=== PATIENT | female | born 1950 | race Caucasian/White ===

== ENCOUNTER 2016-04-17 05:46 | Inpatient (IN) | payer MEDICARE ==
[2016-04-17] VITALS (8 sets, daily range): BP systolic 93–122; BP diastolic 63–73
[~2016-04-17] VITALS: Ht 165.1 cm; Wt 45.7 kg
[~2016-04-17 05:46] MED LIST: BREO ELLIPTA 21 EACH IH; CLOT10TR PO; FLUT12AE IH; GABA-586 PO; LETR2.5T18 PO; LORA0.5T PO; NYST1000 PO; ONDA-35 PO; OXYC20TA PO; PROAIR HFA8.5 GM IH; TIOT18CA IH; TIOT4MIS2 IH; UMEC1DIS IH
[2016-04-17] MEDS ORDERED: HYDROCODONE/APAP 7.5/325MG TABLET. PO PRN ×2 (06:00→08:00)
[2016-04-17] MEDS ORDERED: CELECOXIB 200 MG CAPSULE PO PRN (06:00)
[2016-04-17] MEDS ORDERED: CEFAZOLIN 2GM PREMIX 50 ML IV PRN (06:00)
[2016-04-17] MEDS ORDERED: MORPHINE SULFATE 5 MG, KETOROLAC TROMETHAMINE 30 MG, ROPIVacaine 0.5% PF 60 ML, EPINEPH... INT ART ONE ×5 (06:00)
[2016-04-17] MEDS ORDERED: TRANEXAMIC ACID INJ ONE ×2 (06:00→08:00)
[2016-04-17] MEDS ORDERED: NS INJ ONE ×2 (06:00→08:00)
[2016-04-17] MEDS ORDERED: LIDOCAINE 1% 1 ML SYRINGE. ID PRN (07:00)
[2016-04-17] MEDS ORDERED: HYDROMORPHONE 2 MG/ML VIAL. IV PRN (07:00)
[2016-04-17] MEDS ORDERED: PROCHLORPERAZINE 10 MG/2 ML VIAL. IV PRN ×2 (07:00→08:00)
[2016-04-17] MEDS ORDERED: IV RINGERS,LACTATED 1000ML 1,000 ML IV SCH (07:00)
[2016-04-17] MEDS ORDERED: ONDANSETRON PF 4 MG/2 ML VIAL. IV PRN (07:00)
[2016-04-17] MEDS ORDERED: FENTANYL PF 100 MCG/2 ML VIAL. IV PRN ×3 (07:00→08:00)
[2016-04-17] MEDS ORDERED: LIDOCAINE 2% 100 MG/5 ML DISP.SYRIN. ONE ×2 (07:19)
[2016-04-17] MEDS ORDERED: DEXAMETHASONE SOD PHOS 20 MG/5 ML VIAL. ONE (07:19)
[2016-04-17] MEDS ORDERED: ROCURONIUM 50 MG/5 ML VIAL. ONE (07:19)
[2016-04-17] MEDS ORDERED: FAMOTIDINE 20 MG/2 ML VIAL ONE (07:19)
[2016-04-17] MEDS ORDERED: PROPOFOL 20 ML IV ONE (07:19)
[2016-04-17] MEDS ORDERED: FENTANYL PF 250 MCG/5 ML VIAL. ONE (07:20)
[2016-04-17 07:39] LABS: INR 1.2 (0.8-1.1); PROTHROMBIN TIME PATIENT 14.7 SEC (11.7-14.0)
[2016-04-17] MEDS ORDERED: TRAMADOL 50 MG TABLET. PO PRN ×2 (08:00)
[2016-04-17] MEDS ORDERED: CALCIUM CARBONATE 500 MG TAB.CHEW PO PRN (08:00)
[2016-04-17] MEDS ORDERED: ACETAMINOPHEN 325 MG TABLET. PO PRN (08:00)
[2016-04-17] MEDS ORDERED: OXYCODONE/APAP 5/325 TABLET. PO PRN (08:00)
[2016-04-17] MEDS ORDERED: DEXTROSE 50% 25 GM / 50ML DISP.SYRIN. IV PRN (08:00)
[2016-04-17] MEDS ORDERED: HYDROCODONE/APAP 10/325 TABLET. PO PRN (08:00)
[2016-04-17] MEDS ORDERED: DIPHENHYDRAMINE 50 MG/ML VIAL IV PRN (08:00)
[2016-04-17] MEDS ORDERED: MORPHINE SULFATE 4 MG/ML DISP.SYRIN. IV PRN (08:00)
[2016-04-17] MEDS ORDERED: 0.9 % SODIUM CHLORIDE 10 ML DISP.SYRIN. IV PRN (08:00)
[2016-04-17] MEDS ORDERED: MORPHINE SULFATE 2 MG/ML DISP.SYRIN. IV PRN (08:00)
[2016-04-17] MEDS ORDERED: MORPHINE SULFATE 10 MG/ML VIAL. IV PRN (08:00)
[2016-04-17] MEDS ORDERED: PHENYLEPHRINE in 0.9% NACL PF 1 MG/10 ML DISP.SYRIN. IV ONE (08:04)
[2016-04-17] MEDS ORDERED: SEVOFLURANE > 120 MINUTES. IH ONE (08:10)
--- NOTE | 2016-04-17 08:23 | HP ---
ADMIT DATE: 04/17/2016 PREOPERATIVE DIAGNOSIS: DJD of right hip and deafness. HISTORY OF PRESENT ILLNESS: The patient has a long history of right hip pain unresponsive to nonoperative treatment including medications used a cane, wheelchair, mainly felt in the right groin area with little radiation of pain, but is severely affecting her activities of daily living. She was previously examined in the clinic with a video pipe smoker machine operator and is examined today with the assistance of an pipe smoker machine operator present. PAST MEDICAL HISTORY: Significant for back pain and degenerative disk disease, calcific pancreatitis, breast cancer, and arthritis. PAST SURGICAL HISTORY: Significant for left shoulder surgery, right ankle surgery, gallbladder, appendectomy, cervical fusion, mastectomy, and . FAMILY HISTORY: Significant for mother of breast cancer and father of a stroke, both in their 70s. SOCIAL HISTORY: Former smoker, denies alcohol or drug use. He is . Her is present and is also deaf. MEDICATIONS: List is reviewed. ALLERGIES: Allergies or sensitivities at least include CELEBREX, which gives her some nausea. REVIEW OF SYSTEMS: The only new complaint she has is just some nausea recently. No chest pain, shortness of breath, fever, chills, constitutional symptoms or other problems. PHYSICAL EXAMINATION: VITAL SIGNS: Per admission sheet. HEENT: Atraumatic, normocephalic. CARDIOVASCULAR: Regular rate and rhythm. LUNGS: Clear to auscultation bilaterally. ABDOMEN: Benign. The patient is deaf as noted above. EXTREMITIES: Reveals a very thin patient with decreased range of motion of the right hip in all planes, leg lengths are clinically equal. She has pain on extremes of range of motion of the right hip. Minimal tenderness over the trochanteric bursa. Exam of the contralateral hip shows full flexion, extension, abduction, negative straight leg raise. No tenderness on palpation over the tenderness or bony structures or over the trochanteric bursa. She has normal motion, alignment and stability of bilateral knees and ankles, intact motor function, distal pulses, sensation, reflexes, skin in both lower extremities throughout. IMAGING: X-rays show severe degenerative joint changes of the right hip with [id number] degenerative change, no evidence of collapse or other bony deformity. ASSESSMENT: 1. Osteoarthritis, right hip. 2. History of breast cancer. 3. Deafness. TREATMENT PLAN: I had previously talked with her about risks, benefits, postoperative course of total hip arthroplasty, plan on an anterior approach to decreased any instability. We still talked about the fact of possible infection, nerve or blood vessel damage, leg length inequality, medical or other anesthetic complications, continued pain, premature wear or loosening, instability, among other issues. All her questions were answered again previously with the assistance of video pipe smoker machine operator and now of the pipe smoker machine operator in person and she agrees to proceed with operative evaluation and treatment, after informed consent was obtained. Joint center admission to follow surgical intervention today. RUDY YANEZ MD DR: MISHEL/sushil JOB#: [id number] / [id number]
[2016-04-17] MEDS ORDERED: NEOSTIGMINE METHYLSULFATE 5 MG/5 ML SYRINGE. ONE (09:44)
[2016-04-17] MEDS ORDERED: GLYCOPYRROLATE 1 MG/5 ML VIAL. ONE (09:44)
--- NOTE | 2016-04-17 10:20 | PDOC ---
BRIEF OPERATIVE NOTE Date: Apr 17, 2016 Pre-Op Diagnosis djd right hip Post-Op Diagnosis same Procedure Performed right total hip arthroplasty Surgeon Shad Anesthesia Type: General Blood Loss 100cc Specimens Obtained femoral head to pathology Findings above Complications none RUDY YANEZ MD Apr 17, 2016 10:20
[2016-04-17] MEDS: MORPHINE SULFATE 2 MG/ML DISP.SYRIN. IV PRN ×2 (10:33→10:43)
[2016-04-17] MEDS: FENTANYL PF 100 MCG/2 ML VIAL. IV PRN ×2 (10:51→11:06)
[2016-04-17] MEDS ORDERED: LORAZEPAM 0.5 MG TABLET. PO PRN (11:15)
[2016-04-17] MEDS ORDERED: NON FORMULARY ITEM (Albuterol Sulfate (Proair Hfa Inhaler) 2 PUFF) IH PRN (11:15)
--- NOTE | 2016-04-17 11:37 | RAD ---
EXAM: Pelvis and right hip, 3 views. HISTORY: Arthroplasty. COMPARISON: None. FINDINGS: A frontal view of the pelvis and frontal and lateral views of the right hip are obtained. There is a right hip arthroplasty in expected position. There is surrounding soft tissue gas and lateral skin shahrzad due to recent surgery. There are prominent air-filled loops of bowel throughout the abdomen and multiple bowel anastomoses. There is bone demineralization. IMPRESSION: Right hip arthroplasty in expected position with surrounding soft tissue change due to recent surgery.
[2016-04-17] MEDS: KETOROLAC TROMETHAMINE 10 MG TABLET PO SCH ×2 (12:00→17:05)
[2016-04-17] MEDS ORDERED: ALBUTEROL SULFATE 2.5 MG/3 ML NEBU. NEB PRN (12:30)
[2016-04-17] MEDS ORDERED: ONDANSETRON ODT 4 MG TAB.RAPDIS PO PRN (12:30)
[2016-04-17] MEDS: IV DEXTROSE 5 %-0.45 % NACL 1,000 ML IV SCH ×2 (13:00→23:00)
[2016-04-17] MEDS: CEFAZOLIN SODIUM 1 GM in IV NORMAL SALINE 50ML 50 ML IV SCH ×2 (14:40→20:30)
[2016-04-17] MEDS: MORPHINE SULFATE 4 MG/ML DISP.SYRIN. IV PRN ×2 (15:16→17:06)
[2016-04-17] MEDS ORDERED: WARFARIN 7.5 MG TABLET. PO ONE (16:00)
[2016-04-17] MEDS: IPRATRPIUM/ALBUTEROL 0.5/2.5MG 3 ML NEBU. NEB SCH ×2 (16:06→19:09)
[2016-04-17] MEDS: OXYCODONE IR 5 MG TABLET. PO PRN (17:05)
[2016-04-17] MEDS: KETOROLAC TROMETHAMINE 30 MG, BUPIVACAINE MPF 0.25% 20 ML, EPINEPHRINE 0.5 MG in TOTAL ... INT ART SCH (17:08)
[2016-04-17] MEDS: BUDESONIDE 0.5 MG/2 ML NEBU NEB SCH (19:11)
[2016-04-17] MEDS: GABAPENTIN 300 MG CAPSULE. PO SCH (20:51)
[2016-04-17] MEDS ORDERED: NON FORMULARY ITEM (Fluticasone Propionate (Flovent 110MCG Hfa) 2 PUFF) IH SCH (21:00)
[2016-04-18] MEDS: CEFAZOLIN SODIUM 1 GM in IV NORMAL SALINE 50ML 50 ML IV SCH (03:12)
[2016-04-18] MEDS: MORPHINE SULFATE 4 MG/ML DISP.SYRIN. IV PRN (03:20)
[2016-04-18 03:22] VITALS: BP 120/70
[2016-04-18 05:44] LABS: INR 1.9 (0.8-1.1); PROTHROMBIN TIME PATIENT 21.1 SEC (11.7-14.0)
[2016-04-18] MEDS: KETOROLAC TROMETHAMINE 30 MG, BUPIVACAINE MPF 0.25% 20 ML, EPINEPHRINE 0.5 MG in TOTAL ... INT ART SCH (05:45)
[2016-04-18] MEDS ORDERED: MAGNESIUM HYDROXIDE 2,400 MG/30 ML ORAL.SUSP. PO PRN (06:00)
[2016-04-18] MEDS: KETOROLAC TROMETHAMINE 10 MG TABLET PO SCH ×4 (06:00→17:05)
[2016-04-18] MEDS: OXYCODONE IR 5 MG TABLET. PO PRN ×5 (06:01→21:03)
[2016-04-18 06:46] VITALS: BP 102/60
[2016-04-18] MEDS: IPRATRPIUM/ALBUTEROL 0.5/2.5MG 3 ML NEBU. NEB SCH ×4 (07:27→20:12)
[2016-04-18] MEDS: BUDESONIDE 0.5 MG/2 ML NEBU NEB SCH ×2 (07:27→20:12)
[2016-04-18] MEDS: FERROUS SULFATE 325 MG TABLET PO SCH ×2 (08:00→17:00)
[2016-04-18] MEDS ORDERED: NON FORMULARY ITEM (Umeclidinium Brm/Vilanterol Tr (Anoro Ellipta 62.5-25 Mcg Inh) 1 EACH) IH SCH (09:00)
[2016-04-18] MEDS ORDERED: VILANTEROL IH SCH (09:00)
[2016-04-18] MEDS ORDERED: NON FORMULARY ITEM (Tiotropium Bromide (Spiriva) 1 CAP) IH SCH (09:00)
[2016-04-18] MEDS ORDERED: FLUTICASONE IH SCH (09:00)
[2016-04-18] MEDS: IV DEXTROSE 5 %-0.45 % NACL 1,000 ML IV SCH ×2 (09:00→20:24)
[2016-04-18] MEDS: SENNOSIDES/DOCUSATE 8.6/50MG TABLET. PO SCH (09:00)
[2016-04-18] MEDS: GABAPENTIN 300 MG CAPSULE. PO SCH ×2 (09:15→20:41)
[2016-04-18] MEDS: MULTIVITAMIN with MINERAL TABLET. PO SCH (09:19)
[2016-04-18] MEDS: LETROZOLE 2.5 MG TABLET. PO SCH (09:22)
[2016-04-18] MEDS: NYSTATIN 100,000 UNITS/ML 5 ML ORAL.SUSP. SWSW SCH ×4 (11:06→20:41)
[2016-04-18] MEDS: NICOTINE 21MG PATCH. TD SCH (11:06)
--- NOTE | 2016-04-18 11:38 | OP ---
DATE OF SURGERY: 04/17/2016 ORTHOPEDIC OPERATIVE NOTE PREOPERATIVE DIAGNOSIS: Degenerative joint disease of right hip. POSTOPERATIVE DIAGNOSIS: Degenerative joint disease of right hip. PROCEDURE: Right total hip arthroplasty. SURGEON: Humberto Kulkarni MD ANESTHESIA: General endotracheal. ESTIMATED BLOOD LOSS: 100 mL. COMPLICATIONS: None. OPERATIVE INDICATIONS: The patient is a 65-year-old female who has had longstanding right hip pain and degenerative disease, unresponsive to nonoperative management. I had gone over with her both in the preoperative visit with an assistance of a video oracle ascp consultant as she and her are both deaf and in the preop visit with the assistance of an in-person oracle ascp consultant, any of her questions regarding the procedure and had reviewed again the risks, benefits, postoperative course to include the possibility of infection, leg length inequality, nerve or blood vessel damage, instability, blood clots, medical or other anesthetic complications among others. All her questions were answered. Consent was obtained and she agrees to proceed with operative evaluation and treatment. DESCRIPTION OF PROCEDURE: The patient was identified, procedure verified, patient placed in the supine position on the [place] fracture table and after adequate amounts of general endotracheal anesthesia were administered, the hip was prepped and draped in the standard sterile fashion. The feet were placed in the boots, all bony prominences were well padded and the right hip was prepped and draped in standard sterile fashion. After timeout was performed, the patient and procedure identified and verified, the anterior approach to the hip was carried out as follows. An incision was made from just proximal to the greater trochanter to about the lesser trochanter and centered over the iliotibial band. Fascia was split. Iliotibial band and musculature was taken laterally. The fascial compartment and protecting the rectus femoris and other medial structures was taken medially. Pericapsular fat was exposed and the circumflex vessels were coagulated. Upon removal of the pericapsular fat, the hip capsule was split in a T fashion and using radiographic fluoroscopic guidance, femoral neck cut was made in a napkin ring fashion with a 5-6 mm ring of bone that was removed. Femoral head was then removed and sized and successive size reaming was carried up to a size 50. Femoral head was noted to be completely devoid of any cartilage and very sclerotic in nature likewise acetabular cartilage was worn away as well, any labrum was then excised. Prior to the reaming and after reaming was carried up to a size 50, a size 52 Continuum cluster hole Katelyn cup accommodating a 36 liner was then placed in proper alignment using the alignment guide as well as visual and fluoroscopic guidance. A single screw was placed posteriorly with excellent bite and a trial liner was placed. Attention was then turned to the femoral preparation, in which the leg was brought into about 120 degrees external rotation, extension, adduction and the previous release of the superior and inferior capsule was carried out, preserving the posterior capsule and external rotators. The rat tail rasp was used to definitively locate the canal, box osteotome to widen out the area and broaching was carried out with the Katelyn Avenir broaches. First the #1 broach and then the #2 broach, which was verified to fit very well from a, seemed be placed superiorly. This was examined under fluoroscopic guidance for broach sizing as well and due to some mild deformity that she had in the proximal femur, there was actually 3-point fixation at the calcar, medial distal femur and over the lateral aspect, confirming that a size 2 was the proper approach. Due to the fact that she had significant valgus of the hip preoperatively with a vertically oriented stem and trial fitting, she did need some extra neck length and a +7.5 was trial fit and reproducing the neck length and ended up being an excellent reproduction of her offset radiographically as well as I had purposely in preoperative planning decided to ream a little bit medial in the acetabulum to accommodate. Excellent stability and range of motion were noted. Trial components were then removed. Thorough irrigation carried out with normal saline solution and a standard vitamin E, 36 mm in diameter acetabular liner was placed to correspond with the 52 size cup and was impacted without any difficulty. Next, the size 2 standard Avenir stem was impacted into place in proper version and a +7.5, 36-mm ceramic head was tapped in place to engage the Brooks taper. Hip was reduced in place and found to have equivalent stability, leg length and offset radiographically. Thorough irrigation again carried out with normal saline solution. Pain catheter mixture was placed in the surrounding tissues. The fascia was closed in a layered fashion with #1 Vicryl suture, subcutaneous closure accomplished with buried 2-0 Vicryl and skin closure with shahrzad. Sterile dressings were applied. The patient was extubated and transferred to postop holding in stable condition having tolerated the procedure well. HUMBERTO KULKARNI MD DR: MISHEL/sushil JOB#: [id number] / [id number]
--- NOTE | 2016-04-18 12:02 | PDOC ---
PROGRESS NOTES Subjective Subjective Problems overnight: Examination was conducted with the assistance of an commercial real estate associate today. Patient was sleepy and painful yesterday but feels much better today has not undergone physical therapy yet but really has no other questions problems or complaints at present Objective Vital Signs Vital Signs Date Time Temp Pulse Resp B/P Pulse Ox O2 Delivery O2 Flow Rate FiO2 04/18/16 11:27 Room Air 04/18/16 10:15 16 04/18/16 07:28 98 04/18/16 06:46 98.7 65 102/60 98.7 04/17/16 18:47 2.0 Physical Exam On exam drain and pain catheter intact leg lengths clinically equal distal neurovascular status intact incision clean dry intact Labs Laboratory Tests Test 04/17/16 06:20 04/18/16 04:35 Prothrombin Time 14.7SEC (11.7-14.0) 21.1SEC (11.7-14.0) Prothromb Time International Ratio 1.2 (0.8-1.1) 1.9 (0.8-1.1) Activated Partial Thromboplast Time 35SEC (24-38) Laboratory Tests Test 04/18/16 04:35 Prothrombin Time 21.1SEC (11.7-14.0) Prothromb Time International Ratio 1.9 (0.8-1.1) Imaging Postoperative images show total hip arthroplasty in excellent position Assessment Assessment POD# [1], S/P [right total hip arthroplasty] Problems: Plan Plan of Care Weightbearing as tolerated no hip precautions needed since anterior approach Coumadin anticoagulation Placement versus home on Saturday depending on progress RUDY YANEZ MD Apr 18, 2016 12:02
[2016-04-18 13:41] LABS: HEMATOCRIT 33.1 % (36.0-47.0); HEMOGLOBIN 10.1 g/dL (12.0-15.5)
[2016-04-18] MEDS ORDERED: BISACODYL 10 MG SUPP.RECT PR PRN (16:00)
[2016-04-18] MEDS ORDERED: WARFARIN 1 MG TABLET. PO ONE (16:00)
[2016-04-19] MEDS: OXYCODONE IR 5 MG TABLET. PO PRN ×5 (02:18→20:46)
[2016-04-19 05:43] VITALS: BP 99/54
[2016-04-19] MEDS: KETOROLAC TROMETHAMINE 10 MG TABLET PO SCH ×4 (05:44→20:46)
[2016-04-19] MEDS: BUDESONIDE 0.5 MG/2 ML NEBU NEB SCH ×2 (07:57→20:09)
[2016-04-19] MEDS: IPRATRPIUM/ALBUTEROL 0.5/2.5MG 3 ML NEBU. NEB SCH ×4 (07:57→20:09)
[2016-04-19] MEDS: FERROUS SULFATE 325 MG TABLET PO SCH ×2 (08:00→20:46)
[2016-04-19 08:46] LABS: PROTHROMBIN TIME PATIENT 43.9 SEC (11.7-14.0)
[2016-04-19 09:54] LABS: HEMATOCRIT 40.3 % (36.0-47.0); HEMOGLOBIN 13.6 g/dL (12.0-15.5)
[2016-04-19] MEDS: SENNOSIDES/DOCUSATE 8.6/50MG TABLET. PO SCH (09:59)
[2016-04-19] MEDS: MULTIVITAMIN with MINERAL TABLET. PO SCH (09:59)
[2016-04-19] MEDS: LETROZOLE 2.5 MG TABLET. PO SCH (09:59)
[2016-04-19] MEDS: GABAPENTIN 300 MG CAPSULE. PO SCH ×2 (09:59→20:54)
[2016-04-19] MEDS: NYSTATIN 100,000 UNITS/ML 5 ML ORAL.SUSP. SWSW SCH ×5 (10:00→21:30)
[2016-04-19] MEDS: NICOTINE 21MG PATCH. TD SCH (10:01)
--- NOTE | 2016-04-19 10:11 | PDOC ---
ORTHO PROGRESS NOTES Subjective Dyan reports that she is doing okay. Pain medication is adequately treating her pain. She is concerned whether her right hip is infected because of redness around the incision. Denies any other problems Post-op Day: 2 (Right total hip arthroplasty) Vitals Vital Signs Date Time Temp Pulse Resp B/P Pulse Ox O2 Delivery O2 Flow Rate FiO2 04/19/16 07:59 97 Room Air 04/19/16 07:45 16 04/19/16 05:43 99.5 85 99/54 99.5 Labs Laboratory Tests Test 04/18/16 04:35 04/19/16 07:50 Hemoglobin 10.1g/dL (12.0-15.5) 13.6g/dL (12.0-15.5) Hematocrit 33.1% (36.0-47.0) 40.3% (36.0-47.0) Mean Corpuscular Hemoglobin Concent 31g/dL (31-37) 34g/dL (31-37) Prothrombin Time 21.1SEC (11.7-14.0) 43.9SEC (11.7-14.0) Prothromb Time International Ratio 1.9 (0.8-1.1) 5.0 (0.8-1.1) Laboratory Tests Test 04/19/16 07:50 Hemoglobin 13.6g/dL (12.0-15.5) Hematocrit 40.3% (36.0-47.0) Mean Corpuscular Hemoglobin Concent 34g/dL (31-37) Prothrombin Time 43.9SEC (11.7-14.0) Prothromb Time International Ratio 5.0 (0.8-1.1) Notes Patient is awake and alert sitting up in chair. Neurovascular intact right lower extremity. Incision is covered with drainage, slight shadow drainage noted. Trace edema, no tenderness around the incision. Slight erythema noted. Skin is not tight or shiny. Problems: (1) Degenerative joint disease of right hip Assessment and Plan Hold physical therapy today, rest. INR 5. Incision is not draining and no signs or symptoms of a hematoma under the incision currently. Pain controlled Problem Qualifiers (1) Degenerative joint disease of right hip: Osteoarthritis type: primary Qualified Code: M16.11 - Unilateral primary osteoarthritis, right hip BELKYS BETTENCOURT APRN Apr 19, 2016 10:11
--- NOTE | 2016-04-19 12:59 | RAD ---
EXAM: Chest, single view. HISTORY: Cough. COMPARISON: 03/26/2016. FINDINGS: A frontal view of the chest is obtained. There is left apical pleural-based opacity likely due to thickening. There is no effusion or pneumothorax. The heart is normal in size. There are right axillary surgical clips.. IMPRESSION: Suspected right apical pleural thickening, slightly increased compared to the prior study. This may be due to scarring. Short-term follow-up can performed to confirm stability.
--- NOTE | 2016-04-19 13:26 | PDOC2 ---
CONSULT Date of Consult Date of Consult DATE: 04/19/16 TIME: 13:26 Reason for Consult Reason for Consult: cough Referring Physician Referring Physician: Shad Source Source: Caregiver History of Present Illness Reason for Visit: A 65 F WITH HX OF SMOKING, ACTIVE , S/P HIA, developed sudden cough without any expcoration, Pt is smoker, smoking <1 pack /day for long time, She denies any chest pain, mild sob, no hypoxia, sudden onset of symptoms today, no fever no chills. Past Medical History Past Medical History arthritis, and breast cancer Family History Family History breast cancer Social History <1 pack per day ALCOHOL: rare Current Problem List Problem List Problems Medical Problems: (1) Deafness Status: Acute (2) Degenerative joint disease of right hip Status: Acute Current Medications Current Medications Current Medications Ondansetron HCl (Zofran) 4 mg PRN Q6HRS PRN IV Nausea; Start 04/17/16 at 07:00 ; Stop 04/18/16 at 06:59; Status DC Fentanyl Citrate (Fentanyl 2ml Vial) 25 mcg PRN Q5MIN PRN IV MILD PAIN; Start 04/17/16 at 07:00; Stop 04/18/16 at 06:59; Status DC Fentanyl Citrate (Fentanyl 2ml Vial) 50 mcg PRN Q5MIN PRN IV MODERATE PAIN Last administered on 04/17/16 11:06; Start 04/17/16 at 07:00; Stop 04/18/16 at 06:59; Status DC Morphine Sulfate 1 mg 1 mg PRN Q10MIN PRN IV SEVERE PAIN Last administered on 10:43; Start 04/17/16 at 07:00; Stop 04/18/16 at 06:59; Status DC Lactated Ringer's (Iv Lactated Ringers) 1,000 ml @ 30 mls/hr Q24H IV Last administered on 04/17/16 07:16; Start 04/17/16 at 07:00; Stop 04/17/16 at 18:59 ; Status DC Lidocaine HCl 2 ml 1X PRN PRN ID IV START; Start 04/17/16 at 07:00; Stop at 06:59; Status DC Hydromorphone HCl (Dilaudid) 0.5 mg PRN Q10MIN PRN IV SEVERE PAIN, Second choice; Start 04/17/16 at 07:00; Stop 04/18/16 at 06:59; Status DC Prochlorperazine Edisylate 5 mg 5 mg PACU PRN PRN IV NAUSEA; Start 04/17/16 at 07:00; Stop 04/18/16 at 06:59; Status DC Morphine Sulfate/ Ketorolac Tromethamine/ Ropivacaine/ Epinephrine HCl/ Sodium Chloride (Morphine 5mg Syringe/Toradol/ Naropin 0.5%/ Adrenalin/Iv Sodium Chloride 0.9% 50ml) 100.5 ml @ 100.5 mls/ hr 1X PERIOP ONCE INT ART Last administered on 04/17/16 08:31; Start 04/17/16 at 06:00; Stop 04/17/16 at 06:59 ; Status DC Celecoxib (Celebrex) 400 mg 1X PREOP PRN PO PRIOR TO PROCEDURE; Start 04/17/16 at 06:00; Stop 04/17/16 at 18:00; Status Cancel Acetaminophen/ Hydrocodone Bitart 2 tab 2 tab 1X PREOP PRN PO PRIOR TO PROCEDURE; Start 04/17/16 at 06:00; Stop 04/17/16 at 18:00; Status DC Cefazolin Sodium/ Dextrose 50 ml @ 100 mls/hr 1X PREOP PRN IV PRIOR TO PROCEDURE Last administered on 04/17/16 08:03; Start 04/17/16 at 06:00; Stop at 18:00; Status DC Tranexamic Acid 1000 mg/Sodium Chloride 60 ml @ 60 mls/hr 1X PERIOP ONCE INJ Last administered on 04/17/16 08:13; Start 04/17/16 at 06:00; Stop 04/17/16 at 06:59; Status DC Tranexamic Acid/ Sodium Chloride (Cyklokapron/Iv Sodium Chloride 0.9% 50ml) 60 ml @ 60 mls/hr 1X PERIOP ONCE INJ ; Start 04/17/16 at 08:00; Stop 04/17/16 at 08:59; Status DC Lidocaine HCl 100 mg STK-MED ONCE .ROUTE ; Start 04/17/16 at 07:19; Stop at 07:20; Status DC Famotidine (Pepcid) 20 mg STK-MED ONCE .ROUTE ; Start 04/17/16 at 07:19; Stop at 07:20; Status DC Dexamethasone Sodium Phosphate 20 mg 20 mg STK-MED ONCE .ROUTE ; Start 04/17/16 at 07:19; Stop 04/17/16 at 07:20; Status DC Propofol (Diprivan) 20 ml @ As Directed STK-MED ONCE IV ; Start 04/17/16 at 07: 19; Stop 04/17/16 at 07:20; Status DC Rocuronium [place] (Zemuron) 50 mg STK-MED ONCE .ROUTE ; Start 04/17/16 at 07:19 ; Stop 04/17/16 at 07:20; Status DC Lidocaine HCl 100 mg STK-MED ONCE .ROUTE ; Start 04/17/16 at 07:19; Stop at 07:20; Status DC Fentanyl Citrate (Fentanyl 5ml Vial) 250 mcg STK-MED ONCE .ROUTE ; Start at 07:20; Stop 04/17/16 at 07:21; Status DC Acetaminophen/ Hydrocodone Bitart (Lortab 7.5/325) 1 tab PRN Q3HRS PRN PO PAIN ; Start 04/17/16 at 08:00 Acetaminophen/ Hydrocodone Bitart (Lortab 10/325) 1 tab PRN Q3HRS PRN PO PAIN; Start 04/17/16 at 08:00 Tramadol HCl (Ultram) 50 mg PRN QID PRN PO PAIN; Start 04/17/16 at 08:00 Oxycodone/ Acetaminophen (Percocet 5/325) 1 tab PRN Q3HRS PRN PO PAIN; Start at 08:00 Oxycodone/ Acetaminophen (Percocet 7.5/ 325) 1 tab PRN Q3HRS PRN PO PAIN; Start 04/17/16 at 08:00 Tramadol HCl (Ultram) 100 mg PRN Q3HRS PRN PO PAIN; Start 04/17/16 at 08:00 Morphine Sulfate 2 mg PRN Q1HR PRN IV PAIN; Start 04/17/16 at 08:00 Fentanyl Citrate (Fentanyl 2ml Vial) 25 mcg PRN Q1HR PRN IV PAIN Last administered on 04/17/16t 12:22; Start 04/17/16 at 08:00 Diphenhydramine HCl (Benadryl) 25 mg PRN Q6HRS PRN IV ITCHING; Start 04/17/16 at 08:00 Warfarin Sodium (Coumadin) 7.5 mg 1X ONCE PO Last administered on 04/17/16 17 :05; Start 04/17/16 at 16:00; Stop 04/17/16 at 16:01; Status DC Warfarin Sodium (Coumadin Per Pharmacy) 1 each PRN DAILY PRN MC SEE COMMENTS Last administered on 04/19/16 12:28; Start 04/17/16 at 08:00 Multivitamins/ Calcium (Thera M Plus) 1 tab DAILY PO Last administered on 09:59; Start 04/18/16 at 09:00 Senna/Docusate Sodium (Senna Plus) 1 tab DAILY PO Last administered on 09:59; Start 04/18/16 at 09:00 Ferrous Sulfate (Feosol) 325 mg BIDWMEALS PO ; Start 04/18/16 at 08:00 Ketorolac Tromethamine 10 mg 10 mg Q6HRS PO Last administered on 04/19/16 12: 04; Start 04/17/16 at 12:00; Stop 04/22/16 at 11:59 Dextrose/Sodium Chloride (Iv D5% - 1/2 NS) 1,000 ml @ 100 mls/hr Q10H IV ; Start 04/17/16 at 13:00; Stop 04/19/16 at 03:45; Status DC Magnesium Hydroxide (Milk Of Magnesia) 2,400 mg 1X PRN PRN PO CONSTIPATION; Start 04/18/16 at 06:00; Stop 04/19/16 at 05:59; Status DC Bisacodyl (Dulcolax Supp) 10 mg 1X PRN PRN [place] CONSTIPATION; Start 04/18/16 at 16:00; Stop 04/19/16 at 15:59 Acetaminophen (Tylenol) 650 mg PRN Q4HRS PRN PO MILD PAIN / TEMP; Start at 08:00 Zolpidem Tartrate (Ambien) 5 mg PRN QHS PRN PO INSOMNIA, MAY REPEAT IN 1HR; Start 04/17/16 at 08:00 Calcium Carbonate/ Glycine (Tums) 500 mg PRN QID PRN PO INDIGESTION; Start 01/22 at 08:00 Morphine Sulfate 4 mg PRN Q1HR PRN IV PAIN Last administered on 04/18/16 03:20 ; Start 04/17/16 at 08:00 Morphine Sulfate 6 mg PRN Q1HR PRN IV PAIN; Start 04/17/16 at 08:00 Morphine Sulfate 8 mg 8 mg PRN Q1HR PRN IV PAIN; Start 04/17/16 at 08:00 Ketorolac Tromethamine/ Bupivacaine HCl/ Epinephrine HCl/ Miscellaneous (Toradol / Sensorcaine Mpf 0.25%/Adrenalin) 43.0 ml @ 258 mls/hr Q12H INT ART Last administered on 04/18/16 05:45; Start 04/17/16 at 18:00; Stop 04/18/16 at 06:09 ; Status DC Sodium Chloride (Normal Saline Flush) 10 ml QSHIFT PRN IV AFTER MEDS AND BLOOD DRAWS; Start 04/17/16 at 08:00 Fentanyl Citrate (Fentanyl 2ml Vial) 50 mcg PRN Q1HR PRN IV PAIN; Start at 08:00 Prochlorperazine Edisylate (Compazine) 10 mg PRN Q4HRS PRN IV NAUSEA/VOMITING; Start 04/17/16 at 08:00 Dextrose 12.5 gm 12.5 gm PRN Q15MIN PRN IV SEE COMMENTS; Start 04/17/16 at 08: 00 Cefazolin Sodium/ Sodium Chloride (Ancef/Iv Sodium Chloride 0.9% 50ml) 50 ml @ 100 mls/hr Q6H IV Last administered on 04/18/16 03:12; Start 04/17/16 at 14:30 ; Stop 04/18/16 at 02:59; Status DC Phenylephrine HCl 1 mg STK-MED ONCE IV ; Start 04/17/16 at 08:04; Stop 04/17/16 at 08:05; Status DC Sevoflurane (Ultane) 90 ml STK-MED ONCE IH ; Start 04/17/16 at 08:10; Stop 04/17 at 08:11; Status DC Glycopyrrolate (Robinul) 1 mg STK-MED ONCE .ROUTE ; Start 04/17/16 at 09:44; Stop 04/17/16 at 09:45; Status DC Neostigmine Methylsulfate 5 mg STK-MED ONCE .ROUTE ; Start 04/17/16 at 09:44; Stop 04/17/16 at 09:45; Status DC Gabapentin (Neurontin) 300 mg BID PO Last administered on 04/19/16 09:59; Start 04/17/16 at 21:00 Letrozole (Femara) 2.5 mg DAILY PO Last administered on 04/19/16 09:59; Start 04/18/16 at 09:00 Lorazepam (Ativan) 0.5 mg Q4HRS PRN PO ANXIETY; Start 04/17/16 at 11:15 Non-Formulary Medication 2 puff PRN QID PRN IH COUGH; Start 04/17/16 at 11:15; Status UNV Non-Formulary Medication 2 puff BID IH ; Start 04/17/16 at 21:00; Status UNV Non-Formulary Medication 1 each DAILY IH ; Start 04/18/16 at 09:00; Status UNV Ondansetron HCl (Zofran Odt) 4 mg PRN Q8HRS PRN PO NAUSEA/VOMITING Last administered on 04/18/16 10:22; Start 04/17/16 at 12:30 Oxycodone HCl (Roxicodone) 20 mg PRN Q4HRS PRN PO PAIN Last administered on 10:16; Start 04/17/16 at 12:30 Non-Formulary Medication 1 cap DAILY IH ; Start 04/18/16 at 09:00; Status UNV Non-Formulary Medication 1 each DAILY IH ; Start 04/18/16 at 09:00; Status UNV Albuterol/ Ipratropium (Duoneb) 3 ml RTQID NEB Last administered on 04/19/16 11:27; Start 04/17/16 at 16:00 Albuterol Sulfate (Ventolin Neb Soln) 2.5 mg PRN Q6HRS PRN NEB SHORTNESS OF BREATH; Start 04/17/16 at 12:30 Budesonide (Pulmicort) 0.5 mg RTBID NEB Last administered on 04/19/16 07:57; Start 04/17/16 at 20:00 Nystatin 5 ml QID SWSW Last administered on 04/19/16 10:00; Start 04/18/16 at 10:15 Nicotine (Nicoderm Cq 21mg) 1 patch DAILY TD Last administered on 04/19/16 10: 01; Start 04/18/16 at 11:00 Warfarin Sodium (Coumadin) 1 mg 1X WARF ONCE PO Last administered on t 17:01; Start 04/18/16 at 16:00; Stop 04/18/16 at 16:01; Status DC Warfarin Sodium (Coumadin - No Dose Today) 1 each 1X WARF ONCE MC ; Start 04/19 at 16:00; Stop 04/19/16 at 16:01 Active Scripts Active Reported Anoro Ellipta 62.5-25 Mcg Inh (Umeclidinium Brm/Vilanterol Tr) 1 Each Disk.w.dev 1 Each IH DAILY Oxycodone Hcl 20 Mg Tablet 20 Mg PO PRN Q4HRS PRN Gabapentin 300 Mg Capsule 1 Cap PO BID Flovent 110MCG Hfa (Fluticasone Propionate) 12 Gm Aer.w.adap 2 Puff IH BID Breo Ellipta 200-25 Mcg INH (Fluticasone/Vilanterol) 1 Each Blst.w.dev 1 Each IH DAILY Proair Hfa Inhaler (Albuterol Sulfate) 8.5 Gm Hfa.aer.ad 2 Puff IH PRN QID PRN Lorazepam 0.5 Mg Tablet 0.5 Mg PO Q4HRS PRN Ondansetron Hcl 4 Mg Tablet 1 Tab PO PRN Q4HRS Spiriva (Tiotropium [place]) 18 Mcg Cap.w.dev 1 Cap IH DAILY Femara (Letrozole) 2.5 Mg Tablet 2.5 Mg PO DAILY Allergies Allergies: Coded Allergies: celecoxib (Verified Allergy, Intermediate, Nausea and Vomiting, 04/17/16) ROS General: No: Appetite, Chills, Fatigue, Malaise, Night Sweats, Other Respiratory: YES: Cough, Shortness of breath Cardiovascular: No Chest Pain, No Edema, No Lt Headedness, No Orthopnea, No Other, No Palpitations, No Paroxysmal Noc. Dyspnea Gastrointestinal: No Abdominal Pain, No Constipation, No Diarrhea, No Hematochezia, No Melena, No Nausea, No Other, No Vomiting Musculoskeletal: Yes Joint Pain Neurological: No Behavorial Changes, No Bowel/Bladder ControlChng, No Confusion , No Dizziness, No Gait Disturbance, No Headaches, No Impaired Coord/balance, No Memory Loss, No Numbness/Tingling, No Other, No Seizures, No Speech Problems , No Tremors, No Visual Changes, No Weakness Skin: No Acne, No Dry Skin, No Eczema, No Hair Changes, No Lumps, No Mole Changes, No Mottling, No Nail Changes, No Other, No Pruritus, No Rash, No Skin Lesion Changes Physical Exam General: Alert, Oriented X3, Other (deaf, ) HEENT: Atraumatic, PERRLA Heart: Regular rate, Normal S1, Normal S2 Abdomen: Normal bowel sounds, Soft Extremities: No clubbing Neuro: Normal tone Psych/Mental Status: Mental status NL MUSCULOSKELETAL: Other Vitals VITALS Vital Signs Date Time Temp Pulse Resp B/P Pulse Ox O2 Delivery O2 Flow Rate FiO2 04/19/16 11:15 16 Room Air 04/19/16 07:59 97 04/19/16 05:43 99.5 85 99/54 99.5 Labs Labs Laboratory Tests Test 04/18/16 04:35 04/19/16 07:50 Hemoglobin 10.1g/dL (12.0-15.5) 13.6g/dL (12.0-15.5) Hematocrit 33.1% (36.0-47.0) 40.3% (36.0-47.0) Mean Corpuscular Hemoglobin Concent 31g/dL (31-37) 34g/dL (31-37) Prothrombin Time 21.1SEC (11.7-14.0) 43.9SEC (11.7-14.0) Prothromb Time International Ratio 1.9 (0.8-1.1) 5.0 (0.8-1.1) Laboratory Tests Test 04/19/16 07:50 Hemoglobin 13.6g/dL (12.0-15.5) Hematocrit 40.3% (36.0-47.0) Mean Corpuscular Hemoglobin Concent 34g/dL (31-37) Prothrombin Time 43.9SEC (11.7-14.0) Prothromb Time International Ratio 5.0 (0.8-1.1) Assessment/Plan Assessment/Plan , S/P right total hip arthroplasty Serotherapeutic INR Cough Nicotine use, prolonged period Plan CXR looks good, cough likey due to her smoking, Chest is clear on exam, Periodic nebulization, Mucomyst, hold Coumadin monitor INR in am pt/ot Labs reviewed, MENDY JERRY MD Apr 19, 2016 13:26
--- NOTE | 2016-04-19 14:22 | PATHOLOGY ---
PATHOLOGY REPORT * * * * * * * * FINAL DIAGNOSIS: Femoral head, right total hip arthroplasty: - Advanced degenerative arthritis. (HUBERM:; d/t: 04/19/16) REPORT ELECTRONICALLY SIGNED BY: Gelacio Meade M.D. DATE/TIME: 04/19/2016 14:20 * * * * * * * * GROSS PATHOLOGY: Received in formalin labeled "Nova Hyde, right hip bone and tissue," is a femoral head measuring 4.8 x 4.8 x 4.5 cm in maximum dimensions. The articular surface is light patel and slightly irregular in contour, displaying evidence of eburnation and osteophytic lipping. Sectioning the bone reveals light patel cut surfaces. Glass Fitter tissue is submitted in cassette A1, following decalcification. (CAA; 04/18/2016) INITIAL CPT CODE(S): A; 48274, 17894 Professional services [place] [facility] [place] [address] Technical services performed by [facility] at [address] [place] [address] Kulkarni fax: [phone] SPECIMEN(S) RECEIVED: A.Right hip bone and tissue CLINICAL HISTORY: Right hip osteoarthritis PATIENT: NOVA HYDE /AGE: 912/20/1950 (Age: 65) PATIENT #: [id number] ALT CASE #: SPECIMEN COLLECTION DATE: 04/17/2016 SPECIMEN RECEIVED DATE: 04/17/2016 [facility] - [address] [place] [address] - PHONE: [phone] * * * END OF REPORT * * *
[2016-04-19] MEDS: GUAIFENESIN ER 600 MG TABLET.ER PO SCH ×2 (14:25→20:46)
[2016-04-19 20:30] VITALS: BP 110/64
[2016-04-19] MEDS: ZOLPIDEM 5 MG TABLET. PO PRN (20:48)
[2016-04-19] MEDS ORDERED: CEFTRIAXONE SODIUM 1 GM in IV NORMAL SALINE 50ML 50 ML IV ONE (23:00)
[2016-04-20] MEDS: KETOROLAC TROMETHAMINE 10 MG TABLET PO SCH ×4 (00:08→17:21)
[2016-04-20] MEDS: OXYCODONE IR 5 MG TABLET. PO PRN ×2 (04:46→08:33)
[2016-04-20 05:12] LABS: BASO # 0.1 x10^3/uL (0.0-0.2); BASO % 1 % (0-3); EOS % 0 % (0-3); HEMATOCRIT 37.8 % (36.0-47.0); HEMOGLOBIN 12.3 g/dL (12.0-15.5); LYMPH # 2.2 x10^3/uL (1.0-4.8); LYMPH % 10 % (24-48); MEAN CORPUSCULAR HEMOGLOBIN 32 pg (25-35); MEAN CORPUSCULAR HGB CONC 33 g/dL (31-37); MEAN CORPUSCULAR VOLUME 99 fL (79-100); MONO % 6 % (0-9); NEUT % 82 % (31-73); PLATELET COUNT 219 x10^3/uL (140-400); RED BLOOD COUNT 3.84 x10^6/uL (3.50-5.40); RED CELL DISTRIBUTION WIDTH 14.1 % (11.5-14.5); WHITE BLOOD COUNT 21.5 x10^3/uL (4.0-11.0)
[2016-04-20 05:52] LABS: PROTHROMBIN TIME PATIENT 53.3 SEC (11.7-14.0)
[2016-04-20 05:56] LABS: INR 6.4 (0.8-1.1)
[2016-04-20 06:00] VITALS: BP 102/69
--- NOTE | 2016-04-20 07:57 | RAD ---
EXAM: Chest, 2 views. HISTORY: Fever and cough. COMPARISON: 04/19/2016. FINDINGS: Frontal and lateral views of the chest are obtained. The lungs are hyperinflated and there are coarse interstitial markings likely due to emphysema. There is right greater than left apical pleural thickening. The heart is normal in size. There are right axillary surgical clips in findings as with right mastectomy. There are few calcified granulomas. There is stable left infrahilar opacity likely due to atelectasis or scarring. IMPRESSION: 1. Suspected emphysema with superimposed left infrahilar atelectasis or scarring. 2. Biapical pleural thickening.
[2016-04-20] MEDS: FERROUS SULFATE 325 MG TABLET PO SCH ×2 (08:00→16:42)
[2016-04-20] MEDS: BUDESONIDE 0.5 MG/2 ML NEBU NEB SCH ×2 (08:04→20:23)
[2016-04-20] MEDS: IPRATRPIUM/ALBUTEROL 0.5/2.5MG 3 ML NEBU. NEB SCH ×4 (08:04→20:23)
[2016-04-20] MEDS: GUAIFENESIN ER 600 MG TABLET.ER PO SCH ×2 (08:31→21:10)
[2016-04-20] MEDS: NYSTATIN 100,000 UNITS/ML 5 ML ORAL.SUSP. SWSW SCH ×4 (08:31→21:10)
[2016-04-20] MEDS: GABAPENTIN 300 MG CAPSULE. PO SCH ×2 (08:31→21:10)
[2016-04-20] MEDS: SENNOSIDES/DOCUSATE 8.6/50MG TABLET. PO SCH (08:31)
[2016-04-20] MEDS: MULTIVITAMIN with MINERAL TABLET. PO SCH (08:31)
[2016-04-20] MEDS: NICOTINE 21MG PATCH. TD SCH (08:32)
[2016-04-20] MEDS: LETROZOLE 2.5 MG TABLET. PO SCH (08:34)
[2016-04-20] MEDS ORDERED: PIPERACILLIN/TAZOBACTAM 2.25 GM in IV NORMAL SALINE 50ML 50 ML IV ONE (09:00)
[2016-04-20] MEDS ORDERED: VANCOMYCIN 1.25 GM in IV NORMAL SALINE 250ML 250 ML IV ONE (09:00)
[2016-04-20] MEDS ORDERED: PIPERACILLIN/TAZOBACTAM 3.375 GM in IV NORMAL SALINE 50ML 50 ML IV ONE (09:00)
[2016-04-20] MEDS ORDERED: GUAIFENESIN DM 200MG/20MG 10 ML SYRUP. PO PRN (10:15)
--- NOTE | 2016-04-20 10:16 | PDOC ---
PROGRESS NOTES Chief Complaint Chief Complaint 1. POD # 3 hip sx 2. Fevers 3. Leukocytosis] 4. SMOker 5. Cough 6. EMphysema with atelectasis and scarring 7. Supratherapeutic iNR on warfrain post hip History of Present Illness History of Present Illness 102.3 temp last night NOt using much IS WBC 21.5 today No UA yet BC drawn this AM - all these orders from multiple calls last night overnight Pt feels fine, not aware she had a fever Wants to go home AGreed to stay after saying we can provide cab voucher for home (worried about driving in the winter storm) Vitals Vitals Vital Signs Date Time Temp Pulse Resp B/P Pulse Ox O2 Delivery O2 Flow Rate FiO2 04/20/16 08:33 16 Nasal Cannula 2.0 04/20/16 06:00 98.1 90 102/69 99 98.1 Physical Exam General: Alert, Oriented X3, Other (deaf, ) Heart: Regular rate, Normal S1, Normal S2 Lungs: Clear Abdomen: Normal bowel sounds, Soft Extremities: No clubbing Labs LABS Laboratory Tests Test 04/20/16 04:40 White Blood Count 21.5x10^3/uL (4.0-11.0) Red Blood Count 3.84x10^6/uL (3.50-5.40) Hemoglobin 12.3g/dL (12.0-15.5) Hematocrit 37.8% (36.0-47.0) Mean Corpuscular Volume 99fL (79-100) Mean Corpuscular Hemoglobin 32pg (25-35) Mean Corpuscular Hemoglobin Concent 33g/dL (31-37) Red Cell Distribution Width 14.1% (11.5-14.5) Platelet Count 219x10^3/uL (140-400) Neutrophils (%) (Auto) 82% (31-73) Lymphocytes (%) (Auto) 10% (24-48) Monocytes (%) (Auto) 6% (0-9) Eosinophils (%) (Auto) 0% (0-3) Basophils (%) (Auto) 1% (0-3) Neutrophils # (Auto) 17.6x10^3uL (1.8-7.7) Lymphocytes # (Auto) 2.2x10^3/uL (1.0-4.8) Monocytes # (Auto) 1.4x10^3/uL (0.0-1.1) Eosinophils # (Auto) 0.1x10^3/uL (0.0-0.7) Basophils # (Auto) 0.1x10^3/uL (0.0-0.2) Prothrombin Time 53.3SEC (11.7-14.0) Prothromb Time International Ratio 6.4 (0.8-1.1) Review of Systems Review of Systems productive cough Fevers No CP NO inc in SOA Assessment and Plan Assessmemt and Plan BC Zosyn IV q 6 TYlenol UA Encourage IS HOld warfarin today (INR 6) CBC and INR juany Dw RN and orthopedics Problems Medical Problems: (1) Deafness Status: Acute (2) Degenerative joint disease of right hip Status: Acute Problems: Comment Review of Relevant I have reviewed the following items apryl (where applicable) has been applied. Labs Laboratory Tests Test 04/19/16 07:50 04/20/16 04:40 Hemoglobin 13.6g/dL (12.0-15.5) 12.3g/dL (12.0-15.5) Hematocrit 40.3% (36.0-47.0) 37.8% (36.0-47.0) Mean Corpuscular Hemoglobin Concent 34g/dL (31-37) 33g/dL (31-37) Prothrombin Time 43.9SEC (11.7-14.0) 53.3SEC (11.7-14.0) Prothromb Time International Ratio 5.0 (0.8-1.1) 6.4 (0.8-1.1) White Blood Count 21.5x10^3/uL (4.0-11.0) Red Blood Count 3.84x10^6/uL (3.50-5.40) Mean Corpuscular Volume 99fL (79-100) Mean Corpuscular Hemoglobin 32pg (25-35) Red Cell Distribution Width 14.1% (11.5-14.5) Platelet Count 219x10^3/uL (140-400) Neutrophils (%) (Auto) 82% (31-73) Lymphocytes (%) (Auto) 10% (24-48) Monocytes (%) (Auto) 6% (0-9) Eosinophils (%) (Auto) 0% (0-3) Basophils (%) (Auto) 1% (0-3) Neutrophils # (Auto) 17.6x10^3uL (1.8-7.7) Lymphocytes # (Auto) 2.2x10^3/uL (1.0-4.8) Monocytes # (Auto) 1.4x10^3/uL (0.0-1.1) Eosinophils # (Auto) 0.1x10^3/uL (0.0-0.7) Basophils # (Auto) 0.1x10^3/uL (0.0-0.2) Laboratory Tests Test 04/20/16 04:40 White Blood Count 21.5x10^3/uL (4.0-11.0) Red Blood Count 3.84x10^6/uL (3.50-5.40) Hemoglobin 12.3g/dL (12.0-15.5) Hematocrit 37.8% (36.0-47.0) Mean Corpuscular Volume 99fL (79-100) Mean Corpuscular Hemoglobin 32pg (25-35) Mean Corpuscular Hemoglobin Concent 33g/dL (31-37) Red Cell Distribution Width 14.1% (11.5-14.5) Platelet Count 219x10^3/uL (140-400) Neutrophils (%) (Auto) 82% (31-73) Lymphocytes (%) (Auto) 10% (24-48) Monocytes (%) (Auto) 6% (0-9) Eosinophils (%) (Auto) 0% (0-3) Basophils (%) (Auto) 1% (0-3) Neutrophils # (Auto) 17.6x10^3uL (1.8-7.7) Lymphocytes # (Auto) 2.2x10^3/uL (1.0-4.8) Monocytes # (Auto) 1.4x10^3/uL (0.0-1.1) Eosinophils # (Auto) 0.1x10^3/uL (0.0-0.7) Basophils # (Auto) 0.1x10^3/uL (0.0-0.2) Prothrombin Time 53.3SEC (11.7-14.0) Prothromb Time International Ratio 6.4 (0.8-1.1) Medications Current Medications Ondansetron HCl (Zofran) 4 mg PRN Q6HRS PRN IV Nausea; Start 04/17/16 at 07:00 ; Stop 04/18/16 at 06:59; Status DC Fentanyl Citrate (Fentanyl 2ml Vial) 25 mcg PRN Q5MIN PRN IV MILD PAIN; Start 04/17/16 at 07:00; Stop 04/18/16 at 06:59; Status DC Fentanyl Citrate (Fentanyl 2ml Vial) 50 mcg PRN Q5MIN PRN IV MODERATE PAIN Last administered on 04/17/16 11:06; Start 04/17/16 at 07:00; Stop 04/18/16 at 06:59; Status DC Morphine Sulfate 1 mg 1 mg PRN Q10MIN PRN IV SEVERE PAIN Last administered on 10:43; Start 04/17/16 at 07:00; Stop 04/18/16 at 06:59; Status DC Lactated Ringer's (Iv Lactated Ringers) 1,000 ml @ 30 mls/hr Q24H IV Last administered on 04/17/16 07:16; Start 04/17/16 at 07:00; Stop 04/17/16 at 18:59 ; Status DC Lidocaine HCl 2 ml 1X PRN PRN ID IV START; Start 04/17/16 at 07:00; Stop at 06:59; Status DC Hydromorphone HCl (Dilaudid) 0.5 mg PRN Q10MIN PRN IV SEVERE PAIN, Second choice; Start 04/17/16 at 07:00; Stop 04/18/16 at 06:59; Status DC Prochlorperazine Edisylate 5 mg 5 mg PACU PRN PRN IV NAUSEA; Start 04/17/16 at 07:00; Stop 04/18/16 at 06:59; Status DC Morphine Sulfate/ Ketorolac Tromethamine/ Ropivacaine/ Epinephrine HCl/ Sodium Chloride (Morphine 5mg Syringe/Toradol/ Naropin 0.5%/ Adrenalin/Iv Sodium Chloride 0.9% 50ml) 100.5 ml @ 100.5 mls/ hr 1X PERIOP ONCE INT ART Last administered on 04/17/16 08:31; Start 04/17/16 at 06:00; Stop 04/17/16 at 06:59 ; Status DC Celecoxib (Celebrex) 400 mg 1X PREOP PRN PO PRIOR TO PROCEDURE; Start 04/17/16 at 06:00; Stop 04/17/16 at 18:00; Status Cancel Acetaminophen/ Hydrocodone Bitart 2 tab 2 tab 1X PREOP PRN PO PRIOR TO PROCEDURE; Start 04/17/16 at 06:00; Stop 04/17/16 at 18:00; Status DC Cefazolin Sodium/ Dextrose 50 ml @ 100 mls/hr 1X PREOP PRN IV PRIOR TO PROCEDURE Last administered on 04/17/16t 08:03; Start 04/17/16 at 06:00; Stop at 18:00; Status DC Tranexamic Acid 1000 mg/Sodium Chloride 60 ml @ 60 mls/hr 1X PERIOP ONCE INJ Last administered on 04/17/16t 08:13; Start 04/17/16 at 06:00; Stop 04/17/16 at 06:59; Status DC Tranexamic Acid/ Sodium Chloride (Cyklokapron/Iv Sodium Chloride 0.9% 50ml) 60 ml @ 60 mls/hr 1X PERIOP ONCE INJ ; Start 04/17/16 at 08:00; Stop 04/17/16 at 08:59; Status DC Lidocaine HCl 100 mg STK-MED ONCE .ROUTE ; Start 04/17/16 at 07:19; Stop at 07:20; Status DC Famotidine (Pepcid) 20 mg STK-MED ONCE .ROUTE ; Start 04/17/16 at 07:19; Stop at 07:20; Status DC Dexamethasone Sodium Phosphate 20 mg 20 mg STK-MED ONCE .ROUTE ; Start 04/17/16 at 07:19; Stop 04/17/16 at 07:20; Status DC Propofol (Diprivan) 20 ml @ As Directed STK-MED ONCE IV ; Start 04/17/16 at 07: 19; Stop 04/17/16 at 07:20; Status DC Rocuronium [place] (Zemuron) 50 mg STK-MED ONCE .ROUTE ; Start 04/17/16 at 07:19 ; Stop 04/17/16 at 07:20; Status DC Lidocaine HCl 100 mg STK-MED ONCE .ROUTE ; Start 04/17/16 at 07:19; Stop at 07:20; Status DC Fentanyl Citrate (Fentanyl 5ml Vial) 250 mcg STK-MED ONCE .ROUTE ; Start at 07:20; Stop 04/17/16 at 07:21; Status DC Acetaminophen/ Hydrocodone Bitart (Lortab 7.5/325) 1 tab PRN Q3HRS PRN PO PAIN ; Start 04/17/16 at 08:00 Acetaminophen/ Hydrocodone Bitart (Lortab 10/325) 1 tab PRN Q3HRS PRN PO PAIN; Start 04/17/16 at 08:00 Tramadol HCl (Ultram) 50 mg PRN QID PRN PO PAIN; Start 04/17/16 at 08:00 Oxycodone/ Acetaminophen (Percocet 5/325) 1 tab PRN Q3HRS PRN PO PAIN; Start at 08:00 Oxycodone/ Acetaminophen (Percocet 7.5/ 325) 1 tab PRN Q3HRS PRN PO PAIN; Start 04/17/16 at 08:00 Tramadol HCl (Ultram) 100 mg PRN Q3HRS PRN PO PAIN; Start 04/17/16 at 08:00 Morphine Sulfate 2 mg PRN Q1HR PRN IV PAIN; Start 04/17/16 at 08:00 Fentanyl Citrate (Fentanyl 2ml Vial) 25 mcg PRN Q1HR PRN IV PAIN Last administered on 04/17/16 12:22; Start 04/17/16 at 08:00 Diphenhydramine HCl (Benadryl) 25 mg PRN Q6HRS PRN IV ITCHING; Start 04/17/16 at 08:00 Warfarin Sodium (Coumadin) 7.5 mg 1X ONCE PO Last administered on 04/17/16 17 :05; Start 04/17/16 at 16:00; Stop 04/17/16 at 16:01; Status DC Warfarin Sodium (Coumadin Per Pharmacy) 1 each PRN DAILY PRN MC SEE COMMENTS Last administered on 04/19/16 12:28; Start 04/17/16 at 08:00 Multivitamins/ Calcium (Thera M Plus) 1 tab DAILY PO Last administered on 08:31; Start 04/18/16 at 09:00 Senna/Docusate Sodium (Senna Plus) 1 tab DAILY PO Last administered on 08:31; Start 04/18/16 at 09:00 Ferrous Sulfate (Feosol) 325 mg BIDWMEALS PO Last administered on 04/19/16 20: 46; Start 04/18/16 at 08:00 Ketorolac Tromethamine 10 mg 10 mg Q6HRS PO Last administered on 04/20/16 04: 46; Start 04/17/16 at 12:00; Stop 04/22/16 at 11:59 Dextrose/Sodium Chloride (Iv D5% - 1/2 NS) 1,000 ml @ 100 mls/hr Q10H IV ; Start 04/17/16 at 13:00; Stop 04/19/16 at 03:45; Status DC Magnesium Hydroxide (Milk Of Magnesia) 2,400 mg 1X PRN PRN PO CONSTIPATION; Start 04/18/16 at 06:00; Stop 04/19/16 at 05:59; Status DC Bisacodyl (Dulcolax Supp) 10 mg 1X PRN PRN AR CONSTIPATION; Start 04/18/16 at 16:00; Stop 04/19/16 at 15:59; Status DC Acetaminophen (Tylenol) 650 mg PRN Q4HRS PRN PO MILD PAIN / TEMP Last administered on 04/19/16 20:43; Start 04/17/16 at 08:00 Zolpidem Tartrate (Ambien) 5 mg PRN QHS PRN PO INSOMNIA, MAY REPEAT IN 1HR Last administered on 04/19/16 20:48; Start 04/17/16 at 08:00 Calcium Carbonate/ Glycine (Tums) 500 mg PRN QID PRN PO INDIGESTION; Start 01/22 at 08:00 Morphine Sulfate 4 mg PRN Q1HR PRN IV PAIN Last administered on 04/18/16 03:20 ; Start 04/17/16 at 08:00 Morphine Sulfate 6 mg PRN Q1HR PRN IV PAIN; Start 04/17/16 at 08:00 Morphine Sulfate 8 mg 8 mg PRN Q1HR PRN IV PAIN; Start 04/17/16 at 08:00 Ketorolac Tromethamine/ Bupivacaine HCl/ Epinephrine HCl/ Miscellaneous (Toradol / Sensorcaine Mpf 0.25%/Adrenalin) 43.0 ml @ 258 mls/hr Q12H INT ART Last administered on 04/18/16 05:45; Start 04/17/16 at 18:00; Stop 04/18/16 at 06:09 ; Status DC Sodium Chloride (Normal Saline Flush) 10 ml QSHIFT PRN IV AFTER MEDS AND BLOOD DRAWS; Start 04/17/16 at 08:00 Fentanyl Citrate (Fentanyl 2ml Vial) 50 mcg PRN Q1HR PRN IV PAIN; Start at 08:00 Prochlorperazine Edisylate (Compazine) 10 mg PRN Q4HRS PRN IV NAUSEA/VOMITING; Start 04/17/16 at 08:00 Dextrose 12.5 gm 12.5 gm PRN Q15MIN PRN IV SEE COMMENTS; Start 04/17/16 at 08: 00 Cefazolin Sodium/ Sodium Chloride (Ancef/Iv Sodium Chloride 0.9% 50ml) 50 ml @ 100 mls/hr Q6H IV Last administered on 04/18/16 03:12; Start 04/17/16 at 14:30 ; Stop 04/18/16 at 02:59; Status DC Phenylephrine HCl 1 mg STK-MED ONCE IV ; Start 04/17/16 at 08:04; Stop 04/17/16 at 08:05; Status DC Sevoflurane (Ultane) 90 ml STK-MED ONCE IH ; Start 04/17/16 at 08:10; Stop 04/17 at 08:11; Status DC Glycopyrrolate (Robinul) 1 mg STK-MED ONCE .ROUTE ; Start 04/17/16 at 09:44; Stop 04/17/16 at 09:45; Status DC Neostigmine Methylsulfate 5 mg STK-MED ONCE .ROUTE ; Start 04/17/16 at 09:44; Stop 04/17/16 at 09:45; Status DC Gabapentin (Neurontin) 300 mg BID PO Last administered on 04/20/16 08:31; Start 04/17/16 at 21:00 Letrozole (Femara) 2.5 mg DAILY PO Last administered on 04/20/16 08:34; Start 04/18/16 at 09:00 Lorazepam (Ativan) 0.5 mg Q4HRS PRN PO ANXIETY; Start 04/17/16 at 11:15 Non-Formulary Medication 2 puff PRN QID PRN IH COUGH; Start 04/17/16 at 11:15; Status UNV Non-Formulary Medication 2 puff BID IH ; Start 04/17/16 at 21:00; Status UNV Non-Formulary Medication 1 each DAILY IH ; Start 04/18/16 at 09:00; Status UNV Ondansetron HCl (Zofran Odt) 4 mg PRN Q8HRS PRN PO NAUSEA/VOMITING Last administered on 04/18/16 10:22; Start 04/17/16 at 12:30 Oxycodone HCl (Roxicodone) 20 mg PRN Q4HRS PRN PO PAIN Last administered on 08:33; Start 04/17/16 at 12:30 Non-Formulary Medication 1 cap DAILY IH ; Start 04/18/16 at 09:00; Status UNV Non-Formulary Medication 1 each DAILY IH ; Start 04/18/16 at 09:00; Status UNV Albuterol/ Ipratropium (Duoneb) 3 ml RTQID NEB Last administered on 04/20/16 08:04; Start 04/17/16 at 16:00 Albuterol Sulfate (Ventolin Neb Soln) 2.5 mg PRN Q6HRS PRN NEB SHORTNESS OF BREATH; Start 04/17/16 at 12:30 Budesonide (Pulmicort) 0.5 mg RTBID NEB Last administered on 04/20/16 08:04; Start 04/17/16 at 20:00 Nystatin 5 ml QID SWSW Last administered on 04/20/16 08:31; Start 04/18/16 at 10:15 Nicotine (Nicoderm Cq 21mg) 1 patch DAILY TD Last administered on 04/20/16 08: 32; Start 04/18/16 at 11:00 Warfarin Sodium (Coumadin) 1 mg 1X WARF ONCE PO Last administered on 17:01; Start 04/18/16 at 16:00; Stop 04/18/16 at 16:01; Status DC Warfarin Sodium (Coumadin - No Dose Today) 1 each 1X WARF ONCE MC ; Start 04/19 at 16:00; Stop 04/19/16 at 16:01; Status DC Guaifenesin 600 mg 600 mg BID PO Last administered on 04/20/16t 08:31; Start at 14:00 Ceftriaxone Sodium 1 gm/ Sodium Chloride 50 ml @ 100 mls/hr 1X ONCE IV Last administered on 04/19/16t 23:31; Start 04/19/16 at 23:00; Stop 04/19/16 at 23:29 ; Status DC Vancomycin HCl 1.25 gm/Sodium Chloride 250 ml @ 166.667 mls/hr 1X ONCE IV ; Start 04/20/16 at 09:00; Stop 04/20/16 at 10:29 Piperacillin Sod/ Tazobactam Sod 2.25 gm/Sodium Chloride 50 ml @ 100 mls/hr 1X ONCE IV ; Start 04/20/16 at 09:00; Stop 04/20/16 at 09:29; Status UNV Piperacillin Sod/ Tazobactam Sod/ Sodium Chloride (Zosyn/Iv Sodium Chloride 0.9 % 50ml) 50 ml @ 100 mls/hr 1X ONCE IV ; Start 04/20/16 at 09:00; Stop at 09:29; Status DC Active Scripts Active Reported Anoro Ellipta 62.5-25 Mcg Inh (Umeclidinium Brm/Vilanterol Tr) 1 Each Disk.w.dev 1 Each IH DAILY Oxycodone Hcl 20 Mg Tablet 20 Mg PO PRN Q4HRS PRN Gabapentin 300 Mg Capsule 1 Cap PO BID Flovent 110MCG Hfa (Fluticasone Propionate) 12 Gm Aer.w.adap 2 Puff IH BID Breo Ellipta 200-25 Mcg INH (Fluticasone/Vilanterol) 1 Each Blst.w.dev 1 Each IH DAILY Proair Hfa Inhaler (Albuterol Sulfate) 8.5 Gm Hfa.aer.ad 2 Puff IH PRN QID PRN Lorazepam 0.5 Mg Tablet 0.5 Mg PO Q4HRS PRN Ondansetron Hcl 4 Mg Tablet 1 Tab PO PRN Q4HRS Spiriva (Tiotropium [place]) 18 Mcg Cap.w.dev 1 Cap IH DAILY Femara (Letrozole) 2.5 Mg Tablet 2.5 Mg PO DAILY Vitals/I & O Vital Sign - Last 24 Hours 04/19/16 04/19/16 04/19/16 04/19/16 10:16 11:27 14:21 15:08 Resp 16 16 Pulse Ox 85 91 O2 Delivery Room Air Room Air Nasal Cannula Nasal Cannula O2 Flow Rate 2.0 04/19/16 04/19/16 04/19/16 04/19/16 15:30 20:16 20:16 20:30 Pulse Ox 91 100 100 O2 Delivery Nasal Cannula Nasal Cannula Nasal Cannula O2 Flow Rate 2.0 2.0 2.0 04/19/16 04/19/16 04/19/16 04/20/16 20:30 20:46 22:31 04:46 Temp 102.8 98.5 102.8 98.5 Pulse 94 85 Resp 18 18 18 20 B/P 110/64 Pulse Ox 96 96 95 95 O2 Delivery Nasal Cannula Room Air Room Air Nasal Cannula O2 Flow Rate 2.0 2.0 2.0 04/20/16 04/20/16 04/20/16 04/20/16 05:48 06:00 08:06 08:07 Temp 98.1 98.1 Pulse 90 Resp 16 16 B/P 102/69 Pulse Ox 99 O2 Delivery Nasal Cannula Nasal Cannula Nasal Cannula Nasal Cannula O2 Flow Rate 2.0 2.0 2.0 2.0 04/20/16 08:33 Resp 16 O2 Delivery Nasal Cannula O2 Flow Rate 2.0 Intake and Output 04/19/16 04/19/16 04/20/16 15:00 23:00 07:00 Intake Total 580 ml 400 ml Output Total 450 ml Balance 580 ml -450 ml 400 ml NEHEMIAH BEEBE MD Apr 20, 2016 10:16
[2016-04-20 10:44] LABS: BILIRUBIN,URINE SMALL (NEG); GLUCOSE,URINE NEGATIVE (NEG); NITRITE,URINE NEGATIVE (NEG); PROTEIN,URINE NEGATIVE (NEG-TRACE)
[2016-04-20] MEDS: PIPERACILLIN/TAZOBACTAM 2.25 GM in IV NORMAL SALINE 50ML 50 ML IV SCH ×2 (11:00→20:30)
[2016-04-20 11:09] LABS: BACTERIA,URINE FEW /HPF (0-FEW); RBC,URINE RARE /HPF (0-2); SQUAMOUS EPITHELIAL CELL,UR FEW /LPF
[2016-04-20] MEDS: OXYCODONE/APAP 7.5/325 TABLET. PO PRN ×4 (11:27→22:31)
--- NOTE | 2016-04-20 17:16 | PDOC ---
PROGRESS NOTES Subjective Subjective Problems overnight: Interview was conducted with the help of an cherry sorter this morning and an episode yesterday of a productive cough was noted but fairly quickly resolved chest x-ray was taken at that time and medical consult obtained. She complains of no further cough and has been using incentive spirometry but only obtained about a measurement of 500 on the scale when normally twice that amount of volume is obtained. Regardless complains of no chest pain at the present time. Also noted was a fever spike last night to 102.8. Patient noticed no fever did not feel hot no chest pain shortness of breath pain on urination or other constitutional symptoms whatsoever she reports her hip pain being well-controlled and really wants to go home if possible Objective Vital Signs Vital Signs Date Time Temp Pulse Resp B/P Pulse Ox O2 Delivery O2 Flow Rate FiO2 04/20/16 15:31 Nasal Cannula 2.0 04/20/16 12:57 16 04/20/16 06:00 98.1 90 102/69 99 98.1 Physical Exam On exam incision is clean dry intact some slight redness inferiorly distal neurovascular status intact leg lengths equal no evidence of cough or wheezing on examination currently. Reasonable hip range of motion with mild expected soreness Labs Laboratory Tests Test 04/19/16 07:50 04/20/16 04:40 04/20/16 10:20 Hemoglobin 13.6g/dL (12.0-15.5) 12.3g/dL (12.0-15.5) Hematocrit 40.3% (36.0-47.0) 37.8% (36.0-47.0) Mean Corpuscular Hemoglobin Concent 34g/dL (31-37) 33g/dL (31-37) Prothrombin Time 43.9SEC (11.7-14.0) 53.3SEC (11.7-14.0) Prothromb Time International Ratio 5.0 (0.8-1.1) 6.4 (0.8-1.1) White Blood Count 21.5x10^3/uL (4.0-11.0) Red Blood Count 3.84x10^6/uL (3.50-5.40) Mean Corpuscular Volume 99fL (79-100) Mean Corpuscular Hemoglobin 32pg (25-35) Red Cell Distribution Width 14.1% (11.5-14.5) Platelet Count 219x10^3/uL (140-400) Neutrophils (%) (Auto) 82% (31-73) Lymphocytes (%) (Auto) 10% (24-48) Monocytes (%) (Auto) 6% (0-9) Eosinophils (%) (Auto) 0% (0-3) Basophils (%) (Auto) 1% (0-3) Neutrophils # (Auto) 17.6x10^3uL (1.8-7.7) Lymphocytes # (Auto) 2.2x10^3/uL (1.0-4.8) Monocytes # (Auto) 1.4x10^3/uL (0.0-1.1) Eosinophils # (Auto) 0.1x10^3/uL (0.0-0.7) Basophils # (Auto) 0.1x10^3/uL (0.0-0.2) Urine Collection Type Unknown Urine Color [place] Urine Clarity Clear Urine pH 6.0 Urine Specific [place] >=1.030 Urine Protein Negativemg/dL (NEG-TRACE) Urine Glucose (UA) Negativemg/dL (NEG) Urine Ketones (Stick) 15mg/dL (NEG) Urine Blood Negative (NEG) Urine Nitrite Negative (NEG) Urine Bilirubin Small (NEG) Urine Urobilinogen Dipstick 1.0mg/dL (0.2 mg/dL) Urine Leukocyte Esterase Trace (NEG) Urine RBC Rare/HPF (0-2) Urine WBC 5-10/HPF (0-4) Urine Squamous Epithelial Cells Few/LPF Urine Bacteria Few/HPF (0-FEW) Urine Mucus Marked/LPF Laboratory Tests Test 04/20/16 04:40 04/20/16 10:20 White Blood Count 21.5x10^3/uL (4.0-11.0) Red Blood Count 3.84x10^6/uL (3.50-5.40) Hemoglobin 12.3g/dL (12.0-15.5) Hematocrit 37.8% (36.0-47.0) Mean Corpuscular Volume 99fL (79-100) Mean Corpuscular Hemoglobin 32pg (25-35) Mean Corpuscular Hemoglobin Concent 33g/dL (31-37) Red Cell Distribution Width 14.1% (11.5-14.5) Platelet Count 219x10^3/uL (140-400) Neutrophils (%) (Auto) 82% (31-73) Lymphocytes (%) (Auto) 10% (24-48) Monocytes (%) (Auto) 6% (0-9) Eosinophils (%) (Auto) 0% (0-3) Basophils (%) (Auto) 1% (0-3) Neutrophils # (Auto) 17.6x10^3uL (1.8-7.7) Lymphocytes # (Auto) 2.2x10^3/uL (1.0-4.8) Monocytes # (Auto) 1.4x10^3/uL (0.0-1.1) Eosinophils # (Auto) 0.1x10^3/uL (0.0-0.7) Basophils # (Auto) 0.1x10^3/uL (0.0-0.2) Prothrombin Time 53.3SEC (11.7-14.0) Prothromb Time International Ratio 6.4 (0.8-1.1) Urine Collection Type Unknown Urine Color [place]omi Urine Clarity Clear Urine pH 6.0 Urine Specific [place] >=1.030 Urine Protein Negativemg/dL (NEG-TRACE) Urine Glucose (UA) Negativemg/dL (NEG) Urine Ketones (Stick) 15mg/dL (NEG) Urine Blood Negative (NEG) Urine Nitrite Negative (NEG) Urine Bilirubin Small (NEG) Urine Urobilinogen Dipstick 1.0mg/dL (0.2 mg/dL) Urine Leukocyte Esterase Trace (NEG) Urine RBC Rare/HPF (0-2) Urine WBC 5-10/HPF (0-4) Urine Squamous Epithelial Cells Few/LPF Urine Bacteria Few/HPF (0-FEW) Urine Mucus Marked/LPF Assessment Assessment POD# [3], S/P [right total hip arthroplasty] Problems: Plan Plan of Care Patient had a brief period of productive cough yesterday and is a known smoker Fever spike to 102.8 last night and white count 21.9 today but no ongoing constitutional symptoms Chest x-ray was evaluated and discussed with Dr. Dimas shaw which just showed some atelectasis and fibrosis but no evidence of infiltrate Urinalysis pending and blood cultures were obtained as well After a discussion with Dr. Cochran I outlined through the cherry sorter the multiple medical conditions that we are evaluating for specifically whether she may be at risk for a pneumonia or just collapse of her air sex of the base of her lungs that might have caused a fever. In any case we really need to investigate further the elevated white count as that is atypical for elevation of just the stress from surgery. In short we need to work with her further with physical therapy and if she is safe and medically cleared could certainly consider going home when medically evaluated for these issues. All her questions were answered through the cherry sorter at this time RUDY YANEZ MD Apr 20, 2016 17:16
[2016-04-20 19:00] VITALS: BP 100/51
[2016-04-20] MEDS: ZOLPIDEM 5 MG TABLET. PO PRN (21:46)
[2016-04-20 22:42] VITALS: BP 99/53
[2016-04-21] MEDS: OXYCODONE/APAP 7.5/325 TABLET. PO PRN ×4 (01:14→11:30)
[2016-04-21] MEDS: KETOROLAC TROMETHAMINE 10 MG TABLET PO SCH ×3 (01:14→11:30)
[2016-04-21] MEDS: PIPERACILLIN/TAZOBACTAM 2.25 GM in IV NORMAL SALINE 50ML 50 ML IV SCH ×3 (01:14→11:50)
[2016-04-21 02:35] VITALS: BP 97/55
[2016-04-21 06:27] LABS: BASO # 0.1 x10^3/uL (0.0-0.2); BASO % 1 % (0-3); EOS % 6 % (0-3); HEMATOCRIT 34.8 % (36.0-47.0); HEMOGLOBIN 11.4 g/dL (12.0-15.5); LYMPH # 1.6 x10^3/uL (1.0-4.8); LYMPH % 11 % (24-48); MEAN CORPUSCULAR HEMOGLOBIN 32 pg (25-35); MEAN CORPUSCULAR HGB CONC 33 g/dL (31-37); MEAN CORPUSCULAR VOLUME 99 fL (79-100); MONO % 9 % (0-9); NEUT % 74 % (31-73); PLATELET COUNT 208 x10^3/uL (140-400); RED BLOOD COUNT 3.53 x10^6/uL (3.50-5.40); RED CELL DISTRIBUTION WIDTH 14.4 % (11.5-14.5); WHITE BLOOD COUNT 13.9 x10^3/uL (4.0-11.0)
[2016-04-21 06:32] LABS: PROTHROMBIN TIME PATIENT 47.4 SEC (11.7-14.0)
[2016-04-21 07:00] VITALS: BP 101/68
[2016-04-21 07:07] LABS: INR 5.5 (0.8-1.1)
[2016-04-21] MEDS: BUDESONIDE 0.5 MG/2 ML NEBU NEB SCH (07:07)
[2016-04-21] MEDS: IPRATRPIUM/ALBUTEROL 0.5/2.5MG 3 ML NEBU. NEB SCH (07:07)
[2016-04-21] MEDS: FERROUS SULFATE 325 MG TABLET PO SCH (08:31)
[2016-04-21] MEDS: NYSTATIN 100,000 UNITS/ML 5 ML ORAL.SUSP. SWSW SCH (08:31)
[2016-04-21] MEDS: MULTIVITAMIN with MINERAL TABLET. PO SCH (08:31)
[2016-04-21] MEDS: GUAIFENESIN ER 600 MG TABLET.ER PO SCH (08:31)
[2016-04-21] MEDS: SENNOSIDES/DOCUSATE 8.6/50MG TABLET. PO SCH (08:31)
[2016-04-21] MEDS: GABAPENTIN 300 MG CAPSULE. PO SCH (08:31)
[2016-04-21] MEDS: NICOTINE 21MG PATCH. TD SCH (08:32)
[2016-04-21] MEDS ORDERED: CIPR500T94 PO (09:54)
[2016-04-21] MEDS ORDERED: WARF5TAB7 PO (09:54)
--- NOTE | 2016-04-21 10:08 | DISCH ---
DISCHARGE INSTRUCTIONS Condition on Discharge Condition on Discharge: Stable Activity After Discharge Activity Instructions for Disc: Other, see below Bathing Instructions: Shower-keep dressing dry Weight Bearing Status after Di: As tolerated Diet after Discharge Diet after Discharge: Regular Wound Incision Care Wound/Incision Care: Ice to area for comfort, Keep wound/cast CDI, Change dressing Community/Resources/Services Services at Discharge: Home Health Care Services Contacting the DRJean-Claude after DC Call your doctor for: Concerns you may have Follow-Up Follow up with: [facility]ad 2wks Warfarin Follow-Up Warfarin Follow UP: per Pharmacy CHARLENE FRANCIS II, MD Apr 21, 2016 10:08
--- NOTE | 2016-04-21 10:10 | PDOC ---
ORTHO PROGRESS NOTES Subjective Some mild pain at hip, tolerable. No CP, SOB, cough. Vitals Vital Signs Date Time Temp Pulse Resp B/P Pulse Ox O2 Delivery O2 Flow Rate FiO2 04/21/16 08:31 96 Nasal Cannula 04/21/16 07:09 2.0 04/21/16 07:00 97.7 95 18 101/68 97.7 Labs Laboratory Tests Test 04/20/16 04:40 04/20/16 10:20 04/20/16 21:07 04/21/16 05:30 White Blood Count 21.5x10^3/uL (4.0-11.0) 13.9x10^3/uL (4.0-11.0) Red Blood Count 3.84x10^6/uL (3.50-5.40) 3.53x10^6/uL (3.50-5.40) Hemoglobin 12.3g/dL (12.0-15.5) 11.4g/dL (12.0-15.5) Hematocrit 37.8% (36.0-47.0) 34.8% (36.0-47.0) Mean Corpuscular Volume 99fL (79-100) 99fL (79-100) Mean Corpuscular Hemoglobin 32pg (25-35) 32pg (25-35) Mean Corpuscular Hemoglobin Concent 33g/dL (31-37) 33g/dL (31-37) Red Cell Distribution Width 14.1% (11.5-14.5) 14.4% (11.5-14.5) Platelet Count 219x10^3/uL (140-400) 208x10^3/uL (140-400) Neutrophils (%) (Auto) 82% (31-73) 74% (31-73) Lymphocytes (%) (Auto) 10% (24-48) 11% (24-48) Monocytes (%) (Auto) 6% (0-9) 9% (0-9) Eosinophils (%) (Auto) 0% (0-3) 6% (0-3) Basophils (%) (Auto) 1% (0-3) 1% (0-3) Neutrophils # (Auto) 17.6x10^3uL (1.8-7.7) 10.2x10^3uL (1.8-7.7) Lymphocytes # (Auto) 2.2x10^3/uL (1.0-4.8) 1.6x10^3/uL (1.0-4.8) Monocytes # (Auto) 1.4x10^3/uL (0.0-1.1) 1.3x10^3/uL (0.0-1.1) Eosinophils # (Auto) 0.1x10^3/uL (0.0-0.7) 0.8x10^3/uL (0.0-0.7) Basophils # (Auto) 0.1x10^3/uL (0.0-0.2) 0.1x10^3/uL (0.0-0.2) Prothrombin Time 53.3SEC (11.7-14.0) 47.4SEC (11.7-14.0) Prothromb Time International Ratio 6.4 (0.8-1.1) 5.5 (0.8-1.1) Urine Collection Type Unknown Urine Color Naomi Urine Clarity Clear Urine pH 6.0 Urine Specific [place] >=1.030 Urine Protein Negativemg/dL (NEG-TRACE) Urine Glucose (UA) Negativemg/dL (NEG) Urine Ketones (Stick) 15mg/dL (NEG) Urine Blood Negative (NEG) Urine Nitrite Negative (NEG) Urine Bilirubin Small (NEG) Urine Urobilinogen Dipstick 1.0mg/dL (0.2 mg/dL) Urine Leukocyte Esterase Trace (NEG) Urine RBC Rare/HPF (0-2) Urine WBC 5-10/HPF (0-4) Urine Squamous Epithelial Cells Few/LPF Urine Bacteria Few/HPF (0-FEW) Urine Mucus Marked/LPF Glucose (Fingerstick) 121mg/dL (70-99) Test 04/21/16 07:46 Glucose (Fingerstick) 62mg/dL (70-99) Laboratory Tests Test 04/20/16 10:20 04/20/16 21:07 04/21/16 05:30 04/21/16 07:46 Urine Collection Type Unknown Urine Color Naomi Urine Clarity Clear Urine pH 6.0 Urine Specific [place] >=1.030 Urine Protein Negativemg/dL (NEG-TRACE) Urine Glucose (UA) Negativemg/dL (NEG) Urine Ketones (Stick) 15mg/dL (NEG) Urine Blood Negative (NEG) Urine Nitrite Negative (NEG) Urine Bilirubin Small (NEG) Urine Urobilinogen Dipstick 1.0mg/dL (0.2 mg/dL) Urine Leukocyte Esterase Trace (NEG) Urine RBC Rare/HPF (0-2) Urine WBC 5-10/HPF (0-4) Urine Squamous Epithelial Cells Few/LPF Urine Bacteria Few/HPF (0-FEW) Urine Mucus Marked/LPF Glucose (Fingerstick) 121mg/dL (70-99) 62mg/dL (70-99) White Blood Count 13.9x10^3/uL (4.0-11.0) Red Blood Count 3.53x10^6/uL (3.50-5.40) Hemoglobin 11.4g/dL (12.0-15.5) Hematocrit 34.8% (36.0-47.0) Mean Corpuscular Volume 99fL (79-100) Mean Corpuscular Hemoglobin 32pg (25-35) Mean Corpuscular Hemoglobin Concent 33g/dL (31-37) Red Cell Distribution Width 14.4% (11.5-14.5) Platelet Count 208x10^3/uL (140-400) Neutrophils (%) (Auto) 74% (31-73) Lymphocytes (%) (Auto) 11% (24-48) Monocytes (%) (Auto) 9% (0-9) Eosinophils (%) (Auto) 6% (0-3) Basophils (%) (Auto) 1% (0-3) Neutrophils # (Auto) 10.2x10^3uL (1.8-7.7) Lymphocytes # (Auto) 1.6x10^3/uL (1.0-4.8) Monocytes # (Auto) 1.3x10^3/uL (0.0-1.1) Eosinophils # (Auto) 0.8x10^3/uL (0.0-0.7) Basophils # (Auto) 0.1x10^3/uL (0.0-0.2) Prothrombin Time 47.4SEC (11.7-14.0) Prothromb Time International Ratio 5.5 (0.8-1.1) Notes A and A incision ok BLE: wiggles toes toes warm Assessment and Plan UA reviewed d/w Dr. Dimas rosas to go home spoke with patient via aid of an awning finisher CHARLENE FRANCIS II, MD Apr 21, 2016 10:10
[2016-04-21] MEDS: LETROZOLE 2.5 MG TABLET. PO SCH (10:11)
--- NOTE | 2016-04-21 10:36 | PDOC ---
PROGRESS NOTES Chief Complaint Chief Complaint 1. POD # 4 hip sx 2. Fevers 3. Leukocytosis] 4. SMOker 5. Cough 6. EMphysema with atelectasis and scarring 7. Supratherapeutic iNR on warfrain post hip History of Present Illness History of Present Illness NO more temps WBC down to 12 from 20s NO overnight issues UA - WBC 5-10, BC prelim neg. Vitals Vitals Vital Signs Date Time Temp Pulse Resp B/P Pulse Ox O2 Delivery O2 Flow Rate FiO2 04/21/16 10:11 Room Air 04/21/16 08:31 96 04/21/16 07:09 2.0 04/21/16 07:00 97.7 95 18 101/68 97.7 Physical Exam General: Alert, Oriented X3, Other (deaf, ) Heart: Regular rate, Normal S1, Normal S2 Lungs: Clear Abdomen: Normal bowel sounds, Soft Extremities: No clubbing Labs LABS Laboratory Tests Test 04/20/16 21:07 04/21/16 05:30 04/21/16 07:46 Glucose (Fingerstick) 121mg/dL (70-99) 62mg/dL (70-99) White Blood Count 13.9x10^3/uL (4.0-11.0) Red Blood Count 3.53x10^6/uL (3.50-5.40) Hemoglobin 11.4g/dL (12.0-15.5) Hematocrit 34.8% (36.0-47.0) Mean Corpuscular Volume 99fL (79-100) Mean Corpuscular Hemoglobin 32pg (25-35) Mean Corpuscular Hemoglobin Concent 33g/dL (31-37) Red Cell Distribution Width 14.4% (11.5-14.5) Platelet Count 208x10^3/uL (140-400) Neutrophils (%) (Auto) 74% (31-73) Lymphocytes (%) (Auto) 11% (24-48) Monocytes (%) (Auto) 9% (0-9) Eosinophils (%) (Auto) 6% (0-3) Basophils (%) (Auto) 1% (0-3) Neutrophils # (Auto) 10.2x10^3uL (1.8-7.7) Lymphocytes # (Auto) 1.6x10^3/uL (1.0-4.8) Monocytes # (Auto) 1.3x10^3/uL (0.0-1.1) Eosinophils # (Auto) 0.8x10^3/uL (0.0-0.7) Basophils # (Auto) 0.1x10^3/uL (0.0-0.2) Prothrombin Time 47.4SEC (11.7-14.0) Prothromb Time International Ratio 5.5 (0.8-1.1) Review of Systems Review of Systems neg Assessment and Plan Assessmemt and Plan dc today PO cipro - possibly some UTI on UA Warfarin per ortho Rx given PAin meds also given Dc paperwork done Dw Dr. Brito ALso spoke woth via language onterpreter (deaf)- aware of plan dc time > 30 mins Problems Medical Problems: (1) Deafness Status: Acute (2) Degenerative joint disease of right hip Status: Acute (3) Hip fracture Status: Acute Problems: Comment Review of Relevant I have reviewed the following items apryl (where applicable) has been applied. Labs Laboratory Tests Test 04/20/16 04:40 04/20/16 10:20 04/20/16 21:07 04/21/16 05:30 White Blood Count 21.5x10^3/uL (4.0-11.0) 13.9x10^3/uL (4.0-11.0) Red Blood Count 3.84x10^6/uL (3.50-5.40) 3.53x10^6/uL (3.50-5.40) Hemoglobin 12.3g/dL (12.0-15.5) 11.4g/dL (12.0-15.5) Hematocrit 37.8% (36.0-47.0) 34.8% (36.0-47.0) Mean Corpuscular Volume 99fL (79-100) 99fL (79-100) Mean Corpuscular Hemoglobin 32pg (25-35) 32pg (25-35) Mean Corpuscular Hemoglobin Concent 33g/dL (31-37) 33g/dL (31-37) Red Cell Distribution Width 14.1% (11.5-14.5) 14.4% (11.5-14.5) Platelet Count 219x10^3/uL (140-400) 208x10^3/uL (140-400) Neutrophils (%) (Auto) 82% (31-73) 74% (31-73) Lymphocytes (%) (Auto) 10% (24-48) 11% (24-48) Monocytes (%) (Auto) 6% (0-9) 9% (0-9) Eosinophils (%) (Auto) 0% (0-3) 6% (0-3) Basophils (%) (Auto) 1% (0-3) 1% (0-3) Neutrophils # (Auto) 17.6x10^3uL (1.8-7.7) 10.2x10^3uL (1.8-7.7) Lymphocytes # (Auto) 2.2x10^3/uL (1.0-4.8) 1.6x10^3/uL (1.0-4.8) Monocytes # (Auto) 1.4x10^3/uL (0.0-1.1) 1.3x10^3/uL (0.0-1.1) Eosinophils # (Auto) 0.1x10^3/uL (0.0-0.7) 0.8x10^3/uL (0.0-0.7) Basophils # (Auto) 0.1x10^3/uL (0.0-0.2) 0.1x10^3/uL (0.0-0.2) Prothrombin Time 53.3SEC (11.7-14.0) 47.4SEC (11.7-14.0) Prothromb Time International Ratio 6.4 (0.8-1.1) 5.5 (0.8-1.1) Urine Collection Type Unknown Urine Color Naomi Urine Clarity Clear Urine pH 6.0 Urine Specific [place] >=1.030 Urine Protein Negativemg/dL (NEG-TRACE) Urine Glucose (UA) Negativemg/dL (NEG) Urine Ketones (Stick) 15mg/dL (NEG) Urine Blood Negative (NEG) Urine Nitrite Negative (NEG) Urine Bilirubin Small (NEG) Urine Urobilinogen Dipstick 1.0mg/dL (0.2 mg/dL) Urine Leukocyte Esterase Trace (NEG) Urine RBC Rare/HPF (0-2) Urine WBC 5-10/HPF (0-4) Urine Squamous Epithelial Cells Few/LPF Urine Bacteria Few/HPF (0-FEW) Urine Mucus Marked/LPF Glucose (Fingerstick) 121mg/dL (70-99) Test 04/21/16 07:46 Glucose (Fingerstick) 62mg/dL (70-99) Laboratory Tests Test 04/20/16 21:07 04/21/16 05:30 04/21/16 07:46 Glucose (Fingerstick) 121mg/dL (70-99) 62mg/dL (70-99) White Blood Count 13.9x10^3/uL (4.0-11.0) Red Blood Count 3.53x10^6/uL (3.50-5.40) Hemoglobin 11.4g/dL (12.0-15.5) Hematocrit 34.8% (36.0-47.0) Mean Corpuscular Volume 99fL (79-100) Mean Corpuscular Hemoglobin 32pg (25-35) Mean Corpuscular Hemoglobin Concent 33g/dL (31-37) Red Cell Distribution Width 14.4% (11.5-14.5) Platelet Count 208x10^3/uL (140-400) Neutrophils (%) (Auto) 74% (31-73) Lymphocytes (%) (Auto) 11% (24-48) Monocytes (%) (Auto) 9% (0-9) Eosinophils (%) (Auto) 6% (0-3) Basophils (%) (Auto) 1% (0-3) Neutrophils # (Auto) 10.2x10^3uL (1.8-7.7) Lymphocytes # (Auto) 1.6x10^3/uL (1.0-4.8) Monocytes # (Auto) 1.3x10^3/uL (0.0-1.1) Eosinophils # (Auto) 0.8x10^3/uL (0.0-0.7) Basophils # (Auto) 0.1x10^3/uL (0.0-0.2) Prothrombin Time 47.4SEC (11.7-14.0) Prothromb Time International Ratio 5.5 (0.8-1.1) Microbiology 04/20/16 Blood Culture - Preliminary, Resulted NO GROWTH AFTER 1 DAY Medications Current Medications Ondansetron HCl (Zofran) 4 mg PRN Q6HRS PRN IV Nausea; Start 04/17/16 at 07:00 ; Stop 04/18/16 at 06:59; Status DC Fentanyl Citrate (Fentanyl 2ml Vial) 25 mcg PRN Q5MIN PRN IV MILD PAIN; Start 04/17/16 at 07:00; Stop 04/18/16 at 06:59; Status DC Fentanyl Citrate (Fentanyl 2ml Vial) 50 mcg PRN Q5MIN PRN IV MODERATE PAIN Last administered on 04/17/16 11:06; Start 04/17/16 at 07:00; Stop 04/18/16 at 06:59; Status DC Morphine Sulfate 1 mg 1 mg PRN Q10MIN PRN IV SEVERE PAIN Last administered on 10:43; Start 04/17/16 at 07:00; Stop 04/18/16 at 06:59; Status DC Lactated Ringer's (Iv Lactated Ringers) 1,000 ml @ 30 mls/hr Q24H IV Last administered on 04/17/16 07:16; Start 04/17/16 at 07:00; Stop 04/17/16 at 18:59 ; Status DC Lidocaine HCl 2 ml 1X PRN PRN ID IV START; Start 04/17/16 at 07:00; Stop at 06:59; Status DC Hydromorphone HCl (Dilaudid) 0.5 mg PRN Q10MIN PRN IV SEVERE PAIN, Second choice; Start 04/17/16 at 07:00; Stop 04/18/16 at 06:59; Status DC Prochlorperazine Edisylate 5 mg 5 mg PACU PRN PRN IV NAUSEA; Start 04/17/16 at 07:00; Stop 04/18/16 at 06:59; Status DC Morphine Sulfate/ Ketorolac Tromethamine/ Ropivacaine/ Epinephrine HCl/ Sodium Chloride (Morphine 5mg Syringe/Toradol/ Naropin 0.5%/ Adrenalin/Iv Sodium Chloride 0.9% 50ml) 100.5 ml @ 100.5 mls/ hr 1X PERIOP ONCE INT ART Last administered on 04/17/16 08:31; Start 04/17/16 at 06:00; Stop 04/17/16 at 06:59 ; Status DC Celecoxib (Celebrex) 400 mg 1X PREOP PRN PO PRIOR TO PROCEDURE; Start 04/17/16 at 06:00; Stop 04/17/16 at 18:00; Status Cancel Acetaminophen/ Hydrocodone Bitart 2 tab 2 tab 1X PREOP PRN PO PRIOR TO PROCEDURE; Start 04/17/16 at 06:00; Stop 04/17/16 at 18:00; Status DC Cefazolin Sodium/ Dextrose 50 ml @ 100 mls/hr 1X PREOP PRN IV PRIOR TO PROCEDURE Last administered on 04/17/16 08:03; Start 04/17/16 at 06:00; Stop at 18:00; Status DC Tranexamic Acid 1000 mg/Sodium Chloride 60 ml @ 60 mls/hr 1X PERIOP ONCE INJ Last administered on 04/17/16t 08:13; Start 04/17/16 at 06:00; Stop 04/17/16 at 06:59; Status DC Tranexamic Acid/ Sodium Chloride (Cyklokapron/Iv Sodium Chloride 0.9% 50ml) 60 ml @ 60 mls/hr 1X PERIOP ONCE INJ ; Start 04/17/16 at 08:00; Stop 04/17/16 at 08:59; Status DC Lidocaine HCl 100 mg STK-MED ONCE .ROUTE ; Start 04/17/16 at 07:19; Stop at 07:20; Status DC Famotidine (Pepcid) 20 mg STK-MED ONCE .ROUTE ; Start 04/17/16 at 07:19; Stop at 07:20; Status DC Dexamethasone Sodium Phosphate 20 mg 20 mg STK-MED ONCE .ROUTE ; Start 04/17/16 at 07:19; Stop 04/17/16 at 07:20; Status DC Propofol (Diprivan) 20 ml @ As Directed STK-MED ONCE IV ; Start 04/17/16 at 07: 19; Stop 04/17/16 at 07:20; Status DC Rocuronium [place] (Zemuron) 50 mg STK-MED ONCE .ROUTE ; Start 04/17/16 at 07:19 ; Stop 04/17/16 at 07:20; Status DC Lidocaine HCl 100 mg STK-MED ONCE .ROUTE ; Start 04/17/16 at 07:19; Stop at 07:20; Status DC Fentanyl Citrate (Fentanyl 5ml Vial) 250 mcg STK-MED ONCE .ROUTE ; Start at 07:20; Stop 04/17/16 at 07:21; Status DC Acetaminophen/ Hydrocodone Bitart (Lortab 7.5/325) 1 tab PRN Q3HRS PRN PO PAIN ; Start 04/17/16 at 08:00 Acetaminophen/ Hydrocodone Bitart (Lortab 10/325) 1 tab PRN Q3HRS PRN PO PAIN; Start 04/17/16 at 08:00 Tramadol HCl (Ultram) 50 mg PRN QID PRN PO PAIN Last administered on 04/20/16 12:57; Start 04/17/16 at 08:00 Oxycodone/ Acetaminophen (Percocet 5/325) 1 tab PRN Q3HRS PRN PO PAIN; Start at 08:00 Oxycodone/ Acetaminophen (Percocet 7.5/ 325) 1 tab PRN Q3HRS PRN PO PAIN Last administered on 04/21/16 08:31; Start 04/17/16 at 08:00 Tramadol HCl (Ultram) 100 mg PRN Q3HRS PRN PO PAIN; Start 04/17/16 at 08:00; Stop 04/20/16 at 10:14; Status DC Morphine Sulfate 2 mg PRN Q1HR PRN IV PAIN; Start 04/17/16 at 08:00 Fentanyl Citrate (Fentanyl 2ml Vial) 25 mcg PRN Q1HR PRN IV PAIN Last administered on 04/17/16 12:22; Start 04/17/16 at 08:00 Diphenhydramine HCl (Benadryl) 25 mg PRN Q6HRS PRN IV ITCHING; Start 04/17/16 at 08:00 Warfarin Sodium (Coumadin) 7.5 mg 1X ONCE PO Last administered on 04/17/16 17 :05; Start 04/17/16 at 16:00; Stop 04/17/16 at 16:01; Status DC Warfarin Sodium (Coumadin Per Pharmacy) 1 each PRN DAILY PRN MC SEE COMMENTS Last administered on 04/20/16 11:04; Start 04/17/16 at 08:00 Multivitamins/ Calcium (Thera M Plus) 1 tab DAILY PO Last administered on 08:31; Start 04/18/16 at 09:00 Senna/Docusate Sodium (Senna Plus) 1 tab DAILY PO Last administered on 08:31; Start 04/18/16 at 09:00 Ferrous Sulfate (Feosol) 325 mg BIDWMEALS PO Last administered on 04/21/16 08: 31; Start 04/18/16 at 08:00 Ketorolac Tromethamine 10 mg 10 mg Q6HRS PO Last administered on 04/21/16 05: 50; Start 04/17/16 at 12:00; Stop 04/22/16 at 11:59 Dextrose/Sodium Chloride (Iv D5% - 1/2 NS) 1,000 ml @ 100 mls/hr Q10H IV ; Start 04/17/16 at 13:00; Stop 04/19/16 at 03:45; Status DC Magnesium Hydroxide (Milk Of Magnesia) 2,400 mg 1X PRN PRN PO CONSTIPATION; Start 04/18/16 at 06:00; Stop 04/19/16 at 05:59; Status DC Bisacodyl (Dulcolax Supp) 10 mg 1X PRN PRN MT CONSTIPATION; Start 04/18/16 at 16:00; Stop 04/19/16 at 15:59; Status DC Acetaminophen (Tylenol) 650 mg PRN Q4HRS PRN PO MILD PAIN / TEMP Last administered on 04/19/16 20:43; Start 04/17/16 at 08:00 Zolpidem Tartrate (Ambien) 5 mg PRN QHS PRN PO INSOMNIA, MAY REPEAT IN 1HR Last administered on 04/20/16 21:46; Start 04/17/16 at 08:00 Calcium Carbonate/ Glycine (Tums) 500 mg PRN QID PRN PO INDIGESTION; Start 01/22 at 08:00 Morphine Sulfate 4 mg PRN Q1HR PRN IV PAIN Last administered on 04/18/16 03:20 ; Start 04/17/16 at 08:00 Morphine Sulfate 6 mg PRN Q1HR PRN IV PAIN; Start 04/17/16 at 08:00; Stop 04/20 at 10:14; Status DC Morphine Sulfate 8 mg 8 mg PRN Q1HR PRN IV PAIN; Start 04/17/16 at 08:00; Stop 04/20/16 at 10:14; Status DC Ketorolac Tromethamine/ Bupivacaine HCl/ Epinephrine HCl/ Miscellaneous (Toradol / Sensorcaine Mpf 0.25%/Adrenalin) 43.0 ml @ 258 mls/hr Q12H INT ART Last administered on 04/18/16 05:45; Start 04/17/16 at 18:00; Stop 04/18/16 at 06:09 ; Status DC Sodium Chloride (Normal Saline Flush) 10 ml QSHIFT PRN IV AFTER MEDS AND BLOOD DRAWS; Start 04/17/16 at 08:00 Fentanyl Citrate (Fentanyl 2ml Vial) 50 mcg PRN Q1HR PRN IV PAIN; Start at 08:00 Prochlorperazine Edisylate (Compazine) 10 mg PRN Q4HRS PRN IV NAUSEA/VOMITING; Start 04/17/16 at 08:00 Dextrose 12.5 gm 12.5 gm PRN Q15MIN PRN IV SEE COMMENTS; Start 04/17/16 at 08: 00 Cefazolin Sodium/ Sodium Chloride (Ancef/Iv Sodium Chloride 0.9% 50ml) 50 ml @ 100 mls/hr Q6H IV Last administered on 04/18/16 03:12; Start 04/17/16 at 14:30 ; Stop 04/18/16 at 02:59; Status DC Phenylephrine HCl 1 mg STK-MED ONCE IV ; Start 04/17/16 at 08:04; Stop 04/17/16 at 08:05; Status DC Sevoflurane (Ultane) 90 ml STK-MED ONCE IH ; Start 04/17/16 at 08:10; Stop 04/17 at 08:11; Status DC Glycopyrrolate (Robinul) 1 mg STK-MED ONCE .ROUTE ; Start 04/17/16 at 09:44; Stop 04/17/16 at 09:45; Status DC Neostigmine Methylsulfate 5 mg STK-MED ONCE .ROUTE ; Start 04/17/16 at 09:44; Stop 04/17/16 at 09:45; Status DC Gabapentin (Neurontin) 300 mg BID PO Last administered on 04/21/16 08:31; Start 04/17/16 at 21:00 Letrozole (Femara) 2.5 mg DAILY PO Last administered on 04/21/16 10:11; Start 04/18/16 at 09:00 Lorazepam (Ativan) 0.5 mg Q4HRS PRN PO ANXIETY Last administered on 04/20/16 11:27; Start 04/17/16 at 11:15 Non-Formulary Medication 2 puff PRN QID PRN IH COUGH; Start 04/17/16 at 11:15; Status UNV Non-Formulary Medication 2 puff BID IH ; Start 04/17/16 at 21:00; Status UNV Non-Formulary Medication 1 each DAILY IH ; Start 04/18/16 at 09:00; Status UNV Ondansetron HCl (Zofran Odt) 4 mg PRN Q8HRS PRN PO NAUSEA/VOMITING Last administered on 04/18/16 10:22; Start 04/17/16 at 12:30 Oxycodone HCl (Roxicodone) 20 mg PRN Q4HRS PRN PO PAIN Last administered on 08:33; Start 04/17/16 at 12:30; Stop 04/20/16 at 10:14; Status DC Non-Formulary Medication 1 cap DAILY IH ; Start 04/18/16 at 09:00; Status UNV Non-Formulary Medication 1 each DAILY IH ; Start 04/18/16 at 09:00; Status UNV Albuterol/ Ipratropium (Duoneb) 3 ml RTQID NEB Last administered on 04/21/16 07:07; Start 04/17/16 at 16:00 Albuterol Sulfate (Ventolin Neb Soln) 2.5 mg PRN Q6HRS PRN NEB SHORTNESS OF BREATH; Start 04/17/16 at 12:30 Budesonide (Pulmicort) 0.5 mg RTBID NEB Last administered on 04/21/16 07:07; Start 04/17/16 at 20:00 Nystatin 5 ml QID SWSW Last administered on 04/21/16 08:31; Start 04/18/16 at 10:15 Nicotine (Nicoderm Cq 21mg) 1 patch DAILY TD Last administered on 04/21/16 08: 32; Start 04/18/16 at 11:00 Warfarin Sodium (Coumadin) 1 mg 1X WARF ONCE PO Last administered on 17:01; Start 04/18/16 at 16:00; Stop 04/18/16 at 16:01; Status DC Warfarin Sodium (Coumadin - No Dose Today) 1 each 1X WARF ONCE MC ; Start 04/19 at 16:00; Stop 04/19/16 at 16:01; Status DC Guaifenesin 600 mg 600 mg BID PO Last administered on 04/21/16 08:31; Start at 14:00 Ceftriaxone Sodium 1 gm/ Sodium Chloride 50 ml @ 100 mls/hr 1X ONCE IV Last administered on 04/19/16 23:31; Start 04/19/16 at 23:00; Stop 04/19/16 at 23:29 ; Status DC Vancomycin HCl 1.25 gm/Sodium Chloride 250 ml @ 166.667 mls/hr 1X ONCE IV Last administered on 04/20/16 22:22; Start 04/20/16 at 09:00; Stop 04/20/16 at 10:29; Status DC Piperacillin Sod/ Tazobactam Sod 2.25 gm/Sodium Chloride 50 ml @ 100 mls/hr 1X ONCE IV ; Start 04/20/16 at 09:00; Stop 04/20/16 at 09:29; Status UNV Piperacillin Sod/ Tazobactam Sod/ Sodium Chloride (Zosyn/Iv Sodium Chloride 0.9 % 50ml) 50 ml @ 100 mls/hr 1X ONCE IV ; Start 04/20/16 at 09:00; Stop at 09:29; Status DC Guaifenesin 10 ml 10 ml PRN Q6HRS PRN PO COUGH; Start 04/20/16 at 10:15 Piperacillin Sod/ Tazobactam Sod/ Sodium Chloride (Zosyn/Iv Sodium Chloride 0.9 % 50ml) 50 ml @ 100 mls/hr Q6HRS IV Last administered on 04/21/16 05:50; Start 04/20/16 at 11:00 Warfarin Sodium (Coumadin - No Dose Today) 1 each 1X WARF ONCE MC Last administered on 04/20/16 16:00; Start 04/20/16 at 16:00; Stop 04/20/16 at 16:01 ; Status DC Active Scripts Active Warfarin Sodium 5 Mg Tablet 1 Tab PO DAILY Cipro (Ciprofloxacin Hcl) 500 Mg Tablet 1 Tab PO BID Reported Anoro Ellipta 62.5-25 Mcg Inh (Umeclidinium Brm/Vilanterol Tr) 1 Each Disk.w.dev 1 Each IH DAILY Oxycodone Hcl 20 Mg Tablet 20 Mg PO PRN Q4HRS PRN Gabapentin 300 Mg Capsule 1 Cap PO BID Flovent 110MCG Hfa (Fluticasone Propionate) 12 Gm Aer.w.adap 2 Puff IH BID Breo Ellipta 200-25 Mcg INH (Fluticasone/Vilanterol) 1 Each Blst.w.dev 1 Each IH DAILY Proair Hfa Inhaler (Albuterol Sulfate) 8.5 Gm Hfa.aer.ad 2 Puff IH PRN QID PRN Lorazepam 0.5 Mg Tablet 0.5 Mg PO Q4HRS PRN Ondansetron Hcl 4 Mg Tablet 1 Tab PO PRN Q4HRS Spiriva (Tiotropium [place]) 18 Mcg Cap.w.dev 1 Cap IH DAILY Femara (Letrozole) 2.5 Mg Tablet 2.5 Mg PO DAILY Vitals/I & O Vital Sign - Last 24 Hours 04/20/16 04/20/16 04/20/16 04/20/16 11:21 11:27 12:57 15:24 Resp 16 16 O2 Delivery Nasal Cannula Nasal Cannula Nasal Cannula Nasal Cannula O2 Flow Rate 2.0 2.0 2.0 2.0 04/20/16 04/20/16 04/20/16 04/20/16 15:25 15:31 18:40 19:00 Temp 97.3 97.3 Pulse 63 Resp 16 B/P 100/51 Pulse Ox 95 O2 Delivery Nasal Cannula Nasal Cannula Nasal Cannula Nasal Cannula O2 Flow Rate 2.0 2.0 2.0 04/20/16 04/20/16 04/20/16 04/21/16 20:25 20:25 22:42 02:35 Temp 98.0 97.9 98.0 97.9 Pulse 67 61 Resp 17 18 B/P 99/53 97/55 Pulse Ox 95 95 99 98 O2 Delivery Nasal Cannula Nasal Cannula Nasal Cannula Nasal Cannula O2 Flow Rate 2.0 2.0 2.0 2.0 04/21/16 04/21/16 04/21/1604/21/17 07:00 07:09 08:31 10:11 Temp 97.7 97.7 Pulse 95 Resp 18 B/P 101/68 Pulse Ox 95 96 O2 Delivery Nasal Cannula Nasal Cannula Nasal Cannula Room Air O2 Flow Rate 2.0 2.0 Intake and Output 04/20/16 04/20/16 04/21/16 15:00 23:00 07:00 Intake Total 250 ml 370 ml Balance 250 ml 370 ml NEHEMIAH BEEBE MD Apr 21, 2016 10:36
[2016-04-21 11:00] VITALS: BP 101/65
== END 2016-04-21 12:20 | disposition home or self-care (01) | DRG 470 ==
LOC: OPSVCIP 05:46 → 4 SOUTHEST 12:19 → 4 NORTH 04-20 15:21
PROVIDERS: ADMIT Orthopaedic Surgery; ATTEND Orthopaedic Surgery
PROC: 0SR90J9 Replacement of Right Hip Joint with Synthetic Substitute, Cemented, Open Approach (ICD-10-PCS; principal; 2016-04-17 07:30)
DX: M16.11 Unilateral primary osteoarthritis, right hip (principal); J98.11 Atelectasis; F17.200 Nicotine dependence, unspecified, uncomplicated; H91.90 Unspecified hearing loss, unspecified ear; R79.1 Abnormal coagulation profile; Z80.3 Family history of malignant neoplasm of breast; Z82.3 Family history of stroke; Z85.3 Personal history of malignant neoplasm of breast; Z90.49 Acquired absence of other specified parts of digestive tract; Z88.8 Allergy status to other drugs, medicaments and biological substances; Z98.1 Arthrodesis status
CPT/HCPCS: 36415; 71010; 71020; 73501; 76000; 81001; 82947; 85014; 85018; 85027; 85610; 85730; 86850; 86900; 86901; 87040; 87086; 88304; 88311; 94640; 94760; 99406; J0171; J0690; J0696; J1100; J1885; J2270; J2370; J2543; J2704; J2710; J2795; J3010; J3370; J3490; J7030; J7050; J7120; J7620; Q0162; S0028; 97110; 97116; 97150; 97530; 97535

== ENCOUNTER 2016-06-10 16:11 | Inpatient (IN) | payer MEDICARE ==
[~2016-06-10] VITALS: Ht 165.1 cm; Wt 53.1 kg
[~2016-06-10 16:11] MED LIST changes: +CIPR500T94 PO; +DOPAMINE 400MG/250ML PREMIX BAG. IV ONE; +EPINEPHRINE 1 MG/10 ML DISP.SYRIN. ONE; +MIDAZOLAM HCL/PF 5 MG/5 ML VIAL ONE; +WARF5TAB7 PO
[2016-06-10 18:45] VITALS: BP 127/75
[2016-06-10] MEDS: BUDESONIDE 0.5 MG/2 ML NEBU NEB SCH (19:54)
[2016-06-10] MEDS: IPRATRPIUM/ALBUTEROL 0.5/2.5MG 3 ML NEBU. NEB SCH (19:54)
[2016-06-10] MEDS ORDERED: POTASSIUM CL 40MEQ IN 0.9%NACL 1,000 ML IV SCH (20:00)
[2016-06-10] MEDS: AZITHROMYCIN 250 MG TABLET PO SCH (20:06)
[2016-06-10] MEDS: PREDNISONE 10 MG TABLET PO SCH (20:06)
[2016-06-10] MEDS: GABAPENTIN 300 MG CAPSULE. PO SCH (20:06)
[2016-06-10] MEDS: FENTANYL PF 100 MCG/2 ML VIAL. IV PRN (20:29)
[2016-06-10] MEDS ORDERED: CEFTRIAXONE SODIUM 1 GM in IV NORMAL SALINE 50ML 50 ML IV SCH (21:00)
[2016-06-10 23:00] VITALS: BP 110/70
[2016-06-11] VITALS (13 sets, daily range): BP systolic 85–144; BP diastolic 52–126
[2016-06-11] MEDS: FENTANYL PF 100 MCG/2 ML VIAL. IV PRN ×5 (00:04→22:30)
[2016-06-11 04:15] LABS: BASO % 0 % (0-3); EOS % 0 % (0-3); HEMATOCRIT 36.1 % (36.0-47.0); HEMOGLOBIN 11.3 g/dL (12.0-15.5); LYMPH # 0.9 x10^3/uL (1.0-4.8); LYMPH % 5 % (24-48); MEAN CORPUSCULAR HEMOGLOBIN 32 pg (25-35); MEAN CORPUSCULAR HGB CONC 31 g/dL (31-37); MEAN CORPUSCULAR VOLUME 102 fL (79-100); MONO % 9 % (0-9); NEUT % 85 % (31-73); PLATELET COUNT 297 x10^3/uL (140-400); RED BLOOD COUNT 3.55 x10^6/uL (3.50-5.40); RED CELL DISTRIBUTION WIDTH 16.3 % (11.5-14.5); WHITE BLOOD COUNT 15.8 x10^3/uL (4.0-11.0)
[2016-06-11 04:39] LABS: ALBUMIN 1.5 g/dL (3.4-5.0); ALBUMIN/GLOBULIN RATIO 0.4 (1.0-1.7); CALCIUM 8.3 mg/dL (8.5-10.1); CREATININE 0.4 mg/dL (0.6-1.0); GFR 160.7; POTASSIUM 5.6 mmol/L (3.5-5.1); TOTAL BILIRUBIN 0.4 mg/dL (0.2-1.0)
[2016-06-11] MEDS ORDERED: ALBUTEROL SULFATE 2.5 MG/3 ML NEBU. NEB PRN (04:45)
[2016-06-11 07:06] LABS: ANISOCYTOSIS PRESENT; PLT ESTIMATE ADEQUATE (ADEQUATE); POIKILOCYTOSIS PRESENT
[2016-06-11 07:07] LABS: TARGET CELLS PRESENT
[2016-06-11 07:11] LABS: ACANTHOCYTES FEW; BURR CELLS PRESENT; OVALOCYTES FEW; SCHISTOCYTES FEW
[2016-06-11] MEDS: IPRATRPIUM/ALBUTEROL 0.5/2.5MG 3 ML NEBU. NEB SCH ×4 (08:00→20:09)
[2016-06-11] MEDS: BUDESONIDE 0.5 MG/2 ML NEBU NEB SCH ×2 (08:00→20:50)
[2016-06-11] MEDS: LETROZOLE 2.5 MG TABLET. PO SCH (09:00)
[2016-06-11] MEDS: PREDNISONE 10 MG TABLET PO SCH ×2 (09:00→10:07)
[2016-06-11] MEDS: AZITHROMYCIN 250 MG TABLET PO SCH ×2 (09:00→10:08)
[2016-06-11] MEDS: GABAPENTIN 300 MG CAPSULE. PO SCH ×4 (09:00→20:58)
[2016-06-11] MEDS: IV NORMAL SALINE 1000ML BAG 1,000 ML IV SCH ×2 (10:08→22:30)
--- NOTE | 2016-06-11 10:16 | PDOC2 ---
GI CONSULT Reason For Consult: Gastric obstruction HPI: HPI: 65 y/o female previously evaluated by Dr. Back as an outpatient. She is deaf and no informatica mdm architect is present; history from records/chart, some from pt w/ pen and paper. Seen at [facility] for nausea, decreased appetite, weakness, and weight loss. Recent right hip surgery apparently w/ poor wound healing and development of decub. ulcers. Chest imaging was abnormal; x-ray showed LLL consolidation, interstitial infiltrates, and lucency in right apical lung w/ pleural parenchymal opacity, and CT angio showed LLL pneumonia vs endobronchial lesion, multiple tree-in-bud airspace opacities in bilateral lungs (infectious bronchiolitis or atypical infection), opacity in RUQ (cavitary lesion or tiny pneumothorax), hepatic steatosis, and moderately fluid distended stomach. She was transferred to [facility]; ID and pulm consults pending. GI history significant for chronic pancreatitis secondary pancreatic duct stone and pseudocyst (w/ additional h/o previously heavy alcohol use) s/p distal pancreatectomy and splenectomy and cholecystectomy. CA 19-9 was normal in 2014. At last office visit in 04/2015, omeprazole OTC and antacids PRN were recommended for chronic epigastric pain and n/v w/ consideration for trial of pancreatic enzymes later. She did not follow-up. This morning she seems only concerned w/ right hip pain and asks for pain medication repeatedly w/ paper/pen. Admits to nausea and weight loss. Denies abd pain, vomiting, and diarrhea. PMH: PMH: chronic pancreatitis (secondary pancreatic duct stone and pseudocyst, additionally previously drank somewhat heavily) s/p distal pancreatectomy and splenectomy, breast cancer s/p right mastectomy on letrozole, cholecystectomy, C -spine laminectomy, HTN, COPD, arthritis, hearing impaired FH: Family History: Cancer (breast, lung, brain), CVA Social History: Smoke: Quit ALCOHOL: other (previously drank somehwat heavily) Drugs: None ROS: GEN: Denies fevers, chills, sweats HEENT: Denies blurred vision, sore throat CV: Denies chest pain RESP: +SOA GI: Per HPI : Denies hematuria, dysuria ENDO: +weight loss NEURO: Denies confusion, dizziness MSK: +weakness SKIN: Denies jaundice, pruritus VItals: Vitals: Vital Signs Date Time Temp Pulse Resp B/P Pulse Ox O2 Delivery O2 Flow Rate FiO2 06/11/16 08:46 92 Nasal Cannula 3.0 06/11/16 06:34 97.9 74 18 124/75 97.9 Labs: Labs: Laboratory Tests Test 06/11/16 03:46 White Blood Count 15.8x10^3/uL (4.0-11.0) Red Blood Count 3.55x10^6/uL (3.50-5.40) Hemoglobin 11.3g/dL (12.0-15.5) Hematocrit 36.1% (36.0-47.0) Mean Corpuscular Volume 102fL (79-100) Mean Corpuscular Hemoglobin 32pg (25-35) Mean Corpuscular Hemoglobin Concent 31g/dL (31-37) Red Cell Distribution Width 16.3% (11.5-14.5) Platelet Count 297x10^3/uL (140-400) Neutrophils (%) (Auto) 85% (31-73) Lymphocytes (%) (Auto) 5% (24-48) Monocytes (%) (Auto) 9% (0-9) Eosinophils (%) (Auto) 0% (0-3) Basophils (%) (Auto) 0% (0-3) Neutrophils # (Auto) 13.5x10^3uL (1.8-7.7) Lymphocytes # (Auto) 0.9x10^3/uL (1.0-4.8) Monocytes # (Auto) 1.4x10^3/uL (0.0-1.1) Eosinophils # (Auto) 0.0x10^3/uL (0.0-0.7) Basophils # (Auto) 0.0x10^3/uL (0.0-0.2) Segmented Neutrophils % 87% (35-66) Band Neutrophils % 6% (0-9) Lymphocytes % 2% (24-48) Monocytes % 5% (0-10) Platelet Estimate Adequate (ADEQUATE) Poikilocytosis Present Anisocytosis Present Macrocytosis Present Target Cells Present Ovalocytes Few [place] Cells Present Acanthocytes Few Schistocytes Few Sodium Level 143mmol/L (136-145) Potassium Level 5.6mmol/L (3.5-5.1) Chloride Level 112mmol/L (98-107) Carbon Dioxide Level 20mmol/L (21-32) Anion Gap 11 (6-14) Blood Urea Nitrogen 9mg/dL (7-20) Creatinine 0.4mg/dL (0.6-1.0) Estimated GFR (Cockcroft-Gault) 160.7 BUN/Creatinine Ratio 23 (6-20) Glucose Level 91mg/dL (70-99) Calcium Level 8.3mg/dL (8.5-10.1) Total Bilirubin 0.4mg/dL (0.2-1.0) Aspartate Amino Transf (AST/SGOT) 24U/L (15-37) Alanine Aminotransferase (ALT/SGPT) 9U/L (14-59) Alkaline Phosphatase 130U/L (46-116) Total Protein 5.0g/dL (6.4-8.2) Albumin 1.5g/dL (3.4-5.0) Albumin/Globulin Ratio 0.4 (1.0-1.7) Allergies: Coded Allergies: celecoxib (Verified Allergy, Intermediate, Nausea and Vomiting, 04/17/16) Medications: Current Medications Medications (Trade) Dose Ordered Sig/Krys Route PRN Reason Start Time Stop Time Status Last Admin Dose Admin Budesonide 0.5 mg 0.5 mg RTBID NEB 06/10/16 20:00 06/11/16 08:00 Ceftriaxone Sodium/Sodium Chloride (Rocephin/Iv Sodium Chloride 0.9% 50ml) 50 ml @ 100 mls/hr Q24H IV 06/10/16 21:00 06/10/16 20:28 Fentanyl Citrate (Fentanyl 2ml Vial) 50 mcg PRN Q3HRS PRN IV PAIN 06/10/16 19:30 06/11/16 06:27 Albuterol/ Ipratropium 3 ml 3 ml RTQID NEB 06/10/16 20:00 06/11/16 08:00 Potassium Chloride/Sodium Chloride (KCl 40 Meq-NS 1,000 ml Iv Soln) 1,000 ml @ 100 mls/hr Q10H IV 06/10/16 20:00 06/11/16 08:08 DC 06/10/16 22:45 Albuterol Sulfate (Ventolin Neb Soln) 2.5 mg PRN Q4HRS PRN NEB SHORTNESS OF BREATH 06/11/16 04:45 06/11/16 05:37 Imaging: Imaging: Reviewed from [facility]. PE: GEN: looks ill, thin HEENT: Atraumatic, PERRL LUNGS: nasal cannula, coarse, tachypneic HEART: RRR ABD: S/ND/NT - won't let me palpate in RLQ EXTREMITY: right hip wound w/ bandage - guides my hand away not to touch NEURO/PSYCH: A & O 3, deaf - uses pen and paper to ask for pain medication A/P: A/P: Abnormal CT chest -as above w/ moderately fluid distended stomach -ID and pulm consulted H/o pancreatitis -secondary pancreatic duct stone and pseudocyst, alcohol use -s/p distal pancreatectomy and splenectomy Nausea, weight loss Recent hip surgery, right hip pain Leukocytosis, hyperkalemia -- Difficult history this morning. Will review w/ Dr. Back. JANET CARDOZO Jun 11, 2016 10:16
[2016-06-11] MEDS ORDERED: EPINEPHRINE 1 MG/10 ML DISP.SYRIN. ONE (12:00)
--- NOTE | 2016-06-11 12:02 | PDOC ---
Infectious Disease Note Vital Sign Vital Signs Vital Signs Date Time Temp Pulse Resp B/P Pulse Ox O2 Delivery O2 Flow Rate FiO2 06/11/16 11:00 97.5 87 22 104/68 92 Nasal Cannula 4.0 97.5 Labs Lab Laboratory Tests Test 06/11/16 03:46 White Blood Count 15.8x10^3/uL (4.0-11.0) Red Blood Count 3.55x10^6/uL (3.50-5.40) Hemoglobin 11.3g/dL (12.0-15.5) Hematocrit 36.1% (36.0-47.0) Mean Corpuscular Volume 102fL (79-100) Mean Corpuscular Hemoglobin 32pg (25-35) Mean Corpuscular Hemoglobin Concent 31g/dL (31-37) Red Cell Distribution Width 16.3% (11.5-14.5) Platelet Count 297x10^3/uL (140-400) Neutrophils (%) (Auto) 85% (31-73) Lymphocytes (%) (Auto) 5% (24-48) Monocytes (%) (Auto) 9% (0-9) Eosinophils (%) (Auto) 0% (0-3) Basophils (%) (Auto) 0% (0-3) Neutrophils # (Auto) 13.5x10^3uL (1.8-7.7) Lymphocytes # (Auto) 0.9x10^3/uL (1.0-4.8) Monocytes # (Auto) 1.4x10^3/uL (0.0-1.1) Eosinophils # (Auto) 0.0x10^3/uL (0.0-0.7) Basophils # (Auto) 0.0x10^3/uL (0.0-0.2) Segmented Neutrophils % 87% (35-66) Band Neutrophils % 6% (0-9) Lymphocytes % 2% (24-48) Monocytes % 5% (0-10) Platelet Estimate Adequate (ADEQUATE) Poikilocytosis Present Anisocytosis Present Macrocytosis Present Target Cells Present Ovalocytes Few [place] Cells Present Acanthocytes Few Schistocytes Few Sodium Level 143mmol/L (136-145) Potassium Level 5.6mmol/L (3.5-5.1) Chloride Level 112mmol/L (98-107) Carbon Dioxide Level 20mmol/L (21-32) Anion Gap 11 (6-14) Blood Urea Nitrogen 9mg/dL (7-20) Creatinine 0.4mg/dL (0.6-1.0) Estimated GFR (Cockcroft-Gault) 160.7 BUN/Creatinine Ratio 23 (6-20) Glucose Level 91mg/dL (70-99) Calcium Level 8.3mg/dL (8.5-10.1) Total Bilirubin 0.4mg/dL (0.2-1.0) Aspartate Amino Transf (AST/SGOT) 24U/L (15-37) Alanine Aminotransferase (ALT/SGPT) 9U/L (14-59) Alkaline Phosphatase 130U/L (46-116) Total Protein 5.0g/dL (6.4-8.2) Albumin 1.5g/dL (3.4-5.0) Albumin/Globulin Ratio 0.4 (1.0-1.7) Objective Assessment Pulmonary infiltrated, aspiration possible, TB less likely Cavitary pneumonia H/O ETOH H/O Pancreatitis Wt loss Plan Plan of Care zyvox and zosyn supportive care sputum afb x 3 d/w d/w TAMEKA Ortiz MD Jun 11, 2016 12:02
--- NOTE | 2016-06-11 12:04 | PDOC ---
Provider Note Provider Note dictated see orders ANJEL GARCIA MD Jun 11, 2016 12:04
--- NOTE | 2016-06-11 12:37 | CONS ---
DATE OF CONSULTATION: ATTENDING PHYSICIAN: Dr. Hadley. REASON FOR CONSULTATION: Abnormal CT chest, hypoxia, possible TB. HISTORY OF PRESENT ILLNESS: The patient is a 65-year-old female who is deaf and is mute. Her had similar medical conditions, so I was able to review the chart and also wrote down all the questions so they could answer. The patient was presented to [facility] for nausea, decreased appetite, weakness and ongoing weight loss. She has history of chronic pancreatitis secondary to pancreatic duct stone and pseudocyst. She recently had history of heavy alcohol use. She is status post distal pancreatectomy, splenectomy and cholecystectomy. The patient has been complaining of coughing. She has lost about 30 pounds in the last few months. There was a CT chest done at [facility], which was reviewed by me, done on 06/09/2016. The patient has consolidation involving the left lower lobe. She also has some multiple tree-in-bud airspace opacities in both lungs suggesting an infectious etiology. There is an opacity in the right upper lobe close to the ____ and at the apex. There is some ____ identified in the apex which could be related to a tiny pneumothorax versus a cavitary lesion. As a result, I have been asked to see her for further evaluation. Infectious Disease has been consulted. She has been on Rocephin and azithromycin. She is also requiring oxygen at 4 liters with saturation 92%. She has audible coarse rhonchi. PAST MEDICAL HISTORY: Significant for history of chronic pancreatitis secondary to pancreatic duct stone and pseudocyst and heavy alcohol consumption in the past. History of distal pancreatectomy and splenectomy, history of breast cancer status post right mastectomy, on home letrozole. History of cholecystectomy and C-spine laminectomy, hypertension, COPD, arthritis and she is hearing impaired, deaf and mute. FAMILY HISTORY: Breast cancer, lung and brain and CVA. SOCIAL HISTORY: She had heavy history of alcohol use, but no longer drinks. REVIEW OF SYSTEMS: Most of the system review was obtained by writing questions. Pertinent positives discussed in my history of present illness, otherwise noncontributory. MEDICATIONS: All reviewed as listed in the MRAD. PHYSICAL EXAMINATION: GENERAL: She appears mildly tachypneic. VITAL SIGNS: Blood pressure 104/60, afebrile, pulse ox 92% on 4 liters. HEENT: Sclerae nonicteric. NECK: Supple. LUNGS: With coarse rhonchi anteriorly and posteriorly. CARDIOVASCULAR: Regular rate and rhythm. ABDOMEN: Soft. EXTREMITIES: With no pitting edema. She has no muscle mass. LABORATORY DATA: Reviewed. White cell count 15.8, hemoglobin 11.3 and platelets are 297. BUN 9, creatinine 0.9, albumin is only 1.5. IMPRESSION: 1. Abnormal CT chest with bilateral tree-in-bud interstitial infiltrates suggesting infectious pneumonitis. Possible chronic aspiration cannot be ruled out. Tuberculosis is unlikely in this clinical setting. She has diffuse rhonchi anteriorly and I suspect her airways are full of secretions. 3. Weight loss of 30 pounds. This could be multifactorial to include and most likely related to chronic pancreatitis and prior pancreatectomy. Tuberculosis seems unlikely at this point. She has history of breast cancer and tumor markers can be checked. 4. History of heavy alcohol use. 5. Acute hypoxic respiratory failure secondary to pneumonia. RECOMMENDATIONS: 1. Discussed with Dr. Parikh and discussed with the patient's . At this time, I will continue with broad-spectrum antibiotics. 2. We will obtain sputum for ASPH[employer] SUPERINT[employer]ENT and also for AFB, clinical suspicion for TB is low. Findings of questionable cavity in the right upper lobe, may be related to a tiny pneumothorax. She does have a history of recent fall. 3. Needs to improve nutritional status. She has severe protein-calorie malnutrition. 4. She is very high risk for bronchoscopy due to her marginal respiratory status. She would not be able to tolerate any sedation. 5. I have discussed at length code status with the . He wants full code. 6. Broaden the antibiotic by her primary Infectious Disease recommendations. 7. We will followup chest x-ray ANJEL GARCIA MD DR: SASCHA/sushil JOB#: [id number] / [id number] [place]
[2016-06-11] MEDS ORDERED: FUROSEMIDE 40 MG/4 ML VIAL IVP ONE (13:00)
[2016-06-11] MEDS ORDERED: PIPERACILLIN/TAZOBACTAM 3.375 GM in IV NORMAL SALINE 50ML 50 ML IV SCH (13:00)
[2016-06-11] MEDS ORDERED: NOREPINEPHRINE 8 MG in IV NORMAL SALINE 250 ML IV ONE (15:15)
[2016-06-11] MEDS ORDERED: VASOPRESSIN 40 UNIT in IV DEXTROSE 5% 100 ML IV PRN (15:45)
[2016-06-11] MEDS ORDERED: EPINEPHRINE VIAL 4 MG in IV NORMAL SALINE 250ML 250 ML IV ONE (15:45)
[2016-06-11] MEDS ORDERED: IV NORMAL SALINE 1000ML BAG 1,000 ML IV ONE ×4 (15:45→17:00)
--- NOTE | 2016-06-11 15:48 | RAD ---
EXAM: Chest one view. HISTORY: Intubated. COMPARISON: 04/20/2016. FINDINGS: A frontal view of the chest is obtained. An endotracheal tube has its tip 7 cm above the gladys. Lower cervical instrumented anterior cervical discectomy and fusion is partially visualized. There are surgical clips in the right axilla. There is consolidation in the retrocardiac territory. More superiorly in the left lower lobe, there are multiple nodular opacities. Milder opacities are seen in the right base and right upper lobe. Hyperinflation is consistent with chronic obstructive pulmonary disease. A small left pleural effusion cannot be excluded. There is no pneumothorax. The heart is not enlarged. There are atherosclerotic calcifications of the aorta. IMPRESSION: 1. Left lower lobe pneumonia. 2. Additional nodular opacities in the left lower lobe may be additional infiltrate. Follow-up to resolution is recommended to exclude parenchymal nodules. 3. Milder infiltrates on the right. 4. Hyperinflation is consistent with chronic obstructive pulmonary disease.
[2016-06-11] MEDS ORDERED: EPINEPHRINE VIAL 4 MG in IV NORMAL SALINE 250ML 250 ML IV PRN (16:00)
--- NOTE | 2016-06-11 17:03 | HP ---
ADMIT DATE: 06/11/2016 HISTORY OF PRESENT ILLNESS: The patient is a 65-year-old female patient who apparently was admitted to [facility] with a complaint of continued nausea, decreased appetite, increased weakness and 38-pound weight loss since her hip surgery in 04/2016. She denied any chills or fever. She was evaluated in the Emergency Room, was found to have severe deconditioning, severe malnutrition with an albumin of only 1.6 g/dL, marked dehydration, questionable UTI, lactic acid was elevated, slightly elevated liver enzymes. She was found also to have decubitus ulcer or nonhealing surgical wound in the right hip, hyponatremia and was admitted for IV fluid, IV antibiotic and pain medication. She has a left lower lobe pneumonia and elevated D-dimer, I did actually arrange for her to have a CT scan of the chest with PE protocol and showed that there are large consolidation changes with volume loss intensified in the left lower lobe of the lung with air bronchogram that could be pneumonia or endobronchial lesion with post-obstructive atelectasis and volume loss. She has multiple tree-in-bud airspace opacities identified in the bilateral lung diffusely, it could be due to infectious bronchiolitis or atypical infection such as Mycobacterium. There is opacity in the right upper lobe of the lung abutting the pleura in the region of the apex with tiny lucency identified in the lung apex that could be cavitary lesions or tiny pneumothorax with adjacent focus pneumonia. There is mild pleural thickening identified in the inferior apical pleura, tiny 8-mm cavity identified in the right upper lobe of the lung. She has diffuse decreased attenuation noted throughout the liver, likely due to hepatic steatosis, has moderately fluid distended stomach. Given all these findings, weight loss, possibility of postobstructive pneumonia with marked distention of the stomach, possible gastric outlet obstruction, a decision was made to transfer her to [facility]. She is deaf and mute and communicates only by the sign language and writing on the pad. She was noted to be choking on multiple occasions and because of the large amount of fluid in the stomach, I kept her n.p.o., started her on IV fluid. When I saw her this afternoon in the [facility], she was markedly hypoxic despite 4 liters of oxygen. She is markedly tachypneic and tachycardic with a heart rate of 145. PHYSICAL EXAMINATION: GENERAL: She was pale, cachectic, but no jaundice, cyanosis, or thyromegaly. No jugular distention. No limb edema. VITAL SIGNS: Her heart rate was 142, blood pressure was 104/68, temperature was 97.5, respiratory rate was 28 and oxygen saturation was 88% on 4 liters of oxygen. HEAD, EARS, EYES, NOSE AND THROAT: Showed normocephalic, atraumatic. NECK: Supple. HEART: Showed normal first and second heart sounds with no gallop, rub or murmur. CHEST: Shows central trachea, equal bilateral chest expansion, air entry with bilateral crackles, very few rhonchi. ABDOMEN: Scaphoid, soft, nontender. No guarding or rigidity. No organomegaly. Hernial orifices intact. Bowel sounds normal. NEUROLOGIC: She is awake, alert, opens eyes, tracks and responds appropriately; however, she is mute. EXTREMITIES: She moves both upper and lower extremities without difficulty. She has decubitus ulcer on the right intratrochanteric area, nonhealing surgical wound in the right hip area. LABORATORY DATA: Her lab work this morning showed that her white cell count was 18,800; hemoglobin 11.3; hematocrit 36; MCV 102 and platelet count 297,000. Her serum sodium was 143, potassium 5.8, chloride 112, bicarbonate 20, anion gap of 11, BUN 8, creatinine 0.2, estimated GFR was 160, glucose was 81, calcium was 8.3. Total bilirubin, AST, ALT were normal. Alkaline phosphatase slightly elevated. Total protein was 5, albumin was 1.5. My plan is to transfer her to the ICU to stop the IV fluid and give her a dose of Lasix. We will get the [facility] interpreters, so that they can communicate with the patient and her because both of them are nonverbal. PAST MEDICAL HISTORY: Significant for bronchial asthma versus chronic obstructive pulmonary disease. She has also apparently chronic pancreatitis, status post pancreatectomy and splenectomy. PAST SURGICAL HISTORY: Significant for breast cancer with right mastectomy. She underwent cervical spine laminectomy for cervical spine stenosis and cholecystectomy for acute calculous cholecystitis, most recently has had also surgery for hip replacement. The surgical wound is not healing well and she has also new decubitus ulcer on the left intertrochanteric area. ALLERGIES: SHE IS ALLERGIC TO MORPHINE. MEDICATIONS: She is currently on albuterol sulfate 2 puffs every 4 hours, clotrimazole 10 mg troches 5 times a day, Flovent 2 puffs twice a day, gabapentin 300 mg 3 times a day, letrozole 2.5 mg once a day, nystatin suspension swish and swallow 4 times a day, ondansetron 4 mg every 4 hours, oxycodone 20 mg every 4 hours, tiotropium bromide for Spiriva HandiHaler 1 inhalation once a day. She is also on Rocephin 1 gram IV daily and Zithromax 250 mg once a day. REVIEW OF SYSTEMS: As in present illness. FAMILY HISTORY: Unremarkable. SOCIAL HISTORY: She apparently has 2 children. Her son who is 36 years old and daughter 33, both of them live in [place]. She used to be a smoker, quit 5 years ago. She was also a heavy drinker, quit 5 years ago. Apparently, she has had episode of pancreatitis related to excessive alcohol. Her mother of breast cancer and lung cancer. Her father had brain tumor. She is currently disabled and she is living with her boyfriend. 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 ASSESSMENT AND PLAN: My plan is to transfer her down to ICU, get a better way to communicate with her and her boyfriend as her overall prognosis is extremely poor. She might have metastatic lung disease. She has also markedly dilated stomach and I am not sure whether she might have a gastric outlet obstruction. We have already consulted the sod stripper, the infectious disease specialist as well as the satellite installation technician. We also consulted the speech therapist who would decide on further management accordingly. TODD MILLER MD DR: FRANCISCO JAVIER/sushil JOB#: [id number] / [id number]
[2016-06-11] MEDS: MIDAZOLAM PREMIX 100 ML IV PRN (17:06)
[2016-06-11 17:09] LABS: HCO3 ABG 14 mmol/L (21-28); PCO2 ABG 29 mmHg (35-46); PO2 ABG 158 mmHg (65-108); SAT O2 ABG 99 % (92-99)
[2016-06-11 17:12] LABS: FIO2 ABG 100
[2016-06-11] MEDS ORDERED: DEXTROSE 50% 25 GM / 50ML DISP.SYRIN. IV ONE ×2 (17:15→17:30)
[2016-06-11] MEDS ORDERED: SODIUM BICARB ADULT 8.4% 50 MEQ/50 ML DISP.SYRIN. IV ONE (17:30)
--- NOTE | 2016-06-11 17:44 | PDOC2 ---
PALLIATIVE CARE Palliative Care Note Palliative Care Consult requested by Dr. Carnes to address symptom management Patient transferred to ICU 11. Respiratory Distress. Intubated--Vent. Diagnosis: Respiratory Distress; history of pancreatitis secondary pancreatic duct stone and pseudocyst; ETOH use; nausea, wt loss; right hip pain. Patient currently sedated. Patient is Deaf;; with assistance of medical interpreter patient had indicated to staff she wants aggressive care prior to intubation. No family at bedside. Will follow as needed. OSIEL AHSBY Jun 11, 2016 17:44
[2016-06-11] MEDS ORDERED: NICARDIPINE HCL 50 MG in IV NORMAL SALINE 250ML 250 ML IV PRN (17:45)
[2016-06-11] MEDS ORDERED: CEFTRIAXONE SODIUM 1 GM in IV NORMAL SALINE 50ML 50 ML IV SCH (18:00)
[2016-06-11] MEDS ORDERED: VANCOMYCIN PER PHARMACY MC PRN (18:00)
[2016-06-11] MEDS ORDERED: VANCOMYCIN 1 GM in IV NORMAL SALINE 250ML 250 ML IV ONE (18:30)
[2016-06-11] MEDS: PANTOPRAZOLE IV PUSH 40 MG VIAL. IVP SCH (18:38)
--- NOTE | 2016-06-11 18:58 | OP ---
DATE OF SURGERY: PROCEDURE: Intubation. INDICATIONS: Code blue. DESCRIPTION OF PROCEDURE: The patient had a code blue. Once her pulse came back, with the help of 4.0 curved Juliana blade, patient was successfully intubated with a 7.0 endotracheal tube. Chest x-ray showed appropriate positioning and there was appropriate color change of the CO2 detector. ANJEL GARCIA MD DR: SASCHA/sushil JOB#: [id number] / [id number] [place]
--- NOTE | 2016-06-11 19:06 | OP ---
DATE OF SURGERY: NAME OF PROCEDURE: Central line. INDICATIONS: Code blue, no blood pressure, emergent need for IV access. DESCRIPTION OF PROCEDURE: After sterile precaution, the left groin was prepped. With the help of a guided wire, the triple lumen catheter was advanced into the left femoral vein. No immediate complications noted. Venous blood was obtained and catheter was sutured. ANJEL GARCIA MD DR: SASCHA/sushil JOB#: [id number] / [id number] [place]
[2016-06-12] VITALS (27 sets, daily range): BP systolic 96–131; BP diastolic 58–74
[2016-06-12] MEDS: NOREPINEPHRINE VIAL 8 MG in IV NORMAL SALINE 250ML 250 ML IV PRN ×2 (01:07→09:03)
--- NOTE | 2016-06-12 02:34 | CONS ---
DATE OF CONSULTATION: 06/11/2016 REQUESTING PHYSICIAN: Dr. Hadley. REASON FOR CONSULTATION: Rule out TB. HISTORY OF PRESENT ILLNESS: This is a 65-year-old female who is deaf, whose is at the bedside, who is deaf also and communication done by writing. The patient evidently was transferred because of the cavitary lung lesion from [place]. The patient does have cough. The patient does have about 30-pound weight loss in 1 month. The patient does have no appetite. Denies any fever. Denies any nausea, vomiting. She does have pancreatitis history and now is here because of cavitary lesion to rule out tuberculosis. On further questioning, the patient and her says they never had a TB exposure, they never had in retirement, they have not been homeless and out of country. PAST MEDICAL HISTORY: Positive for alcoholic pancreatitis. PAST SURGICAL HISTORY: The patient has had distal pancreatectomy done in the past for pseudocyst. Also, cholecystectomy. SOCIAL HISTORY: Negative for smoking, they have quit alcohol, no drug use. ALLERGIES: They denied any allergy, but listed as CELECOXIB. CURRENT MEDICATIONS: The patient is on Rocephin and azithromycin. REVIEW OF SYSTEMS: As per HPI, all other systems reviewed are negative other than what I mentioned in HPI. HEENT: Anicteric. NECK: Supple, no JVP, no lymphadenopathy. LUNGS: Clear. HEART: S1, S2 regular. ABDOMEN: Benign. The patient is thin, cachectic. EXTREMITIES: No edema, cyanosis. SKIN: Unremarkable. NEUROLOGIC: The patient is neurologically intact. LABORATORY DATA: White count is 15.8, BUN 9, creatinine 0.4, albumin is 1.5. IMAGING STUDIES: CT scan of the chest reviewed. IMPRESSION: 1. Cavitary lung infiltrate with weight loss and debility, aspiration is likely, also significant alcohol history in the past. Cancer is another possibility. Tuberculosis is possible, although less likely. 2. Significant weight loss. 3. History of alcoholic hepatitis and pancreatitis with the surgery done in the past. RECOMMENDATIONS: We would treat her with broad antibiotic coverage. Sputum AFB daily x 3. Eventually if no ____ may need bronchoscopy and biopsy and/or CT-guided biopsy from outside, discussion with Dr. Carnes done, discussed with the patient's assessment. Thank you very much, Dr. Hadley for giving me the opportunity to participate in this patient's care. TAMEKA SUMNER MD DR: RITIKA/sushil JOB#: [id number] / [id number]
[2016-06-12] MEDS ORDERED: VANCOMYCIN 750 MG in IV NORMAL SALINE 250ML 250 ML IV SCH (06:00)
[2016-06-12] MEDS: PANTOPRAZOLE IV PUSH 40 MG VIAL. IVP SCH ×2 (06:18→18:03)
--- NOTE | 2016-06-12 08:01 | PDOC ---
Infectious Disease Note Subjective Subjective pt coded and now intubated ROS ROS unable to do Vital Sign Vital Signs Vital Signs Date Time Temp Pulse Resp B/P Pulse Ox O2 Delivery O2 Flow Rate FiO2 06/12/16 06:00 100 20 114/64 100 Ventilator 06/12/16 04:00 98.9 98.9 06/11/16 12:23 3.0 Physical Exam PHYSICAL EXAM GENERAL: NAD, sedated on vent HEENT: PERRL, OC/OP NECK: Supple, no JVD, no LN LUNGS: Clear HEART: S1S2, no gallop, no murmur ABD: Soft, NT, no organomegaly, no rebound EXT: No edema, no cyanosis INVENTORY TRANSCRIBER: sedated on vent SKIN: No rash IV: ok Labs Lab Laboratory Tests Test 06/11/16 17:00 06/11/16 17:15 06/11/16 17:43 O2 Saturation 99% (92-99) Arterial Blood pH 7.30 (7.35-7.45) Arterial Blood pCO2 at Patient Temp 29mmHg (35-46) Arterial Blood pO2 at Patient Temp 158mmHg (65-108) Arterial Blood HCO3 14mmol/L (21-28) Arterial Blood Base Excess -11mmol/L (-3-3) FiO2 100 Glucose (Fingerstick) 30mg/dL (70-99) 181mg/dL (70-99) Objective Assessment Pulmonary infiltrated, aspiration possible, TB less likely Cavitary pneumonia H/O ETOH H/O Pancreatitis Wt loss Aspiration likely S/P CODE Respiratory failure Plan Plan of Care zyvox and zosyn supportive care sputum afb x 3 d/w TAMEKA Ortiz MD Jun 12, 2016 08:01
[2016-06-12] MEDS: BUDESONIDE 0.5 MG/2 ML NEBU NEB SCH ×2 (08:08→19:52)
[2016-06-12] MEDS: IPRATRPIUM/ALBUTEROL 0.5/2.5MG 3 ML NEBU. NEB SCH ×4 (08:08→19:52)
--- NOTE | 2016-06-12 08:13 | RAD ---
EXAM: Chest one view. HISTORY: Pneumonia, ventilated, respiratory failure. COMPARISON: 06/11/2016. FINDINGS: A frontal view of the chest is obtained. An endotracheal tube has its tip 7 cm above the gladys. A nasogastric tube has its tip below the inferior margin of the field of view. Changes of right axillary lymph node dissection and instrumented anterior cervical discectomy and fusion are noted. There is some rotation to the left. Retrocardiac consolidation persists and appears less well aerated. Nodular opacities more superiorly persist. There are mildly improved infiltrates in the right upper lobe and right base. Small pleural effusions are again noted. There is no pneumothorax. The heart is not enlarged. IMPRESSION: 1. Persistent left lower lobe consolidation. 2. Nodular opacities more superiorly on the left. Follow-up to resolution is recommended. 3. Mildly improved right infiltrates. Small pleural effusions.
[2016-06-12 08:15] LABS: HCO3 ABG 16 mmol/L (21-28); PCO2 ABG 25 mmHg (35-46); PH ABG 7.42 (7.35-7.45); PO2 ABG 124 mmHg (65-108); SAT O2 ABG 98 % (92-99)
[2016-06-12 08:18] LABS: FIO2 ABG 60
--- NOTE | 2016-06-12 08:43 | CONS ---
DATE OF CONSULTATION: ADDENDUM The patient was transferred from sixth floor with progressive dyspnea. She was transferred to this intensive care unit. While I was talking to her with the help of bowling ball finisher, I noticed that she slow down her breathing and started to have agonal breathing. She lost the pulse as well. The patient was immediately started on CPR. She had 2 rounds of CPR and her pulse came back. After that, I intubated the patient with a 7.0 endotracheal tube with a good visualization of vocal cord. There was appropriate color change on the CO2 detector and chest x-ray showed good position of the endotracheal tube. The patient's was subsequently informed. Her blood pressure is still very low. She is on Levophed. Additional critical care time 35 minutes. ANJEL GARCIA MD DR: SASCHA/sushil JOB#: [id number] / [id number] [place]
[2016-06-12] MEDS: IV NORMAL SALINE 1000ML BAG 1,000 ML IV SCH ×2 (09:02→11:22)
[2016-06-12] MEDS: PREDNISONE 10 MG TABLET PO SCH (09:02)
[2016-06-12] MEDS: GABAPENTIN 300 MG CAPSULE. PO SCH ×3 (09:02→21:00)
--- NOTE | 2016-06-12 09:02 | PN ---
DATE: ADDENDUM I had multiple intermittent discussions with the patient's with the help of an fermentologist with sign language expertise. I updated him about the critical illness, the recent code blue and currently, she is on a ventilator, and we have no palpable blood pressure. She is on 3 maximum doses of blood pressure medications. I did explain to him about that there is a good chance that she may not survive. He also asked her questions about can she live like this for long period, and I had to explain to him that if she makes clinical improvement after all the aggressive treatment that she is receiving, then it will take days and even weeks before she comes off the ventilator. He still wants to continue aggressive care and still wants to continue full code. I did also inform him that the patient's clinical condition can change on an hourly basis, and we will keep updating him. I did also inform him that he should inform patient's kids, who are in [place], that due to the critical nature of her condition, they should come and visit her, at any cost do that. ANJEL GARCIA MD DR: SASCHA/sushil JOB#: [id number] / [id number] [place]
[2016-06-12] MEDS: LETROZOLE 2.5 MG TABLET. PO SCH (09:06)
--- NOTE | 2016-06-12 09:15 | PDOC ---
Objective: Objective: Coded yesterday, in ICU intubated/sedated. No GI concerns per RN. Vital Signs: Vital Signs Date Time Temp Pulse Resp B/P Pulse Ox O2 Delivery O2 Flow Rate FiO2 06/12/16 07:59 100 Ventilator 06/12/16 06:00 100 20 114/64 06/12/16 04:00 98.9 98.9 06/11/16 12:23 3.0 Labs: Laboratory Tests Test 06/11/16 17:00 06/11/16 17:15 06/11/16 17:43 06/12/16 08:00 O2 Saturation 99% 98% Arterial Blood pH 7.30 7.42 Arterial Blood pCO2 at Patient Temp 29mmHg 25mmHg Arterial Blood pO2 at Patient Temp 158mmHg 124mmHg Arterial Blood HCO3 14mmol/L 16mmol/L Arterial Blood Base Excess -11mmol/L -7mmol/L FiO2 100 60 Glucose (Fingerstick) 30mg/dL 181mg/dL Imaging: CXR 06/12/16 IMPRESSION: 1. Persistent left lower lobe consolidation. 2. Nodular opacities more superiorly on the left. Follow-up to resolution is recommended. 3. Mildly improved right infiltrates. Small pleural effusions. PE: GEN: intubated LUNGS: vent HEART: RRR ABD: BS+, soft, NG w/ dark bilious material NEURO/PSYCH: sedated A/P: Abnormal CT chest -GI-kay w/ moderately fluid distended stomach -on PPI H/o pancreatitis -h/o pancreatic duct stone and pseudocyst, alcohol use, s/p distal pancreatectomy and splenectomy -nausea, weight loss Resp failure -pulmonary infiltrates, pneumonia -aspiration, r/o TB -- Other per Dr. Back. JANET CARDOZO Jun 12, 2016 09:15
--- NOTE | 2016-06-12 10:05 | PDOC ---
PULMONARY PROGRESS NOTES Subjective remains intubated/sedated pressor requirement improved, only on one now Vitals Vital Signs Date Time Temp Pulse Resp B/P Pulse Ox O2 Delivery O2 Flow Rate FiO2 06/12/16 09:00 92 20 116/62 100 Ventilator 06/12/16 08:00 4.0 06/12/16 08:00 98.5 98.5 Lungs: Other (coarse) Cardiovascular: S1 Abdomen: Soft Extremities: No Edema Skin: Warm Labs Laboratory Tests Test 06/11/16 03:46 06/11/16 17:00 06/11/16 17:15 06/11/16 17:43 White Blood Count 15.8x10^3/uL (4.0-11.0) Red Blood Count 3.55x10^6/uL (3.50-5.40) Hemoglobin 11.3g/dL (12.0-15.5) Hematocrit 36.1% (36.0-47.0) Mean Corpuscular Volume 102fL (79-100) Mean Corpuscular Hemoglobin 32pg (25-35) Mean Corpuscular Hemoglobin Concent 31g/dL (31-37) Red Cell Distribution Width 16.3% (11.5-14.5) Platelet Count 297x10^3/uL (140-400) Neutrophils (%) (Auto) 85% (31-73) Lymphocytes (%) (Auto) 5% (24-48) Monocytes (%) (Auto) 9% (0-9) Eosinophils (%) (Auto) 0% (0-3) Basophils (%) (Auto) 0% (0-3) Neutrophils # (Auto) 13.5x10^3uL (1.8-7.7) Lymphocytes # (Auto) 0.9x10^3/uL (1.0-4.8) Monocytes # (Auto) 1.4x10^3/uL (0.0-1.1) Eosinophils # (Auto) 0.0x10^3/uL (0.0-0.7) Basophils # (Auto) 0.0x10^3/uL (0.0-0.2) Segmented Neutrophils % 87% (35-66) Band Neutrophils % 6% (0-9) Lymphocytes % 2% (24-48) Monocytes % 5% (0-10) Platelet Estimate Adequate (ADEQUATE) Poikilocytosis Present Anisocytosis Present Macrocytosis Present Target Cells Present Ovalocytes Few David Cells Present Acanthocytes Few Schistocytes Few Sodium Level 143mmol/L (136-145) Potassium Level 5.6mmol/L (3.5-5.1) Chloride Level 112mmol/L (98-107) Carbon Dioxide Level 20mmol/L (21-32) Anion Gap 11 (6-14) Blood Urea Nitrogen 9mg/dL (7-20) Creatinine 0.4mg/dL (0.6-1.0) Estimated GFR (Cockcroft-Gault) 160.7 BUN/Creatinine Ratio 23 (6-20) Glucose Level 91mg/dL (70-99) Calcium Level 8.3mg/dL (8.5-10.1) Total Bilirubin 0.4mg/dL (0.2-1.0) Aspartate Amino Transf (AST/SGOT) 24U/L (15-37) Alanine Aminotransferase (ALT/SGPT) 9U/L (14-59) Alkaline Phosphatase 130U/L (46-116) Total Protein 5.0g/dL (6.4-8.2) Albumin 1.5g/dL (3.4-5.0) Albumin/Globulin Ratio 0.4 (1.0-1.7) O2 Saturation 99% (92-99) Arterial Blood pH 7.30 (7.35-7.45) Arterial Blood pCO2 at Patient Temp 29mmHg (35-46) Arterial Blood pO2 at Patient Temp 158mmHg (65-108) Arterial Blood HCO3 14mmol/L (21-28) Arterial Blood Base Excess -11mmol/L (-3-3) FiO2 100 Glucose (Fingerstick) 30mg/dL (70-99) 181mg/dL (70-99) Test 06/12/16 08:00 O2 Saturation 98% (92-99) Arterial Blood pH 7.42 (7.35-7.45) Arterial Blood pCO2 at Patient Temp 25mmHg (35-46) Arterial Blood pO2 at Patient Temp 124mmHg (65-108) Arterial Blood HCO3 16mmol/L (21-28) Arterial Blood Base Excess -7mmol/L (-3-3) FiO2 60 Laboratory Tests Test 06/11/16 17:00 06/11/16 17:15 06/11/16 17:43 06/12/16 08:00 O2 Saturation 99% (92-99) 98% (92-99) Arterial Blood pH 7.30 (7.35-7.45) 7.42 (7.35-7.45) Arterial Blood pCO2 at Patient Temp 29mmHg (35-46) 25mmHg (35-46) Arterial Blood pO2 at Patient Temp 158mmHg (65-108) 124mmHg (65-108) Arterial Blood HCO3 14mmol/L (21-28) 16mmol/L (21-28) Arterial Blood Base Excess -11mmol/L (-3-3) -7mmol/L (-3-3) FiO2 100 60 Glucose (Fingerstick) 30mg/dL (70-99) 181mg/dL (70-99) Medications Active Scripts Medications Dose Route/Sig Days Date Category Warfarin Sodium 5 Mg Tablet 1 Tab PO DAILY 04/21/16 Rx Cipro (Ciprofloxacin Hcl) 500 Mg Tablet 1 Tab PO BID 04/21/16 Rx Anoro Ellipta 62.5-25 Mcg Inh (Umeclidinium Brm/Vilanterol Tr) 1 Each Disk.w.dev 1 Each IH DAILY 12/20/14 Reported Oxycodone Hcl 20 Mg Tablet 20 Mg PO PRN Q4HRS PRN 12/20/14 Reported Gabapentin 300 Mg Capsule 1 Cap PO BID 12/20/14 Reported Flovent 110MCG Hfa (Fluticasone Propionate) 12 Gm Aer.w.adap 2 Puff IH BID 12/20/14 Reported Breo Ellipta 200-25 Mcg INH (Fluticasone/Vilanterol) 1 Each Blst.w.dev 1 Each IH DAILY 12/20/14 Reported Proair Hfa Inhaler (Albuterol Sulfate) 8.5 Gm Hfa.aer.ad 2 Puff IH PRN QID PRN 12/20/14 Reported Lorazepam 0.5 Mg Tablet 0.5 Mg PO Q4HRS PRN 12/20/14 Reported Ondansetron Hcl 4 Mg Tablet 1 Tab PO PRN Q4HRS 12/20/14 Reported Spiriva (Tiotropium [place]) 18 Mcg Cap.w.dev 1 Cap IH DAILY 12/20/14 Reported Femara (Letrozole) 2.5 Mg Tablet 2.5 Mg PO DAILY 12/20/14 Reported Impression . 1. Acute RF due to shock/ pneumonia, AECOPD 2. shock, hypovolemic/septic 3. Abnormal CT chest with bilateral tree-in-bud interstitial infiltrates suggesting infectious pneumonitis. Possible chronic aspiration cannot be ruled out. Tuberculosis is unlikely in this clinical setting. She has diffuse rhonchi anteriorly and I suspect her airways are full of secretions. 4. Weight loss of 30 pounds. This could be multifactorial to include and most likely related to chronic pancreatitis and prior pancreatectomy. Tuberculosis seems unlikely at this point. She has history of breast cancer and tumor markers can be checked. 5. History of heavy alcohol use. 6. Acute hypoxic respiratory failure secondary to pneumonia. Plan . 1. AC mode, wean as tolerated 2. Fluid bolus 3. wean pressors 4. Proceed with Bronch: 5. continue with broad-spectrum antibiotics. 6.. s/p brief code blue, watch for cerebral anoxia 7. Needs to improve nutritional status. She has severe protein-calorie malnutrition. 8. I have discussed at length code status with the . He wants full code. 9. DVT/stress ulcer prophylaxis 10. stress dose steroids, d/c PO prednisone d/w RN/RT cct 30 min ANJEL GARCIA MD Jun 12, 2016 10:05
[2016-06-12 10:53] LABS: BASO % 0 % (0-3); EOS % 0 % (0-3); HEMATOCRIT 31.7 % (36.0-47.0); HEMOGLOBIN 10.5 g/dL (12.0-15.5); LYMPH % 5 % (24-48); MEAN CORPUSCULAR HEMOGLOBIN 32 pg (25-35); MEAN CORPUSCULAR HGB CONC 33 g/dL (31-37); MEAN CORPUSCULAR VOLUME 98 fL (79-100); MONO % 5 % (0-9); NEUT % 90 % (31-73); PLATELET COUNT 253 x10^3/uL (140-400); RED BLOOD COUNT 3.23 x10^6/uL (3.50-5.40); RED CELL DISTRIBUTION WIDTH 15.6 % (11.5-14.5); WHITE BLOOD COUNT 22.4 x10^3/uL (4.0-11.0)
[2016-06-12 10:54] LABS: LYMPH # 1.1 x10^3/uL (1.0-4.8)
[2016-06-12] MEDS: HYDROCORTISONE SOD SUCC/PF 100 MG/2 ML VIAL. IV SCH ×2 (11:21→21:09)
[2016-06-12] MEDS: ENOXAPARIN 40 MG/0.4 ML DISP.SYRIN. SQ SCH (11:21)
[2016-06-12] MEDS: FAMOTIDINE 20 MG/2 ML VIAL IVP SCH ×2 (11:21→21:09)
[2016-06-12 11:27] LABS: ALBUMIN 1.2 g/dL (3.4-5.0); ALBUMIN/GLOBULIN RATIO 0.5 (1.0-1.7); CALCIUM 7.1 mg/dL (8.5-10.1); CREATININE 0.7 mg/dL (0.6-1.0); GFR 84.2; TOTAL BILIRUBIN 0.7 mg/dL (0.2-1.0); TOTAL PROTEIN 3.5 g/dL (6.4-8.2)
[2016-06-12] MEDS ORDERED: IV NORMAL SALINE 1000ML BAG 1,000 ML IV ONE (11:30)
[2016-06-12] MEDS: MIDAZOLAM PREMIX 100 ML IV PRN (12:45)
[2016-06-12] MEDS: IV DEXTROSE 5 %-0.45 % NACL 1,000 ML IV SCH (12:45)
--- NOTE | 2016-06-12 12:55 | OP ---
DATE OF SURGERY: BRONCHOSCOPY NOTE INDICATIONS: Respiratory failure, diffuse pneumonia. DESCRIPTION OF PROCEDURE: Informed consent was obtained from the patient's who agreed to proceed with the procedure. The patient is intubated and sedated on mechanical ventilation. Bronch was introduced through the endotracheal tube. The distal trachea was visualized thick white secretions were seen. Bronchial wash was performed from distal trachea and both main stem bronchus. The left lung was first examined, also all the bronchopulmonary segments of left upper lobe, lingula and left lower lobe were examined. Thick white secretions were seen throughout and secretions were removed and bronchoalveolar lavage performed from the left lower lobe. No endobronchial lesions seen. Bronch was introduced into the right lung. All subsegments of right upper, middle and lower lobe were examined. Again seen with some thick white secretions. Bronchoalveolar lavage performed from the right lower lobe. It was cloudy specimen. No endobronchial lesions seen. The patient tolerated the procedure well. IMPRESSION: 1. Diffuse white secretions seen in both the mainstem and lower lobes. 2. No endobronchial lesions seen. 3. Bronchoalveolar lavage performed from both the lower lobes and sent for appropriate studies. ANJEL GARCIA MD DR: SASCHA/sushil JOB#: [id number] / [id number] [place]
[2016-06-12 13:38] LABS: PLT ESTIMATE ADEQUATE (ADEQUATE); POIKILOCYTOSIS SLIGHT
[2016-06-12 13:39] LABS: ANISOCYTOSIS SLIGHT; BURR CELLS PRESENT; HOWELL-JOLLY BODIES PRESENT
[2016-06-12] MEDS: PIPERACILLIN/TAZOBACTAM 3.375 GM in IV NORMAL SALINE 50ML 50 ML IV SCH ×2 (14:35→18:02)
--- NOTE | 2016-06-12 15:21 | RAD ---
EXAM: Two view abdomen with one view chest HISTORY: Ileus versus small bowel obstruction. COMPARISON: 06/12/2016. FINDINGS: A frontal view of the chest and supine/upright views of the abdomen are obtained. An endotracheal tube has its tip 4 cm above the gladys. A nasogastric tube has its tip in the stomach. Changes of right axillary lymph node dissection and instrumented anterior cervical discectomy and fusion are noted. A left central central venous catheter has its tip in the left common femoral vein. Another right femoral catheter may be an arterial line. There are postsurgical changes in the left upper quadrant, right lower quadrant and midline pelvis. Changes of right total hip arthroplasty are also noted. Previously noted infiltrates in the right upper lobe and right base are improved. Retrocardiac consolidation is better aerated. Nodular opacities in the left lower lobe are also improved, suggesting improving infiltrates. There is a small pleural effusion at least on the right. There is no pneumothorax. The heart is not enlarged. There is no pneumoperitoneum. There are no distended small bowel loops or significant air-fluid levels. There is gas distally. Atherosclerotic calcifications are noted. There are moderate degenerative changes of the lower lumbar spine. IMPRESSION: 1. Improved aeration of left lower lobe pneumonia. 2. Scattered infiltrates and nodular opacities elsewhere are also improved. 3. No evidence of obstruction or ileus.
[2016-06-12] MEDS ORDERED: IV 1/2 NORMAL SALINE 1,000 ML IV ONE (15:30)
[2016-06-12] MEDS ORDERED: IV 1/2 NORMAL SALINE 500 ML IV ONE (16:00)
[2016-06-13] VITALS (27 sets, daily range): BP systolic 82–122; BP diastolic 52–73
--- NOTE | 2016-06-13 04:55 | PN ---
DATE: 06/12/2016 SUBJECTIVE: The patient was intubated and currently on mechanical ventilation maintaining her oxygen saturation at 100% on FiO2 of ____%. She is heavily sedated. She was on triple vasopressors. She is off the vasopressors and dobutamine. She is now on Levophed. PHYSICAL EXAMINATION: GENERAL: When I examined her, she looked pale, extremely cachectic, but not jaundiced. No thyromegaly, no jugular venous distention, no limb edema. VITAL SIGNS: Her heart rate was 113, blood pressure was 116/74, temperature was 98.5, respiratory rate 28, and oxygen saturation was 100% on FIO2 of ____%. HEAD, EYES, EARS, NOSE AND THROAT: Showed normocephalic, atraumatic. She has orotracheal and orogastric tube in place. NECK: Supple. HEART: Showed normal first and second heart sounds, with no gallop, rub, or murmur. CHEST: Clear to auscultation. No crepitation or rhonchi. ABDOMEN: Scaphoid, soft, nontender. No guarding, no rigidity, no organomegaly. Hernial orifices intact. Bowel sounds normal. NEUROLOGIC: She was heavily sedated and unresponsive. Her intake over the last 24 hours was 9300, output was 1375. LABORATORY DATA: This morning showed pH of 7.42, with pCO2 of 25, pO2 of 124, bicarbonate 16, and oxygen saturation was 98% on FiO2 of 60%. Her chemistry showed a serum sodium 152, potassium 4, chloride 119, bicarbonate 18, anion gap of 15, BUN of 50, creatinine 0.7, estimated GFR was 84 mL per minute. Her glucose was 94, calcium was 7.1. Total bilirubin and alkaline phosphatase were normal. AST and ALT elevated. Her total protein was 3.5 and albumin was 1.2. White cell count was 22,400, hemoglobin 10.5, hematocrit 32, MCV 98, and platelet count 253,000, with a manual differential showing 90% polymorphs, 5% lymphocytes. ASSESSMENT: Acute respiratory failure due to shock, pneumonia, and acute exacerbation of COPD, shock hypovolemic septic. CT scan shows bilateral tree-in-bud interstitial infiltrate suggesting infectious pneumonitis, possible chronic aspiration. Tuberculosis unlikely. Weight loss of 38 pounds, multifactorial including most likely related to chronic pancreatitis and prior pancreatectomy, history of alcohol abuse. PLAN: To continue with mechanical ventilation, continue with IV fluid, continue with IV vancomycin as well as ceftriaxone. Continue with DVT prophylaxis as well as GI prophylaxis. She is on hydrocortisone. Her overall hypernatremia, for which we will probably switch her IV fluids to perhaps D5 half normal and decide on further management accordingly. TODD MILLER MD DR: FRANCISCO JAVIER/sushil JOB#: [id number] / [id number]
[2016-06-13] MEDS: PIPERACILLIN/TAZOBACTAM 3.375 GM in IV NORMAL SALINE 50ML 50 ML IV SCH ×5 (05:16→18:00)
[2016-06-13] MEDS: HYDROCORTISONE SOD SUCC/PF 100 MG/2 ML VIAL. IV SCH ×3 (05:16→20:42)
[2016-06-13] MEDS: PANTOPRAZOLE IV PUSH 40 MG VIAL. IVP SCH ×2 (05:16→18:00)
[2016-06-13 05:53] LABS: BASO % 0 % (0-3); EOS % 0 % (0-3); HEMATOCRIT 30.4 % (36.0-47.0); HEMOGLOBIN 9.8 g/dL (12.0-15.5); LYMPH # 0.5 x10^3/uL (1.0-4.8); LYMPH % 4 % (24-48); MEAN CORPUSCULAR HEMOGLOBIN 32 pg (25-35); MEAN CORPUSCULAR HGB CONC 32 g/dL (31-37); MEAN CORPUSCULAR VOLUME 99 fL (79-100); MONO % 4 % (0-9); NEUT % 93 % (31-73); PLATELET COUNT 189 x10^3/uL (140-400); RED BLOOD COUNT 3.07 x10^6/uL (3.50-5.40); RED CELL DISTRIBUTION WIDTH 16.4 % (11.5-14.5); WHITE BLOOD COUNT 14.5 x10^3/uL (4.0-11.0)
[2016-06-13 06:09] LABS: ALBUMIN 1.1 g/dL (3.4-5.0); ALBUMIN/GLOBULIN RATIO 0.6 (1.0-1.7); CALCIUM 6.9 mg/dL (8.5-10.1); CREATININE 0.7 mg/dL (0.6-1.0); GFR 84.2; POTASSIUM 3.4 mmol/L (3.5-5.1); TOTAL BILIRUBIN 0.5 mg/dL (0.2-1.0); TOTAL PROTEIN 3.1 g/dL (6.4-8.2)
[2016-06-13] MEDS: NOREPINEPHRINE VIAL 8 MG in IV NORMAL SALINE 250ML 250 ML IV PRN ×3 (07:37)
[2016-06-13] MEDS ORDERED: IV 1/2 NORMAL SALINE 1,000 ML IV ONE (07:45)
[2016-06-13] MEDS ORDERED: IV 1/2 NORMAL SALINE 500 ML IV ONE (07:45)
[2016-06-13] MEDS: IPRATRPIUM/ALBUTEROL 0.5/2.5MG 3 ML NEBU. NEB SCH ×4 (07:59→20:49)
[2016-06-13] MEDS: BUDESONIDE 0.5 MG/2 ML NEBU NEB SCH ×2 (07:59→20:49)
--- NOTE | 2016-06-13 08:06 | PDOC ---
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 SKIN: callous on both feet, jose luis hip wounds IV: ok Labs Lab Laboratory Tests Test 06/12/16 10:00 06/12/16 14:20 06/12/16 15:46 06/12/16 18:00 White Blood Count 22.4x10^3/uL (4.0-11.0) Red Blood Count 3.23x10^6/uL (3.50-5.40) Hemoglobin 10.5g/dL (12.0-15.5) Hematocrit 31.7% (36.0-47.0) Mean Corpuscular Volume 98fL (79-100) Mean Corpuscular Hemoglobin 32pg (25-35) Mean Corpuscular Hemoglobin Concent 33g/dL (31-37) Red Cell Distribution Width 15.6% (11.5-14.5) Platelet Count 253x10^3/uL (140-400) Neutrophils (%) (Auto) 90% (31-73) Lymphocytes (%) (Auto) 5% (24-48) Monocytes (%) (Auto) 5% (0-9) Eosinophils (%) (Auto) 0% (0-3) Basophils (%) (Auto) 0% (0-3) Neutrophils # (Auto) 20.2x10^3uL (1.8-7.7) Lymphocytes # (Auto) 1.1x10^3/uL (1.0-4.8) Monocytes # (Auto) 1.1x10^3/uL (0.0-1.1) Eosinophils # (Auto) 0.0x10^3/uL (0.0-0.7) Basophils # (Auto) 0.0x10^3/uL (0.0-0.2) Segmented Neutrophils % 70% (35-66) Band Neutrophils % 22% (0-9) Lymphocytes % 2% (24-48) Monocytes % 6% (0-10) Platelet Estimate Adequate (ADEQUATE) Poikilocytosis Slight Anisocytosis Slight [place] Bodies Present David Cells Present Sodium Level 152mmol/L (136-145) Potassium Level 4.0mmol/L (3.5-5.1) Chloride Level 119mmol/L (98-107) Carbon Dioxide Level 18mmol/L (21-32) Anion Gap 15 (6-14) Blood Urea Nitrogen 15mg/dL (7-20) Creatinine 0.7mg/dL (0.6-1.0) Estimated GFR (Cockcroft-Gault) 84.2 BUN/Creatinine Ratio 21 (6-20) Glucose Level 94mg/dL (70-99) Calcium Level 7.1mg/dL (8.5-10.1) Total Bilirubin 0.7mg/dL (0.2-1.0) Aspartate Amino Transf (AST/SGOT) 469U/L (15-37) Alanine Aminotransferase (ALT/SGPT) 82U/L (14-59) Alkaline Phosphatase 103U/L (46-116) Total Protein 3.5g/dL (6.4-8.2) Albumin 1.2g/dL (3.4-5.0) Albumin/Globulin Ratio 0.5 (1.0-1.7) Lactic Acid Level 3.5mmol/L (0.4-2.0) 3.2mmol/L (0.4-2.0) Glucose (Fingerstick) 121mg/dL (70-99) Test 06/12/16 19:57 06/13/16 05:20 Glucose (Fingerstick) 181mg/dL (70-99) White Blood Count 14.5x10^3/uL (4.0-11.0) Red Blood Count 3.07x10^6/uL (3.50-5.40) Hemoglobin 9.8g/dL (12.0-15.5) Hematocrit 30.4% (36.0-47.0) Mean Corpuscular Volume 99fL (79-100) Mean Corpuscular Hemoglobin 32pg (25-35) Mean Corpuscular Hemoglobin Concent 32g/dL (31-37) Red Cell Distribution Width 16.4% (11.5-14.5) Platelet Count 189x10^3/uL (140-400) Neutrophils (%) (Auto) 93% (31-73) Lymphocytes (%) (Auto) 4% (24-48) Monocytes (%) (Auto) 4% (0-9) Eosinophils (%) (Auto) 0% (0-3) Basophils (%) (Auto) 0% (0-3) Neutrophils # (Auto) 13.5x10^3uL (1.8-7.7) Lymphocytes # (Auto) 0.5x10^3/uL (1.0-4.8) Monocytes # (Auto) 0.5x10^3/uL (0.0-1.1) Eosinophils # (Auto) 0.0x10^3/uL (0.0-0.7) Basophils # (Auto) 0.0x10^3/uL (0.0-0.2) Sodium Level 144mmol/L (136-145) Potassium Level 3.4mmol/L (3.5-5.1) Chloride Level 113mmol/L (98-107) Carbon Dioxide Level 19mmol/L (21-32) Anion Gap 12 (6-14) Blood Urea Nitrogen 17mg/dL (7-20) Creatinine 0.7mg/dL (0.6-1.0) Estimated GFR (Cockcroft-Gault) 84.2 BUN/Creatinine Ratio 24 (6-20) Glucose Level 247mg/dL (70-99) Lactic Acid Level 3.5mmol/L (0.4-2.0) Calcium Level 6.9mg/dL (8.5-10.1) Total Bilirubin 0.5mg/dL (0.2-1.0) Aspartate Amino Transf (AST/SGOT) 350U/L (15-37) Alanine Aminotransferase (ALT/SGPT) 87U/L (14-59) Alkaline Phosphatase 93U/L (46-116) Lactate Dehydrogenase 387U/L (81-234) Total Protein 3.1g/dL (6.4-8.2) Albumin 1.1g/dL (3.4-5.0) Albumin/Globulin Ratio 0.6 (1.0-1.7) Objective Assessment Pulmonary infiltrated, aspiration possible, TB less likely Cavitary pneumonia H/O ETOH H/O Pancreatitis Wt loss Aspiration likely S/P CODE Respiratory failure Plan Plan of Care zyvox and zosyn supportive care sputum afb x 3 d/w TAMEKA Ortiz MD Jun 13, 2016 08:06
[2016-06-13 08:11] LABS: HCO3 ABG 16 mmol/L (21-28); PCO2 ABG 23 mmHg (35-46); PH ABG 7.45 (7.35-7.45); PO2 ABG 127 mmHg (65-108); SAT O2 ABG 98 % (92-99)
[2016-06-13 08:15] LABS: FIO2 ABG 40
[2016-06-13] MEDS ORDERED: LIDOCAINE 1% / SOD BICARB 8.4% 20 ML VIAL. IJ ONE (09:00)
[2016-06-13] MEDS: FAMOTIDINE 20 MG/2 ML VIAL IVP SCH (09:10)
[2016-06-13] MEDS: GABAPENTIN 300 MG CAPSULE. PO SCH ×3 (09:10→20:42)
[2016-06-13] MEDS: LETROZOLE 2.5 MG TABLET. PO SCH (09:12)
--- NOTE | 2016-06-13 09:23 | RAD ---
EXAM: Chest one view. HISTORY: Pneumonia, intubated, respiratory failure. COMPARISON: 06/12/2016. FINDINGS: A frontal view of the chest is obtained. An endotracheal tube has its tip 3 cm above the gladys. A nasogastric tube has its tip below the inferior margin of the field of view. There are changes of right mastectomy and axillary lymph node dissection. Previously noted right-sided infiltrates have improved. Retrocardiac atelectasis/infiltrate persists. The nodular opacities in the left base appear to be improving are likely infiltrates. There are small bilateral pleural effusions. There is no pneumothorax. The heart is not enlarged. Hyperinflation is consistent with chronic obstructive pulmonary disease. IMPRESSION: 1. Resistant retrocardiac consolidation. Other infiltrates appear to be improving. 2. Small bilateral pleural effusions.
--- NOTE | 2016-06-13 09:39 | PDOC ---
G I PROGRESS NOTE Subjective Sedated on ventilator. Not responsive. Still on levophed. Objective Nurses note fair amount of OG output when suctioned. Dr. Carnes's bronch noted. Physical Exam Lungs seem clearer anteriorly. RRR Abdomen soft, not distended. Some bowel sounds present. Review of Relevant I have reviewed the following items apryl (where applicable) has been applied. Labs Laboratory Tests Test 06/11/16 17:00 06/11/16 17:15 06/11/16 17:43 06/12/16 08:00 O2 Saturation 99% (92-99) 98% (92-99) Arterial Blood pH 7.30 (7.35-7.45) 7.42 (7.35-7.45) Arterial Blood pCO2 at Patient Temp 29mmHg (35-46) 25mmHg (35-46) Arterial Blood pO2 at Patient Temp 158mmHg (65-108) 124mmHg (65-108) Arterial Blood HCO3 14mmol/L (21-28) 16mmol/L (21-28) Arterial Blood Base Excess -11mmol/L (-3-3) -7mmol/L (-3-3) FiO2 100 60 Glucose (Fingerstick) 30mg/dL (70-99) 181mg/dL (70-99) Test 06/12/16 10:00 06/12/16 14:20 06/12/16 15:46 06/12/16 18:00 White Blood Count 22.4x10^3/uL (4.0-11.0) Red Blood Count 3.23x10^6/uL (3.50-5.40) Hemoglobin 10.5g/dL (12.0-15.5) Hematocrit 31.7% (36.0-47.0) Mean Corpuscular Volume 98fL (79-100) Mean Corpuscular Hemoglobin 32pg (25-35) Mean Corpuscular Hemoglobin Concent 33g/dL (31-37) Red Cell Distribution Width 15.6% (11.5-14.5) Platelet Count 253x10^3/uL (140-400) Neutrophils (%) (Auto) 90% (31-73) Lymphocytes (%) (Auto) 5% (24-48) Monocytes (%) (Auto) 5% (0-9) Eosinophils (%) (Auto) 0% (0-3) Basophils (%) (Auto) 0% (0-3) Neutrophils # (Auto) 20.2x10^3uL (1.8-7.7) Lymphocytes # (Auto) 1.1x10^3/uL (1.0-4.8) Monocytes # (Auto) 1.1x10^3/uL (0.0-1.1) Eosinophils # (Auto) 0.0x10^3/uL (0.0-0.7) Basophils # (Auto) 0.0x10^3/uL (0.0-0.2) Segmented Neutrophils % 70% (35-66) Band Neutrophils % 22% (0-9) Lymphocytes % 2% (24-48) Monocytes % 6% (0-10) Platelet Estimate Adequate (ADEQUATE) Poikilocytosis Slight Anisocytosis Slight Crouch-[place] Bodies Present David Cells Present Sodium Level 152mmol/L (136-145) Potassium Level 4.0mmol/L (3.5-5.1) Chloride Level 119mmol/L (98-107) Carbon Dioxide Level 18mmol/L (21-32) Anion Gap 15 (6-14) Blood Urea Nitrogen 15mg/dL (7-20) Creatinine 0.7mg/dL (0.6-1.0) Estimated GFR (Cockcroft-Gault) 84.2 BUN/Creatinine Ratio 21 (6-20) Glucose Level 94mg/dL (70-99) Calcium Level 7.1mg/dL (8.5-10.1) Total Bilirubin 0.7mg/dL (0.2-1.0) Aspartate Amino Transf (AST/SGOT) 469U/L (15-37) Alanine Aminotransferase (ALT/SGPT) 82U/L (14-59) Alkaline Phosphatase 103U/L (46-116) Total Protein 3.5g/dL (6.4-8.2) Albumin 1.2g/dL (3.4-5.0) Albumin/Globulin Ratio 0.5 (1.0-1.7) Lactic Acid Level 3.5mmol/L (0.4-2.0) 3.2mmol/L (0.4-2.0) Glucose (Fingerstick) 121mg/dL (70-99) Test 3/7/17 19:57 06/13/16 05:20 06/13/16 07:45 Glucose (Fingerstick) 181mg/dL (70-99) White Blood Count 14.5x10^3/uL (4.0-11.0) Red Blood Count 3.07x10^6/uL (3.50-5.40) Hemoglobin 9.8g/dL (12.0-15.5) Hematocrit 30.4% (36.0-47.0) Mean Corpuscular Volume 99fL (79-100) Mean Corpuscular Hemoglobin 32pg (25-35) Mean Corpuscular Hemoglobin Concent 32g/dL (31-37) Red Cell Distribution Width 16.4% (11.5-14.5) Platelet Count 189x10^3/uL (140-400) Neutrophils (%) (Auto) 93% (31-73) Lymphocytes (%) (Auto) 4% (24-48) Monocytes (%) (Auto) 4% (0-9) Eosinophils (%) (Auto) 0% (0-3) Basophils (%) (Auto) 0% (0-3) Neutrophils # (Auto) 13.5x10^3uL (1.8-7.7) Lymphocytes # (Auto) 0.5x10^3/uL (1.0-4.8) Monocytes # (Auto) 0.5x10^3/uL (0.0-1.1) Eosinophils # (Auto) 0.0x10^3/uL (0.0-0.7) Basophils # (Auto) 0.0x10^3/uL (0.0-0.2) Sodium Level 144mmol/L (136-145) Potassium Level 3.4mmol/L (3.5-5.1) Chloride Level 113mmol/L (98-107) Carbon Dioxide Level 19mmol/L (21-32) Anion Gap 12 (6-14) Blood Urea Nitrogen 17mg/dL (7-20) Creatinine 0.7mg/dL (0.6-1.0) Estimated GFR (Cockcroft-Gault) 84.2 BUN/Creatinine Ratio 24 (6-20) Glucose Level 247mg/dL (70-99) Lactic Acid Level 3.5mmol/L (0.4-2.0) Calcium Level 6.9mg/dL (8.5-10.1) Total Bilirubin 0.5mg/dL (0.2-1.0) Aspartate Amino Transf (AST/SGOT) 350U/L (15-37) Alanine Aminotransferase (ALT/SGPT) 87U/L (14-59) Alkaline Phosphatase 93U/L (46-116) Lactate Dehydrogenase 387U/L (81-234) Total Protein 3.1g/dL (6.4-8.2) Albumin 1.1g/dL (3.4-5.0) Albumin/Globulin Ratio 0.6 (1.0-1.7) O2 Saturation 98% (92-99) Arterial Blood pH 7.45 (7.35-7.45) Arterial Blood pCO2 at Patient Temp 23mmHg (35-46) Arterial Blood pO2 at Patient Temp 127mmHg (65-108) Arterial Blood HCO3 16mmol/L (21-28) Arterial Blood Base Excess -7mmol/L (-3-3) FiO2 40 Laboratory Tests Test 06/12/16 10:00 06/12/16 14:20 06/12/16 15:46 06/12/16 18:00 White Blood Count 22.4x10^3/uL (4.0-11.0) Red Blood Count 3.23x10^6/uL (3.50-5.40) Hemoglobin 10.5g/dL (12.0-15.5) Hematocrit 31.7% (36.0-47.0) Mean Corpuscular Volume 98fL (79-100) Mean Corpuscular Hemoglobin 32pg (25-35) Mean Corpuscular Hemoglobin Concent 33g/dL (31-37) Red Cell Distribution Width 15.6% (11.5-14.5) Platelet Count 253x10^3/uL (140-400) Neutrophils (%) (Auto) 90% (31-73) Lymphocytes (%) (Auto) 5% (24-48) Monocytes (%) (Auto) 5% (0-9) Eosinophils (%) (Auto) 0% (0-3) Basophils (%) (Auto) 0% (0-3) Neutrophils # (Auto) 20.2x10^3uL (1.8-7.7) Lymphocytes # (Auto) 1.1x10^3/uL (1.0-4.8) Monocytes # (Auto) 1.1x10^3/uL (0.0-1.1) Eosinophils # (Auto) 0.0x10^3/uL (0.0-0.7) Basophils # (Auto) 0.0x10^3/uL (0.0-0.2) Segmented Neutrophils % 70% (35-66) Band Neutrophils % 22% (0-9) Lymphocytes % 2% (24-48) Monocytes % 6% (0-10) Platelet Estimate Adequate (ADEQUATE) Poikilocytosis Slight Anisocytosis Slight Cr[place] Bodies Present David Cells Present Sodium Level 152mmol/L (136-145) Potassium Level 4.0mmol/L (3.5-5.1) Chloride Level 119mmol/L (98-107) Carbon Dioxide Level 18mmol/L (21-32) Anion Gap 15 (6-14) Blood Urea Nitrogen 15mg/dL (7-20) Creatinine 0.7mg/dL (0.6-1.0) Estimated GFR (Cockcroft-Gault) 84.2 BUN/Creatinine Ratio 21 (6-20) Glucose Level 94mg/dL (70-99) Calcium Level 7.1mg/dL (8.5-10.1) Total Bilirubin 0.7mg/dL (0.2-1.0) Aspartate Amino Transf (AST/SGOT) 469U/L (15-37) Alanine Aminotransferase (ALT/SGPT) 82U/L (14-59) Alkaline Phosphatase 103U/L (46-116) Total Protein 3.5g/dL (6.4-8.2) Albumin 1.2g/dL (3.4-5.0) Albumin/Globulin Ratio 0.5 (1.0-1.7) Lactic Acid Level 3.5mmol/L (0.4-2.0) 3.2mmol/L (0.4-2.0) Glucose (Fingerstick) 121mg/dL (70-99) Test 06/12/16 19:57 06/13/16 05:20 06/13/16 07:45 Glucose (Fingerstick) 181mg/dL (70-99) White Blood Count 14.5x10^3/uL (4.0-11.0) Red Blood Count 3.07x10^6/uL (3.50-5.40) Hemoglobin 9.8g/dL (12.0-15.5) Hematocrit 30.4% (36.0-47.0) Mean Corpuscular Volume 99fL (79-100) Mean Corpuscular Hemoglobin 32pg (25-35) Mean Corpuscular Hemoglobin Concent 32g/dL (31-37) Red Cell Distribution Width 16.4% (11.5-14.5) Platelet Count 189x10^3/uL (140-400) Neutrophils (%) (Auto) 93% (31-73) Lymphocytes (%) (Auto) 4% (24-48) Monocytes (%) (Auto) 4% (0-9) Eosinophils (%) (Auto) 0% (0-3) Basophils (%) (Auto) 0% (0-3) Neutrophils # (Auto) 13.5x10^3uL (1.8-7.7) Lymphocytes # (Auto) 0.5x10^3/uL (1.0-4.8) Monocytes # (Auto) 0.5x10^3/uL (0.0-1.1) Eosinophils # (Auto) 0.0x10^3/uL (0.0-0.7) Basophils # (Auto) 0.0x10^3/uL (0.0-0.2) Sodium Level 144mmol/L (136-145) Potassium Level 3.4mmol/L (3.5-5.1) Chloride Level 113mmol/L (98-107) Carbon Dioxide Level 19mmol/L (21-32) Anion Gap 12 (6-14) Blood Urea Nitrogen 17mg/dL (7-20) Creatinine 0.7mg/dL (0.6-1.0) Estimated GFR (Cockcroft-Gault) 84.2 BUN/Creatinine Ratio 24 (6-20) Glucose Level 247mg/dL (70-99) Lactic Acid Level 3.5mmol/L (0.4-2.0) Calcium Level 6.9mg/dL (8.5-10.1) Total Bilirubin 0.5mg/dL (0.2-1.0) Aspartate Amino Transf (AST/SGOT) 350U/L (15-37) Alanine Aminotransferase (ALT/SGPT) 87U/L (14-59) Alkaline Phosphatase 93U/L (46-116) Lactate Dehydrogenase 387U/L (81-234) Total Protein 3.1g/dL (6.4-8.2) Albumin 1.1g/dL (3.4-5.0) Albumin/Globulin Ratio 0.6 (1.0-1.7) O2 Saturation 98% (92-99) Arterial Blood pH 7.45 (7.35-7.45) Arterial Blood pCO2 at Patient Temp 23mmHg (35-46) Arterial Blood pO2 at Patient Temp 127mmHg (65-108) Arterial Blood HCO3 16mmol/L (21-28) Arterial Blood Base Excess -7mmol/L (-3-3) FiO2 40 Microbiology 06/12/16 Gram Stain - Final, Complete Medications Current Medications Azithromycin (Zithromax) 250 mg DAILY PO ; Start 06/10/16 at 20:00; Stop 06/11/16 at 19:15; Status DC Budesonide 0.5 mg 0.5 mg RTBID NEB Last administered on 06/13/16 07:59; Start 06/10/16 at 20:00 Ceftriaxone Sodium/Sodium Chloride (Rocephin/Iv Sodium Chloride 0.9% 50ml) 50 ml @ 100 mls/hr Q24H IV Last administered on 06/10/16 20:28; Start 06/10/16 at 21:00; Stop 06/11/16 at 12:18; Status DC Fentanyl Citrate (Fentanyl 2ml Vial) 50 mcg PRN Q3HRS PRN IV PAIN Last administered on 06/11/16 22:30; Start 06/10/16 at 19:30 Gabapentin (Neurontin) 300 mg TID PO Last administered on 06/13/16 09:10; Start 06/10/16 at 21:00 Albuterol/ Ipratropium (Duoneb) 3 ml RTQID NEB Last administered on 06/13/16 07 :59; Start 06/10/16 at 20:00 Letrozole 2.5 mg 2.5 mg DAILY PO Last administered on 06/13/16 09:12; Start 06/11/16 at 09:00 Potassium Chloride/Sodium Chloride (KCl 40 Meq-NS 1,000 ml Iv Soln) 1,000 ml @ 100 mls/hr Q10H IV Last administered on 06/10/16 22:45; Start 06/10/16 at 20:00 ; Stop 06/11/16 at 08:08; Status DC Prednisone (Prednisone) 50 mg DAILY PO Last administered on 06/12/16 09:02; Start 06/10/16 at 20:00; Stop 06/12/16 at 10:23; Status DC Albuterol Sulfate 2.5 mg 2.5 mg PRN Q4HRS PRN NEB SHORTNESS OF BREATH Last administered on 06/11/16 05:37; Start 06/11/16 at 04:45 Sodium Chloride 1,000 ml @ 75 mls/hr [id number] IV Last administered on 06/12/16 11:22; Start 06/11/16 at 08:15; Stop 06/12/16 at 12:26; Status DC Piperacillin Sod/ Tazobactam Sod/ Sodium Chloride (Zosyn/Iv Sodium Chloride 0.9 % 50ml) 50 ml @ 100 mls/hr Q6HRS IV Last administered on 06/11/16 14:10; Start 06/11/16 at 13:00; Stop 06/11/16 at 19:15; Status DC Furosemide 40 mg 40 mg 1X ONCE IVP Last administered on 06/11/16 13:22; Start 06/11/16 at 13:00; Stop 06/11/16 at 13:08; Status DC Norepinephrine Bitartrate 8 mg/ Sodium Chloride 258 ml @ 1.93 mls/hr ONCE ONCE IV Last administered on 06/11/16 15:15; Start 06/11/16 at 15:15; Stop 06/17 at 04:55 Epinephrine HCl 4 mg/Sodium Chloride 254 ml @ 3.81 mls/hr ONCE ONCE IV Last administered on 06/11/16 15:55; Start 06/11/16 at 15:45; Stop 06/11/16 at 19:05; Status DC Epinephrine HCl 4 mg/Sodium Chloride 254 ml @ 0 mls/hr CONT PRN IV SEE I/O RECORD; Start 06/11/16 at 16:00 Vasopressin 40 unit/Dextrose 102 ml @ 6 mls/hr CONT PRN IV SEE I/O RECORD Last administered on 06/11/16 15:54; Start 06/11/16 at 15:45 Sodium Chloride 1,000 ml @ 1,000 mls/hr 1X ONCE IV Last administered on 15:58; Start 06/11/16 at 15:45; Stop 06/11/16 at 16:44; Status DC Sodium Chloride 1,000 ml @ 1,000 mls/hr 1X ONCE IV Last administered on 16:04; Start 06/11/16 at 15:45; Stop 06/11/16 at 16:44; Status DC Sodium Chloride (Iv Sodium Chloride 0.9% 1000ml Bag) 1,000 ml @ 1,000 mls/hr 1X ONCE IV Last administered on 06/11/16 16:04; Start 06/11/16 at 15:45; Stop 06/11/16 at 16:44; Status DC Pantoprazole Sodium 40 mg 40 mg [id number] IVP Last administered on 06/13/16 05:16; Start 06/11/16 at 18:00 Midazolam HCl 100 ml @ 0 mls/hr CONT PRN IV SEE I/O RECORD Last administered on 06/12/16 12:45; Start 06/11/16 at 17:00 Sodium Chloride (Iv Sodium Chloride 0.9% 1000ml Bag) 1,000 ml @ 150 mls/hr 1X ONCE IV Last administered on 06/11/16 17:07; Start 06/11/16 at 17:00; Stop at 23:39; Status DC Dextrose 25 gm STK-MED ONCE IV ; Start 06/11/16 at 17:15; Stop 06/11/16 at 17:16; Status DC Dextrose 25 gm 1X ONCE IV Last administered on 06/11/16 17:47; Start 06/11/16 at 17:30; Stop 06/11/16 at 17:31; Status DC Sodium Bicarbonate 100 meq 100 meq 1X ONCE IV Last administered on 06/11/16 17 :46; Start 06/11/16 at 17:30; Stop 06/11/16 at 17:31; Status DC Nicardipine HCl 50 mg/Sodium Chloride 270 ml @ 0 mls/hr CONT PRN IV SEE I/O RECORD; Start 06/11/16 at 17:45; Status Cancel Ceftriaxone Sodium/Sodium Chloride (Rocephin/Iv Sodium Chloride 0.9% 50ml) 50 ml @ 100 mls/hr Q24H IV Last administered on 06/11/16 18:37; Start 06/11/16 at 18:00; Stop 06/12/16 at 12:55; Status DC Vancomycin HCl 1 each 1 each PRN DAILY PRN MC SEE COMMENTS Last administered on 06/11/16 19:17; Start 06/11/16 at 18:00; Stop 06/12/16 at 12:58; Status DC Vancomycin HCl 1 gm/Sodium Chloride 250 ml @ 250 mls/hr 1X ONCE IV Last administered on 06/11/16 18:37; Start 06/11/16 at 18:30; Stop 06/11/16 at 19:29; Status DC Vancomycin HCl/ Sodium Chloride (Iv Sodium Chloride 0.9% 250ml) 250 ml @ 250 mls/hr Q12H IV Last administered on 06/12/16 06:18; Start 06/12/16 at 06:00; Stop 06/12/16 at 12:55; Status DC Vancomycin HCl 1 each 1 each 1X ONCE MC ; Start 06/13/16 at 05:30; Stop 06/13/16 at 05:30; Status DC Norepinephrine Bitartrate/Sodium Chloride (Levophed Vial/ Iv Sodium Chloride 0.9 % 250ml) 258 ml @ 0 mls/hr CONT PRN IV SEE I/O RECORD Last administered on 07:37; Start 06/12/16 at 00:45 Epinephrine HCl 1 mg STK-MED ONCE .ROUTE ; Start 06/11/16 at 12:00; Stop 06/12/16 at 08:13; Status DC Hydrocortisone Sodium Succinate (Solu-Cortef) 100 mg Q8HRS IV Last administered on 06/13/16 05:16; Start 06/12/16 at 11:00 Enoxaparin Sodium (Lovenox 40mg Syringe) 40 mg Q24H SQ Last administered on 06/12 11:21; Start 06/12/16 at 11:00 Famotidine 20 mg 20 mg BID IVP Last administered on 06/13/16 09:10; Start at 11:00 Sodium Chloride 1,000 ml @ 1,000 mls/hr 1X ONCE IV Last administered on 11:25; Start 06/12/16 at 11:30; Stop 06/12/16 at 12:29; Status DC Dextrose/Sodium Chloride 1,000 ml @ 75 mls/hr [id number] IV Last administered on 06/13/16 00:00; Start 06/12/16 at 13:00 Piperacillin Sod/ Tazobactam Sod 3.375 gm/Sodium Chloride 50 ml @ 100 mls/hr Q6HRS IV Last administered on 06/13/16 05:16; Start 06/12/16 at 13:30 Linezolid 300 ml @ 300 mls/hr Q12HR IV Last administered on 06/13/16 09:10; Start 06/12/16 at 13:30 Sodium Chloride 1,000 ml @ 1,000 mls/hr 1X ONCE IV Last administered on 15:30; Start 06/12/16 at 15:30; Stop 06/12/16 at 16:29; Status DC Sodium Chloride 500 ml @ 0 mls/hr 1X ONCE IV Last administered on 06/12/16 15: 44; Start 06/12/16 at 16:00; Stop 06/12/16 at 16:01; Status DC Sodium Chloride 1,000 ml @ 0 mls/hr 1X ONCE IV Last administered on 06/13/16 07:43; Start 06/13/16 at 07:45; Stop 06/13/16 at 07:46; Status DC Sodium Chloride (Iv Sodium Chloride 0.45%) 500 ml @ 0 mls/hr 1X ONCE IV Last administered on 06/13/16 07:43; Start 06/13/16 at 07:45; Stop 06/13/16 at 07:46; Status DC Midazolam HCl (Versed) 5 mg STK-MED ONCE .ROUTE ; Start 06/10/16 at 12:00; Stop 06/13/16 at 08:28; Status DC Epinephrine HCl 3 mg STK-MED ONCE .ROUTE ; Start 06/10/16 at 12:00; Stop 06/13/16 at 08:28; Status DC Dopamine HCl/ Dextrose 400 mg STK-MED ONCE IV ; Start 06/10/16 at 12:00; Stop 06/13/16 at 08:28; Status DC Lidocaine/Sodium Bicarbonate (Buffered Lidocaine 1%) 3 ml 1X ONCE IJ ; Start at 09:00; Stop 06/13/16 at 09:01; Status DC Heparin Sodium/ Sodium Chloride 60 unit 1X ONCE IV ; Start 06/13/16 at 09:00; Stop 06/13/16 at 09:01; Status DC Active Scripts Active Warfarin Sodium 5 Mg Tablet 1 Tab PO DAILY Cipro (Ciprofloxacin Hcl) 500 Mg Tablet 1 Tab PO BID Reported Anoro Ellipta 62.5-25 Mcg Inh (Umeclidinium Brm/Vilanterol Tr) 1 Each Disk.w.dev 1 Each IH DAILY Oxycodone Hcl 20 Mg Tablet 20 Mg PO PRN Q4HRS PRN Gabapentin 300 Mg Capsule 1 Cap PO BID Flovent 110MCG Hfa (Fluticasone Propionate) 12 Gm Aer.w.adap 2 Puff IH BID Breo Ellipta 200-25 Mcg INH (Fluticasone/Vilanterol) 1 Each Blst.w.dev 1 Each IH DAILY Proair Hfa Inhaler (Albuterol Sulfate) 8.5 Gm Hfa.aer.ad 2 Puff IH PRN QID PRN Lorazepam 0.5 Mg Tablet 0.5 Mg PO Q4HRS PRN Ondansetron Hcl 4 Mg Tablet 1 Tab PO PRN Q4HRS Spiriva (Tiotropium Harrison) 18 Mcg Cap.w.dev 1 Cap IH DAILY Femara (Letrozole) 2.5 Mg Tablet 2.5 Mg PO DAILY Vitals/I & O Vital Sign - Last 24 Hours 06/12/16 06/12/16 06/12/16 06/12/16 10:00 11:19 11:23 11:53 Pulse 118 113 Resp 20 28 B/P 128/70 116/74 Pulse Ox 100 100 100 O2 Delivery Ventilator Ventilator Ventilator Mechanical Ventilator O2 Flow Rate 4.0 06/12/16 06/12/16 06/12/16 06/12/16 12:22 12:22 12:23 12:50 Pulse 106 106 106 Resp 27 B/P 100/62 100/62 100/62 Pulse Ox 100 100 O2 Delivery Ventilator Ventilator 06/12/16 06/12/16 06/12/1606/12/17 13:00 14:00 15:00 15:52 Temp 97.6 97.6 Pulse 114 112 102 Resp 27 26 36 B/P 104/66 102/66 96/60 Pulse Ox 100 100 100 100 O2 Delivery Ventilator Ventilator Ventilator Ventilator 06/12/16 06/12/16 06/12/16 06/12/16 16:00 16:00 16:01 17:00 Pulse 92 92 92 Resp 20 23 B/P 102/62 102/62 108/66 Pulse Ox 100 100 O2 Delivery Ventilator Mechanical Ventilator Ventilator O2 Flow Rate 4.0 06/12/16 06/12/16 06/12/16 06/12/16 17:36 18:00 18:23 19:00 Pulse 82 82 97 Resp 20 20 B/P 98/60 98/60 103/66 Pulse Ox 100 100 100 O2 Delivery Ventilator Ventilator Ventilator 06/12/16 06/12/16 06/12/16 06/12/16 19:46 20:00 20:00 20:00 Temp 97.7 97.7 Pulse 82 82 Resp 20 B/P 100/68 100/68 Pulse Ox 100 100 O2 Delivery Ventilator Ventilator Mechanical Ventilator 06/12/16 06/12/16 06/12/16 06/12/16 21:00 21:25 22:00 22:50 Pulse 82 83 97 Resp 20 20 B/P 104/62 108/64 103/66 Pulse Ox 100 100 100 O2 Delivery Ventilator Ventilator Ventilator 06/12/16 06/12/16 06/13/16 06/13/16 23:00 23:30 00:00 00:00 Temp 97.6 97.6 Pulse 88 82 87 Resp 21 20 B/P 109/69 114/64 99/57 Pulse Ox 100 100 100 O2 Delivery Ventilator Ventilator Ventilator 06/13/16 06/13/16 06/13/16 06/13/16 00:00 01:00 01:17 02:00 Pulse 78 71 Resp 23 23 B/P 98/59 99/60 Pulse Ox 99 100 100 O2 Delivery Mechanical Ventilator Ventilator Ventilator Ventilator 06/13/16 06/13/16 06/13/16 06/13/16 03:00 03:35 04:00 04:00 Pulse 69 68 Resp 22 B/P 82/52 85/52 Pulse Ox 100 100 O2 Delivery Ventilator Ventilator Mechanical Ventilator 06/13/16 06/13/16 06/13/16 06/13/16 04:00 05:00 05:25 06:00 Temp 97.7 97.7 Pulse 68 72 72 Resp 21 19 19 B/P 85/52 90/54 99/58 Pulse Ox 100 100 100 100 O2 Delivery Ventilator Ventilator Ventilator Ventilator 06/13/16 06/13/16 06/13/16 06/13/16 07:00 07:45 08:00 08:00 Temp 97.6 97.6 Pulse 72 74 74 Resp 20 20 B/P 103/60 106/68 106/68 Pulse Ox 100 100 100 O2 Delivery Ventilator Ventilator Ventilator 06/13/16 06/13/16 08:21 09:16 Pulse 77 Resp 19 B/P 122/73 Pulse Ox 100 O2 Delivery Mechanical Ventilator Ventilator O2 Flow Rate 4.0 Intake and Output 06/12/16 06/12/16 06/13/16 15:00 23:00 07:00 Intake Total 343 ml 3689 ml Output Total 203 ml 140 ml 840 ml Balance -203 ml 203 ml 2849 ml Images No GI images. Assessment Respiratory failure/post-arrest, still needing one pressor. High OG output. Staff question TF? Plan of Care: Continue current Tx, Mgmt Plan of Care Note Safe to try tube feeding; may not fly. JOSELUIS TABOR MD Jun 13, 2016 09:39
[2016-06-13] MEDS ORDERED: ALBUMIN HUMAN 5% 500 ML IV ONE (09:45)
[2016-06-13] MEDS ORDERED: SODIUM BICARB ADULT 8.4% 50 MEQ/50 ML DISP.SYRIN. IV ONE (09:45)
--- NOTE | 2016-06-13 09:51 | PDOC ---
PULMONARY PROGRESS NOTES Subjective remains intubated/sedated pressor requirement improved, only on one now Vitals Vital Signs Date Time Temp Pulse Resp B/P Pulse Ox O2 Delivery O2 Flow Rate FiO2 06/13/16 09:16 77 19 122/73 100 Ventilator 06/13/16 08:21 4.0 06/13/16 07:00 97.6 97.6 Lungs: Other (coarse) Cardiovascular: S1 Abdomen: Soft Extremities: No Edema Skin: Warm Labs Laboratory Tests Test 06/11/16 17:00 06/11/16 17:15 06/11/16 17:43 06/12/16 08:00 O2 Saturation 99% (92-99) 98% (92-99) Arterial Blood pH 7.30 (7.35-7.45) 7.42 (7.35-7.45) Arterial Blood pCO2 at Patient Temp 29mmHg (35-46) 25mmHg (35-46) Arterial Blood pO2 at Patient Temp 158mmHg (65-108) 124mmHg (65-108) Arterial Blood HCO3 14mmol/L (21-28) 16mmol/L (21-28) Arterial Blood Base Excess -11mmol/L (-3-3) -7mmol/L (-3-3) FiO2 100 60 Glucose (Fingerstick) 30mg/dL (70-99) 181mg/dL (70-99) Test 06/12/16 10:00 06/12/16 14:20 06/12/16 15:46 06/12/16 18:00 White Blood Count 22.4x10^3/uL (4.0-11.0) Red Blood Count 3.23x10^6/uL (3.50-5.40) Hemoglobin 10.5g/dL (12.0-15.5) Hematocrit 31.7% (36.0-47.0) Mean Corpuscular Volume 98fL (79-100) Mean Corpuscular Hemoglobin 32pg (25-35) Mean Corpuscular Hemoglobin Concent 33g/dL (31-37) Red Cell Distribution Width 15.6% (11.5-14.5) Platelet Count 253x10^3/uL (140-400) Neutrophils (%) (Auto) 90% (31-73) Lymphocytes (%) (Auto) 5% (24-48) Monocytes (%) (Auto) 5% (0-9) Eosinophils (%) (Auto) 0% (0-3) Basophils (%) (Auto) 0% (0-3) Neutrophils # (Auto) 20.2x10^3uL (1.8-7.7) Lymphocytes # (Auto) 1.1x10^3/uL (1.0-4.8) Monocytes # (Auto) 1.1x10^3/uL (0.0-1.1) Eosinophils # (Auto) 0.0x10^3/uL (0.0-0.7) Basophils # (Auto) 0.0x10^3/uL (0.0-0.2) Segmented Neutrophils % 70% (35-66) Band Neutrophils % 22% (0-9) Lymphocytes % 2% (24-48) Monocytes % 6% (0-10) Platelet Estimate Adequate (ADEQUATE) Poikilocytosis Slight Anisocytosis Slight [place] Bodies Present Gordon Cells Present Sodium Level 152mmol/L (136-145) Potassium Level 4.0mmol/L (3.5-5.1) Chloride Level 119mmol/L (98-107) Carbon Dioxide Level 18mmol/L (21-32) Anion Gap 15 (6-14) Blood Urea Nitrogen 15mg/dL (7-20) Creatinine 0.7mg/dL (0.6-1.0) Estimated GFR (Cockcroft-Gault) 84.2 BUN/Creatinine Ratio 21 (6-20) Glucose Level 94mg/dL (70-99) Calcium Level 7.1mg/dL (8.5-10.1) Total Bilirubin 0.7mg/dL (0.2-1.0) Aspartate Amino Transf (AST/SGOT) 469U/L (15-37) Alanine Aminotransferase (ALT/SGPT) 82U/L (14-59) Alkaline Phosphatase 103U/L (46-116) Total Protein 3.5g/dL (6.4-8.2) Albumin 1.2g/dL (3.4-5.0) Albumin/Globulin Ratio 0.5 (1.0-1.7) Lactic Acid Level 3.5mmol/L (0.4-2.0) 3.2mmol/L (0.4-2.0) Glucose (Fingerstick) 121mg/dL (70-99) Test 06/12/16 19:57 06/13/16 05:20 06/13/16 07:45 Glucose (Fingerstick) 181mg/dL (70-99) White Blood Count 14.5x10^3/uL (4.0-11.0) Red Blood Count 3.07x10^6/uL (3.50-5.40) Hemoglobin 9.8g/dL (12.0-15.5) Hematocrit 30.4% (36.0-47.0) Mean Corpuscular Volume 99fL (79-100) Mean Corpuscular Hemoglobin 32pg (25-35) Mean Corpuscular Hemoglobin Concent 32g/dL (31-37) Red Cell Distribution Width 16.4% (11.5-14.5) Platelet Count 189x10^3/uL (140-400) Neutrophils (%) (Auto) 93% (31-73) Lymphocytes (%) (Auto) 4% (24-48) Monocytes (%) (Auto) 4% (0-9) Eosinophils (%) (Auto) 0% (0-3) Basophils (%) (Auto) 0% (0-3) Neutrophils # (Auto) 13.5x10^3uL (1.8-7.7) Lymphocytes # (Auto) 0.5x10^3/uL (1.0-4.8) Monocytes # (Auto) 0.5x10^3/uL (0.0-1.1) Eosinophils # (Auto) 0.0x10^3/uL (0.0-0.7) Basophils # (Auto) 0.0x10^3/uL (0.0-0.2) Sodium Level 144mmol/L (136-145) Potassium Level 3.4mmol/L (3.5-5.1) Chloride Level 113mmol/L (98-107) Carbon Dioxide Level 19mmol/L (21-32) Anion Gap 12 (6-14) Blood Urea Nitrogen 17mg/dL (7-20) Creatinine 0.7mg/dL (0.6-1.0) Estimated GFR (Cockcroft-Gault) 84.2 BUN/Creatinine Ratio 24 (6-20) Glucose Level 247mg/dL (70-99) Lactic Acid Level 3.5mmol/L (0.4-2.0) Calcium Level 6.9mg/dL (8.5-10.1) Total Bilirubin 0.5mg/dL (0.2-1.0) Aspartate Amino Transf (AST/SGOT) 350U/L (15-37) Alanine Aminotransferase (ALT/SGPT) 87U/L (14-59) Alkaline Phosphatase 93U/L (46-116) Lactate Dehydrogenase 387U/L (81-234) Total Protein 3.1g/dL (6.4-8.2) Albumin 1.1g/dL (3.4-5.0) Albumin/Globulin Ratio 0.6 (1.0-1.7) O2 Saturation 98% (92-99) Arterial Blood pH 7.45 (7.35-7.45) Arterial Blood pCO2 at Patient Temp 23mmHg (35-46) Arterial Blood pO2 at Patient Temp 127mmHg (65-108) Arterial Blood HCO3 16mmol/L (21-28) Arterial Blood Base Excess -7mmol/L (-3-3) FiO2 40 Laboratory Tests Test 06/12/16 10:00 06/12/16 14:20 06/12/16 15:46 06/12/16 18:00 White Blood Count 22.4x10^3/uL (4.0-11.0) Red Blood Count 3.23x10^6/uL (3.50-5.40) Hemoglobin 10.5g/dL (12.0-15.5) Hematocrit 31.7% (36.0-47.0) Mean Corpuscular Volume 98fL (79-100) Mean Corpuscular Hemoglobin 32pg (25-35) Mean Corpuscular Hemoglobin Concent 33g/dL (31-37) Red Cell Distribution Width 15.6% (11.5-14.5) Platelet Count 253x10^3/uL (140-400) Neutrophils (%) (Auto) 90% (31-73) Lymphocytes (%) (Auto) 5% (24-48) Monocytes (%) (Auto) 5% (0-9) Eosinophils (%) (Auto) 0% (0-3) Basophils (%) (Auto) 0% (0-3) Neutrophils # (Auto) 20.2x10^3uL (1.8-7.7) Lymphocytes # (Auto) 1.1x10^3/uL (1.0-4.8) Monocytes # (Auto) 1.1x10^3/uL (0.0-1.1) Eosinophils # (Auto) 0.0x10^3/uL (0.0-0.7) Basophils # (Auto) 0.0x10^3/uL (0.0-0.2) Segmented Neutrophils % 70% (35-66) Band Neutrophils % 22% (0-9) Lymphocytes % 2% (24-48) Monocytes % 6% (0-10) Platelet Estimate Adequate (ADEQUATE) Poikilocytosis Slight Anisocytosis Slight [place] Bodies Present David Cells Present Sodium Level 152mmol/L (136-145) Potassium Level 4.0mmol/L (3.5-5.1) Chloride Level 119mmol/L (98-107) Carbon Dioxide Level 18mmol/L (21-32) Anion Gap 15 (6-14) Blood Urea Nitrogen 15mg/dL (7-20) Creatinine 0.7mg/dL (0.6-1.0) Estimated GFR (Cockcroft-Gault) 84.2 BUN/Creatinine Ratio 21 (6-20) Glucose Level 94mg/dL (70-99) Calcium Level 7.1mg/dL (8.5-10.1) Total Bilirubin 0.7mg/dL (0.2-1.0) Aspartate Amino Transf (AST/SGOT) 469U/L (15-37) Alanine Aminotransferase (ALT/SGPT) 82U/L (14-59) Alkaline Phosphatase 103U/L (46-116) Total Protein 3.5g/dL (6.4-8.2) Albumin 1.2g/dL (3.4-5.0) Albumin/Globulin Ratio 0.5 (1.0-1.7) Lactic Acid Level 3.5mmol/L (0.4-2.0) 3.2mmol/L (0.4-2.0) Glucose (Fingerstick) 121mg/dL (70-99) Test 06/12/16 19:57 06/13/16 05:20 06/13/16 07:45 Glucose (Fingerstick) 181mg/dL (70-99) White Blood Count 14.5x10^3/uL (4.0-11.0) Red Blood Count 3.07x10^6/uL (3.50-5.40) Hemoglobin 9.8g/dL (12.0-15.5) Hematocrit 30.4% (36.0-47.0) Mean Corpuscular Volume 99fL (79-100) Mean Corpuscular Hemoglobin 32pg (25-35) Mean Corpuscular Hemoglobin Concent 32g/dL (31-37) Red Cell Distribution Width 16.4% (11.5-14.5) Platelet Count 189x10^3/uL (140-400) Neutrophils (%) (Auto) 93% (31-73) Lymphocytes (%) (Auto) 4% (24-48) Monocytes (%) (Auto) 4% (0-9) Eosinophils (%) (Auto) 0% (0-3) Basophils (%) (Auto) 0% (0-3) Neutrophils # (Auto) 13.5x10^3uL (1.8-7.7) Lymphocytes # (Auto) 0.5x10^3/uL (1.0-4.8) Monocytes # (Auto) 0.5x10^3/uL (0.0-1.1) Eosinophils # (Auto) 0.0x10^3/uL (0.0-0.7) Basophils # (Auto) 0.0x10^3/uL (0.0-0.2) Sodium Level 144mmol/L (136-145) Potassium Level 3.4mmol/L (3.5-5.1) Chloride Level 113mmol/L (98-107) Carbon Dioxide Level 19mmol/L (21-32) Anion Gap 12 (6-14) Blood Urea Nitrogen 17mg/dL (7-20) Creatinine 0.7mg/dL (0.6-1.0) Estimated GFR (Cockcroft-Gault) 84.2 BUN/Creatinine Ratio 24 (6-20) Glucose Level 247mg/dL (70-99) Lactic Acid Level 3.5mmol/L (0.4-2.0) Calcium Level 6.9mg/dL (8.5-10.1) Total Bilirubin 0.5mg/dL (0.2-1.0) Aspartate Amino Transf (AST/SGOT) 350U/L (15-37) Alanine Aminotransferase (ALT/SGPT) 87U/L (14-59) Alkaline Phosphatase 93U/L (46-116) Lactate Dehydrogenase 387U/L (81-234) Total Protein 3.1g/dL (6.4-8.2) Albumin 1.1g/dL (3.4-5.0) Albumin/Globulin Ratio 0.6 (1.0-1.7) O2 Saturation 98% (92-99) Arterial Blood pH 7.45 (7.35-7.45) Arterial Blood pCO2 at Patient Temp 23mmHg (35-46) Arterial Blood pO2 at Patient Temp 127mmHg (65-108) Arterial Blood HCO3 16mmol/L (21-28) Arterial Blood Base Excess -7mmol/L (-3-3) FiO2 40 Medications Active Scripts Medications Dose Route/Sig Days Date Category Warfarin Sodium 5 Mg Tablet 1 Tab PO DAILY 04/21/16 Rx Cipro (Ciprofloxacin Hcl) 500 Mg Tablet 1 Tab PO BID 04/21/16 Rx Anoro Ellipta 62.5-25 Mcg Inh (Umeclidinium Brm/Vilanterol Tr) 1 Each Disk.w.dev 1 Each IH DAILY 12/20/14 Reported Oxycodone Hcl 20 Mg Tablet 20 Mg PO PRN Q4HRS PRN 12/20/14 Reported Gabapentin 300 Mg Capsule 1 Cap PO BID 12/20/14 Reported Flovent 110MCG Hfa (Fluticasone Propionate) 12 Gm Aer.w.adap 2 Puff IH BID 12/20/14 Reported Breo Ellipta 200-25 Mcg INH (Fluticasone/Vilanterol) 1 Each Blst.w.dev 1 Each IH DAILY 12/20/14 Reported Proair Hfa Inhaler (Albuterol Sulfate) 8.5 Gm Hfa.aer.ad 2 Puff IH PRN QID PRN 12/20/14 Reported Lorazepam 0.5 Mg Tablet 0.5 Mg PO Q4HRS PRN 12/20/14 Reported Ondansetron Hcl 4 Mg Tablet 1 Tab PO PRN Q4HRS 12/20/14 Reported Spiriva (Tiotropium [place]) 18 Mcg Cap.w.dev 1 Cap IH DAILY 12/20/14 Reported Femara (Letrozole) 2.5 Mg Tablet 2.5 Mg PO DAILY 12/20/14 Reported Comments CXR 3/8 bilateral infiltrates Impression . 1. Acute RF due to shock/ pneumonia, AECOPD 2. shock, hypovolemic/septic 3. Abnormal CT chest with bilateral tree-in-bud interstitial infiltrates suggesting infectious pneumonitis. Possible chronic aspiration cannot be ruled out. Tuberculosis is unlikely in this clinical setting. She has diffuse rhonchi anteriorly and I suspect her airways are full of secretions. 4. Weight loss of 30 pounds. This could be multifactorial to include and most likely related to chronic pancreatitis and prior pancreatectomy. Tuberculosis seems unlikely at this point. She has history of breast cancer and tumor markers can be checked. 5. History of heavy alcohol use. 6. Acute hypoxic respiratory failure secondary to pneumonia. Plan . 1. AC mode, 2. Fluid bolus with colloids 3. wean pressors off, wean sedation 4. follow Bronch cultures 5. continue with broad-spectrum antibiotics. 6.. s/p brief code blue, watch for cerebral anoxia 7. Needs to improve nutritional status. She has severe protein-calorie malnutrition. 8. I have discussed at length code status with the . He wants full code. 9. DVT/stress ulcer prophylaxis 10. stress dose steroids, ANJEL GARCIA MD Jun 13, 2016 09:51
--- NOTE | 2016-06-13 10:17 | PDOC ---
Exam Sas Statistical Programmer Sas Statistical Programmer Marisela Label Pinker Label Pinker V Wilfredo Pre-Procedure Diagnosis Pre-Procedure Diagnosis 65 YO female ICU patient with acute respiratory failure, hypotension, and pneumonia. Bedside CVC insertion requested for pressors and abx. Post-Procedure Diagnosis Post-Procedure Diagnosis Same Procedure Performed Procedure Performed Bedside ICU sono guided CVC insertion Type of Anesthesia Type of Anesthesia Local Estimated Blood Loss EBL: Minimal Drain/Tubes Drains/Tubes 7F rt IJ power injectable CVC Condition of Patient Condition of Patient No change. Sedated on vent. No apparent complication. Disposition Disposition STAT pCXR requested for CVC position. Full report to follow. PRO ARREOLA MD Jun 13, 2016 10:17
--- NOTE | 2016-06-13 10:45 | RAD ---
EXAM: Chest one view. HISTORY: Catheter placement. COMPARISON: 06/13/2016 at 06 19. FINDINGS: A frontal view of the chest is obtained. A right internal jugular central venous catheter has its tip in the right atrium. An endotracheal tube has its tip 2.5 cm above the gladys. A nasogastric tube has its tip below the inferior margin of the field of view. Changes of right mastectomy and axial a lymph node dissection are noted. Retrocardiac consolidation persists. Milder bilateral infiltrates have improved over prior studies. There are small bilateral pleural effusions. There is no pneumothorax. Pleural-parenchymal scarring is noted in the right apex. The heart is not enlarged. IMPRESSION: 1. Right internal jugular central venous catheter tip in the right atrium. No pneumothorax. 2. Stable retrocardiac consolidation and mild bibasilar infiltrates. 3. Small bilateral pleural effusions.
[2016-06-13] MEDS: ENOXAPARIN 40 MG/0.4 ML DISP.SYRIN. SQ SCH (10:49)
[2016-06-13 11:41] LABS: PROTHROMBIN TIME PATIENT 44.9 SEC (11.7-14.0)
[2016-06-13 11:51] LABS: INR 5.2 (0.8-1.1)
[2016-06-13] MEDS ORDERED: POTASSIUM CHLORIDE 20 MEQ TABLET.ER. PO SCH (12:30)
[2016-06-13] MEDS: CALCIUM CARBONATE 500 MG TABLET PO SCH ×2 (12:31→18:00)
[2016-06-13] MEDS: PHYTONADIONE (VIT K1) 5 MG TABLET PO SCH (12:31)
[2016-06-13] MEDS: CHOLECALCIFEROL (VITAMIN D3) 5,000 UNIT CAPSULE PO SCH (12:34)
--- NOTE | 2016-06-13 16:11 | RAD ---
Bedside ultrasound guided Central Venous Catheter placement Indication: 65-year-old female ICU patient with acute respiratory failure, pneumonia, and hypotension. Bedside ultrasound guided Central venous catheter insertion has been requested for ICU medications, including IV antibiotics and pressors. Anesthesia: Local only Sterility: All elements of maximal sterile barrier technique were utilized, including cap, mask, sterile gown, sterile gloves, large sterile sheet, appropriate hand hygiene, and 2% chlorhexidine for cutaneous antisepsis. Procedure: Informed consent was obtained from the patient's . This procedure was performed bedside in ICU. Preliminary ultrasound examination of right neck revealed wide patency of right internal jugular vein, which was documented with a single hard copy ultrasound image. Right neck was then prepped and draped in the usual sterile fashion, utilizing all elements of maximal sterile barrier technique, as described above. Using aseptic technique, local anesthesia, direct ultrasound guidance, and the micropuncture technique, successful entry was made into right internal jugular vein. The right IJ venostomy tract was then dilated and a 7 [place] triple lumen 20 cm power injectable CVC was easily advanced centrally over an angiographic guidewire. The CVC was then demonstrated to flush and aspirate normally, and was secured at the skin exit site using suture and sterile dressing. Patient tolerated the procedure well, without apparent complication. A STAT portable CXR was requested for CVC position. Impression: Successful, uneventful sono guided placement of right IJ power injectable 7 [place] triple lumen 20 cm CVC, bedside in ICU, as described.
[2016-06-13] MEDS: MIDAZOLAM PREMIX 100 ML IV PRN (16:14)
[2016-06-13] MEDS: POTASSIUM CHLORIDE 20 MEQ/15 ML ORAL LIQUID. PEG SCH (16:14)
[2016-06-13] MEDS: CHLORHEXIDINE 0.12% 15 ML MOUTHWASH. MM SCH (20:41)
[2016-06-13] MEDS: IV DEXTROSE 5 %-0.45 % NACL 1,000 ML IV SCH ×2 (20:44)
[2016-06-14] VITALS (23 sets, daily range): BP systolic 81–119; BP diastolic 55–77
[2016-06-14] MEDS: PIPERACILLIN/TAZOBACTAM 3.375 GM in IV NORMAL SALINE 50ML 50 ML IV SCH ×5 (01:03→23:53)
[2016-06-14] MEDS: HYDROCORTISONE SOD SUCC/PF 100 MG/2 ML VIAL. IV SCH ×3 (05:44→21:34)
[2016-06-14] MEDS: PANTOPRAZOLE IV PUSH 40 MG VIAL. IVP SCH ×2 (05:44→19:26)
[2016-06-14 06:08] LABS: HEMATOCRIT 27.9 % (36.0-47.0); HEMOGLOBIN 9.4 g/dL (12.0-15.5); RED BLOOD COUNT 2.92 x10^6/uL (3.50-5.40); RED CELL DISTRIBUTION WIDTH 16.1 % (11.5-14.5); WHITE BLOOD COUNT 13.5 x10^3/uL (4.0-11.0)
[2016-06-14 06:17] LABS: INR 2.8 (0.8-1.1); PROTHROMBIN TIME PATIENT 27.9 SEC (11.7-14.0)
[2016-06-14 06:27] LABS: ALBUMIN 1.6 g/dL (3.4-5.0); ALBUMIN/GLOBULIN RATIO 0.8 (1.0-1.7); CALCIUM 7.2 mg/dL (8.5-10.1); CREATININE 0.5 mg/dL (0.6-1.0); GFR 124.2; TOTAL BILIRUBIN 0.7 mg/dL (0.2-1.0); TOTAL PROTEIN 3.6 g/dL (6.4-8.2)
[2016-06-14 06:30] LABS: POTASSIUM 2.9 mmol/L (3.5-5.1)
[2016-06-14] MEDS ORDERED: DEXTROSE 50% 25 GM / 50ML DISP.SYRIN. IV PRN (06:45)
[2016-06-14] MEDS ORDERED: POTASSIUM CHLORIDE 20MEQ 50 ML IV SCH (07:00)
--- NOTE | 2016-06-14 07:51 | RAD ---
Portable chest, 06/14/2016: History: Respiratory failure, pneumonia Comparison is made to yesterday's study. The ET tube has its tip located well above the gladys. An NG tube extends into the stomach. A right jugular central venous catheter extends into the superior aspect of the right atrium. The heart size is unchanged. There are persistent patchy bilateral pulmonary infiltrates, worst in the left base. There is a small amount of bilateral pleural fluid. These findings appear unchanged. No new abnormality is detected. IMPRESSION: No significant change since yesterday's study.
--- NOTE | 2016-06-14 07:56 | PDOC ---
Infectious Disease Note Subjective Subjective intubated ROS ROS unable to do Vital Sign Vital Signs Vital Signs Date Time Temp Pulse Resp B/P Pulse Ox O2 Delivery O2 Flow Rate FiO2 06/14/16 07:45 100 Ventilator 06/14/16 07:00 66 19 114/64 06/14/16 03:00 97.6 97.6 06/13/16 16:00 4.0 Physical Exam PHYSICAL EXAM GENERAL: NAD, on vent HEENT: PERRL, OC/OP NECK: Supple, no JVD, no LN LUNGS: Clear HEART: S1S2, no gallop, no murmur ABD: Soft, NT, no organomegaly, no rebound EXT: ++ edema, no cyanosis,, jose luis hip wounds [employer]ANT: sedated on vent SKIN: No rash IV: ok Labs Lab Laboratory Tests Test 06/13/16 11:15 06/14/16 05:50 Prothrombin Time 44.9SEC (11.7-14.0) 27.9SEC (11.7-14.0) Prothromb Time International Ratio 5.2 (0.8-1.1) 2.8 (0.8-1.1) White Blood Count 13.5x10^3/uL (4.0-11.0) Red Blood Count 2.92x10^6/uL (3.50-5.40) Hemoglobin 9.4g/dL (12.0-15.5) Hematocrit 27.9% (36.0-47.0) Mean Corpuscular Volume 95fL (79-100) Mean Corpuscular Hemoglobin 32pg (25-35) Mean Corpuscular Hemoglobin Concent 34g/dL (31-37) Red Cell Distribution Width 16.1% (11.5-14.5) Platelet Count 107x10^3/uL (140-400) Sodium Level 141mmol/L (136-145) Potassium Level 2.9mmol/L (3.5-5.1) Chloride Level 109mmol/L (98-107) Carbon Dioxide Level 20mmol/L (21-32) Anion Gap 12 (6-14) Blood Urea Nitrogen 12mg/dL (7-20) Creatinine 0.5mg/dL (0.6-1.0) Estimated GFR (Cockcroft-Gault) 124.2 BUN/Creatinine Ratio 24 (6-20) Glucose Level 248mg/dL (70-99) Lactic Acid Level 4.9mmol/L (0.4-2.0) Calcium Level 7.2mg/dL (8.5-10.1) Total Bilirubin 0.7mg/dL (0.2-1.0) Aspartate Amino Transf (AST/SGOT) 175U/L (15-37) Alanine Aminotransferase (ALT/SGPT) 67U/L (14-59) Alkaline Phosphatase 73U/L (46-116) Ammonia 60mcmol/L (11-34) Total Protein 3.6g/dL (6.4-8.2) Albumin 1.6g/dL (3.4-5.0) Albumin/Globulin Ratio 0.8 (1.0-1.7) Micro pending Objective Assessment Pulmonary infiltrated, aspiration possible, TB less likely Cavitary pneumonia H/O ETOH H/O Pancreatitis Wt loss Aspiration likely S/P CODE Respiratory failure Plan Plan of Care zyvox and zosyn supportive care sputum afb x 3 d/w dr Carnes ct abd and pelvis lactic acid high likely sec to liver dis TAMEKA SUMNER MD Jun 14, 2016 07:56
[2016-06-14] MEDS ORDERED: IOHEXOL 300 MG/ML 75 ML VIAL IV ONE (08:30)
[2016-06-14] MEDS ORDERED: IOHEXOL 240 MG/ML 50ML VIAL. PO ONE (08:30)
[2016-06-14] MEDS ORDERED: CONTRAST GIVEN MC PRN (08:45)
[2016-06-14] MEDS: BUDESONIDE 0.5 MG/2 ML NEBU NEB SCH ×2 (08:54→19:50)
[2016-06-14] MEDS: IPRATRPIUM/ALBUTEROL 0.5/2.5MG 3 ML NEBU. NEB SCH ×4 (08:54→19:50)
[2016-06-14 09:03] LABS: HCO3 ABG 18 mmol/L (21-28); PCO2 ABG 24 mmHg (35-46); PH ABG 7.48 (7.35-7.45); PO2 ABG 129 mmHg (65-108); SAT O2 ABG 98 % (92-99)
[2016-06-14 09:14] LABS: FIO2 ABG 40
--- NOTE | 2016-06-14 10:23 | PDOC ---
PULMONARY PROGRESS NOTES Subjective remains intubated/sedated off pressor Vitals Vital Signs Date Time Temp Pulse Resp B/P Pulse Ox O2 Delivery O2 Flow Rate FiO2 06/14/16 09:29 100 Ventilator 06/14/16 07:00 66 19 114/64 06/14/16 03:00 97.6 97.6 06/13/16 16:00 4.0 Lungs: Other (decrease bs) Cardiovascular: S1 Abdomen: Soft Extremities: Other (trace edema) Skin: Warm Labs Laboratory Tests Test 06/12/16 14:20 06/12/16 15:46 06/12/16 18:00 06/12/16 19:57 Lactic Acid Level 3.5mmol/L (0.4-2.0) 3.2mmol/L (0.4-2.0) Glucose (Fingerstick) 121mg/dL (70-99) 181mg/dL (70-99) Test 06/13/16 05:20 06/13/16 07:45 06/13/16 11:15 06/14/16 05:50 White Blood Count 14.5x10^3/uL (4.0-11.0) 13.5x10^3/uL (4.0-11.0) Red Blood Count 3.07x10^6/uL (3.50-5.40) 2.92x10^6/uL (3.50-5.40) Hemoglobin 9.8g/dL (12.0-15.5) 9.4g/dL (12.0-15.5) Hematocrit 30.4% (36.0-47.0) 27.9% (36.0-47.0) Mean Corpuscular Volume 99fL (79-100) 95fL (79-100) Mean Corpuscular Hemoglobin 32pg (25-35) 32pg (25-35) Mean Corpuscular Hemoglobin Concent 32g/dL (31-37) 34g/dL (31-37) Red Cell Distribution Width 16.4% (11.5-14.5) 16.1% (11.5-14.5) Platelet Count 189x10^3/uL (140-400) 107x10^3/uL (140-400) Neutrophils (%) (Auto) 93% (31-73) Lymphocytes (%) (Auto) 4% (24-48) Monocytes (%) (Auto) 4% (0-9) Eosinophils (%) (Auto) 0% (0-3) Basophils (%) (Auto) 0% (0-3) Neutrophils # (Auto) 13.5x10^3uL (1.8-7.7) Lymphocytes # (Auto) 0.5x10^3/uL (1.0-4.8) Monocytes # (Auto) 0.5x10^3/uL (0.0-1.1) Eosinophils # (Auto) 0.0x10^3/uL (0.0-0.7) Basophils # (Auto) 0.0x10^3/uL (0.0-0.2) Sodium Level 144mmol/L (136-145) 141mmol/L (136-145) Potassium Level 3.4mmol/L (3.5-5.1) 2.9mmol/L (3.5-5.1) Chloride Level 113mmol/L (98-107) 109mmol/L (98-107) Carbon Dioxide Level 19mmol/L (21-32) 20mmol/L (21-32) Anion Gap 12 (6-14) 12 (6-14) Blood Urea Nitrogen 17mg/dL (7-20) 12mg/dL (7-20) Creatinine 0.7mg/dL (0.6-1.0) 0.5mg/dL (0.6-1.0) Estimated GFR (Cockcroft-Gault) 84.2 124.2 BUN/Creatinine Ratio 24 (6-20) 24 (6-20) Glucose Level 247mg/dL (70-99) 248mg/dL (70-99) Lactic Acid Level 3.5mmol/L (0.4-2.0) 4.9mmol/L (0.4-2.0) Calcium Level 6.9mg/dL (8.5-10.1) 7.2mg/dL (8.5-10.1) Total Bilirubin 0.5mg/dL (0.2-1.0) 0.7mg/dL (0.2-1.0) Aspartate Amino Transf (AST/SGOT) 350U/L (15-37) 175U/L (15-37) Alanine Aminotransferase (ALT/SGPT) 87U/L (14-59) 67U/L (14-59) Alkaline Phosphatase 93U/L (46-116) 73U/L (46-116) Lactate Dehydrogenase 387U/L (81-234) Total Protein 3.1g/dL (6.4-8.2) 3.6g/dL (6.4-8.2) Albumin 1.1g/dL (3.4-5.0) 1.6g/dL (3.4-5.0) Albumin/Globulin Ratio 0.6 (1.0-1.7) 0.8 (1.0-1.7) O2 Saturation 98% (92-99) Arterial Blood pH 7.45 (7.35-7.45) Arterial Blood pCO2 at Patient Temp 23mmHg (35-46) Arterial Blood pO2 at Patient Temp 127mmHg (65-108) Arterial Blood HCO3 16mmol/L (21-28) Arterial Blood Base Excess -7mmol/L (-3-3) FiO2 40 Prothrombin Time 44.9SEC (11.7-14.0) 27.9SEC (11.7-14.0) Prothromb Time International Ratio 5.2 (0.8-1.1) 2.8 (0.8-1.1) Ammonia 60mcmol/L (11-34) Test 06/14/16 09:00 O2 Saturation 98% (92-99) Arterial Blood pH 7.48 (7.35-7.45) Arterial Blood pCO2 at Patient Temp 24mmHg (35-46) Arterial Blood pO2 at Patient Temp 129mmHg (65-108) Arterial Blood HCO3 18mmol/L (21-28) Arterial Blood Base Excess -5mmol/L (-3-3) FiO2 40 Laboratory Tests Test 06/13/16 11:15 06/14/16 05:50 06/14/16 09:00 Prothrombin Time 44.9SEC (11.7-14.0) 27.9SEC (11.7-14.0) Prothromb Time International Ratio 5.2 (0.8-1.1) 2.8 (0.8-1.1) White Blood Count 13.5x10^3/uL (4.0-11.0) Red Blood Count 2.92x10^6/uL (3.50-5.40) Hemoglobin 9.4g/dL (12.0-15.5) Hematocrit 27.9% (36.0-47.0) Mean Corpuscular Volume 95fL (79-100) Mean Corpuscular Hemoglobin 32pg (25-35) Mean Corpuscular Hemoglobin Concent 34g/dL (31-37) Red Cell Distribution Width 16.1% (11.5-14.5) Platelet Count 107x10^3/uL (140-400) Sodium Level 141mmol/L (136-145) Potassium Level 2.9mmol/L (3.5-5.1) Chloride Level 109mmol/L (98-107) Carbon Dioxide Level 20mmol/L (21-32) Anion Gap 12 (6-14) Blood Urea Nitrogen 12mg/dL (7-20) Creatinine 0.5mg/dL (0.6-1.0) Estimated GFR (Cockcroft-Gault) 124.2 BUN/Creatinine Ratio 24 (6-20) Glucose Level 248mg/dL (70-99) Lactic Acid Level 4.9mmol/L (0.4-2.0) Calcium Level 7.2mg/dL (8.5-10.1) Total Bilirubin 0.7mg/dL (0.2-1.0) Aspartate Amino Transf (AST/SGOT) 175U/L (15-37) Alanine Aminotransferase (ALT/SGPT) 67U/L (14-59) Alkaline Phosphatase 73U/L (46-116) Ammonia 60mcmol/L (11-34) Total Protein 3.6g/dL (6.4-8.2) Albumin 1.6g/dL (3.4-5.0) Albumin/Globulin Ratio 0.8 (1.0-1.7) O2 Saturation 98% (92-99) Arterial Blood pH 7.48 (7.35-7.45) Arterial Blood pCO2 at Patient Temp 24mmHg (35-46) Arterial Blood pO2 at Patient Temp 129mmHg (65-108) Arterial Blood HCO3 18mmol/L (21-28) Arterial Blood Base Excess -5mmol/L (-3-3) FiO2 40 Medications Active Scripts Medications Dose Route/Sig Days Date Category Warfarin Sodium 5 Mg Tablet 1 Tab PO DAILY 04/21/16 Rx Cipro (Ciprofloxacin Hcl) 500 Mg Tablet 1 Tab PO BID 04/21/16 Rx Anoro Ellipta 62.5-25 Mcg Inh (Umeclidinium Brm/Vilanterol Tr) 1 Each Disk.w.dev 1 Each IH DAILY 12/20/14 Reported Oxycodone Hcl 20 Mg Tablet 20 Mg PO PRN Q4HRS PRN 12/20/14 Reported Gabapentin 300 Mg Capsule 1 Cap PO BID 12/20/14 Reported Flovent 110MCG Hfa (Fluticasone Propionate) 12 Gm Aer.w.adap 2 Puff IH BID 12/20/14 Reported Breo Ellipta 200-25 Mcg INH (Fluticasone/Vilanterol) 1 Each Blst.w.dev 1 Each IH DAILY 12/20/14 Reported Proair Hfa Inhaler (Albuterol Sulfate) 8.5 Gm Hfa.aer.ad 2 Puff IH PRN QID PRN 12/20/14 Reported Lorazepam 0.5 Mg Tablet 0.5 Mg PO Q4HRS PRN 12/20/14 Reported Ondansetron Hcl 4 Mg Tablet 1 Tab PO PRN Q4HRS 12/20/14 Reported Spiriva (Tiotropium [place]) 18 Mcg Cap.w.dev 1 Cap IH DAILY 12/20/14 Reported Femara (Letrozole) 2.5 Mg Tablet 2.5 Mg PO DAILY 12/20/14 Reported Comments CXR 3 bilateral infiltrates, no change Impression . 1. Acute RF due to shock/ pneumonia, AECOPD/ remains on AC mode 2. shock, hypovolemic/septic, off pressors, mild increase in lactic acid 3. Abnormal CT chest with bilateral tree-in-bud interstitial infiltrates suggesting infectious pneumonitis. Possible chronic aspiration cannot be ruled out. Tuberculosis is unlikely in this clinical setting. 4. Weight loss of 30 pounds. This could be multifactorial to include and most likely related to chronic pancreatitis and prior pancreatectomy. Tuberculosis seems unlikely at this point. She has history of breast cancer and tumor markers can be checked. 5. History of heavy alcohol use. 6. Acute hypoxic respiratory failure secondary to pneumonia. improving 7. Coagulopathy, ETOH liver disease vs DIC Plan . 1. AC mode, 2. d/c sedation. Once awake ,CPAP trial 3. pressors off, 4. follow Bronch cultures, AFB still pending 5. continue with broad-spectrum antibiotics per ID 6.. s/p brief code blue, watch for cerebral anoxia 7. Needs to improve nutritional status. She has severe protein-calorie malnutrition. 8. Remains full code. 9. DVT/stress ulcer prophylaxis 10. stress dose steroids, 11. d/c femoral art line 12. Monitor INR/ off lovenox d/w RN/ PCP ANJEL GARCIA MD Jun 14, 2016 10:23
[2016-06-14] MEDS: GABAPENTIN 300 MG CAPSULE. PO SCH ×3 (10:40→21:34)
[2016-06-14] MEDS: CALCIUM CARBONATE 500 MG TABLET PO SCH ×3 (10:40→18:00)
[2016-06-14] MEDS: POTASSIUM CHLORIDE 20 MEQ/15 ML ORAL LIQUID. PEG SCH (10:41)
[2016-06-14] MEDS: CHOLECALCIFEROL (VITAMIN D3) 5,000 UNIT CAPSULE PO SCH (10:41)
[2016-06-14] MEDS: PHYTONADIONE (VIT K1) 5 MG TABLET PO SCH (10:41)
[2016-06-14] MEDS: CHLORHEXIDINE 0.12% 15 ML MOUTHWASH. MM SCH ×2 (10:47→20:33)
[2016-06-14] MEDS: LETROZOLE 2.5 MG TABLET. PO SCH (10:48)
[2016-06-14] MEDS: INSULIN ASPART 300 UNITS/3 ML INSULN.PEN SQ SCH ×3 (12:00→23:54)
--- NOTE | 2016-06-14 12:59 | PDOC ---
G I PROGRESS NOTE Subjective Sedated on ventilator. Objective Staff report tube feedings not going well. Physical Exam Lungs clear anteriorly. RRR Abdomen soft, not distended. Don't really hear any bowel sounds. LE's not particularly warm, especially LLE; some mottling of skin over patellae. Review of Relevant I have reviewed the following items apryl (where applicable) has been applied. Labs Laboratory Tests Test 06/12/16 14:20 06/12/16 15:46 06/12/16 18:00 06/12/16 19:57 Lactic Acid Level 3.5mmol/L (0.4-2.0) 3.2mmol/L (0.4-2.0) Glucose (Fingerstick) 121mg/dL (70-99) 181mg/dL (70-99) Test 06/13/16 05:20 06/13/16 07:45 06/13/16 11:15 06/14/16 05:50 White Blood Count 14.5x10^3/uL (4.0-11.0) 13.5x10^3/uL (4.0-11.0) Red Blood Count 3.07x10^6/uL (3.50-5.40) 2.92x10^6/uL (3.50-5.40) Hemoglobin 9.8g/dL (12.0-15.5) 9.4g/dL (12.0-15.5) Hematocrit 30.4% (36.0-47.0) 27.9% (36.0-47.0) Mean Corpuscular Volume 99fL (79-100) 95fL (79-100) Mean Corpuscular Hemoglobin 32pg (25-35) 32pg (25-35) Mean Corpuscular Hemoglobin Concent 32g/dL (31-37) 34g/dL (31-37) Red Cell Distribution Width 16.4% (11.5-14.5) 16.1% (11.5-14.5) Platelet Count 189x10^3/uL (140-400) 107x10^3/uL (140-400) Neutrophils (%) (Auto) 93% (31-73) Lymphocytes (%) (Auto) 4% (24-48) Monocytes (%) (Auto) 4% (0-9) Eosinophils (%) (Auto) 0% (0-3) Basophils (%) (Auto) 0% (0-3) Neutrophils # (Auto) 13.5x10^3uL (1.8-7.7) Lymphocytes # (Auto) 0.5x10^3/uL (1.0-4.8) Monocytes # (Auto) 0.5x10^3/uL (0.0-1.1) Eosinophils # (Auto) 0.0x10^3/uL (0.0-0.7) Basophils # (Auto) 0.0x10^3/uL (0.0-0.2) Sodium Level 144mmol/L (136-145) 141mmol/L (136-145) Potassium Level 3.4mmol/L (3.5-5.1) 2.9mmol/L (3.5-5.1) Chloride Level 113mmol/L (98-107) 109mmol/L (98-107) Carbon Dioxide Level 19mmol/L (21-32) 20mmol/L (21-32) Anion Gap 12 (6-14) 12 (6-14) Blood Urea Nitrogen 17mg/dL (7-20) 12mg/dL (7-20) Creatinine 0.7mg/dL (0.6-1.0) 0.5mg/dL (0.6-1.0) Estimated GFR (Cockcroft-Gault) 84.2 124.2 BUN/Creatinine Ratio 24 (6-20) 24 (6-20) Glucose Level 247mg/dL (70-99) 248mg/dL (70-99) Lactic Acid Level 3.5mmol/L (0.4-2.0) 4.9mmol/L (0.4-2.0) Calcium Level 6.9mg/dL (8.5-10.1) 7.2mg/dL (8.5-10.1) Total Bilirubin 0.5mg/dL (0.2-1.0) 0.7mg/dL (0.2-1.0) Aspartate Amino Transf (AST/SGOT) 350U/L (15-37) 175U/L (15-37) Alanine Aminotransferase (ALT/SGPT) 87U/L (14-59) 67U/L (14-59) Alkaline Phosphatase 93U/L (46-116) 73U/L (46-116) Lactate Dehydrogenase 387U/L (81-234) Total Protein 3.1g/dL (6.4-8.2) 3.6g/dL (6.4-8.2) Albumin 1.1g/dL (3.4-5.0) 1.6g/dL (3.4-5.0) Albumin/Globulin Ratio 0.6 (1.0-1.7) 0.8 (1.0-1.7) O2 Saturation 98% (92-99) Arterial Blood pH 7.45 (7.35-7.45) Arterial Blood pCO2 at Patient Temp 23mmHg (35-46) Arterial Blood pO2 at Patient Temp 127mmHg (65-108) Arterial Blood HCO3 16mmol/L (21-28) Arterial Blood Base Excess -7mmol/L (-3-3) FiO2 40 Prothrombin Time 44.9SEC (11.7-14.0) 27.9SEC (11.7-14.0) Prothromb Time International Ratio 5.2 (0.8-1.1) 2.8 (0.8-1.1) Ammonia 60mcmol/L (11-34) Test 06/14/16 09:00 O2 Saturation 98% (92-99) Arterial Blood pH 7.48 (7.35-7.45) Arterial Blood pCO2 at Patient Temp 24mmHg (35-46) Arterial Blood pO2 at Patient Temp 129mmHg (65-108) Arterial Blood HCO3 18mmol/L (21-28) Arterial Blood Base Excess -5mmol/L (-3-3) FiO2 40 Laboratory Tests Test 06/14/16 05:50 06/14/16 09:00 White Blood Count 13.5x10^3/uL (4.0-11.0) Red Blood Count 2.92x10^6/uL (3.50-5.40) Hemoglobin 9.4g/dL (12.0-15.5) Hematocrit 27.9% (36.0-47.0) Mean Corpuscular Volume 95fL (79-100) Mean Corpuscular Hemoglobin 32pg (25-35) Mean Corpuscular Hemoglobin Concent 34g/dL (31-37) Red Cell Distribution Width 16.1% (11.5-14.5) Platelet Count 107x10^3/uL (140-400) Prothrombin Time 27.9SEC (11.7-14.0) Prothromb Time International Ratio 2.8 (0.8-1.1) Sodium Level 141mmol/L (136-145) Potassium Level 2.9mmol/L (3.5-5.1) Chloride Level 109mmol/L (98-107) Carbon Dioxide Level 20mmol/L (21-32) Anion Gap 12 (6-14) Blood Urea Nitrogen 12mg/dL (7-20) Creatinine 0.5mg/dL (0.6-1.0) Estimated GFR (Cockcroft-Gault) 124.2 BUN/Creatinine Ratio 24 (6-20) Glucose Level 248mg/dL (70-99) Lactic Acid Level 4.9mmol/L (0.4-2.0) Calcium Level 7.2mg/dL (8.5-10.1) Total Bilirubin 0.7mg/dL (0.2-1.0) Aspartate Amino Transf (AST/SGOT) 175U/L (15-37) Alanine Aminotransferase (ALT/SGPT) 67U/L (14-59) Alkaline Phosphatase 73U/L (46-116) Ammonia 60mcmol/L (11-34) Total Protein 3.6g/dL (6.4-8.2) Albumin 1.6g/dL (3.4-5.0) Albumin/Globulin Ratio 0.8 (1.0-1.7) O2 Saturation 98% (92-99) Arterial Blood pH 7.48 (7.35-7.45) Arterial Blood pCO2 at Patient Temp 24mmHg (35-46) Arterial Blood pO2 at Patient Temp 129mmHg (65-108) Arterial Blood HCO3 18mmol/L (21-28) Arterial Blood Base Excess -5mmol/L (-3-3) FiO2 40 Microbiology 06/12/16 Gram Stain - Final, Complete Lactate rising. Medications Current Medications Azithromycin (Zithromax) 250 mg DAILY PO ; Start 06/10/16 at 20:00; Stop 06/11/16 at 19:15; Status DC Budesonide 0.5 mg 0.5 mg RTBID NEB Last administered on 06/14/16 08:54; Start 06/10/16 at 20:00 Ceftriaxone Sodium/Sodium Chloride (Rocephin/Iv Sodium Chloride 0.9% 50ml) 50 ml @ 100 mls/hr Q24H IV Last administered on 06/10/16 20:28; Start 06/10/16 at 21:00; Stop 06/11/16 at 12:18; Status DC Fentanyl Citrate (Fentanyl 2ml Vial) 50 mcg PRN Q3HRS PRN IV PAIN Last administered on 06/11/16 22:30; Start 06/10/16 at 19:30 Gabapentin (Neurontin) 300 mg TID PO Last administered on 06/14/16 10:40; Start 06/10/16 at 21:00 Albuterol/ Ipratropium (Duoneb) 3 ml RTQID NEB Last administered on 06/14/16 11 :38; Start 06/10/16 at 20:00 Letrozole 2.5 mg 2.5 mg DAILY PO Last administered on 06/14/16 10:48; Start 06/11/16 at 09:00 Potassium Chloride/Sodium Chloride (KCl 40 Meq-NS 1,000 ml Iv Soln) 1,000 ml @ 100 mls/hr Q10H IV Last administered on 06/10/16 22:45; Start 06/10/16 at 20:00 ; Stop 06/11/16 at 08:08; Status DC Prednisone (Prednisone) 50 mg DAILY PO Last administered on 06/12/16 09:02; Start 06/10/16 at 20:00; Stop 06/12/16 at 10:23; Status DC Albuterol Sulfate 2.5 mg 2.5 mg PRN Q4HRS PRN NEB SHORTNESS OF BREATH Last administered on 06/11/16 05:37; Start 06/11/16 at 04:45 Sodium Chloride 1,000 ml @ 75 mls/hr [id number] IV Last administered on 06/12/16 11:22; Start 06/11/16 at 08:15; Stop 06/12/16 at 12:26; Status DC Piperacillin Sod/ Tazobactam Sod/ Sodium Chloride (Zosyn/Iv Sodium Chloride 0.9 % 50ml) 50 ml @ 100 mls/hr Q6HRS IV Last administered on 06/11/16 14:10; Start 06/11/16 at 13:00; Stop 06/11/16 at 19:15; Status DC Furosemide 40 mg 40 mg 1X ONCE IVP Last administered on 06/11/16 13:22; Start 06/11/16 at 13:00; Stop 06/11/16 at 13:08; Status DC Norepinephrine Bitartrate 8 mg/ Sodium Chloride 258 ml @ 1.93 mls/hr ONCE ONCE IV Last administered on 06/11/16 15:15; Start 06/11/16 at 15:15; Stop at 10:59; Status DC Epinephrine HCl 4 mg/Sodium Chloride 254 ml @ 3.81 mls/hr ONCE ONCE IV Last administered on 06/11/16 15:55; Start 06/11/16 at 15:45; Stop 06/11/16 at 19:05; Status DC Epinephrine HCl 4 mg/Sodium Chloride 254 ml @ 0 mls/hr CONT PRN IV SEE I/O RECORD; Start 06/11/16 at 16:00 Vasopressin 40 unit/Dextrose 102 ml @ 6 mls/hr CONT PRN IV SEE I/O RECORD Last administered on 06/11/16 15:54; Start 06/11/16 at 15:45 Sodium Chloride 1,000 ml @ 1,000 mls/hr 1X ONCE IV Last administered on 15:58; Start 06/11/16 at 15:45; Stop 06/11/16 at 16:44; Status DC Sodium Chloride 1,000 ml @ 1,000 mls/hr 1X ONCE IV Last administered on 16:04; Start 06/11/16 at 15:45; Stop 06/11/16 at 16:44; Status DC Sodium Chloride (Iv Sodium Chloride 0.9% 1000ml Bag) 1,000 ml @ 1,000 mls/hr 1X ONCE IV Last administered on 06/11/16 16:04; Start 06/11/16 at 15:45; Stop 06/11/16 at 16:44; Status DC Pantoprazole Sodium 40 mg 40 mg [id number] IVP Last administered on 06/14/16 05:44; Start 06/11/16 at 18:00 Midazolam HCl 100 ml @ 0 mls/hr CONT PRN IV SEE I/O RECORD Last administered on 06/13/16 16:14; Start 06/11/16 at 17:00 Sodium Chloride (Iv Sodium Chloride 0.9% 1000ml Bag) 1,000 ml @ 150 mls/hr 1X ONCE IV Last administered on 06/11/16 17:07; Start 06/11/16 at 17:00; Stop at 23:39; Status DC Dextrose 25 gm STK-MED ONCE IV ; Start 06/11/16 at 17:15; Stop 06/11/16 at 17:16; Status DC Dextrose 25 gm 1X ONCE IV Last administered on 06/11/16 17:47; Start 06/11/16 at 17:30; Stop 06/11/16 at 17:31; Status DC Sodium Bicarbonate 100 meq 100 meq 1X ONCE IV Last administered on 06/11/16 17 :46; Start 06/11/16 at 17:30; Stop 06/11/16 at 17:31; Status DC Nicardipine HCl 50 mg/Sodium Chloride 270 ml @ 0 mls/hr CONT PRN IV SEE I/O RECORD; Start 06/11/16 at 17:45; Status Cancel Ceftriaxone Sodium/Sodium Chloride (Rocephin/Iv Sodium Chloride 0.9% 50ml) 50 ml @ 100 mls/hr Q24H IV Last administered on 06/11/16 18:37; Start 06/11/16 at 18:00; Stop 06/12/16 at 12:55; Status DC Vancomycin HCl 1 each 1 each PRN DAILY PRN MC SEE COMMENTS Last administered on 06/11/16 19:17; Start 06/11/16 at 18:00; Stop 06/12/16 at 12:58; Status DC Vancomycin HCl 1 gm/Sodium Chloride 250 ml @ 250 mls/hr 1X ONCE IV Last administered on 06/11/16 18:37; Start 06/11/16 at 18:30; Stop 06/11/16 at 19:29; Status DC Vancomycin HCl/ Sodium Chloride (Iv Sodium Chloride 0.9% 250ml) 250 ml @ 250 mls/hr Q12H IV Last administered on 06/12/16 06:18; Start 06/12/16 at 06:00; Stop 06/12/16 at 12:55; Status DC Vancomycin HCl 1 each 1 each 1X ONCE MC ; Start 06/13/16 at 05:30; Stop 06/13/16 at 05:30; Status DC Norepinephrine Bitartrate/Sodium Chloride (Levophed Vial/ Iv Sodium Chloride 0.9 % 250ml) 258 ml @ 0 mls/hr CONT PRN IV SEE I/O RECORD Last administered on 07:37; Start 06/12/16 at 00:45 Epinephrine HCl 1 mg STK-MED ONCE .ROUTE ; Start 06/11/16 at 12:00; Stop 06/12/16 at 08:13; Status DC Hydrocortisone Sodium Succinate (Solu-Cortef) 100 mg Q8HRS IV Last administered on 06/14/16 05:44; Start 06/12/16 at 11:00 Enoxaparin Sodium (Lovenox 40mg Syringe) 40 mg Q24H SQ Last administered on 06/13 10:49; Start 06/12/16 at 11:00; Stop 06/13/16 at 12:35; Status DC Famotidine 20 mg 20 mg BID IVP Last administered on 06/13/16 09:10; Start at 11:00; Stop 06/13/16 at 09:59; Status DC Sodium Chloride 1,000 ml @ 1,000 mls/hr 1X ONCE IV Last administered on 11:25; Start 06/12/16 at 11:30; Stop 06/12/16 at 12:29; Status DC Dextrose/Sodium Chloride 1,000 ml @ 75 mls/hr [id number] IV Last administered on 06/13/16 20:44; Start 06/12/16 at 13:00 Piperacillin Sod/ Tazobactam Sod 3.375 gm/Sodium Chloride 50 ml @ 100 mls/hr Q6HRS IV Last administered on 06/14/16 05:44; Start 06/12/16 at 13:30 Linezolid 300 ml @ 300 mls/hr Q12HR IV Last administered on 06/14/16 10:40; Start 06/12/16 at 13:30 Sodium Chloride 1,000 ml @ 1,000 mls/hr 1X ONCE IV Last administered on 15:30; Start 06/12/16 at 15:30; Stop 06/12/16 at 16:29; Status DC Sodium Chloride 500 ml @ 0 mls/hr 1X ONCE IV Last administered on 06/12/16 15: 44; Start 06/12/16 at 16:00; Stop 06/12/16 at 16:01; Status DC Sodium Chloride 1,000 ml @ 0 mls/hr 1X ONCE IV Last administered on 06/13/16 07:43; Start 06/13/16 at 07:45; Stop 06/13/16 at 07:46; Status DC Sodium Chloride (Iv Sodium Chloride 0.45%) 500 ml @ 0 mls/hr 1X ONCE IV Last administered on 06/13/16 07:43; Start 06/13/16 at 07:45; Stop 06/13/16 at 07:46; Status DC Midazolam HCl (Versed) 5 mg STK-MED ONCE .ROUTE ; Start 06/10/16 at 12:00; Stop 06/13/16 at 08:28; Status DC Epinephrine HCl 3 mg STK-MED ONCE .ROUTE ; Start 06/10/16 at 12:00; Stop 06/13/16 at 08:28; Status DC Dopamine HCl/ Dextrose 400 mg STK-MED ONCE IV ; Start 06/10/16 at 12:00; Stop 06/13/16 at 08:28; Status DC Lidocaine/Sodium Bicarbonate (Buffered Lidocaine 1%) 3 ml 1X ONCE IJ Last administered on 06/13/16 09:55; Start 06/13/16 at 09:00; Stop 06/13/16 at 09:01; Status DC Heparin Sodium/ Sodium Chloride 60 unit 1X ONCE IV Last administered on 09:55; Start 06/13/16 at 09:00; Stop 06/13/16 at 09:01; Status DC Sodium Bicarbonate 100 meq 100 meq 1X ONCE IV Last administered on 06/13/16 10 :06; Start 06/13/16 at 09:45; Stop 06/13/16 at 09:46; Status DC Albumin Human (Plasmanate) 500 ml @ 62.5 mls/hr 1X ONCE IV Last administered on 06/13/16 10:06; Start 06/13/16 at 09:45; Stop 06/13/16 at 17:44; Status DC Chlorhexidine Gluconate (Peridex) 15 ml BID MM Last administered on 06/14/16 10 :47; Start 06/13/16 at 21:00 Potassium Chloride (Klor-Con) 20 meq TIDWMEALS PO Last administered on 12:31; Start 06/13/16 at 12:30; Stop 06/13/16 at 15:56; Status DC Calcium Carbonate/ Glycine (Oscal) 1,000 mg TIDAFTMEAL PO Last administered on 06/14/16 10:40; Start 06/13/16 at 13:00 Vitamin D (Vitamin D3) 5,000 unit DAILY PO Last administered on 06/14/16 10:41 ; Start 06/13/16 at 13:00 Phytonadione (Mephyton) 10 mg DAILY PO Last administered on 06/14/16 10:41; Start 06/13/16 at 13:00 Potassium Chloride (KCl Oral Soln) 20 meq TIDWMEALS PEG Last administered on 10:41; Start 06/13/16 at 17:00; Stop 06/14/16 at 12:26; Status DC Insulin Aspart (Novolog) 0-5 UNITS Q6HRS SQ ; Start 06/14/16 at 12:00 Dextrose 12.5 gm 12.5 gm PRN Q15MIN PRN IV SEE COMMENTS; Start 06/14/16 at 06:45 Potassium Chloride (KCl Premix 20meq) 50 ml @ 25 mls/hr Q2H IV ; Start 06/14/16 at 07:00; Stop 06/14/16 at 14:59; Status Cancel Iohexol (Omnipaque 240 Mg/ml) 30 ml 1X ONCE PO ; Start 06/14/16 at 08:30; Stop 06/14/16 at 08:31; Status DC Iohexol (Omnipaque 300 Mg/ml) 75 ml 1X ONCE IV ; Start 06/14/16 at 08:30; Stop 06/14/16 at 08:31; Status DC Info (Do NOT chart on this entry -- for MONITORING) 1 each PRN DAILY PRN MC SEE COMMENTS; Start 06/14/16 at 08:45; Stop 06/16/16 at 08:44 Potassium Chloride (Klor-Con) 40 meq Q2H PO ; Start 06/14/16 at 12:30; Stop at 14:31 Active Scripts Active Warfarin Sodium 5 Mg Tablet 1 Tab PO DAILY Cipro (Ciprofloxacin Hcl) 500 Mg Tablet 1 Tab PO BID Reported Anoro Ellipta 62.5-25 Mcg Inh (Umeclidinium Brm/Vilanterol Tr) 1 Each Disk.w.dev 1 Each IH DAILY Oxycodone Hcl 20 Mg Tablet 20 Mg PO PRN Q4HRS PRN Gabapentin 300 Mg Capsule 1 Cap PO BID Flovent 110MCG Hfa (Fluticasone Propionate) 12 Gm Aer.w.adap 2 Puff IH BID Breo Ellipta 200-25 Mcg INH (Fluticasone/Vilanterol) 1 Each Blst.w.dev 1 Each IH DAILY Proair Hfa Inhaler (Albuterol Sulfate) 8.5 Gm Hfa.aer.ad 2 Puff IH PRN QID PRN Lorazepam 0.5 Mg Tablet 0.5 Mg PO Q4HRS PRN Ondansetron Hcl 4 Mg Tablet 1 Tab PO PRN Q4HRS Spiriva (Tiotropium [place]) 18 Mcg Cap.w.dev 1 Cap IH DAILY Femara (Letrozole) 2.5 Mg Tablet 2.5 Mg PO DAILY Vitals/I & O Vital Sign - Last 24 Hours 06/13/16 06/13/16 06/13/16 06/13/16 13:09 13:55 14:29 15:12 Pulse 104 67 63 Resp 20 19 20 B/P 103/60 113/62 95/54 Pulse Ox 100 100 100 100 O2 Delivery Ventilator Ventilator Ventilator Ventilator 06/13/16 06/13/16 06/13/16 06/13/16 16:00 16:00 16:00 16:16 Pulse 69 76 Resp 19 B/P 106/61 106/63 Pulse Ox 100 100 O2 Delivery Ventilator Mechanical Ventilator Ventilator O2 Flow Rate 4.0 06/13/16 06/13/16 06/13/16 06/13/16 16:17 16:51 18:00 18:09 Temp 97.7 97.7 Pulse 69 68 74 Resp 20 20 B/P 106/61 109/61 100/56 Pulse Ox 100 100 100 O2 Delivery Ventilator Ventilator Ventilator 06/13/16 06/13/16 06/13/168/17 19:00 20:00 20:00 20:00 Temp 97.8 97.8 Pulse 77 79 79 Resp 19 19 B/P 106/62 111/63 111/63 Pulse Ox 100 99 O2 Delivery Ventilator Ventilator Mechanical Ventilator 06/13/16 06/13/16 06/13/16 06/13/16 20:49 20:51 21:00 22:00 Pulse 86 79 Resp 20 19 B/P 113/66 109/62 Pulse Ox 100 100 100 100 O2 Delivery Ventilator Ventilator Ventilator Ventilator 06/13/16 06/14/16 06/14/16 06/14/16 23:00 00:00 00:00 00:00 Temp 97.9 97.9 Pulse 79 71 71 Resp 16 16 B/P 107/61 94/55 94/55 Pulse Ox 100 100 O2 Delivery Ventilator Ventilator Mechanical Ventilator 06/14/16 06/14/16 06/14/16 06/14/16 00:00 01:00 02:00 02:05 Pulse 72 60 Resp 19 20 B/P 117/67 106/62 Pulse Ox 100 100 100 100 O2 Delivery Ventilator Ventilator Ventilator Ventilator 06/14/16 06/14/16 06/14/16 06/14/16 03:00 04:00 04:00 04:00 Temp 97.6 97.6 Pulse 65 61 61 Resp 19 20 B/P 116/64 110/64 110/65 Pulse Ox 100 100 O2 Delivery Ventilator Ventilator Mechanical Ventilator 06/14/16 06/14/16 06/14/16 06/14/16 04:05 05:00 06:00 06:11 Pulse 59 72 Resp 19 20 B/P 110/64 108/62 Pulse Ox 100 100 100 100 O2 Delivery Ventilator Ventilator Ventilator Ventilator 06/14/16 06/14/16 06/14/16 06/14/16 07:00 07:45 09:29 11:39 Pulse 66 Resp 19 B/P 114/64 Pulse Ox 100 100 100 100 O2 Delivery Ventilator Ventilator Ventilator Ventilator Intake and Output 06/13/16 06/13/16 06/14/16 15:00 23:00 07:00 Intake Total 850 ml 6896 ml 1276 ml Output Total 222 ml 785 ml 325 ml Balance 628 ml 6111 ml 951 ml Assessment Sepsis/resp. failure--rising lactate likely from poor tissue perfusion. Suspect ileus-->poor response to tube feeding. Plan of Care: Continue current Tx, Mgmt Plan of Care Note Await CT. JOSELUIS TABOR MD Jun 14, 2016 12:59
[2016-06-14] MEDS: POTASSIUM CHLORIDE 20 MEQ TABLET.ER. PO SCH ×2 (14:16→14:30)
--- NOTE | 2016-06-14 14:56 | PDOC ---
PROGRESS NOTES Subjective Subjective sedated on Vent Objective Objective Vital Signs Date Time Temp Pulse Resp B/P Pulse Ox O2 Delivery O2 Flow Rate FiO2 06/14/16 13:05 100 Ventilator 06/14/16 07:00 66 19 114/64 06/14/16 03:00 97.6 97.6 06/13/16 16:00 4.0 Intake and Output 06/14/16 07:00 Intake Total 9022 ml Output Total 1332 ml Balance 7690 ml IV Total 4387 ml Tube Feeding 1154 ml Blood Product IV Normal Saline Flush 215 ml Other 3266 ml Output Urine Total 782 ml Gastric Drainage Total 550 ml Physical Exam Abdomen: Soft Heart: Regular rate, Normal S1 Lungs: Normal air movement MUSCULOSKELETAL: Other COMMENT on vent ,sedated Assessment Assessment IMP: covering for Dr. Hadley 1. Acute RF due to shock/ pneumonia, AECOPD/ remains on AC mode 2. shock, hypovolemic/septic, off pressors, mild increase in lactic acid 5,[address] chest with bilateral tree-in-bud interstitial infiltrates suggesting infectious pneumonitis. Possible chronic aspiration cannot be ruled out. 4. Weight loss of 30 pounds. This could be multifactorial to include and most likely related to chronic pancreatitis and prior pancreatectomy. She has history of breast cancer and tumor markers can be checked. 5. History of heavy alcohol use. 6. Acute hypoxic respiratory failure secondary to pneumonia. improving 7. Coagulopathy, ETOH liver disease vs DIC, inr 3.5 Plan vent as per Pulmonary wean off sedation reglan for gastroperesis spoke with Pulmonary spoke with RN meds reviewed labs reviewed ,pot 2.9 replace Problems: Comment Review of Relevant I have reviewed the following items apryl (where applicable) has been applied. Labs Laboratory Tests Test 06/14/16 05:50 06/14/16 09:00 White Blood Count 13.5x10^3/uL (4.0-11.0) Red Blood Count 2.92x10^6/uL (3.50-5.40) Hemoglobin 9.4g/dL (12.0-15.5) Hematocrit 27.9% (36.0-47.0) Mean Corpuscular Volume 95fL (79-100) Mean Corpuscular Hemoglobin 32pg (25-35) Mean Corpuscular Hemoglobin Concent 34g/dL (31-37) Red Cell Distribution Width 16.1% (11.5-14.5) Platelet Count 107x10^3/uL (140-400) Prothrombin Time 27.9SEC (11.7-14.0) Prothromb Time International Ratio 2.8 (0.8-1.1) Sodium Level 141mmol/L (136-145) Potassium Level 2.9mmol/L (3.5-5.1) Chloride Level 109mmol/L (98-107) Carbon Dioxide Level 20mmol/L (21-32) Anion Gap 12 (6-14) Blood Urea Nitrogen 12mg/dL (7-20) Creatinine 0.5mg/dL (0.6-1.0) Estimated GFR (Cockcroft-Gault) 124.2 BUN/Creatinine Ratio 24 (6-20) Glucose Level 248mg/dL (70-99) Lactic Acid Level 4.9mmol/L (0.4-2.0) Calcium Level 7.2mg/dL (8.5-10.1) Total Bilirubin 0.7mg/dL (0.2-1.0) Aspartate Amino Transf (AST/SGOT) 175U/L (15-37) Alanine Aminotransferase (ALT/SGPT) 67U/L (14-59) Alkaline Phosphatase 73U/L (46-116) Ammonia 60mcmol/L (11-34) Total Protein 3.6g/dL (6.4-8.2) Albumin 1.6g/dL (3.4-5.0) Albumin/Globulin Ratio 0.8 (1.0-1.7) O2 Saturation 98% (92-99) Arterial Blood pH 7.48 (7.35-7.45) Arterial Blood pCO2 at Patient Temp 24mmHg (35-46) Arterial Blood pO2 at Patient Temp 129mmHg (65-108) Arterial Blood HCO3 18mmol/L (21-28) Arterial Blood Base Excess -5mmol/L (-3-3) FiO2 40 Microbiology 06/12/16 Gram Stain - Final, Complete Medications Current Medications Chlorhexidine Gluconate (Peridex) 15 ml BID MM Last administered on 06/14/16t 10 :47; Start 06/13/16 at 21:00 Dextrose 12.5 gm 12.5 gm PRN Q15MIN PRN IV SEE COMMENTS; Start 06/14/16 at 06:45 Info (Do NOT chart on this entry -- for MONITORING) 1 each PRN DAILY PRN MC SEE COMMENTS; Start 06/14/16 at 08:45; Stop 06/16/16 at 08:44 Insulin Aspart (Novolog) 0-5 UNITS Q6HRS SQ ; Start 06/14/16 at 12:00 Iohexol (Omnipaque 240 Mg/ml) 30 ml 1X ONCE PO ; Start 06/14/16 at 08:30; Stop 06/14/16 at 08:31; Status DC Iohexol (Omnipaque 300 Mg/ml) 75 ml 1X ONCE IV ; Start 06/14/16 at 08:30; Stop 06/14/16 at 08:31; Status DC Potassium Chloride (KCl Oral Soln) 20 meq TIDWMEALS PEG Last administered on 10:41; Start 06/13/16 at 17:00; Stop 06/14/16 at 12:26; Status DC Potassium Chloride (KCl Premix 20meq) 50 ml @ 25 mls/hr Q2H IV ; Start 06/14/16 at 07:00; Stop 06/14/16 at 14:59; Status Cancel Potassium Chloride (Klor-Con) 40 meq Q2H PO Last administered on 06/14/16 14:16 ; Start 06/14/16 at 12:30; Stop 06/14/16 at 14:31; Status DC Vitals/I & O Vital Sign - Last 24 Hours 06/13/16 06/13/16 06/13/16 06/13/16 15:12 16:00 16:00 16:00 Pulse 63 69 Resp 20 B/P 95/54 106/61 Pulse Ox 100 100 O2 Delivery Ventilator Ventilator Mechanical Ventilator O2 Flow Rate 4.0 06/13/16 06/13/16 06/13/16 06/13/16 16:16 16:17 16:51 18:00 Temp 97.7 97.7 Pulse 76 69 68 74 Resp 19 20 20 B/P 106/63 106/61 109/61 100/56 Pulse Ox 100 100 100 O2 Delivery Ventilator Ventilator Ventilator 06/13/16 06/13/16 06/13/16 06/13/16 18:09 19:00 20:00 20:00 Temp 97.8 97.8 Pulse 77 79 Resp 19 19 B/P 106/62 111/63 Pulse Ox 100 100 99 O2 Delivery Ventilator Ventilator Ventilator Mechanical Ventilator 06/13/16 06/13/16 06/13/16 06/13/16 20:00 20:49 20:51 21:00 Pulse 79 86 Resp 20 B/P 111/63 113/66 Pulse Ox 100 100 100 O2 Delivery Ventilator Ventilator Ventilator 06/13/16 06/13/16 06/14/16 06/14/16 22:00 23:00 00:00 00:00 Temp 97.9 97.9 Pulse 79 79 71 Resp 19 16 16 B/P 109/62 107/61 94/55 Pulse Ox 100 100 100 O2 Delivery Ventilator Ventilator Ventilator Mechanical Ventilator 06/14/16 06/14/16 06/14/16 06/14/16 00:00 00:00 01:00 02:00 Pulse 71 72 60 Resp 19 20 B/P 94/55 117/67 106/62 Pulse Ox 100 100 100 O2 Delivery Ventilator Ventilator Ventilator 06/14/16 06/14/16 06/14/16 06/14/16 02:05 03:00 04:00 04:00 Temp 97.6 97.6 Pulse 65 61 61 Resp 19 20 B/P 116/64 110/64 110/65 Pulse Ox 100 100 100 O2 Delivery Ventilator Ventilator Ventilator 06/14/16 06/14/16 06/14/16 06/14/16 04:00 04:05 05:00 06:00 Pulse 59 72 Resp 19 20 B/P 110/64 108/62 Pulse Ox 100 100 100 O2 Delivery Mechanical Ventilator Ventilator Ventilator Ventilator 06/14/16 06/14/16 06/14/16 06/14/16 06:11 07:00 07:45 09:29 Pulse 66 Resp 19 B/P 114/64 Pulse Ox 100 100 100 100 O2 Delivery Ventilator Ventilator Ventilator Ventilator 06/14/16 06/14/16 11:39 13:05 Pulse Ox 100 100 O2 Delivery Ventilator Ventilator Intake and Output 06/13/16 06/13/16 06/14/16 15:00 23:00 07:00 Intake Total 850 ml 6896 ml 1276 ml Output Total 222 ml 785 ml 325 ml Balance 628 ml 6111 ml 951 ml Nutrition Consultation Dietary Evaluation: Recommendations by RD: Increase Calorie Intake Comments: Pt with severe protein calorie malnutrition: wt loss of 30# (22% body wt) over the past few monhts, hx of dimenished appetite and poor intake prior to admission. Pt started on Peptamen AF, goal rate 45 ml/hr. Did not tolerate, residuals > 250 cc with TF only running at 15 ml/hr. Rec. TPN to meet nutrition needs. (Dextrose 125g, Lipids 20 g, Amino Acids 60 g). Pt has bilateral hip unstageable pressure ulcers- rec. a daily MVT and 500 mg Vitamin C BID to aide with wound healing Expected Outcomes/Goals: No further weight loss meet 75% estimated nutrition needs via nutrition support (TPN vs. TF's) Interpretation of weight loss: >5% in 1 month Malnutrition Findings: Food and Nutrition Intake (Mod: <75% est energy req 7days Reduced Quality Assurance Monitor Chassis Strength: N/A Reduced Quality Assurance Monitor Chassis Strength (Non-Sev: N/A Malnutrition related to morbid: No Weight Status: Underweight TRAVIS LOPEZ MD Jun 14, 2016 14:56
[2016-06-14] MEDS: POTASSIUM CHLORIDE 20MEQ 50 ML IV SCH ×4 (15:15→20:33)
[2016-06-14 15:18] LABS: MAGNESIUM 1.6 mg/dL (1.8-2.4); PHOSPHORUS 1.6 mg/dL (2.6-4.7)
[2016-06-14] MEDS: TPN PER PHARMACY MC PRN (15:34)
[2016-06-14] MEDS ORDERED: MAGNESIUM SULFATE 2GM 50 ML IV ONE (16:00)
[2016-06-14] MEDS ORDERED: SODIUM PHOSPHATE 15 MMOL in IV DEXTROSE 5% 250 ML IV ONE (17:30)
[2016-06-14] MEDS ORDERED: [UNRECOGNIZED DRUG - OTHER] IV SCH ×11 (22:00)
[2016-06-14] MEDS ORDERED: AMINO ACIDS IV SCH ×11 (22:00)
[2016-06-14] MEDS ORDERED: TOTAL PARENTERAL NUTRITION IV SCH ×11 (22:00)
[2016-06-14] MEDS ORDERED: DEXTROSE 70% IV SCH ×11 (22:00)
[2016-06-15] VITALS (24 sets, daily range): BP systolic 86–137; BP diastolic 61–80
[2016-06-15] MEDS: PANTOPRAZOLE IV PUSH 40 MG VIAL. IVP SCH ×2 (06:21→17:48)
[2016-06-15] MEDS: HYDROCORTISONE SOD SUCC/PF 100 MG/2 ML VIAL. IV SCH ×3 (06:21→22:38)
[2016-06-15] MEDS: PIPERACILLIN/TAZOBACTAM 3.375 GM in IV NORMAL SALINE 50ML 50 ML IV SCH ×3 (06:21→17:48)
[2016-06-15] MEDS: INSULIN ASPART 300 UNITS/3 ML INSULN.PEN SQ SCH ×3 (06:22→17:55)
[2016-06-15 07:06] LABS: BASO % 0 % (0-3); EOS % 0 % (0-3); HEMOGLOBIN 9.8 g/dL (12.0-15.5); LYMPH # 0.3 x10^3/uL (1.0-4.8); LYMPH % 2 % (24-48); MEAN CORPUSCULAR HEMOGLOBIN 32 pg (25-35); MEAN CORPUSCULAR HGB CONC 33 g/dL (31-37); MEAN CORPUSCULAR VOLUME 98 fL (79-100); MONO % 4 % (0-9); NEUT % 94 % (31-73); PLATELET COUNT 72 x10^3/uL (140-400); RED BLOOD COUNT 3.07 x10^6/uL (3.50-5.40); RED CELL DISTRIBUTION WIDTH 16.1 % (11.5-14.5)
[2016-06-15 07:16] LABS: CALCIUM 7.5 mg/dL (8.5-10.1); CREATININE 0.4 mg/dL (0.6-1.0); GFR 160.7; POTASSIUM 4.3 mmol/L (3.5-5.1)
[2016-06-15 07:22] LABS: MAGNESIUM 2.2 mg/dL (1.8-2.4); PHOSPHORUS 1.6 mg/dL (2.6-4.7)
[2016-06-15] MEDS: IPRATRPIUM/ALBUTEROL 0.5/2.5MG 3 ML NEBU. NEB SCH ×4 (07:24→19:32)
[2016-06-15] MEDS: BUDESONIDE 0.5 MG/2 ML NEBU NEB SCH ×2 (07:24→19:32)
[2016-06-15 07:28] LABS: INR 1.9 (0.8-1.1); PROTHROMBIN TIME PATIENT 20.7 SEC (11.7-14.0)
--- NOTE | 2016-06-15 07:32 | RAD ---
Portable chest, 06/15/2016: History: Respiratory failure, pneumonia Comparison is made to yesterday's study. The tip of the ET tube lies 1.5 cm above the gladys. A right jugular central venous catheter extends into the superior aspect of the right atrium. The NG tube extends into the stomach. The heart size is unchanged. There are ongoing moderate patchy pulmonary infiltrates, most dense in the left base. There is pleural fluid contributing to these basilar opacities. The pulmonary vascularity is prominent with loss of vascular margination. No new cardiopulmonary abnormality is seen. IMPRESSION: 1. The tip of the ET tube lies 1.5 cm above the gladys. 2. Moderate unchanged bilateral pulmonary infiltrates suggesting pulmonary edema and/or pneumonia. 3. Moderate-sized bilateral pleural effusions
[2016-06-15 07:35] LABS: HCO3 ABG 21 mmol/L (21-28); PCO2 ABG 27 mmHg (35-46); PH ABG 7.52 (7.35-7.45); PO2 ABG 104 mmHg (65-108); SAT O2 ABG 98 % (92-99)
[2016-06-15 07:37] LABS: FIO2 ABG 40%
--- NOTE | 2016-06-15 07:37 | PDOC ---
Infectious Disease Note Subjective Subjective intubated ROS ROS unable to do Vital Sign Vital Signs Vital Signs Date Time Temp Pulse Resp B/P Pulse Ox O2 Delivery O2 Flow Rate FiO2 06/15/16 07:24 100 Ventilator 06/15/16 06:00 77 16 97/72 06/15/16 05:00 2.0 06/15/16 04:00 97.9 97.9 Physical Exam PHYSICAL EXAM GENERAL: on vent HEENT: PERRL, OC/OP NECK: Supple, no JVD, no LN LUNGS: Clear HEART: S1S2, no gallop, no murmur ABD: Soft, NT, no organomegaly, no rebound EXT: No edema, no cyanosis [employer]: on vent SKIN: No rash IV: ok Labs Lab Laboratory Tests Test 06/14/16 09:00 06/14/16 14:18 06/14/16 16:30 06/14/16 19:23 O2 Saturation 98% (92-99) Arterial Blood pH 7.48 (7.35-7.45) Arterial Blood pCO2 at Patient Temp 24mmHg (35-46) Arterial Blood pO2 at Patient Temp 129mmHg (65-108) Arterial Blood HCO3 18mmol/L (21-28) Arterial Blood Base Excess -5mmol/L (-3-3) FiO2 40 Glucose (Fingerstick) 237mg/dL (70-99) 226mg/dL (70-99) Potassium Level 3.3mmol/L (3.5-5.1) Test 06/14/16 23:50 06/15/16 06:15 06/15/16 06:20 06/15/16 07:00 Glucose (Fingerstick) 268mg/dL (70-99) 255mg/dL (70-99) White Blood Count 18.0x10^3/uL (4.0-11.0) Red Blood Count 3.07x10^6/uL (3.50-5.40) Hemoglobin 9.8g/dL (12.0-15.5) Hematocrit 30.0% (36.0-47.0) Mean Corpuscular Volume 98fL (79-100) Mean Corpuscular Hemoglobin 32pg (25-35) Mean Corpuscular Hemoglobin Concent 33g/dL (31-37) Red Cell Distribution Width 16.1% (11.5-14.5) Platelet Count 72x10^3/uL (140-400) Neutrophils (%) (Auto) 94% (31-73) Lymphocytes (%) (Auto) 2% (24-48) Monocytes (%) (Auto) 4% (0-9) Eosinophils (%) (Auto) 0% (0-3) Basophils (%) (Auto) 0% (0-3) Neutrophils # (Auto) 16.9x10^3uL (1.8-7.7) Lymphocytes # (Auto) 0.3x10^3/uL (1.0-4.8) Monocytes # (Auto) 0.8x10^3/uL (0.0-1.1) Eosinophils # (Auto) 0.0x10^3/uL (0.0-0.7) Basophils # (Auto) 0.0x10^3/uL (0.0-0.2) Sodium Level 142mmol/L (136-145) Potassium Level 4.3mmol/L (3.5-5.1) Chloride Level 108mmol/L (98-107) Carbon Dioxide Level 24mmol/L (21-32) Anion Gap 10 (6-14) Blood Urea Nitrogen 10mg/dL (7-20) Creatinine 0.4mg/dL (0.6-1.0) Estimated GFR (Cockcroft-Gault) 160.7 Glucose Level 234mg/dL (70-99) Calcium Level 7.5mg/dL (8.5-10.1) Prothrombin Time 20.7SEC (11.7-14.0) Prothromb Time International Ratio 1.9 (0.8-1.1) Micro sputum neg afb neg Objective Assessment Pulmonary infiltrated, aspiration possible, TB less likely Cavitary pneumonia H/O ETOH H/O Pancreatitis Wt loss Aspiration likely S/P CODE Respiratory failure Plan Plan of Care zosyn,, d/c zyvox supportive care sputum afb x 3 neg d/w dr Canres ct abd and pelvis pending TAMEKA SUMNER MD Jun 15, 2016 07:37
--- NOTE | 2016-06-15 07:53 | RAD ---
CT of the abdomen and pelvis with contrast, 06/14/2016: History: Elevated lactic acid level, nonhealing hip bones multiple cancers Multidetector CT imaging was performed following oral and IV administration of contrast. Comparison is made to a study from 12/21/2014. There is generalized extensive increased density in the subcutaneous soft tissues compatible with anasarca. There are moderate sized bilateral pleural effusions with considerable left lower lobe atelectasis and mild atelectasis posteriorly in the right lower lobe. Coronary artery calcifications are present. The right breast is surgically absent. The spleen is surgically absent. There are numerous pancreatic calcifications compatible with chronic calcific pancreatitis. The gallbladder appears to be surgically absent. The liver is of lower than normal density suggesting hepatic steatosis. There are numerous streak artifacts on these scans. No renal abnormality is detected. There is moderate calcific plaquing of the abdominal aorta and its branches without evidence of aneurysm. A right hip prosthesis is in place with associated artifacts degrading image quality in the lower pelvis. There is a small volume of ascites in the abdomen and pelvis. There is streaky edema in the mesentery and in the presacral soft tissues, probably related to the generalized anasarca. There is moderate mural thickening involving the stomach, and to a lesser degree the proximal duodenum. An NG tube extends into the stomach. The bowel loops are not dilated. There are surgical sutures at the rectosigmoid level. There are also surgical sutures related to the colon in the right mid abdomen suggesting previous surgery at the ileocolic level. There is soft tissue thickening involving the colon at this level as seen on image 52 of series #2 raising the possibility of a mass. No free air is evident in the abdomen or pelvis. IMPRESSION: 1. Severe anasarca. 2. Moderate sized bilateral pleural effusions with moderate underlying left lower lobe atelectasis/consolidation. 3. Mesenteric edema and ascites. 4. Mural thickening involving the stomach and proximal duodenum likely due to edema and/or inflammation. 5. Evidence of previous colonic surgery with soft tissue thickening in the ascending colon region raising the possibility of neoplasm. 6. Chronic calcific pancreatitis PQRS Compliance Statement: One or more of the following individualized dose reduction techniques were utilized for this examination: 1. Automated exposure control 2. Adjustment of the mA and/or kV according to patient size 3. Use of iterative reconstruction technique
[2016-06-15] MEDS: CHLORHEXIDINE 0.12% 15 ML MOUTHWASH. MM SCH ×2 (08:48→20:55)
[2016-06-15] MEDS: CALCIUM CARBONATE 500 MG TABLET PO SCH ×3 (08:48→17:48)
[2016-06-15] MEDS: LETROZOLE 2.5 MG TABLET. PO SCH (08:49)
[2016-06-15] MEDS: PHYTONADIONE (VIT K1) 5 MG TABLET PO SCH (08:50)
[2016-06-15] MEDS: CHOLECALCIFEROL (VITAMIN D3) 5,000 UNIT CAPSULE PO SCH (08:50)
[2016-06-15] MEDS: GABAPENTIN 300 MG CAPSULE. PO SCH ×3 (08:50→20:54)
--- NOTE | 2016-06-15 11:10 | PDOC ---
Objective: Objective: Didn't tolerate tube feeds, on TPN. Had BM yesterday. Possible extubation today - off sedation. Vital Signs: Vital Signs Date Time Temp Pulse Resp B/P Pulse Ox O2 Delivery O2 Flow Rate FiO2 06/15/16 10:40 100 Ventilator 06/15/16 10:00 96 28 113/78 06/15/16 08:00 97.8 97.8 06/15/16 05:00 2.0 Labs: Laboratory Tests Test 06/14/16 14:18 06/14/16 19:23 06/14/16 23:50 06/15/16 06:20 Glucose (Fingerstick) 237mg/dL (70-99) 226mg/dL (70-99) 268mg/dL (70-99) 255mg/dL (70-99) Imaging: CT A/P 06/14/16 IMPRESSION: 1. Severe anasarca. 2. Moderate sized bilateral pleural effusions with moderate underlying left lower lobe atelectasis/consolidation. 3. Mesenteric edema and ascites. 4. Mural thickening involving the stomach and proximal duodenum likely due to edema and/or inflammation. 5. Evidence of previous colonic surgery with soft tissue thickening in the ascending colon region raising the possibility of neoplasm. 6. Chronic calcific pancreatitis. CXR 06/15/16 IMPRESSION: 1. The tip of the ET tube lies 1.5 cm above the gladys. 2. Moderate unchanged bilateral pulmonary infiltrates suggesting pulmonary edema and/or pneumonia. 3. Moderate-sized bilateral pleural effusions PE: GEN: intubated LUNGS: vent HEART: tachy ABD: BS+, soft NEURO/PSYCH: awake A/P: Resp failure, s/p code Abnormal CT -mural thickening involving the stomach and proximal duodenum, evidence of previous colonic surgery with soft tissue thickening in the ascending colon region raising the possibility of neoplasm -anasarca, bilateral pleural effusions, mesenteric edema and ascites H/o pancreatitis -h/o pancreatic duct stone and pseudocyst, alcohol use, s/p distal pancreatectomy and splenectomy, chronic pancreatitis on CT -nausea, weight loss -- D/w RN, Dr. Hadley. Will review CT w/ Dr. Back. ?previous colonoscopy JANET CARDOZO Jun 15, 2016 11:10
--- NOTE | 2016-06-15 11:24 | PDOC ---
PULMONARY PROGRESS NOTES Subjective remains intubated, off sedation opens eyes off pressor Vitals Vital Signs Date Time Temp Pulse Resp B/P Pulse Ox O2 Delivery O2 Flow Rate FiO2 06/15/16 10:40 100 Ventilator 06/15/16 10:00 96 28 113/78 06/15/16 08:00 97.8 97.8 06/15/16 05:00 2.0 Lungs: Other (decrease bs) Cardiovascular: S1 Abdomen: Soft Extremities: Other (trace edema) Skin: Warm Labs Laboratory Tests Test 06/14/16 05:50 06/14/16 09:00 06/14/16 14:18 06/14/16 16:30 White Blood Count 13.5x10^3/uL (4.0-11.0) Red Blood Count 2.92x10^6/uL (3.50-5.40) Hemoglobin 9.4g/dL (12.0-15.5) Hematocrit 27.9% (36.0-47.0) Mean Corpuscular Volume 95fL (79-100) Mean Corpuscular Hemoglobin 32pg (25-35) Mean Corpuscular Hemoglobin Concent 34g/dL (31-37) Red Cell Distribution Width 16.1% (11.5-14.5) Platelet Count 107x10^3/uL (140-400) Prothrombin Time 27.9SEC (11.7-14.0) Prothromb Time International Ratio 2.8 (0.8-1.1) Sodium Level 141mmol/L (136-145) Potassium Level 2.9mmol/L (3.5-5.1) 3.3mmol/L (3.5-5.1) Chloride Level 109mmol/L (98-107) Carbon Dioxide Level 20mmol/L (21-32) Anion Gap 12 (6-14) Blood Urea Nitrogen 12mg/dL (7-20) Creatinine 0.5mg/dL (0.6-1.0) Estimated GFR (Cockcroft-Gault) 124.2 BUN/Creatinine Ratio 24 (6-20) Glucose Level 248mg/dL (70-99) Lactic Acid Level 4.9mmol/L (0.4-2.0) Calcium Level 7.2mg/dL (8.5-10.1) Phosphorus Level 1.6mg/dL (2.6-4.7) Magnesium Level 1.6mg/dL (1.8-2.4) Total Bilirubin 0.7mg/dL (0.2-1.0) Aspartate Amino Transf (AST/SGOT) 175U/L (15-37) Alanine Aminotransferase (ALT/SGPT) 67U/L (14-59) Alkaline Phosphatase 73U/L (46-116) Ammonia 60mcmol/L (11-34) Total Protein 3.6g/dL (6.4-8.2) Albumin 1.6g/dL (3.4-5.0) Albumin/Globulin Ratio 0.8 (1.0-1.7) O2 Saturation 98% (92-99) Arterial Blood pH 7.48 (7.35-7.45) Arterial Blood pCO2 at Patient Temp 24mmHg (35-46) Arterial Blood pO2 at Patient Temp 129mmHg (65-108) Arterial Blood HCO3 18mmol/L (21-28) Arterial Blood Base Excess -5mmol/L (-3-3) FiO2 40 Glucose (Fingerstick) 237mg/dL (70-99) Test 06/14/16 19:23 06/14/16 23:50 06/15/16 06:15 06/15/16 06:20 Glucose (Fingerstick) 226mg/dL (70-99) 268mg/dL (70-99) 255mg/dL (70-99) White Blood Count 18.0x10^3/uL (4.0-11.0) Red Blood Count 3.07x10^6/uL (3.50-5.40) Hemoglobin 9.8g/dL (12.0-15.5) Hematocrit 30.0% (36.0-47.0) Mean Corpuscular Volume 98fL (79-100) Mean Corpuscular Hemoglobin 32pg (25-35) Mean Corpuscular Hemoglobin Concent 33g/dL (31-37) Red Cell Distribution Width 16.1% (11.5-14.5) Platelet Count 72x10^3/uL (140-400) Neutrophils (%) (Auto) 94% (31-73) Lymphocytes (%) (Auto) 2% (24-48) Monocytes (%) (Auto) 4% (0-9) Eosinophils (%) (Auto) 0% (0-3) Basophils (%) (Auto) 0% (0-3) Neutrophils # (Auto) 16.9x10^3uL (1.8-7.7) Lymphocytes # (Auto) 0.3x10^3/uL (1.0-4.8) Monocytes # (Auto) 0.8x10^3/uL (0.0-1.1) Eosinophils # (Auto) 0.0x10^3/uL (0.0-0.7) Basophils # (Auto) 0.0x10^3/uL (0.0-0.2) Sodium Level 142mmol/L (136-145) Potassium Level 4.3mmol/L (3.5-5.1) Chloride Level 108mmol/L (98-107) Carbon Dioxide Level 24mmol/L (21-32) Anion Gap 10 (6-14) Blood Urea Nitrogen 10mg/dL (7-20) Creatinine 0.4mg/dL (0.6-1.0) Estimated GFR (Cockcroft-Gault) 160.7 Glucose Level 234mg/dL (70-99) Calcium Level 7.5mg/dL (8.5-10.1) Phosphorus Level 1.6mg/dL (2.6-4.7) Magnesium Level 2.2mg/dL (1.8-2.4) Triglycerides Level 65mg/dL (0-150) Test 06/15/16 07:00 06/15/16 07:30 06/15/16 10:40 Prothrombin Time 20.7SEC (11.7-14.0) Prothromb Time International Ratio 1.9 (0.8-1.1) O2 Saturation 98% (92-99) Arterial Blood pH 7.52 (7.35-7.45) Arterial Blood pCO2 at Patient Temp 27mmHg (35-46) Arterial Blood pO2 at Patient Temp 104mmHg (65-108) Arterial Blood HCO3 21mmol/L (21-28) Arterial Blood Base Excess -1mmol/L (-3-3) FiO2 40% Activated Partial Thromboplast Time 38SEC (24-38) Laboratory Tests Test 06/14/16 14:18 06/14/16 16:30 06/14/16 19:23 06/14/16 23:50 Glucose (Fingerstick) 237mg/dL (70-99) 226mg/dL (70-99) 268mg/dL (70-99) Potassium Level 3.3mmol/L (3.5-5.1) Test 06/15/16 06:15 06/15/16 06:20 06/15/16 07:00 06/15/16 07:30 White Blood Count 18.0x10^3/uL (4.0-11.0) Red Blood Count 3.07x10^6/uL (3.50-5.40) Hemoglobin 9.8g/dL (12.0-15.5) Hematocrit 30.0% (36.0-47.0) Mean Corpuscular Volume 98fL (79-100) Mean Corpuscular Hemoglobin 32pg (25-35) Mean Corpuscular Hemoglobin Concent 33g/dL (31-37) Red Cell Distribution Width 16.1% (11.5-14.5) Platelet Count 72x10^3/uL (140-400) Neutrophils (%) (Auto) 94% (31-73) Lymphocytes (%) (Auto) 2% (24-48) Monocytes (%) (Auto) 4% (0-9) Eosinophils (%) (Auto) 0% (0-3) Basophils (%) (Auto) 0% (0-3) Neutrophils # (Auto) 16.9x10^3uL (1.8-7.7) Lymphocytes # (Auto) 0.3x10^3/uL (1.0-4.8) Monocytes # (Auto) 0.8x10^3/uL (0.0-1.1) Eosinophils # (Auto) 0.0x10^3/uL (0.0-0.7) Basophils # (Auto) 0.0x10^3/uL (0.0-0.2) Sodium Level 142mmol/L (136-145) Potassium Level 4.3mmol/L (3.5-5.1) Chloride Level 108mmol/L (98-107) Carbon Dioxide Level 24mmol/L (21-32) Anion Gap 10 (6-14) Blood Urea Nitrogen 10mg/dL (7-20) Creatinine 0.4mg/dL (0.6-1.0) Estimated GFR (Cockcroft-Gault) 160.7 Glucose Level 234mg/dL (70-99) Calcium Level 7.5mg/dL (8.5-10.1) Phosphorus Level 1.6mg/dL (2.6-4.7) Magnesium Level 2.2mg/dL (1.8-2.4) Triglycerides Level 65mg/dL (0-150) Glucose (Fingerstick) 255mg/dL (70-99) Prothrombin Time 20.7SEC (11.7-14.0) Prothromb Time International Ratio 1.9 (0.8-1.1) O2 Saturation 98% (92-99) Arterial Blood pH 7.52 (7.35-7.45) Arterial Blood pCO2 at Patient Temp 27mmHg (35-46) Arterial Blood pO2 at Patient Temp 104mmHg (65-108) Arterial Blood HCO3 21mmol/L (21-28) Arterial Blood Base Excess -1mmol/L (-3-3) FiO2 40% Test 06/15/16 10:40 Activated Partial Thromboplast Time 38SEC (24-38) Medications Active Scripts Medications Dose Route/Sig Days Date Category Warfarin Sodium 5 Mg Tablet 1 Tab PO DAILY 04/21/16 Rx Cipro (Ciprofloxacin Hcl) 500 Mg Tablet 1 Tab PO BID 04/21/16 Rx Anoro Ellipta 62.5-25 Mcg Inh (Umeclidinium Brm/Vilanterol Tr) 1 Each Disk.w.dev 1 Each IH DAILY 12/20/14 Reported Oxycodone Hcl 20 Mg Tablet 20 Mg PO PRN Q4HRS PRN 12/20/14 Reported Gabapentin 300 Mg Capsule 1 Cap PO BID 12/20/14 Reported Flovent 110MCG Hfa (Fluticasone Propionate) 12 Gm Aer.w.adap 2 Puff IH BID 12/20/14 Reported Breo Ellipta 200-25 Mcg INH (Fluticasone/Vilanterol) 1 Each Blst.w.dev 1 Each IH DAILY 12/20/14 Reported Proair Hfa Inhaler (Albuterol Sulfate) 8.5 Gm Hfa.aer.ad 2 Puff IH PRN QID PRN 9/14/15 Reported Lorazepam 0.5 Mg Tablet 0.5 Mg PO Q4HRS PRN 12/20/14 Reported Ondansetron Hcl 4 Mg Tablet 1 Tab PO PRN Q4HRS 12/20/14 Reported Spiriva (Tiotropium [place]) 18 Mcg Cap.w.dev 1 Cap IH DAILY 12/20/14 Reported Femara (Letrozole) 2.5 Mg Tablet 2.5 Mg PO DAILY 12/20/14 Reported Comments CXR 3/10 bilateral infiltrates, no change Impression . 1. Acute RF due to shock/ pneumonia, AECOPD/ remains on AC mode/ had 2 hrs of CPAP today 2. shock, hypovolemic/septic, off pressors, mild increase in lactic acid 3. Abnormal CT chest with bilateral tree-in-bud interstitial infiltrates suggesting infectious pneumonitis. Possible chronic aspiration Tuberculosis is unlikely in this clinical setting. Ruled out by Bronch 4. Weight loss of 30 pounds. This could be multifactorial . suspected colon malignancy, chronic pancreatitis /prior pancreatectomy. Tuberculosis unlikely . She has history of breast cancer 5. History of heavy alcohol use. 6. Acute hypoxic respiratory failure secondary to pneumonia. improving 7. 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 severe malnutrition Plan . 1. AC mode, Daily CPAP trials. too weak 2. off sedation. 3. pressors off, 4. Negative Bronch cultures, AFB negative 5. continue with antibiotics per ID 6.. s/p brief code blue, watch for cerebral anoxia 7. Needs to improve nutritional status. She has severe protein-calorie malnutrition. on TPN 8. Remains full code. 9. DVT/stress ulcer prophylaxis 10. stress dose steroids, start taper 12. Monitor INR/ off lovenox d/w RN/ PCP ANJEL GARCIA MD Jun 15, 2016 11:24
[2016-06-15] MEDS: FENTANYL PF 100 MCG/2 ML VIAL. IV PRN ×3 (11:54→20:49)
[2016-06-15] MEDS: TPN PER PHARMACY MC PRN (12:32)
[2016-06-15] MEDS ORDERED: SODIUM PHOSPHATE 15 MMOL in IV DEXTROSE 5% 250 ML IV ONE (13:00)
[2016-06-15] MEDS ORDERED: AMINO ACIDS IV SCH ×11 (22:00)
[2016-06-15] MEDS ORDERED: [UNRECOGNIZED DRUG - OTHER] IV SCH ×11 (22:00)
[2016-06-15] MEDS ORDERED: DEXTROSE 70% IV SCH ×11 (22:00)
[2016-06-15] MEDS ORDERED: TOTAL PARENTERAL NUTRITION IV SCH ×11 (22:00)
--- NOTE | 2016-06-15 22:42 | PN ---
DATE: 06/15/2016 SUBJECTIVE: The patient is awake, alert, off sedation. She is on pressure support, maintaining her oxygen saturation at 100% on FiO2 of 40%. She apparently has not tolerated her tube feeding and a has a CT scan of the abdomen and pelvis, which was done and showed that she has severe generalized anasarca, moderate sized, bilateral pleural effusion, moderate underlying left lower lobe atelectasis/consolidation, ____ edema and ascites and mural thickening involving the stomach and proximal duodenum, likely due to edema and/or inflammation. She has also evidence of previous chronic surgery with soft tissue thickening in the ascending colon, raising the possibility of neoplasm. She has chronic calcific pancreatitis. Her tube feeding was discontinued and she is now on total parenteral nutrition. PHYSICAL EXAMINATION: GENERAL: When I examined her, she looked pale, cachectic, but not jaundiced, cyanosis, or thyromegaly. No jugular venous distention. No limb edema. She has generalized anasarca. VITAL SIGNS: Her heart rate was 96, blood pressure 113/78, temperature was 97.8, respiratory rate was 28 and oxygen saturation was 100% on FIO2 of 40%. HEAD, EYES, EARS, NOSE AND THROAT: Showed normocephalic, atraumatic. NECK: She has orotracheal and orogastric tube in place. NECK: Supple. HEART: Showed normal first and second heart sounds. No gallop, rub or murmur. CHEST: Clear to auscultation. No crepitation or rhonchi. ABDOMEN: Distended, soft, nontender. No guarding or rigidity. No organomegaly. Hernial orifices intact. Bowel sounds normal. 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 All her cranial nerves are intact. She moves all extremities without difficulty, although she is mostly bed bound. She has multiple callosities is in both lower extremities. Her intake over the last 24 hours was 2800, output was 1765. LABORATORY DATA: As of this morning showed a white cell count of 18,000, hemoglobin 10, hematocrit 30, MCV 98 and platelet count of 72,000. Her chemistry showed a serum sodium 142, potassium 4.3, chloride 108, bicarbonate 24, anion gap of 10, BUN 10, creatinine 0.4, estimated GFR was 160 mL per minute. Her glucose was 234, calcium was 7.6, phosphorus is 1.6, magnesium was 2.2. Her prothrombin time was 20.7, INR 1.9. Her blood gas showed a pH of 7.52, pCO2 of 24, pO2 104, bicarbonate 21 and oxygen saturation was 98% on FiO2 of 40%. ASSESSMENT AND PLAN: 1. Acute respiratory failure, shock pneumonia, acute chronic obstructive pulmonary disease exacerbation. She is on pressure support, maintaining her oxygen saturation at 100% on FiO2 of 40%. The patient has septic shock. The patient is off pressors and she is hemodynamically stable. 2. Abnormal CT scan of the chest, bilateral tree-in-bud interstitial infiltrate suggesting infectious pneumonitis, weight loss for more than 38 pounds, abnormal finding on the CT scan of the abdomen with possible neoplasm of the colon. 3. Coagulopathy. Either due to chronic liver disease versus disseminated intravascular coagulation versus nutritional deficiency. My plan is to repeat all her lab works tomorrow and decide on further management accordingly. TODD MILLER MD DR: FRANCISCO JAVIER/sushil JOB#: [id number] / [id number]
[2016-06-16] VITALS (24 sets, daily range): BP systolic 81–132; BP diastolic 53–86
[2016-06-16] MEDS: PIPERACILLIN/TAZOBACTAM 3.375 GM in IV NORMAL SALINE 50ML 50 ML IV SCH ×4 (00:04→17:34)
[2016-06-16] MEDS: INSULIN ASPART 300 UNITS/3 ML INSULN.PEN SQ SCH ×4 (00:06→17:44)
[2016-06-16] MEDS: FENTANYL PF 100 MCG/2 ML VIAL. IV PRN ×3 (04:14→20:23)
[2016-06-16] MEDS: PANTOPRAZOLE IV PUSH 40 MG VIAL. IVP SCH ×2 (05:52→17:35)
[2016-06-16] MEDS: HYDROCORTISONE SOD SUCC/PF 100 MG/2 ML VIAL. IV SCH ×3 (05:53→22:41)
[2016-06-16 06:42] LABS: ALBUMIN 1.4 g/dL (3.4-5.0); ALBUMIN/GLOBULIN RATIO 0.7 (1.0-1.7); CALCIUM 7.3 mg/dL (8.5-10.1); CREATININE 0.3 mg/dL (0.6-1.0); POTASSIUM 4.2 mmol/L (3.5-5.1); TOTAL BILIRUBIN 0.9 mg/dL (0.2-1.0); TOTAL PROTEIN 3.4 g/dL (6.4-8.2)
[2016-06-16 06:49] LABS: INR 1.7 (0.8-1.1); PROTHROMBIN TIME PATIENT 18.8 SEC (11.7-14.0)
[2016-06-16 07:02] LABS: BASO % 0 % (0-3); EOS % 0 % (0-3); HEMATOCRIT 27.4 % (36.0-47.0); HEMOGLOBIN 8.9 g/dL (12.0-15.5); LYMPH # 0.4 x10^3/uL (1.0-4.8); LYMPH % 2 % (24-48); MEAN CORPUSCULAR HEMOGLOBIN 32 pg (25-35); MEAN CORPUSCULAR HGB CONC 33 g/dL (31-37); MEAN CORPUSCULAR VOLUME 98 fL (79-100); MONO % 7 % (0-9); NEUT % 91 % (31-73); PLATELET COUNT 50 x10^3/uL (140-400); RED BLOOD COUNT 2.79 x10^6/uL (3.50-5.40); WHITE BLOOD COUNT 17.6 x10^3/uL (4.0-11.0)
[2016-06-16] MEDS: IPRATRPIUM/ALBUTEROL 0.5/2.5MG 3 ML NEBU. NEB SCH ×4 (07:44→20:06)
[2016-06-16] MEDS: BUDESONIDE 0.5 MG/2 ML NEBU NEB SCH ×2 (07:44→20:06)
[2016-06-16 08:27] LABS: HCO3 ABG 25 mmol/L (21-28); PCO2 ABG 32 mmHg (35-46); PH ABG 7.51 (7.35-7.45); PO2 ABG 104 mmHg (65-108); SAT O2 ABG 98 % (92-99)
--- NOTE | 2016-06-16 08:57 | PDOC ---
Infectious Disease Note Subjective Subjective Alert, deaf, very alert Remains intubated on vent support. SpO2 100% on FiO2 30% Hypotensive. Off pressors No fever TPN ROS ROS Unobtainable, Vital Sign Vital Signs Vital Signs Date Time Temp Pulse Resp B/P Pulse Ox O2 Delivery O2 Flow Rate FiO2 06/16/16 08:00 97.4 97 19 108/78 100 Ventilator 97.4 Physical Exam PHYSICAL EXAM GENERAL: Alert, intubated, NAD deaf HEENT: PERRL, ETT. OGT LUNGS: Diminished aeration bases. HEART: S1S2, no gallop, no murmur ABD: Soft, no grimace to palpation : Mehta EXT: Anasarca. Right lateral hip wound, + moist slough, serous drainage, dressing saturated DOCKETING SPECIALIST: Alert, calm SKIN: No rash RIG (06/13). clean Labs Lab Laboratory Tests Test 06/15/16 10:40 06/15/16 11:58 06/15/16 17:51 06/16/16 00:02 Activated Partial Thromboplast Time 38SEC (24-38) Lactic Acid Level 4.3mmol/L (0.4-2.0) Glucose (Fingerstick) 261mg/dL (70-99) 273mg/dL (70-99) 291mg/dL (70-99) Test 06/16/16 05:50 White Blood Count 17.6x10^3/uL (4.0-11.0) Red Blood Count 2.79x10^6/uL (3.50-5.40) Hemoglobin 8.9g/dL (12.0-15.5) Hematocrit 27.4% (36.0-47.0) Mean Corpuscular Volume 98fL (79-100) Mean Corpuscular Hemoglobin 32pg (25-35) Mean Corpuscular Hemoglobin Concent 33g/dL (31-37) Red Cell Distribution Width 16.0% (11.5-14.5) Platelet Count 50x10^3/uL (140-400) Neutrophils (%) (Auto) 91% (31-73) Lymphocytes (%) (Auto) 2% (24-48) Monocytes (%) (Auto) 7% (0-9) Eosinophils (%) (Auto) 0% (0-3) Basophils (%) (Auto) 0% (0-3) Neutrophils # (Auto) 16.0x10^3uL (1.8-7.7) Lymphocytes # (Auto) 0.4x10^3/uL (1.0-4.8) Monocytes # (Auto) 1.2x10^3/uL (0.0-1.1) Eosinophils # (Auto) 0.0x10^3/uL (0.0-0.7) Basophils # (Auto) 0.0x10^3/uL (0.0-0.2) Prothrombin Time 18.8SEC (11.7-14.0) Prothromb Time International Ratio 1.7 (0.8-1.1) Sodium Level 141mmol/L (136-145) Potassium Level 4.2mmol/L (3.5-5.1) Chloride Level 107mmol/L (98-107) Carbon Dioxide Level 29mmol/L (21-32) Anion Gap 5 (6-14) Blood Urea Nitrogen 12mg/dL (7-20) Creatinine 0.3mg/dL (0.6-1.0) Estimated GFR (Cockcroft-Gault) 224.0 BUN/Creatinine Ratio 40 (6-20) Glucose Level 200mg/dL (70-99) Glucose (Fingerstick) 195mg/dL (70-99) Calcium Level 7.3mg/dL (8.5-10.1) Total Bilirubin 0.9mg/dL (0.2-1.0) Aspartate Amino Transf (AST/SGOT) 60U/L (15-37) Alanine Aminotransferase (ALT/SGPT) 55U/L (14-59) Alkaline Phosphatase 86U/L (46-116) Total Protein 3.4g/dL (6.4-8.2) Albumin 1.4g/dL (3.4-5.0) Albumin/Globulin Ratio 0.7 (1.0-1.7) CT abd/pelvis: IMPRESSION: 1. Severe anasarca. 2. Moderate sized bilateral pleural effusions with moderate underlying left lower lobe atelectasis/consolidation. 3. Mesenteric edema and ascites. 4. Mural thickening involving the stomach and proximal duodenum likely due to edema and/or inflammation. 5. Evidence of previous colonic surgery with soft tissue thickening in the ascending colon region raising the possibility of neoplasm. 6. Chronic calcific pancreatitis Micro SPUTUM CULT RES 1 Final Routine respiratory reina AFB CULTURE GRAM STAIN Final Negative FUNGAL CULTURE,OTHER PENDING Objective Assessment Pulmonary infiltrates, aspiration possible, TB less likely Cavitary pneumonia H/O ETOH H/O Pancreatitis Wt loss S/P CODE Respiratory failure s/p intubation -Bilat pleural effusions and atelectasis/consolidations Leukocytosis, on steroids Thrombocytopenia, trending down Nonhealing right hip surgical wound w/ drainage. -h/o right hip replacement Plan Plan of Care Doroteo d/c Zyvox sputum AFB x 3 neg with bronch neg Change wound dressing, d/w RN D/w Dr. Carnes - will extubate Attending Co-Sign Attending Co-Sign The patient was seen and interviewed as well as examined at the bedside. The chart was reviewed. The case was discussed. Agree with the plan of care. ANGIE GAN APRN Jun 16, 2016 08:57 GROVER LANDRY MD Jun 16, 2016 12:31
[2016-06-16 09:00] LABS: FIO2 ABG 40
--- NOTE | 2016-06-16 10:07 | RAD ---
Exam performed: One view chest. History: Pneumonia. Date of service: 06/16/16. Comparison: Single view chest from 06/15/16. Single AP upright portable view chest findings: Heart size and mediastinal silhouette is within limits of normal. The pulmonary vascularity is unremarkable. There is a endotracheal tube, feeding tube and a right-sided subclavian line in place. Surgical clips in the right axilla. Prominent interstitial markings and airspace opacities are seen in both lungs which appears slightly improved. Small bilateral pleural effusions Impression: Improving bilateral interstitial and airspace opacities likely improving infiltrates or edema. Stable support lines and tubes
[2016-06-16] MEDS: GABAPENTIN 300 MG CAPSULE. PO SCH ×3 (10:26→21:00)
[2016-06-16] MEDS: PHYTONADIONE (VIT K1) 5 MG TABLET PO SCH (10:26)
[2016-06-16] MEDS: CHOLECALCIFEROL (VITAMIN D3) 5,000 UNIT CAPSULE PO SCH (10:26)
[2016-06-16] MEDS: LETROZOLE 2.5 MG TABLET. PO SCH (10:27)
[2016-06-16] MEDS: CHLORHEXIDINE 0.12% 15 ML MOUTHWASH. MM SCH ×2 (10:33→21:00)
[2016-06-16 10:47] LABS: MAGNESIUM 1.9 mg/dL (1.8-2.4); PHOSPHORUS 2.4 mg/dL (2.6-4.7)
--- NOTE | 2016-06-16 11:53 | PDOC ---
PULMONARY PROGRESS NOTES Subjective remains intubated, off sedation, fully awake following commands Vitals Vital Signs Date Time Temp Pulse Resp B/P Pulse Ox O2 Delivery O2 Flow Rate FiO2 06/16/16 11:04 100 Ventilator 06/16/16 08:00 97.4 97 19 108/78 97.4 General: Alert, No acute distress Lungs: Other (decrease bs) Cardiovascular: S1 Abdomen: Soft Extremities: Other (trace edema) Skin: Warm Labs Laboratory Tests Test 06/14/16 14:18 06/14/16 16:30 06/14/16 17:00 06/14/16 19:23 Glucose (Fingerstick) 237mg/dL (70-99) 226mg/dL (70-99) Potassium Level 3.3mmol/L (3.5-5.1) Nasal Screen MRSA (PCR) Negative (Negative) Test 06/14/16 23:50 06/15/16 06:15 06/15/16 06:20 06/15/16 07:00 Glucose (Fingerstick) 268mg/dL (70-99) 255mg/dL (70-99) White Blood Count 18.0x10^3/uL (4.0-11.0) Red Blood Count 3.07x10^6/uL (3.50-5.40) Hemoglobin 9.8g/dL (12.0-15.5) Hematocrit 30.0% (36.0-47.0) Mean Corpuscular Volume 98fL (79-100) Mean Corpuscular Hemoglobin 32pg (25-35) Mean Corpuscular Hemoglobin Concent 33g/dL (31-37) Red Cell Distribution Width 16.1% (11.5-14.5) Platelet Count 72x10^3/uL (140-400) Neutrophils (%) (Auto) 94% (31-73) Lymphocytes (%) (Auto) 2% (24-48) Monocytes (%) (Auto) 4% (0-9) Eosinophils (%) (Auto) 0% (0-3) Basophils (%) (Auto) 0% (0-3) Neutrophils # (Auto) 16.9x10^3uL (1.8-7.7) Lymphocytes # (Auto) 0.3x10^3/uL (1.0-4.8) Monocytes # (Auto) 0.8x10^3/uL (0.0-1.1) Eosinophils # (Auto) 0.0x10^3/uL (0.0-0.7) Basophils # (Auto) 0.0x10^3/uL (0.0-0.2) Sodium Level 142mmol/L (136-145) Potassium Level 4.3mmol/L (3.5-5.1) Chloride Level 108mmol/L (98-107) Carbon Dioxide Level 24mmol/L (21-32) Anion Gap 10 (6-14) Blood Urea Nitrogen 10mg/dL (7-20) Creatinine 0.4mg/dL (0.6-1.0) Estimated GFR (Cockcroft-Gault) 160.7 Glucose Level 234mg/dL (70-99) Calcium Level 7.5mg/dL (8.5-10.1) Phosphorus Level 1.6mg/dL (2.6-4.7) Magnesium Level 2.2mg/dL (1.8-2.4) Triglycerides Level 65mg/dL (0-150) Prothrombin Time 20.7SEC (11.7-14.0) Prothromb Time International Ratio 1.9 (0.8-1.1) Test 06/15/16 07:30 06/15/16 10:40 06/15/16 11:58 06/15/16 17:51 O2 Saturation 98% (92-99) Arterial Blood pH 7.52 (7.35-7.45) Arterial Blood pCO2 at Patient Temp 27mmHg (35-46) Arterial Blood pO2 at Patient Temp 104mmHg (65-108) Arterial Blood HCO3 21mmol/L (21-28) Arterial Blood Base Excess -1mmol/L (-3-3) FiO2 40% Activated Partial Thromboplast Time 38SEC (24-38) Lactic Acid Level 4.3mmol/L (0.4-2.0) Glucose (Fingerstick) 261mg/dL (70-99) 273mg/dL (70-99) Test 06/16/16 00:02 06/16/16 05:50 06/16/16 08:00 Glucose (Fingerstick) 291mg/dL (70-99) 195mg/dL (70-99) White Blood Count 17.6x10^3/uL (4.0-11.0) Red Blood Count 2.79x10^6/uL (3.50-5.40) Hemoglobin 8.9g/dL (12.0-15.5) Hematocrit 27.4% (36.0-47.0) Mean Corpuscular Volume 98fL (79-100) Mean Corpuscular Hemoglobin 32pg (25-35) Mean Corpuscular Hemoglobin Concent 33g/dL (31-37) Red Cell Distribution Width 16.0% (11.5-14.5) Platelet Count 50x10^3/uL (140-400) Neutrophils (%) (Auto) 91% (31-73) Lymphocytes (%) (Auto) 2% (24-48) Monocytes (%) (Auto) 7% (0-9) Eosinophils (%) (Auto) 0% (0-3) Basophils (%) (Auto) 0% (0-3) Neutrophils # (Auto) 16.0x10^3uL (1.8-7.7) Lymphocytes # (Auto) 0.4x10^3/uL (1.0-4.8) Monocytes # (Auto) 1.2x10^3/uL (0.0-1.1) Eosinophils # (Auto) 0.0x10^3/uL (0.0-0.7) Basophils # (Auto) 0.0x10^3/uL (0.0-0.2) Prothrombin Time 18.8SEC (11.7-14.0) Prothromb Time International Ratio 1.7 (0.8-1.1) Sodium Level 141mmol/L (136-145) Potassium Level 4.2mmol/L (3.5-5.1) Chloride Level 107mmol/L (98-107) Carbon Dioxide Level 29mmol/L (21-32) Anion Gap 5 (6-14) Blood Urea Nitrogen 12mg/dL (7-20) Creatinine 0.3mg/dL (0.6-1.0) Estimated GFR (Cockcroft-Gault) 224.0 BUN/Creatinine Ratio 40 (6-20) Glucose Level 200mg/dL (70-99) Calcium Level 7.3mg/dL (8.5-10.1) Phosphorus Level 2.4mg/dL (2.6-4.7) Magnesium Level 1.9mg/dL (1.8-2.4) Total Bilirubin 0.9mg/dL (0.2-1.0) Aspartate Amino Transf (AST/SGOT) 60U/L (15-37) Alanine Aminotransferase (ALT/SGPT) 55U/L (14-59) Alkaline Phosphatase 86U/L (46-116) Total Protein 3.4g/dL (6.4-8.2) Albumin 1.4g/dL (3.4-5.0) Albumin/Globulin Ratio 0.7 (1.0-1.7) O2 Saturation 98% (92-99) Arterial Blood pH 7.51 (7.35-7.45) Arterial Blood pCO2 at Patient Temp 32mmHg (35-46) Arterial Blood pO2 at Patient Temp 104mmHg (65-108) Arterial Blood HCO3 25mmol/L (21-28) Arterial Blood Base Excess 3mmol/L (-3-3) FiO2 40 Laboratory Tests Test 06/15/16 11:58 06/15/16 17:51 06/16/16 00:02 06/16/16 05:50 Glucose (Fingerstick) 261mg/dL (70-99) 273mg/dL (70-99) 291mg/dL (70-99) 195mg/dL (70-99) White Blood Count 17.6x10^3/uL (4.0-11.0) Red Blood Count 2.79x10^6/uL (3.50-5.40) Hemoglobin 8.9g/dL (12.0-15.5) Hematocrit 27.4% (36.0-47.0) Mean Corpuscular Volume 98fL (79-100) Mean Corpuscular Hemoglobin 32pg (25-35) Mean Corpuscular Hemoglobin Concent 33g/dL (31-37) Red Cell Distribution Width 16.0% (11.5-14.5) Platelet Count 50x10^3/uL (140-400) Neutrophils (%) (Auto) 91% (31-73) Lymphocytes (%) (Auto) 2% (24-48) Monocytes (%) (Auto) 7% (0-9) Eosinophils (%) (Auto) 0% (0-3) Basophils (%) (Auto) 0% (0-3) Neutrophils # (Auto) 16.0x10^3uL (1.8-7.7) Lymphocytes # (Auto) 0.4x10^3/uL (1.0-4.8) Monocytes # (Auto) 1.2x10^3/uL (0.0-1.1) Eosinophils # (Auto) 0.0x10^3/uL (0.0-0.7) Basophils # (Auto) 0.0x10^3/uL (0.0-0.2) Prothrombin Time 18.8SEC (11.7-14.0) Prothromb Time International Ratio 1.7 (0.8-1.1) Sodium Level 141mmol/L (136-145) Potassium Level 4.2mmol/L (3.5-5.1) Chloride Level 107mmol/L (98-107) Carbon Dioxide Level 29mmol/L (21-32) Anion Gap 5 (6-14) Blood Urea Nitrogen 12mg/dL (7-20) Creatinine 0.3mg/dL (0.6-1.0) Estimated GFR (Cockcroft-Gault) 224.0 BUN/Creatinine Ratio 40 (6-20) Glucose Level 200mg/dL (70-99) Calcium Level 7.3mg/dL (8.5-10.1) Phosphorus Level 2.4mg/dL (2.6-4.7) Magnesium Level 1.9mg/dL (1.8-2.4) Total Bilirubin 0.9mg/dL (0.2-1.0) Aspartate Amino Transf (AST/SGOT) 60U/L (15-37) Alanine Aminotransferase (ALT/SGPT) 55U/L (14-59) Alkaline Phosphatase 86U/L (46-116) Total Protein 3.4g/dL (6.4-8.2) Albumin 1.4g/dL (3.4-5.0) Albumin/Globulin Ratio 0.7 (1.0-1.7) Test 06/16/16 08:00 O2 Saturation 98% (92-99) Arterial Blood pH 7.51 (7.35-7.45) Arterial Blood pCO2 at Patient Temp 32mmHg (35-46) Arterial Blood pO2 at Patient Temp 104mmHg (65-108) Arterial Blood HCO3 25mmol/L (21-28) Arterial Blood Base Excess 3mmol/L (-3-3) FiO2 40 Medications Active Scripts Medications Dose Route/Sig Days Date Category Warfarin Sodium 5 Mg Tablet 1 Tab PO DAILY 04/21/16 Rx Cipro (Ciprofloxacin Hcl) 500 Mg Tablet 1 Tab PO BID 04/21/16 Rx Anoro Ellipta 62.5-25 Mcg Inh (Umeclidinium Brm/Vilanterol Tr) 1 Each Disk.w.dev 1 Each IH DAILY 12/20/14 Reported Oxycodone Hcl 20 Mg Tablet 20 Mg PO PRN Q4HRS PRN 12/20/14 Reported Gabapentin 300 Mg Capsule 1 Cap PO BID 12/20/14 Reported Flovent 110MCG Hfa (Fluticasone Propionate) 12 Gm Aer.w.adap 2 Puff IH BID 12/20/14 Reported Breo Ellipta 200-25 Mcg INH (Fluticasone/Vilanterol) 1 Each Blst.w.dev 1 Each IH DAILY 12/20/14 Reported Proair Hfa Inhaler (Albuterol Sulfate) 8.5 Gm Hfa.aer.ad 2 Puff IH PRN QID PRN 12/20/14 Reported Lorazepam 0.5 Mg Tablet 0.5 Mg PO Q4HRS PRN 12/20/14 Reported Ondansetron Hcl 4 Mg Tablet 1 Tab PO PRN Q4HRS 12/20/14 Reported Spiriva (Tiotropium [place]) 18 Mcg Cap.w.dev 1 Cap IH DAILY 12/20/14 Reported Femara (Letrozole) 2.5 Mg Tablet 2.5 Mg PO DAILY 12/20/14 Reported Comments CXR 06/16 bilateral infiltrates, mild improvement Impression . 1. Acute RF due to shock/ pneumonia,AECOPD, profound weakness 2. shock, hypovolemic/septic, off pressors, 3. Abnormal CT chest with bilateral tree-in-bud interstitial infiltrates suggesting infectious pneumonitis. Possible chronic aspiration Tuberculosis is unlikely in this clinical setting. TB Ruled out by Bronch 4. Weight loss of 30 pounds. This could be multifactorial . suspected colon malignancy, chronic pancreatitis /prior pancreatectomy. Tuberculosis unlikely . She has history of breast cancer 5. History of heavy alcohol use. 6. Acute hypoxic respiratory failure secondary to pneumonia. improving 7. 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 severe malnutrition Plan . 1. Doing well on CPAP trial. awake. If ABG adequate, will extubated today 2. off sedation. fully awake 3. pressors off, 4. Negative Bronch cultures, AFB negative 5. continue with antibiotics per ID 6.. s/p brief code blue,no evidence of cerebral anoxia 7. Needs to improve nutritional status. She has severe protein-calorie malnutrition. on TPN 8. Remains full code. 9. DVT/stress ulcer prophylaxis 10. stress dose steroids, taper 12. Monitor INR/ off lovenox 13. will need colonoscopy after extubation d/w ANJEL VIDES MD Jun 16, 2016 11:53
[2016-06-16] MEDS: TPN PER PHARMACY MC PRN (12:06)
[2016-06-16 12:28] LABS: HCO3 ABG 27 mmol/L (21-28); PCO2 ABG 33 mmHg (35-46); PH ABG 7.52 (7.35-7.45); PO2 ABG 79 mmHg (65-108); SAT O2 ABG 96 % (92-99)
[2016-06-16 12:29] LABS: FIO2 ABG 30
[2016-06-16] MEDS: CALCIUM CARBONATE 500 MG TABLET PO SCH ×3 (12:49→17:01)
[2016-06-16] MEDS ORDERED: ALBUMIN HUMAN 5% 500 ML IV SCH (13:00)
[2016-06-16] MEDS: ALBUMIN HUMAN 5% 500 ML IV PRN ×2 (13:20→21:48)
[2016-06-16] MEDS: ALBUMIN HUMAN 25% 50 ML IV SCH ×2 (14:08→20:26)
[2016-06-16 19:53] LABS: HCO3 ABG 27 mmol/L (21-28); PCO2 ABG 53 mmHg (35-46); PO2 ABG 59 mmHg (65-108); SAT O2 ABG 86 % (92-99)
[2016-06-16 19:55] LABS: FIO2 ABG 40; PH ABG 7.32 (7.35-7.45)
[2016-06-16] MEDS: HALOPERIDOL LACT 5 MG/ML VIAL. IVP PRN ×2 (20:22→23:59)
[2016-06-16] MEDS ORDERED: TOTAL PARENTERAL NUTRITION IV SCH ×11 (22:00)
[2016-06-16] MEDS ORDERED: AMINO ACIDS IV SCH ×11 (22:00)
[2016-06-16] MEDS ORDERED: [UNRECOGNIZED DRUG - OTHER] IV SCH ×11 (22:00)
[2016-06-16] MEDS ORDERED: DEXTROSE 70% IV SCH ×11 (22:00)
--- NOTE | 2016-06-16 22:27 | PN ---
DATE: 06/16/2016 SUBJECTIVE: The patient is sitting slightly propped up in bed, in no apparent distress. She is awake, alert, responding appropriately. PHYSICAL EXAMINATION: GENERAL: When I examined her, she looked pale, cachectic, but no jaundice, cyanosis or thyromegaly. Jugular venous distention with generalized anasarca. VITAL SIGNS: Her heart rate was 97, blood pressure was 108/78, temperature was 97.4, respiratory rate was 19 and oxygen saturation was 100% on FIO2 of 30% on pressure support. HEAD, EYES, EARS, NOSE AND THROAT: Showed normocephalic, atraumatic. NECK: Supple. HEART: Showed normal first and second heart sounds with no gallop, rub or murmur. CHEST: Clear to auscultation. No crepitation or rhonchi. ABDOMEN: Distended, soft, nontender. No guarding or rigidity. No organomegaly. All hernial orifices intact. Bowel sounds normal. NEUROLOGIC: She is awake, alert. 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 She moves her extremities without difficulty. She has a nonhealing surgical wound in the right hip area and a left trochanteric decubitus ulcer. Her intake over the last 24 hours was 2035, output was 1380. LABORATORY DATA: Her lab work this morning showed that her prothrombin time to be 18.8, INR 1.7. White cell count was 17,600, hemoglobin 8.9, hematocrit 27, MCV 98 and platelet count of 50,000. Her chemistry this morning showed a serum sodium of 141, potassium 4.2, chloride 107, bicarbonate 29, anion gap of 5, BUN 12, creatinine 0.3. Estimated GFR was 224 mL per minute. Her glucose was 200, calcium was 7.3, phosphorus 2.4, magnesium was 1.9. Total bilirubin, AST, ALT, alkaline phosphatase were normal. Total protein was 3.4, albumin was 1.4. Her blood gases this morning showed a pH of 7.52, pCO2 of 32, pO2 of 79, bicarbonate 27 and oxygen saturation was 96% on FIO2 of 30%. ASSESSMENT AND PLAN: Acute respiratory failure due to shock, pneumonia, acute exacerbation of chronic obstructive pulmonary disease, shock, hypovolemic, septic, off pressors. Abnormal CT scan of the chest with bilateral tree-in-bud interstitial infiltrate suggesting infectious pneumonitis, possible chronic aspiration. Tuberculosis unlikely in the clinical setting. Tuberculosis was ruled out by bronchoscopy. Weight loss of more than ____, multifactorial, suspected colonic malignancy, chronic pancreatitis, prior partial pancreatectomy, history of heavy alcohol abuse, acute hypoxic respiratory failure secondary to pneumonia, improving, coagulopathy, alcoholic liver disease versus disseminated intravascular coagulation, severe malnutrition. Her prothrombin time and INR improved on vitamin K indicating that at least partially the coagulopathy is because of malnutrition and lack of vitamin K. The plan is to continue with TPN. Continue with human albumin at 50 mL per hour. Continue with hydrocortisone. Continue to monitor her blood sugar and adjust insulin as needed. Apparently, her antibiotics were discontinued by Infectious Disease specialist. The patient is doing well and apparently, the bore miner operator decided to extubate her today. TODD MILLER MD DR: FRANCISCO JAVIER/sushil JOB#: [id number] / [id number]
[2016-06-17] VITALS (23 sets, daily range): BP systolic 16–139; BP diastolic 53–86
[2016-06-17] MEDS: INSULIN ASPART 300 UNITS/3 ML INSULN.PEN SQ SCH ×5 (00:21→23:38)
[2016-06-17] MEDS ORDERED: PROPOFOL 100 ML IV ONE (00:54)
[2016-06-17] MEDS ORDERED: SUCCINYLCHOLINE 200 MG/10 ML VIAL. ONE ×2 (00:54→01:00)
[2016-06-17] MEDS ORDERED: PROPOFOL 10 MG/ML (100ML) VIAL. IV ONE (01:00)
[2016-06-17] MEDS: MIDAZOLAM PREMIX 100 ML IV PRN (01:56)
[2016-06-17 03:49] LABS: HCO3 ABG 27 mmol/L (21-28); PCO2 ABG 41 mmHg (35-46); PH ABG 7.44 (7.35-7.45); PO2 ABG 95 mmHg (65-108); SAT O2 ABG 97 % (92-99)
[2016-06-17 03:51] LABS: FIO2 ABG 70
[2016-06-17] MEDS: HYDROCORTISONE SOD SUCC/PF 100 MG/2 ML VIAL. IV SCH ×3 (05:31→21:36)
[2016-06-17] MEDS: PANTOPRAZOLE IV PUSH 40 MG VIAL. IVP SCH ×2 (05:31→17:55)
[2016-06-17] MEDS: PIPERACILLIN/TAZOBACTAM 3.375 GM in IV NORMAL SALINE 50ML 50 ML IV SCH ×6 (05:57→23:39)
[2016-06-17 06:05] LABS: CALCIUM 7.5 mg/dL (8.5-10.1); CREATININE 0.4 mg/dL (0.6-1.0); GFR 160.7; MAGNESIUM 2.2 mg/dL (1.8-2.4); POTASSIUM 4.2 mmol/L (3.5-5.1)
[2016-06-17] MEDS: IPRATRPIUM/ALBUTEROL 0.5/2.5MG 3 ML NEBU. NEB SCH ×4 (08:11→20:22)
[2016-06-17] MEDS: BUDESONIDE 0.5 MG/2 ML NEBU NEB SCH ×2 (08:11→20:22)
--- NOTE | 2016-06-17 08:26 | RAD ---
EXAM: Chest one view. HISTORY: Intubated, respiratory failure. COMPARISON: 06/16/2016. FINDINGS: A frontal view of the chest is obtained. An endotracheal tube has its tip 5 cm above the gladys. A right internal jugular central venous catheter has its tip in the superior cavoatrial junction. There are changes of right mastectomy and right axillary lymph node dissection. An airspace opacity in the left midlung has increased. Retrocardiac atelectasis or consolidation persists. There are mild diffuse airspace opacities on the right consistent with mild pulmonary edema or posteriorly layering pleural effusions. Bilateral pleural effusions have increased in size since the prior study. Focal pleural parenchymal scarring in the right apex has been stable chronically. Hyperinflation is consistent with chronic obstructive pulmonary disease. The heart is not enlarged. IMPRESSION: 1. Increased bilateral posteriorly layering pleural effusions. 2. A left midlung infiltrate suggests pneumonia. Retrocardiac consolidation persists. 3. Mild pulmonary edema.
[2016-06-17 08:35] LABS: HCO3 ABG 27 mmol/L (21-28); PCO2 ABG 36 mmHg (35-46); PH ABG 7.49 (7.35-7.45); PO2 ABG 114 mmHg (65-108); SAT O2 ABG 98 % (92-99)
[2016-06-17 08:37] LABS: FIO2 ABG 70
[2016-06-17] MEDS: ALBUMIN HUMAN 25% 50 ML IV SCH (08:47)
[2016-06-17] MEDS: CHLORHEXIDINE 0.12% 15 ML MOUTHWASH. MM SCH ×2 (08:47→21:37)
[2016-06-17] MEDS: PHYTONADIONE (VIT K1) 5 MG TABLET PO SCH (08:59)
[2016-06-17] MEDS: LETROZOLE 2.5 MG TABLET. PO SCH (08:59)
[2016-06-17] MEDS: CALCIUM CARBONATE 500 MG TABLET PO SCH ×3 (09:00→17:57)
[2016-06-17] MEDS: CHOLECALCIFEROL (VITAMIN D3) 5,000 UNIT CAPSULE PO SCH (09:00)
[2016-06-17] MEDS: GABAPENTIN 300 MG CAPSULE. PO SCH ×3 (09:00→21:00)
--- NOTE | 2016-06-17 11:01 | PDOC ---
PULMONARY PROGRESS NOTES Subjective extubated 06/16 am, did well till early am, re-intubated early am 06/17 for progressive Hypoxic RF Vitals Vital Signs Date Time Temp Pulse Resp B/P Pulse Ox O2 Delivery O2 Flow Rate FiO2 06/17/16 10:00 97 17 96/61 100 Ventilator 06/17/16 08:00 97.4 97.4 06/16/16 19:00 6.0 Lungs: Other (decrease bs) Cardiovascular: S1 Abdomen: Soft Extremities: Other (trace edema) Skin: Warm Labs Laboratory Tests Test 06/15/16 11:58 06/15/16 17:51 06/16/16 00:02 06/16/16 05:50 Glucose (Fingerstick) 261mg/dL (70-99) 273mg/dL (70-99) 291mg/dL (70-99) 195mg/dL (70-99) White Blood Count 17.6x10^3/uL (4.0-11.0) Red Blood Count 2.79x10^6/uL (3.50-5.40) Hemoglobin 8.9g/dL (12.0-15.5) Hematocrit 27.4% (36.0-47.0) Mean Corpuscular Volume 98fL (79-100) Mean Corpuscular Hemoglobin 32pg (25-35) Mean Corpuscular Hemoglobin Concent 33g/dL (31-37) Red Cell Distribution Width 16.0% (11.5-14.5) Platelet Count 50x10^3/uL (140-400) Neutrophils (%) (Auto) 91% (31-73) Lymphocytes (%) (Auto) 2% (24-48) Monocytes (%) (Auto) 7% (0-9) Eosinophils (%) (Auto) 0% (0-3) Basophils (%) (Auto) 0% (0-3) Neutrophils # (Auto) 16.0x10^3uL (1.8-7.7) Lymphocytes # (Auto) 0.4x10^3/uL (1.0-4.8) Monocytes # (Auto) 1.2x10^3/uL (0.0-1.1) Eosinophils # (Auto) 0.0x10^3/uL (0.0-0.7) Basophils # (Auto) 0.0x10^3/uL (0.0-0.2) Prothrombin Time 18.8SEC (11.7-14.0) Prothromb Time International Ratio 1.7 (0.8-1.1) Sodium Level 141mmol/L (136-145) Potassium Level 4.2mmol/L (3.5-5.1) Chloride Level 107mmol/L (98-107) Carbon Dioxide Level 29mmol/L (21-32) Anion Gap 5 (6-14) Blood Urea Nitrogen 12mg/dL (7-20) Creatinine 0.3mg/dL (0.6-1.0) Estimated GFR (Cockcroft-Gault) 224.0 BUN/Creatinine Ratio 40 (6-20) Glucose Level 200mg/dL (70-99) Calcium Level 7.3mg/dL (8.5-10.1) Phosphorus Level 2.4mg/dL (2.6-4.7) Magnesium Level 1.9mg/dL (1.8-2.4) Total Bilirubin 0.9mg/dL (0.2-1.0) Aspartate Amino Transf (AST/SGOT) 60U/L (15-37) Alanine Aminotransferase (ALT/SGPT) 55U/L (14-59) Alkaline Phosphatase 86U/L (46-116) Total Protein 3.4g/dL (6.4-8.2) Albumin 1.4g/dL (3.4-5.0) Albumin/Globulin Ratio 0.7 (1.0-1.7) Test 06/16/16 08:00 06/16/16 12:16 06/16/16 13:21 06/16/16 17:39 O2 Saturation 98% (92-99) 96% (92-99) Arterial Blood pH 7.51 (7.35-7.45) 7.52 (7.35-7.45) Arterial Blood pCO2 at Patient Temp 32mmHg (35-46) 33mmHg (35-46) Arterial Blood pO2 at Patient Temp 104mmHg (65-108) 79mmHg (65-108) Arterial Blood HCO3 25mmol/L (21-28) 27mmol/L (21-28) Arterial Blood Base Excess 3mmol/L (-3-3) 4mmol/L (-3-3) FiO2 40 30 Glucose (Fingerstick) 178mg/dL (70-99) 208mg/dL (70-99) Test 06/16/16 19:51 06/17/16 00:16 06/17/16 03:28 06/17/16 05:20 O2 Saturation 86% (92-99) 97% (92-99) Arterial Blood pH 7.32 (7.35-7.45) 7.44 (7.35-7.45) Arterial Blood pCO2 at Patient Temp 53mmHg (35-46) 41mmHg (35-46) Arterial Blood pO2 at Patient Temp 59mmHg (65-108) 95mmHg (65-108) Arterial Blood HCO3 27mmol/L (21-28) 27mmol/L (21-28) Arterial Blood Base Excess 0mmol/L (-3-3) 2mmol/L (-3-3) FiO2 40 70 Glucose (Fingerstick) 187mg/dL (70-99) Sodium Level 144mmol/L (136-145) Potassium Level 4.2mmol/L (3.5-5.1) Chloride Level 109mmol/L (98-107) Carbon Dioxide Level 30mmol/L (21-32) Anion Gap 5 (6-14) Blood Urea Nitrogen 15mg/dL (7-20) Creatinine 0.4mg/dL (0.6-1.0) Estimated GFR (Cockcroft-Gault) 160.7 Glucose Level 156mg/dL (70-99) Calcium Level 7.5mg/dL (8.5-10.1) Phosphorus Level 2.5mg/dL (2.6-4.7) Magnesium Level 2.2mg/dL (1.8-2.4) Test 06/17/16 05:28 06/17/16 08:30 Glucose (Fingerstick) 158mg/dL (70-99) O2 Saturation 98% (92-99) Arterial Blood pH 7.49 (7.35-7.45) Arterial Blood pCO2 at Patient Temp 36mmHg (35-46) Arterial Blood pO2 at Patient Temp 114mmHg (65-108) Arterial Blood HCO3 27mmol/L (21-28) Arterial Blood Base Excess 3mmol/L (-3-3) FiO2 70 Laboratory Tests Test 06/16/16 12:16 06/16/16 13:21 06/16/16 17:39 06/16/16 19:51 O2 Saturation 96% (92-99) 86% (92-99) Arterial Blood pH 7.52 (7.35-7.45) 7.32 (7.35-7.45) Arterial Blood pCO2 at Patient Temp 33mmHg (35-46) 53mmHg (35-46) Arterial Blood pO2 at Patient Temp 79mmHg (65-108) 59mmHg (65-108) Arterial Blood HCO3 27mmol/L (21-28) 27mmol/L (21-28) Arterial Blood Base Excess 4mmol/L (-3-3) 0mmol/L (-3-3) FiO2 30 40 Glucose (Fingerstick) 178mg/dL (70-99) 208mg/dL (70-99) Test 06/17/16 00:16 06/17/16 03:28 06/17/16 05:20 06/17/16 05:28 Glucose (Fingerstick) 187mg/dL (70-99) 158mg/dL (70-99) O2 Saturation 97% (92-99) Arterial Blood pH 7.44 (7.35-7.45) Arterial Blood pCO2 at Patient Temp 41mmHg (35-46) Arterial Blood pO2 at Patient Temp 95mmHg (65-108) Arterial Blood HCO3 27mmol/L (21-28) Arterial Blood Base Excess 2mmol/L (-3-3) FiO2 70 Sodium Level 144mmol/L (136-145) Potassium Level 4.2mmol/L (3.5-5.1) Chloride Level 109mmol/L (98-107) Carbon Dioxide Level 30mmol/L (21-32) Anion Gap 5 (6-14) Blood Urea Nitrogen 15mg/dL (7-20) Creatinine 0.4mg/dL (0.6-1.0) Estimated GFR (Cockcroft-Gault) 160.7 Glucose Level 156mg/dL (70-99) Calcium Level 7.5mg/dL (8.5-10.1) Phosphorus Level 2.5mg/dL (2.6-4.7) Magnesium Level 2.2mg/dL (1.8-2.4) Test 06/17/16 08:30 O2 Saturation 98% (92-99) Arterial Blood pH 7.49 (7.35-7.45) Arterial Blood pCO2 at Patient Temp 36mmHg (35-46) Arterial Blood pO2 at Patient Temp 114mmHg (65-108) Arterial Blood HCO3 27mmol/L (21-28) Arterial Blood Base Excess 3mmol/L (-3-3) FiO2 70 Medications Active Scripts Medications Dose Route/Sig Days Date Category Warfarin Sodium 5 Mg Tablet 1 Tab PO DAILY 04/21/16 Rx Cipro (Ciprofloxacin Hcl) 500 Mg Tablet 1 Tab PO BID 04/21/16 Rx Anoro Ellipta 62.5-25 Mcg Inh (Umeclidinium Brm/Vilanterol Tr) 1 Each Disk.w.dev 1 Each IH DAILY 12/20/14 Reported Oxycodone Hcl 20 Mg Tablet 20 Mg PO PRN Q4HRS PRN 12/20/14 Reported Gabapentin 300 Mg Capsule 1 Cap PO BID 12/20/14 Reported Flovent 110MCG Hfa (Fluticasone Propionate) 12 Gm Aer.w.adap 2 Puff IH BID 12/20/14 Reported Breo Ellipta 200-25 Mcg INH (Fluticasone/Vilanterol) 1 Each Blst.w.dev 1 Each IH DAILY 12/20/14 Reported Proair Hfa Inhaler (Albuterol Sulfate) 8.5 Gm Hfa.aer.ad 2 Puff IH PRN QID PRN 12/20/14 Reported Lorazepam 0.5 Mg Tablet 0.5 Mg PO Q4HRS PRN 12/20/14 Reported Ondansetron Hcl 4 Mg Tablet 1 Tab PO PRN Q4HRS 12/20/14 Reported Spiriva (Tiotropium [place]) 18 Mcg Cap.w.dev 1 Cap IH DAILY 12/20/14 Reported Femara (Letrozole) 2.5 Mg Tablet 2.5 Mg PO DAILY 12/20/14 Reported Comments CXR 06/17 bilateral infiltrates,increasing effusions Impression . 1. Acute RF due to shock/ pneumonia,AECOPD, profound weakness. extubated 3 am, did well initially, re-intubated early am 06/17 for progressive Hypoxic RF 2. shock, hypovolemic/septic,POA resolved. 3. Abnormal CT chest with bilateral tree-in-bud interstitial infiltrates suggesting infectious pneumonitis. Possible chronic aspiration Tuberculosis is unlikely in this clinical setting. TB Ruled out by Bronch 4. Weight loss of 30 pounds. This could be multifactorial . suspected colon malignancy, chronic pancreatitis /prior pancreatectomy. Tuberculosis unlikely . She has history of breast cancer 5. History of heavy alcohol use. 6. Acute hypoxic respiratory failure secondary to pneumonia. improving 7. 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 severe malnutrition Plan . 1. AC mode. wean Fio2 2. Extra diuresis/ increase effusions 3. Mild sedation 4. Negative Bronch cultures, AFB negative 5. continue with antibiotics per ID 6.. s/p brief code blue,no evidence of cerebral anoxia 7. Needs to improve nutritional status. She has severe protein-calorie malnutrition. on TPN 8. Remains full code. 9. DVT/stress ulcer prophylaxis 10. stress dose steroids, taper 12. Monitor INR/ off lovenox 13. will need colonoscopy at some point to r/o colon mass 14. May need Trach d/w RN. cct 30 min ANJEL GARCIA MD Jun 17, 2016 11:01
[2016-06-17] MEDS ORDERED: FUROSEMIDE 40 MG/4 ML VIAL IVP ONE (11:30)
[2016-06-17] MEDS ORDERED: ALBUMIN HUMAN 5% 500 ML IV SCH (12:30)
[2016-06-17] MEDS ORDERED: ALBUMIN HUMAN 5% 500 ML IV ONE (12:30)
--- NOTE | 2016-06-17 12:33 | PDOC ---
Infectious Disease Note Subjective Subjective Sedated s/p Reintubation 06/17 ROS ROS unobtainable Vital Sign Vital Signs Vital Signs Date Time Temp Pulse Resp B/P Pulse Ox O2 Delivery O2 Flow Rate FiO2 06/17/16 12:07 100 Ventilator 06/17/16 10:00 97 17 96/61 06/17/16 08:00 97.4 97.4 06/16/16 19:00 6.0 Physical Exam PHYSICAL EXAM GENERAL: Sedated, intubated, NAD deaf HEENT: PERRL, ETT. OGT LUNGS: Diminished aeration bases. HEART: S1S2, no gallop, no murmur ABD: Soft, no grimace to palpation, mild distension : Mehta EXT: Anasarca. Right lateral hip wound, + moist slough, serous drainage, dressing saturated DATA ANALYSIS ASSISTANT: Alert, calm SKIN: No rash RIG (06/13). clean Labs Lab Laboratory Tests Test 06/16/16 13:21 06/16/16 17:39 06/16/16 19:51 06/17/16 00:16 Glucose (Fingerstick) 178mg/dL (70-99) 208mg/dL (70-99) 187mg/dL (70-99) O2 Saturation 86% (92-99) Arterial Blood pH 7.32 (7.35-7.45) Arterial Blood pCO2 at Patient Temp 53mmHg (35-46) Arterial Blood pO2 at Patient Temp 59mmHg (65-108) Arterial Blood HCO3 27mmol/L (21-28) Arterial Blood Base Excess 0mmol/L (-3-3) FiO2 40 Test 06/17/16 03:28 06/17/16 05:20 06/17/16 05:28 06/17/16 08:30 O2 Saturation 97% (92-99) 98% (92-99) Arterial Blood pH 7.44 (7.35-7.45) 7.49 (7.35-7.45) Arterial Blood pCO2 at Patient Temp 41mmHg (35-46) 36mmHg (35-46) Arterial Blood pO2 at Patient Temp 95mmHg (65-108) 114mmHg (65-108) Arterial Blood HCO3 27mmol/L (21-28) 27mmol/L (21-28) Arterial Blood Base Excess 2mmol/L (-3-3) 3mmol/L (-3-3) FiO2 70 70 Sodium Level 144mmol/L (136-145) Potassium Level 4.2mmol/L (3.5-5.1) Chloride Level 109mmol/L (98-107) Carbon Dioxide Level 30mmol/L (21-32) Anion Gap 5 (6-14) Blood Urea Nitrogen 15mg/dL (7-20) Creatinine 0.4mg/dL (0.6-1.0) Estimated GFR (Cockcroft-Gault) 160.7 Glucose Level 156mg/dL (70-99) Calcium Level 7.5mg/dL (8.5-10.1) Phosphorus Level 2.5mg/dL (2.6-4.7) Magnesium Level 2.2mg/dL (1.8-2.4) Glucose (Fingerstick) 158mg/dL (70-99) Test 06/17/16 11:42 Glucose (Fingerstick) 128mg/dL (70-99) Objective Assessment Pulmonary infiltrates, aspiration possible, TB less likely Cavitary pneumonia H/O ETOH H/O Pancreatitis Wt loss S/P CODE Respiratory failure s/p intubation/extubation and reintubation 06/17 - on Hydrocortisone -Bilat pleural effusions and atelectasis/consolidations Leukocytosis, on steroids Thrombocytopenia, trending down Nonhealing right hip surgical wound w/ drainage. -h/o right hip replacement Plan Plan of Care Cont Zosyn sputum AFB x 3 neg with bronch neg Change wound dressing, d/w RN Labs in [facility] ALNDRY MD Jun 17, 2016 12:33
[2016-06-17] MEDS: TPN PER PHARMACY MC PRN (13:57)
[2016-06-17] MEDS: FENTANYL PF 100 MCG/2 ML VIAL. IV PRN (16:56)
[2016-06-17] MEDS ORDERED: TOTAL PARENTERAL NUTRITION IV SCH ×11 (22:00)
[2016-06-17] MEDS ORDERED: DEXTROSE 70% IV SCH ×11 (22:00)
[2016-06-17] MEDS ORDERED: AMINO ACIDS IV SCH ×11 (22:00)
[2016-06-17] MEDS ORDERED: [UNRECOGNIZED DRUG - OTHER] IV SCH ×11 (22:00)
--- NOTE | 2016-06-17 23:45 | PN ---
DATE: SUBJECTIVE: The patient was successfully extubated yesterday; however, she developed acute hypoxic respiratory failure. She became extremely tachypneic, hypoxic and she is to be reintubated again and put back on the ventilator. She is now sedated. PHYSICAL EXAMINATION: GENERAL: When I examined her, she looked pale, cachectic, but no jaundice, cyanosis or thyromegaly. No jugular venous distention. No limb edema. VITAL SIGNS: Her heart rate was 97, blood pressure was 96/61, temperature was 97.4, respiratory rate was 17 and oxygen saturation was 100% on FiO2 of 50%. HEAD, EYES, EARS, NOSE AND THROAT: Showed normocephalic, atraumatic. She has orotracheal and orogastric tube in place. NECK: Supple. HEART: Showed normal first and second sounds. No gallop, rub or murmur. CHEST: Clear to auscultation. No crepitation or rhonchi. ABDOMEN: Distended, soft, nontender. NEUROLOGIC: She is sedated. She does open her eyes, but drifts back to sleep. Her cranial nerves intact. She moves extremities without difficulty, although she is mostly bed bound. She has a nonhealing surgical wound in the right hip and decubitus ulcers involving right trochanteric area. She has multiple callosities on the plantar aspects of both feet. Her intake over the last 24 hours was 2200, output was 700. LABORATORY DATA: Her blood gases this morning showed a pH of , pCO2 of 36, pO2 114, bicarbonate 27 and oxygen saturation was 98% on FiO2 of 70%. Her chemistry showed a serum sodium 144, potassium 4.2, chloride 109, bicarbonate 30, anion gap of 5, BUN 15, creatinine 0.4, estimated GFR was 160 mL per minute. Her calcium was 7.5, magnesium was 2.2. Her white cell count was 17,600, hemoglobin 9, hematocrit 27, MCV 98 and platelet count of 50,000. Her prothrombin time was 18.8, INR 1.7. ASSESSMENT: Acute respiratory failure due to pneumonia and chronic obstructive pulmonary disease exacerbation, extubated yesterday, did well initially after being intubated early this morning because of hypoxic respiratory failure, shock, hypovolemic septic present on admission, resolved. CT scan of the chest showed bilateral tree-in-bud interstitial infiltrates suggesting infectious pneumonia, tuberculosis was ruled out. 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 PLAN: To continue mechanical ventilation and wean as tolerated. Continue with intravenous antibiotic. Continue with TPN. Continue with monitor her blood sugars and adjust insulin as needed. Continue with vitamin K orally. I will repeat all her lab works tomorrow. TODD MILLER MD DR: FRANCISCO JAVIER/sushil JOB#: [id number] / [id number]
[2016-06-18] VITALS (24 sets, daily range): BP systolic 93–127; BP diastolic 57–82
[2016-06-18] MEDS: MIDAZOLAM PREMIX 100 ML IV PRN (02:00)
[2016-06-18] MEDS: PIPERACILLIN/TAZOBACTAM 3.375 GM in IV NORMAL SALINE 50ML 50 ML IV SCH ×4 (05:18→23:36)
[2016-06-18] MEDS: HYDROCORTISONE SOD SUCC/PF 100 MG/2 ML VIAL. IV SCH ×3 (05:18→21:54)
[2016-06-18] MEDS: PANTOPRAZOLE IV PUSH 40 MG VIAL. IVP SCH ×2 (05:18→18:00)
[2016-06-18] MEDS: INSULIN ASPART 300 UNITS/3 ML INSULN.PEN SQ SCH ×3 (05:42→18:05)
[2016-06-18 06:06] LABS: BASO % 0 % (0-3); EOS % 0 % (0-3); HEMATOCRIT 26.2 % (36.0-47.0); HEMOGLOBIN 8.5 g/dL (12.0-15.5); LYMPH # 0.8 x10^3/uL (1.0-4.8); LYMPH % 4 % (24-48); MEAN CORPUSCULAR HEMOGLOBIN 32 pg (25-35); MEAN CORPUSCULAR HGB CONC 33 g/dL (31-37); MEAN CORPUSCULAR VOLUME 98 fL (79-100); MONO % 6 % (0-9); NEUT % 90 % (31-73); PLATELET COUNT 39 x10^3/uL (140-400); RED BLOOD COUNT 2.67 x10^6/uL (3.50-5.40); RED CELL DISTRIBUTION WIDTH 16.2 % (11.5-14.5); WHITE BLOOD COUNT 19.9 x10^3/uL (4.0-11.0)
[2016-06-18 06:07] LABS: ALBUMIN 2.7 g/dL (3.4-5.0); ALBUMIN/GLOBULIN RATIO 1.7 (1.0-1.7); CALCIUM 8.1 mg/dL (8.5-10.1); CREATININE 0.4 mg/dL (0.6-1.0); GFR 160.7; MAGNESIUM 2.3 mg/dL (1.8-2.4); POTASSIUM 3.3 mmol/L (3.5-5.1); TOTAL BILIRUBIN 2.4 mg/dL (0.2-1.0); TOTAL PROTEIN 4.3 g/dL (6.4-8.2)
[2016-06-18 06:24] LABS: INR 1.9 (0.8-1.1)
[2016-06-18 07:48] LABS: HOWELL-JOLLY BODIES PRESENT; PLT ESTIMATE DECREASED (ADEQUATE); POIKILOCYTOSIS PRESENT
--- NOTE | 2016-06-18 08:06 | PDOC ---
Infectious Disease Note Subjective Subjective Sedated s/p Reintubation 06/17 ROS ROS Unobtainable Vital Sign Vital Signs Vital Signs Date Time Temp Pulse Resp B/P Pulse Ox O2 Delivery O2 Flow Rate FiO2 06/18/16 07:00 77 27 109/69 100 Ventilator 06/18/16 04:00 98.8 98.8 Physical Exam PHYSICAL EXAM GENERAL: Sedated, intubated, NAD deaf HEENT: PERRL, ETT. OGT LUNGS: Diminished aeration bases.- coarse HEART: S1S2, no gallop, no murmur ABD: Soft, no grimace to palpation, mild distension : Mehta EXT: Anasarca. 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 clean Labs Lab Laboratory Tests Test 06/17/16 08:30 06/17/16 11:42 06/17/16 18:03 06/17/16 21:42 O2 Saturation 98% (92-99) Arterial Blood pH 7.49 (7.35-7.45) Arterial Blood pCO2 at Patient Temp 36mmHg (35-46) Arterial Blood pO2 at Patient Temp 114mmHg (65-108) Arterial Blood HCO3 27mmol/L (21-28) Arterial Blood Base Excess 3mmol/L (-3-3) FiO2 70 Glucose (Fingerstick) 128mg/dL (70-99) 182mg/dL (70-99) 159mg/dL (70-99) Test 06/17/16 23:38 06/18/16 05:30 Glucose (Fingerstick) 130mg/dL (70-99) 186mg/dL (70-99) White Blood Count 19.9x10^3/uL (4.0-11.0) Red Blood Count 2.67x10^6/uL (3.50-5.40) Hemoglobin 8.5g/dL (12.0-15.5) Hematocrit 26.2% (36.0-47.0) Mean Corpuscular Volume 98fL (79-100) Mean Corpuscular Hemoglobin 32pg (25-35) Mean Corpuscular Hemoglobin Concent 33g/dL (31-37) Red Cell Distribution Width 16.2% (11.5-14.5) Platelet Count 39x10^3/uL (140-400) Neutrophils (%) (Auto) 90% (31-73) Lymphocytes (%) (Auto) 4% (24-48) Monocytes (%) (Auto) 6% (0-9) Eosinophils (%) (Auto) 0% (0-3) Basophils (%) (Auto) 0% (0-3) Neutrophils # (Auto) 17.8x10^3uL (1.8-7.7) Lymphocytes # (Auto) 0.8x10^3/uL (1.0-4.8) Monocytes # (Auto) 1.3x10^3/uL (0.0-1.1) Eosinophils # (Auto) 0.0x10^3/uL (0.0-0.7) Basophils # (Auto) 0.0x10^3/uL (0.0-0.2) Platelet Estimate Decreased (ADEQUATE) Giant Platelets Present Poikilocytosis Present Basophilic Stippling Present Pappenheimer Bodies Few [place] Bodies Present Prothrombin Time 21.0SEC (11.7-14.0) Prothromb Time International Ratio 1.9 (0.8-1.1) Sodium Level 147mmol/L (136-145) Potassium Level 3.3mmol/L (3.5-5.1) Chloride Level 108mmol/L (98-107) Carbon Dioxide Level 34mmol/L (21-32) Anion Gap 5 (6-14) Blood Urea Nitrogen 19mg/dL (7-20) Creatinine 0.4mg/dL (0.6-1.0) Estimated GFR (Cockcroft-Gault) 160.7 BUN/Creatinine Ratio 48 (6-20) Glucose Level 187mg/dL (70-99) Calcium Level 8.1mg/dL (8.5-10.1) Phosphorus Level 3.0mg/dL (2.6-4.7) Magnesium Level 2.3mg/dL (1.8-2.4) Total Bilirubin 2.4mg/dL (0.2-1.0) Aspartate Amino Transf (AST/SGOT) 25U/L (15-37) Alanine Aminotransferase (ALT/SGPT) 27U/L (14-59) Alkaline Phosphatase 75U/L (46-116) Ammonia 31mcmol/L (11-34) Total Protein 4.3g/dL (6.4-8.2) Albumin 2.7g/dL (3.4-5.0) Albumin/Globulin Ratio 1.7 (1.0-1.7) Objective Assessment Pulmonary infiltrates, aspiration possible, TB less likely Cavitary pneumonia H/O ETOH H/O Pancreatitis Wt loss S/P CODE Respiratory failure s/p intubation/extubation and reintubation 06/17 - on Hydrocortisone -Bilat pleural effusions and atelectasis/consolidations . ? ARDS Leukocytosis, on steroids Thrombocytopenia, trending down Nonhealing right hip surgical wound w/ drainage. -h/o right hip replacement Plan Plan of Care Cont Zosyn Repeat sputum Add Zyvox sputum AFB x 3 neg with bronch neg Change wound dressing, d/w RN Labs in am GROVER LANDRY MD Jun 18, 2016 08:06
[2016-06-18] MEDS: BUDESONIDE 0.5 MG/2 ML NEBU NEB SCH ×2 (08:17→19:47)
[2016-06-18] MEDS: IPRATRPIUM/ALBUTEROL 0.5/2.5MG 3 ML NEBU. NEB SCH ×4 (08:20→19:47)
[2016-06-18 08:42] LABS: HCO3 ABG 31 mmol/L (21-28); PCO2 ABG 34 mmHg (35-46); PO2 ABG 74 mmHg (65-108); SAT O2 ABG 95 % (92-99)
--- NOTE | 2016-06-18 08:46 | RAD ---
Portable abdomen, 06/18/2016: History: Check NG tube placement A supine view of the upper abdomen demonstrates an NG tube extending into the antral region of the stomach. The gas pattern in the upper abdomen is unremarkable. Surgical clips and sutures are present. Moderate patchy infiltrates are present in the lungs. IMPRESSION: An NG tube has been inserted extending into the antral region of the stomach. Portable chest, 06/18/2016, 8:17 AM: History: Respiratory failure, intubation Comparison is made to yesterday's study. The ET tube has its tip located well above the gladys. An NG tube extends into the stomach. A right jugular central venous catheter extends into the mid right atrium. The heart size is unchanged. There are patchy bilateral pulmonary infiltrates with obscuration of the underlying pulmonary vascularity. The right basilar infiltrates have worsened slightly. There is improved aeration of the left base. There are persistent small pleural effusions, perhaps slightly improved, although differences in patient positioning may be producing this appearance. IMPRESSION: Ongoing moderate patchy bilateral pulmonary infiltrates with interval improvement in the left base and slight interval worsening on the right. The findings suggest pulmonary edema and/or pneumonia.
[2016-06-18 08:49] LABS: FIO2 ABG 40; PH ABG 7.57 (7.35-7.45)
[2016-06-18] MEDS: PHYTONADIONE (VIT K1) 5 MG TABLET PO SCH (09:00)
[2016-06-18] MEDS: CALCIUM CARBONATE 500 MG TABLET PO SCH (09:00)
[2016-06-18] MEDS: CHOLECALCIFEROL (VITAMIN D3) 5,000 UNIT CAPSULE PO SCH (09:00)
[2016-06-18] MEDS: CHLORHEXIDINE 0.12% 15 ML MOUTHWASH. MM SCH ×2 (09:11→21:09)
[2016-06-18] MEDS: GABAPENTIN 300 MG CAPSULE. PO SCH ×3 (09:49→21:09)
[2016-06-18] MEDS: LETROZOLE 2.5 MG TABLET. PO SCH (09:49)
--- NOTE | 2016-06-18 10:41 | PDOC ---
PULMONARY PROGRESS NOTES Subjective extubated 06/16 am, did well till early am, re-intubated early am 06/17 for progressive Hypoxic RF Vitals Vital Signs Date Time Temp Pulse Resp B/P Pulse Ox O2 Delivery O2 Flow Rate FiO2 06/18/16 08:00 99.4 101 24 125/77 100 Ventilator 99.4 Lungs: Crackles Cardiovascular: S1, S2 Abdomen: Soft, Non-tender Extremities: Other (trace edema) Skin: Warm Labs Laboratory Tests Test 06/16/16 12:16 06/16/16 13:21 06/16/16 17:39 06/16/16 19:51 O2 Saturation 96% (92-99) 86% (92-99) Arterial Blood pH 7.52 (7.35-7.45) 7.32 (7.35-7.45) Arterial Blood pCO2 at Patient Temp 33mmHg (35-46) 53mmHg (35-46) Arterial Blood pO2 at Patient Temp 79mmHg (65-108) 59mmHg (65-108) Arterial Blood HCO3 27mmol/L (21-28) 27mmol/L (21-28) Arterial Blood Base Excess 4mmol/L (-3-3) 0mmol/L (-3-3) FiO2 30 40 Glucose (Fingerstick) 178mg/dL (70-99) 208mg/dL (70-99) Test 06/17/16 00:16 06/17/16 03:28 06/17/16 05:20 06/17/16 05:28 Glucose (Fingerstick) 187mg/dL (70-99) 158mg/dL (70-99) O2 Saturation 97% (92-99) Arterial Blood pH 7.44 (7.35-7.45) Arterial Blood pCO2 at Patient Temp 41mmHg (35-46) Arterial Blood pO2 at Patient Temp 95mmHg (65-108) Arterial Blood HCO3 27mmol/L (21-28) Arterial Blood Base Excess 2mmol/L (-3-3) FiO2 70 Sodium Level 144mmol/L (136-145) Potassium Level 4.2mmol/L (3.5-5.1) Chloride Level 109mmol/L (98-107) Carbon Dioxide Level 30mmol/L (21-32) Anion Gap 5 (6-14) Blood Urea Nitrogen 15mg/dL (7-20) Creatinine 0.4mg/dL (0.6-1.0) Estimated GFR (Cockcroft-Gault) 160.7 Glucose Level 156mg/dL (70-99) Calcium Level 7.5mg/dL (8.5-10.1) Phosphorus Level 2.5mg/dL (2.6-4.7) Magnesium Level 2.2mg/dL (1.8-2.4) Test 06/17/16 08:30 06/17/16 11:42 06/17/16 18:03 06/17/16 21:42 O2 Saturation 98% (92-99) Arterial Blood pH 7.49 (7.35-7.45) Arterial Blood pCO2 at Patient Temp 36mmHg (35-46) Arterial Blood pO2 at Patient Temp 114mmHg (65-108) Arterial Blood HCO3 27mmol/L (21-28) Arterial Blood Base Excess 3mmol/L (-3-3) FiO2 70 Glucose (Fingerstick) 128mg/dL (70-99) 182mg/dL (70-99) 159mg/dL (70-99) Test 06/17/16 23:38 06/18/16 05:30 06/18/16 08:00 Glucose (Fingerstick) 130mg/dL (70-99) 186mg/dL (70-99) White Blood Count 19.9x10^3/uL (4.0-11.0) Red Blood Count 2.67x10^6/uL (3.50-5.40) Hemoglobin 8.5g/dL (12.0-15.5) Hematocrit 26.2% (36.0-47.0) Mean Corpuscular Volume 98fL (79-100) Mean Corpuscular Hemoglobin 32pg (25-35) Mean Corpuscular Hemoglobin Concent 33g/dL (31-37) Red Cell Distribution Width 16.2% (11.5-14.5) Platelet Count 39x10^3/uL (140-400) Neutrophils (%) (Auto) 90% (31-73) Lymphocytes (%) (Auto) 4% (24-48) Monocytes (%) (Auto) 6% (0-9) Eosinophils (%) (Auto) 0% (0-3) Basophils (%) (Auto) 0% (0-3) Neutrophils # (Auto) 17.8x10^3uL (1.8-7.7) Lymphocytes # (Auto) 0.8x10^3/uL (1.0-4.8) Monocytes # (Auto) 1.3x10^3/uL (0.0-1.1) Eosinophils # (Auto) 0.0x10^3/uL (0.0-0.7) Basophils # (Auto) 0.0x10^3/uL (0.0-0.2) Platelet Estimate Decreased (ADEQUATE) Giant Platelets Present Poikilocytosis Present Basophilic Stippling Present Pappenheimer Bodies Few [place] [employer] Bodies Present Prothrombin Time 21.0SEC (11.7-14.0) Prothromb Time International Ratio 1.9 (0.8-1.1) Sodium Level 147mmol/L (136-145) Potassium Level 3.3mmol/L (3.5-5.1) Chloride Level 108mmol/L (98-107) Carbon Dioxide Level 34mmol/L (21-32) Anion Gap 5 (6-14) Blood Urea Nitrogen 19mg/dL (7-20) Creatinine 0.4mg/dL (0.6-1.0) Estimated GFR (Cockcroft-Gault) 160.7 BUN/Creatinine Ratio 48 (6-20) Glucose Level 187mg/dL (70-99) Calcium Level 8.1mg/dL (8.5-10.1) Phosphorus Level 3.0mg/dL (2.6-4.7) Magnesium Level 2.3mg/dL (1.8-2.4) Total Bilirubin 2.4mg/dL (0.2-1.0) Aspartate Amino Transf (AST/SGOT) 25U/L (15-37) Alanine Aminotransferase (ALT/SGPT) 27U/L (14-59) Alkaline Phosphatase 75U/L (46-116) Ammonia 31mcmol/L (11-34) Total Protein 4.3g/dL (6.4-8.2) Albumin 2.7g/dL (3.4-5.0) Albumin/Globulin Ratio 1.7 (1.0-1.7) O2 Saturation 95% (92-99) Arterial Blood pH 7.57 (7.35-7.45) Arterial Blood pCO2 at Patient Temp 34mmHg (35-46) Arterial Blood pO2 at Patient Temp 74mmHg (65-108) Arterial Blood HCO3 31mmol/L (21-28) Arterial Blood Base Excess 8mmol/L (-3-3) FiO2 40 Laboratory Tests Test 06/17/16 11:42 06/17/16 18:03 06/17/16 21:42 06/17/16 23:38 Glucose (Fingerstick) 128mg/dL (70-99) 182mg/dL (70-99) 159mg/dL (70-99) 130mg/dL (70-99) Test 06/18/16 05:30 06/18/16 08:00 White Blood Count 19.9x10^3/uL (4.0-11.0) Red Blood Count 2.67x10^6/uL (3.50-5.40) Hemoglobin 8.5g/dL (12.0-15.5) Hematocrit 26.2% (36.0-47.0) Mean Corpuscular Volume 98fL (79-100) Mean Corpuscular Hemoglobin 32pg (25-35) Mean Corpuscular Hemoglobin Concent 33g/dL (31-37) Red Cell Distribution Width 16.2% (11.5-14.5) Platelet Count 39x10^3/uL (140-400) Neutrophils (%) (Auto) 90% (31-73) Lymphocytes (%) (Auto) 4% (24-48) Monocytes (%) (Auto) 6% (0-9) Eosinophils (%) (Auto) 0% (0-3) Basophils (%) (Auto) 0% (0-3) Neutrophils # (Auto) 17.8x10^3uL (1.8-7.7) Lymphocytes # (Auto) 0.8x10^3/uL (1.0-4.8) Monocytes # (Auto) 1.3x10^3/uL (0.0-1.1) Eosinophils # (Auto) 0.0x10^3/uL (0.0-0.7) Basophils # (Auto) 0.0x10^3/uL (0.0-0.2) Platelet Estimate Decreased (ADEQUATE) Giant Platelets Present Poikilocytosis Present Basophilic Stippling Present Pappenheimer Bodies Few [place] [employer] Bodies Present Prothrombin Time 21.0SEC (11.7-14.0) Prothromb Time International Ratio 1.9 (0.8-1.1) Sodium Level 147mmol/L (136-145) Potassium Level 3.3mmol/L (3.5-5.1) Chloride Level 108mmol/L (98-107) Carbon Dioxide Level 34mmol/L (21-32) Anion Gap 5 (6-14) Blood Urea Nitrogen 19mg/dL (7-20) Creatinine 0.4mg/dL (0.6-1.0) Estimated GFR (Cockcroft-Gault) 160.7 BUN/Creatinine Ratio 48 (6-20) Glucose Level 187mg/dL (70-99) Glucose (Fingerstick) 186mg/dL (70-99) Calcium Level 8.1mg/dL (8.5-10.1) Phosphorus Level 3.0mg/dL (2.6-4.7) Magnesium Level 2.3mg/dL (1.8-2.4) Total Bilirubin 2.4mg/dL (0.2-1.0) Aspartate Amino Transf (AST/SGOT) 25U/L (15-37) Alanine Aminotransferase (ALT/SGPT) 27U/L (14-59) Alkaline Phosphatase 75U/L (46-116) Ammonia 31mcmol/L (11-34) Total Protein 4.3g/dL (6.4-8.2) Albumin 2.7g/dL (3.4-5.0) Albumin/Globulin Ratio 1.7 (1.0-1.7) O2 Saturation 95% (92-99) Arterial Blood pH 7.57 (7.35-7.45) Arterial Blood pCO2 at Patient Temp 34mmHg (35-46) Arterial Blood pO2 at Patient Temp 74mmHg (65-108) Arterial Blood HCO3 31mmol/L (21-28) Arterial Blood Base Excess 8mmol/L (-3-3) FiO2 40 Medications Active Scripts Medications Dose Route/Sig Days Date Category Warfarin Sodium 5 Mg Tablet 1 Tab PO DAILY 04/21/16 Rx Cipro (Ciprofloxacin Hcl) 500 Mg Tablet 1 Tab PO BID 04/21/16 Rx Anoro Ellipta 62.5-25 Mcg Inh (Umeclidinium Brm/Vilanterol Tr) 1 Each Disk.w.dev 1 Each IH DAILY 12/20/14 Reported Oxycodone Hcl 20 Mg Tablet 20 Mg PO PRN Q4HRS PRN 12/20/14 Reported Gabapentin 300 Mg Capsule 1 Cap PO BID 12/20/14 Reported Flovent 110MCG Hfa (Fluticasone Propionate) 12 Gm Aer.w.adap 2 Puff IH BID 12/20/14 Reported Breo Ellipta 200-25 Mcg INH (Fluticasone/Vilanterol) 1 Each Blst.w.dev 1 Each IH DAILY 12/20/14 Reported Proair Hfa Inhaler (Albuterol Sulfate) 8.5 Gm Hfa.aer.ad 2 Puff IH PRN QID PRN 12/20/14 Reported Lorazepam 0.5 Mg Tablet 0.5 Mg PO Q4HRS PRN 12/20/14 Reported Ondansetron Hcl 4 Mg Tablet 1 Tab PO PRN Q4HRS 12/20/14 Reported Spiriva (Tiotropium [place]) 18 Mcg Cap.w.dev 1 Cap IH DAILY 12/20/14 Reported Femara (Letrozole) 2.5 Mg Tablet 2.5 Mg PO DAILY 12/20/14 Reported Comments CXR 06/17 bilateral infiltrates,increasing effusions Impression . 1. Acute RF due to shock/ pneumonia,AECOPD, profound weakness. extubated 3/11 am, did well initially, re-intubated early am 06/17 for progressive Hypoxic RF 2. shock, hypovolemic/septic,POA resolved. 3. Abnormal CT chest with bilateral tree-in-bud interstitial infiltrates suggesting infectious pneumonitis. Possible chronic aspiration Tuberculosis is unlikely in this clinical setting. BAL no evidence of TB 4. Weight loss of 30 pounds. Multifactorial in Nature 5. History of heavy alcohol use. 6. Acute hypoxic respiratory failure secondary to pneumonia. improving 7. 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 severe malnutrition Plan . D/W Dr Hadley will proceed with Trach follow BAL results antibx per ID nutritional support NILDA MORLEY MD Jun 18, 2016 10:41
[2016-06-18] MEDS ORDERED: POTASSIUM CHLORIDE 20 MEQ/15 ML ORAL LIQUID. NG ONE (11:15)
[2016-06-18] MEDS: TPN PER PHARMACY MC PRN ×4 (13:07→13:54)
--- NOTE | 2016-06-18 13:29 | PDOC ---
Objective: Objective: No GI concerns per RN. Vital Signs: Vital Signs Date Time Temp Pulse Resp B/P Pulse Ox O2 Delivery O2 Flow Rate FiO2 06/18/16 13:04 86 23 106/65 100 Ventilator 06/18/16 12:00 99.4 99.4 Labs: Laboratory Tests Test 06/17/16 18:03 06/17/16 21:42 06/17/16 23:38 06/18/16 05:30 Glucose (Fingerstick) 182mg/dL 159mg/dL 130mg/dL 186mg/dL White Blood Count 19.9x10^3/uL Red Blood Count 2.67x10^6/uL Hemoglobin 8.5g/dL Hematocrit 26.2% Mean Corpuscular Volume 98fL Mean Corpuscular Hemoglobin 32pg Mean Corpuscular Hemoglobin Concent 33g/dL Red Cell Distribution Width 16.2% Platelet Count 39x10^3/uL Neutrophils (%) (Auto) 90% Lymphocytes (%) (Auto) 4% Monocytes (%) (Auto) 6% Eosinophils (%) (Auto) 0% Basophils (%) (Auto) 0% Neutrophils # (Auto) 17.8x10^3uL Lymphocytes # (Auto) 0.8x10^3/uL Monocytes # (Auto) 1.3x10^3/uL Eosinophils # (Auto) 0.0x10^3/uL Basophils # (Auto) 0.0x10^3/uL Platelet Estimate Decreased Giant Platelets Present Poikilocytosis Present Basophilic Stippling Present Pappenheimer Bodies Few [place] Bodies Present Prothrombin Time 21.0SEC Prothromb Time International Ratio 1.9 Sodium Level 147mmol/L Potassium Level 3.3mmol/L Chloride Level 108mmol/L Carbon Dioxide Level 34mmol/L Anion Gap 5 Blood Urea Nitrogen 19mg/dL Creatinine 0.4mg/dL Estimated GFR (Cockcroft-Gault) 160.7 BUN/Creatinine Ratio 48 Glucose Level 187mg/dL Calcium Level 8.1mg/dL Phosphorus Level 3.0mg/dL Magnesium Level 2.3mg/dL Total Bilirubin 2.4mg/dL Aspartate Amino Transf (AST/SGOT) 25U/L Alanine Aminotransferase (ALT/SGPT) 27U/L Alkaline Phosphatase 75U/L Ammonia 31mcmol/L Total Protein 4.3g/dL Albumin 2.7g/dL Albumin/Globulin Ratio 1.7 Test 06/18/16 08:00 06/18/16 12:31 O2 Saturation 95% Arterial Blood pH 7.57 Arterial Blood pCO2 at Patient Temp 34mmHg Arterial Blood pO2 at Patient Temp 74mmHg Arterial Blood HCO3 31mmol/L Arterial Blood Base Excess 8mmol/L FiO2 40 Glucose (Fingerstick) 240mg/dL Imaging: CXR 06/18/16 IMPRESSION: Ongoing moderate patchy bilateral pulmonary infiltrates with interval improvement in the left base and slight interval worsening on the right. The findings suggest pulmonary edema and/or pneumonia. PE: GEN: intubated LUNGS: vent, diminished HEART: RRR ABD: BS+, soft NEURO/PSYCH: sedated A/P: Resp failure, s/p code, pneumonia -reintubated 06/17 -on TPN Abnormal CT -mural thickening involving the stomach and proximal duodenum, evidence of previous colonic surgery with soft tissue thickening in the ascending colon region raising the possibility of neoplasm -?previous colonoscopy H/o pancreatitis -h/o pancreatic duct stone and pseudocyst, alcohol use, s/p distal pancreatectomy and splenectomy, chronic pancreatitis on CT -nausea, weight loss Leukocytosis -on steroids -- Other per Dr. Back. JANET CARDOZO Jun 18, 2016 13:29
--- NOTE | 2016-06-18 17:17 | PDOC2 ---
CONSULT Date of Consult Date of Consult DATE: 06/18/16 TIME: 17:16 Reason for Consult Reason for Consult: Tracheostomy Referring Physician Referring Physician: Juan C Ochoa MD Source Source: Chart review History of Present Illness Reason for Visit: The patient is a 65-year-old femalepatient who apparently was admitted to [facility] with a complaint ofcontinued nausea, decreased appetite, increased weakness and 38-pound weightloss since her hip surgery in Apr 2016. She was seen in the Emergency Room, was found to have severe deconditioning, severe malnutrition with an albumin of only 1.6 g/dL, marked dehydration, questionable UTI, lactic acid was elevated, slightly elevated liver enzymes. She also had a decubitus ulcer / nonhealing surgical wound in the right hip, and hyponatremia. CT of the chest showed diffuse bilateral pulmonary infiltrates with an ARDS / possible chronic aspiration . Patient was admitted to our ICU on June 11, 2016. She has been started on broad-spectrum intravenous antibiotics and IV steroids. She was extubated on June 16 but reintubated on June 17. She is currently on minimal vent settings. She does not require any inotropic support. Over the past couple days her platelets have dropped from the normal range 2 39,000 today. The etiology of this is unknown although drug-induced thrombocytopenia is likely. In addition her INR is mildly prolonged at 1.9. I was consulted to consider the patient for a tracheostomy. Past Medical History Cardiovascular: Pulmonary hypertension Pulmonary: COPD CENTRAL NERVOUS SYSTEM: Other (Deaf secondary to [place] measles) GI: Other (chronic ETOH related pancreatitis) Heme/Onc: Anemia NOS, Other (right breast cancer) Hepatobiliary: Other (elevated LFTs, status post cholecystectomy for acalculous cholecystitis) Psych: No pertinent hx Musculoskeletal: Other (cervical spine osteoarthritis) Rheumatologic: No pertinent hx Infectious disease: No pertinent hx ENT: Other (deaf) Renal/: No pertinent hx Endocrine: No pertinent hx Dermatology: No pertinent hx Past Surgical History Past Surgical History: Cholecystectomy, Mastectomy, Total knee replacement, Other (distal pancreatectomy with splenectomy) Family History Family History: No Significant Social History No ALCOHOL: other (previously drank somehwat heavily) Drugs: None Lives: with Family Current Medications Current Medications Current Medications Azithromycin (Zithromax) 250 mg DAILY PO ; Start 06/10/16 at 20:00; Stop 06/11/16 at 19:15; Status DC Budesonide 0.5 mg 0.5 mg RTBID NEB Last administered on 06/18/16 08:17; Start 06/10/16 at 20:00 Ceftriaxone Sodium/Sodium Chloride (Rocephin/Iv Sodium Chloride 0.9% 50ml) 50 ml @ 100 mls/hr Q24H IV Last administered on 06/10/16 20:28; Start 06/10/16 at 21:00; Stop 06/11/16 at 12:18; Status DC Fentanyl Citrate (Fentanyl 2ml Vial) 50 mcg PRN Q3HRS PRN IV PAIN Last administered on 06/17/16 16:56; Start 06/10/16 at 19:30 Gabapentin (Neurontin) 300 mg TID PO Last administered on 06/18/16 15:13; Start 06/10/16 at 21:00 Albuterol/ Ipratropium (Duoneb) 3 ml RTQID NEB Last administered on 06/18/16 16:09; Start 06/10/16 at 20:00 Letrozole 2.5 mg 2.5 mg DAILY PO Last administered on 06/18/16 09:49; Start at 09:00 Potassium Chloride/Sodium Chloride (KCl 40 Meq-NS 1,000 ml Iv Soln) 1,000 ml @ 100 mls/hr Q10H IV Last administered on 06/10/16 22:45; Start 06/10/16 at 20:00 ; Stop 06/11/16 at 08:08; Status DC Prednisone (Prednisone) 50 mg DAILY PO Last administered on 06/12/16 09:02; Start 06/10/16 at 20:00; Stop 06/12/16 at 10:23; Status DC Albuterol Sulfate 2.5 mg 2.5 mg PRN Q4HRS PRN NEB SHORTNESS OF BREATH Last administered on 06/11/16 05:37; Start 06/11/16 at 04:45 Sodium Chloride 1,000 ml @ 75 mls/hr [id number] IV Last administered on 06/12/16 11:22; Start 06/11/16 at 08:15; Stop 06/12/16 at 12:26; Status DC Piperacillin Sod/ Tazobactam Sod/ Sodium Chloride (Zosyn/Iv Sodium Chloride 0.9 % 50ml) 50 ml @ 100 mls/hr Q6HRS IV Last administered on 06/11/16 14:10; Start 06/11/16 at 13:00; Stop 06/11/16 at 19:15; Status DC Furosemide 40 mg 40 mg 1X ONCE IVP Last administered on 06/11/16 13:22; Start 06/11/16 at 13:00; Stop 06/11/16 at 13:08; Status DC Norepinephrine Bitartrate 8 mg/ Sodium Chloride 258 ml @ 1.93 mls/hr ONCE ONCE IV Last administered on 06/11/16 15:15; Start 06/11/16 at 15:15; Stop at 10:59; Status DC Epinephrine HCl 4 mg/Sodium Chloride 254 ml @ 3.81 mls/hr ONCE ONCE IV Last administered on 06/11/16 15:55; Start 06/11/16 at 15:45; Stop 06/11/16 at 19:05; Status DC Epinephrine HCl 4 mg/Sodium Chloride 254 ml @ 0 mls/hr CONT PRN IV SEE I/O RECORD; Start 06/11/16 at 16:00 Vasopressin 40 unit/Dextrose 102 ml @ 6 mls/hr CONT PRN IV SEE I/O RECORD Last administered on 06/11/16 15:54; Start 06/11/16 at 15:45 Sodium Chloride 1,000 ml @ 1,000 mls/hr 1X ONCE IV Last administered on 15:58; Start 06/11/16 at 15:45; Stop 06/11/16 at 16:44; Status DC Sodium Chloride 1,000 ml @ 1,000 mls/hr 1X ONCE IV Last administered on 16:04; Start 06/11/16 at 15:45; Stop 06/11/16 at 16:44; Status DC Sodium Chloride (Iv Sodium Chloride 0.9% 1000ml Bag) 1,000 ml @ 1,000 mls/hr 1X ONCE IV Last administered on 06/11/16 16:04; Start 06/11/16 at 15:45; Stop 06/11/16 at 16:44; Status DC Pantoprazole Sodium 40 mg 40 mg [id number] IVP Last administered on 06/18/16 05:18 ; Start 06/11/16 at 18:00 Midazolam HCl 100 ml @ 0 mls/hr CONT PRN IV SEE I/O RECORD Last administered on 06/18/16 02:00; Start 06/11/16 at 17:00 Sodium Chloride (Iv Sodium Chloride 0.9% 1000ml Bag) 1,000 ml @ 150 mls/hr 1X ONCE IV Last administered on 06/11/16 17:07; Start 06/11/16 at 17:00; Stop at 23:39; Status DC Dextrose 25 gm STK-MED ONCE IV ; Start 06/11/16 at 17:15; Stop 06/11/16 at 17:16; Status DC Dextrose 25 gm 1X ONCE IV Last administered on 06/11/16 17:47; Start 06/11/16 at 17:30; Stop 06/11/16 at 17:31; Status DC Sodium Bicarbonate 100 meq 100 meq 1X ONCE IV Last administered on 06/11/16 17 :46; Start 06/11/16 at 17:30; Stop 06/11/16 at 17:31; Status DC Nicardipine HCl 50 mg/Sodium Chloride 270 ml @ 0 mls/hr CONT PRN IV SEE I/O RECORD; Start 06/11/16 at 17:45; Status Cancel Ceftriaxone Sodium/Sodium Chloride (Rocephin/Iv Sodium Chloride 0.9% 50ml) 50 ml @ 100 mls/hr Q24H IV Last administered on 06/11/16 18:37; Start 06/11/16 at 18:00; Stop 06/12/16 at 12:55; Status DC Vancomycin HCl 1 each 1 each PRN DAILY PRN MC SEE COMMENTS Last administered on 06/11/16 19:17; Start 06/11/16 at 18:00; Stop 06/12/16 at 12:58; Status DC Vancomycin HCl 1 gm/Sodium Chloride 250 ml @ 250 mls/hr 1X ONCE IV Last administered on 06/11/16 18:37; Start 06/11/16 at 18:30; Stop 06/11/16 at 19:29; Status DC Vancomycin HCl/ Sodium Chloride (Iv Sodium Chloride 0.9% 250ml) 250 ml @ 250 mls/hr Q12H IV Last administered on 06/12/16 06:18; Start 06/12/16 at 06:00; Stop 06/12/16 at 12:55; Status DC Vancomycin HCl 1 each 1 each 1X ONCE MC ; Start 06/13/16 at 05:30; Stop 06/13/16 at 05:30; Status DC Norepinephrine Bitartrate/Sodium Chloride (Levophed Vial/ Iv Sodium Chloride 0.9 % 250ml) 258 ml @ 0 mls/hr CONT PRN IV SEE I/O RECORD Last administered on 07:37; Start 06/12/16 at 00:45 Epinephrine HCl 1 mg STK-MED ONCE .ROUTE ; Start 06/11/16 at 12:00; Stop 06/12/16 at 08:13; Status DC Hydrocortisone Sodium Succinate (Solu-Cortef) 100 mg Q8HRS IV Last administered on 06/15/16 06:21; Start 06/12/16 at 11:00; Stop 06/15/16 at 11:24 ; Status DC Enoxaparin Sodium (Lovenox 40mg Syringe) 40 mg Q24H SQ Last administered on 06/13 10:49; Start 06/12/16 at 11:00; Stop 06/13/16 at 12:35; Status DC Famotidine 20 mg 20 mg BID IVP Last administered on 06/13/16 09:10; Start at 11:00; Stop 06/13/16 at 09:59; Status DC Sodium Chloride 1,000 ml @ 1,000 mls/hr 1X ONCE IV Last administered on 11:25; Start 06/12/16 at 11:30; Stop 06/12/16 at 12:29; Status DC Dextrose/Sodium Chloride 1,000 ml @ 75 mls/hr [id number] IV Last administered on 06/13/16 20:44; Start 06/12/16 at 13:00; Stop 06/14/16 at 17:39; Status DC Piperacillin Sod/ Tazobactam Sod 3.375 gm/Sodium Chloride 50 ml @ 100 mls/hr Q6HRS IV Last administered on 06/18/16 12:35; Start 06/12/16 at 13:30 Linezolid 300 ml @ 300 mls/hr Q12HR IV Last administered on 06/15/16 20:48; Start 06/12/16 at 13:30; Stop 06/16/16 at 08:39; Status DC Sodium Chloride 1,000 ml @ 1,000 mls/hr 1X ONCE IV Last administered on 15:30; Start 06/12/16 at 15:30; Stop 06/12/16 at 16:29; Status DC Sodium Chloride 500 ml @ 0 mls/hr 1X ONCE IV Last administered on 06/12/16 15: 44; Start 06/12/16 at 16:00; Stop 06/12/16 at 16:01; Status DC Sodium Chloride 1,000 ml @ 0 mls/hr 1X ONCE IV Last administered on 06/13/16 07:43; Start 06/13/16 at 07:45; Stop 06/13/16 at 07:46; Status DC Sodium Chloride (Iv Sodium Chloride 0.45%) 500 ml @ 0 mls/hr 1X ONCE IV Last administered on 06/13/16 07:43; Start 06/13/16 at 07:45; Stop 06/13/16 at 07:46; Status DC Midazolam HCl (Versed) 5 mg STK-MED ONCE .ROUTE ; Start 06/10/16 at 12:00; Stop 06/13/16 at 08:28; Status DC Epinephrine HCl 3 mg STK-MED ONCE .ROUTE ; Start 06/10/16 at 12:00; Stop 06/13/16 at 08:28; Status DC Dopamine HCl/ Dextrose 400 mg STK-MED ONCE IV ; Start 06/10/16 at 12:00; Stop 06/13/16 at 08:28; Status DC Lidocaine/Sodium Bicarbonate (Buffered Lidocaine 1%) 3 ml 1X ONCE IJ Last administered on 06/13/16 09:55; Start 06/13/16 at 09:00; Stop 06/13/16 at 09:01; Status DC Heparin Sodium/ Sodium Chloride 60 unit 1X ONCE IV Last administered on 09:55; Start 06/13/16 at 09:00; Stop 06/13/16 at 09:01; Status DC Sodium Bicarbonate 100 meq 100 meq 1X ONCE IV Last administered on 06/13/16 10 :06; Start 06/13/16 at 09:45; Stop 06/13/16 at 09:46; Status DC Albumin Human (Plasmanate) 500 ml @ 62.5 mls/hr 1X ONCE IV Last administered on 06/13/16 10:06; Start 06/13/16 at 09:45; Stop 06/13/16 at 17:44; Status DC Chlorhexidine Gluconate (Peridex) 15 ml BID MM Last administered on 06/18/16 09:11; Start 06/13/16 at 21:00 Potassium Chloride (Klor-Con) 20 meq TIDWMEALS PO Last administered on 12:31; Start 06/13/16 at 12:30; Stop 06/13/16 at 15:56; Status DC Calcium Carbonate/ Glycine (Oscal) 1,000 mg TIDAFTMEAL PO Last administered on 06/16/16 12:49; Start 06/13/16 at 13:00; Stop 06/18/16 at 09:30; Status DC Vitamin D (Vitamin D3) 5,000 unit DAILY PO Last administered on 06/16/16 10:26 ; Start 06/13/16 at 13:00; Stop 06/18/16 at 09:30; Status DC Phytonadione (Mephyton) 10 mg DAILY PO Last administered on 06/16/16 10:26; Start 06/13/16 at 13:00; Stop 06/18/16 at 09:30; Status DC Potassium Chloride (KCl Oral Soln) 20 meq TIDWMEALS PEG Last administered on 10:41; Start 06/13/16 at 17:00; Stop 06/14/16 at 12:26; Status DC Insulin Aspart (Novolog) 0-5 UNITS Q6HRS SQ Last administered on 06/18/16 12: 39; Start 06/14/16 at 12:00 Dextrose 12.5 gm 12.5 gm PRN Q15MIN PRN IV SEE COMMENTS; Start 06/14/16 at 06:45 Potassium Chloride (KCl Premix 20meq) 50 ml @ 25 mls/hr Q2H IV ; Start 06/14/16 at 07:00; Stop 06/14/16 at 14:59; Status Cancel Iohexol (Omnipaque 240 Mg/ml) 30 ml 1X ONCE PO Last administered on 06/14/16 08:30; Start 06/14/16 at 08:30; Stop 06/14/16 at 08:31; Status DC Iohexol (Omnipaque 300 Mg/ml) 75 ml 1X ONCE IV Last administered on 06/14/16 17:58; Start 06/14/16 at 08:30; Stop 06/14/16 at 08:31; Status DC Info (Do NOT chart on this entry -- for MONITORING) 1 each PRN DAILY PRN MC SEE COMMENTS; Start 06/14/16 at 08:45; Stop 06/16/16 at 08:44; Status DC Potassium Chloride (Klor-Con) 40 meq Q2H PO Last administered on 06/14/16 14:16 ; Start 06/14/16 at 12:30; Stop 06/14/16 at 14:31; Status DC Info 1 each 1 each PRN DAILY PRN MC SEE COMMENTS Last administered on 13:54; Start 06/14/16 at 15:00 Potassium Chloride 50 ml @ 50 mls/hr Q1H IV ; Start 06/14/16 at 15:15; Stop at 17:14; Status DC Sodium Acetate 90 meq/Potassium Chloride 25 meq/ Potassium Acetate 25 meq/ Potassium Phosphate 16 mmol/ Magnesium Sulfate 12 meq/Calcium Gluconate 5 meq/ Multivitamins 10 ml/Chromium/ Copper/Manganese/ Seleni/Zn 1 ml/ Total Parenteral Nutrition/Amino Acids/Dextrose/ Fat Emulsion Intravenous 1,512 ml @ 63 mls/hr TPN CONT IV Last administered on 06/14/16 21:34; Start 06/14/16 at 22 :00; Stop 06/15/16 at 21:59; Status DC Sodium Phosphate 15 mmol/Dextrose 255 ml @ 63.75 mls/ hr 1X ONCE IV Last administered on 06/14/16 17:45; Start 06/14/16 at 17:30; Stop 06/14/16 at 21:29; Status DC Magnesium Sulfate/ Dextrose 50 ml @ 25 mls/hr 1X ONCE IV Last administered on 06/14/16 17:45; Start 06/14/16 at 16:00; Stop 06/14/16 at 17:59; Status DC Potassium Chloride (KCl Premix 20meq) 50 ml @ 25 mls/hr Q2H IV Last administered on 06/14/16 20:33; Start 06/14/16 at 17:45; Stop 06/14/16 at 21:44; Status DC Hydrocortisone Sodium Succinate 50 mg 50 mg Q8HRS IV Last administered on 15:13; Start 06/15/16 at 14:00 Sodium Phosphate 15 mmol/Dextrose 255 ml @ 63.75 mls/ hr 1X ONCE IV Last administered on 06/15/16 12:54; Start 06/15/16 at 13:00; Stop 06/15/16 at 16:59 ; Status DC Sodium Acetate 90 meq/Potassium Chloride 25 meq/ Potassium Acetate 25 meq/ Potassium Phosphate 24 mmol/ Magnesium Sulfate 12 meq/Calcium Gluconate 5 meq/ Multivitamins 10 ml/Chromium/ Copper/Manganese/ Seleni/Zn 1 ml/ Total Parenteral Nutrition/Amino Acids/Dextrose/ Fat Emulsion Intravenous 1,512 ml @ 63 mls/hr TPN CONT IV Last administered on 06/15/16 21:55; Start 06/15/16 at 22:00; Stop 06/16/16 at 21:59; Status DC Sodium Acetate 90 meq/Potassium Chloride 25 meq/ Potassium Acetate 25 meq/ Potassium Phosphate 24 mmol/ Magnesium Sulfate 12 meq/Calcium Gluconate 5 meq/ Multivitamins 10 ml/Chromium/ Copper/Manganese/ Seleni/Zn 1 ml/ Total Parenteral Nutrition/Amino Acids/Dextrose/ Fat Emulsion Intravenous 1,512 ml @ 63 mls/hr TPN CONT IV Last administered on 06/16/16 21:47; Start 06/16/16 at 22:00; Stop 06/17/16 at 21:59; Status DC Albumin Human 500 ml @ 50 mls/hr PRN BID PRN IV hypotention/low albumin Last administered on 06/16/16 21:48; Start 06/16/16 at 12:30; Stop 06/17/16 at 12:30 ; Status DC Albumin Human 500 ml @ 50 mls/hr CONT IV ; Start 06/17/16 at 12:30; Status UNV Albumin Human 500 ml @ 50 mls/hr BID IV Last administered on 06/16/16 12:53; Start 06/16/16 at 13:00; Stop 06/16/16 at 13:00; Status DC Albumin Human (Albuminar) 50 ml @ 50 mls/hr TID IV Last administered on 08:47; Start 06/16/16 at 14:00; Stop 06/17/16 at 09:59; Status DC Haloperidol Lactate (Haldol) 2 mg PRN Q2HR PRN IVP ANXIETY Last administered on 06/16/16 23:59; Start 06/16/16 at 20:15 Succinylcholine Chloride 200 mg 200 mg STK-MED ONCE .ROUTE ; Start 06/17/16 at 00:54; Stop 06/17/16 at 00:56; Status DC Propofol (Diprivan) 100 ml @ As Directed STK-MED ONCE IV ; Start 06/17/16 at 00 :54; Stop 06/17/16 at 00:56; Status DC Furosemide 40 mg 40 mg 1X ONCE IVP Last administered on 06/17/16 11:35; Start 06/17/16 at 11:30; Stop 06/17/16 at 11:31; Status DC Albumin Human 500 ml @ 125 mls/hr 1X ONCE IV Last administered on 06/17/16 11:32; Start 06/17/16 at 12:30; Stop 06/17/16 at 16:29; Status DC Sodium Acetate 90 meq/Potassium Chloride 25 meq/ Potassium Acetate 25 meq/ Potassium Phosphate 24 mmol/ Magnesium Sulfate 12 meq/Calcium Gluconate 5 meq/ Multivitamins 10 ml/Chromium/ Copper/Manganese/ Seleni/Zn 1 ml/ Total Parenteral Nutrition/Amino Acids/Dextrose/ Fat Emulsion Intravenous 1,512 ml @ 63 mls/hr TPN CONT IV Last administered on 06/17/16 22:33; Start 06/17/16 at 22:00; Stop 06/18/16 at 21:59 Linezolid (Zyvox Premix) 300 ml @ 300 mls/hr Q12HR IV Last administered on 09:11; Start 06/18/16 at 09:00 Propofol (Diprivan) 1,000 mg STK-MED ONCE IV ; Start 06/17/16 at 01:00; Stop at 08:13; Status DC Succinylcholine Chloride (Anectine) 200 mg STK-MED ONCE .ROUTE ; Start 06/17/16 at 01:00; Stop 06/18/16 at 08:13; Status DC Potassium Chloride 40 meq 40 meq 1X ONCE NG Last administered on 06/18/16t 12: 35; Start 06/18/16 at 11:15; Stop 06/18/16 at 11:16; Status DC Sodium Acetate 90 meq/Potassium Chloride 25 meq/ Potassium Acetate 45 meq/ Potassium Phosphate 24 mmol/ Magnesium Sulfate 12 meq/Calcium Gluconate 5 meq/ Multivitamins 10 ml/Chromium/ Copper/Manganese/ Seleni/Zn 1 ml/ Total Parenteral Nutrition/Amino Acids/Dextrose/ Fat Emulsion Intravenous 1,397 ml @ 58.208 mls/ hr TPN CONT IV ; Start 06/18/16 at 22:00; Stop 06/19/16 at 21:59; Status Cancel Sodium Acetate/ Potassium Chloride/ Potassium Acetate/ Potassium Phosphate/ Magnesium Sulfate/ Calcium Gluconate/ Multivitamins/ Chromium/Copper/ Manganese/ Seleni/ Zn/Total Parenteral Nutrition/Amino Acids/Dextrose/ Fat Emulsion Intravenous (Potassium Phospha... 1,512 ml @ 63 mls/hr TPN CONT IV ; Start at 22:00; Stop 06/19/16 at 21:59 Active Scripts Active Warfarin Sodium 5 Mg Tablet 1 Tab PO DAILY Cipro (Ciprofloxacin Hcl) 500 Mg Tablet 1 Tab PO BID Reported Anoro Ellipta 62.5-25 Mcg Inh (Umeclidinium Brm/Vilanterol Tr) 1 Each Disk.w.dev 1 Each IH DAILY Oxycodone Hcl 20 Mg Tablet 20 Mg PO PRN Q4HRS PRN Gabapentin 300 Mg Capsule 1 Cap PO BID Flovent 110MCG Hfa (Fluticasone Propionate) 12 Gm Aer.w.adap 2 Puff IH BID Breo Ellipta 200-25 Mcg INH (Fluticasone/Vilanterol) 1 Each Blst.w.dev 1 Each IH DAILY Proair Hfa Inhaler (Albuterol Sulfate) 8.5 Gm Hfa.aer.ad 2 Puff IH PRN QID PRN Lorazepam 0.5 Mg Tablet 0.5 Mg PO Q4HRS PRN Ondansetron Hcl 4 Mg Tablet 1 Tab PO PRN Q4HRS Spiriva (Tiotropium [place]) 18 Mcg Cap.w.dev 1 Cap IH DAILY Femara (Letrozole) 2.5 Mg Tablet 2.5 Mg PO DAILY Allergies Allergies: Coded Allergies: celecoxib (Verified Allergy, Intermediate, Nausea and Vomiting, 04/17/16) ROS Review of System Unable to perform, patient intubated and sedated Physical Exam General: Other (intubated sedated) HEENT: Atraumatic Lungs: Other (diffuse bilateral rales) Heart: Regular rate, Normal S1, Normal S2 Abdomen: Soft, No tenderness Extremities: Other (diffuse edema) Skin: Other (chronic decubitus ulcer) Neuro: Other (able to perform, patient intubated sedated) Psych/Mental Status: Other (able to perform) MUSCULOSKELETAL: No deformity Vitals VITALS Vital Signs Date Time Temp Pulse Resp B/P Pulse Ox O2 Delivery O2 Flow Rate FiO2 06/18/16 16:09 100 Ventilator 06/18/16 15:00 87 21 108/67 06/18/16 12:00 99.4 99.4 Labs Labs Laboratory Tests Test 06/16/16 17:39 06/16/16 19:51 06/17/16 00:16 06/17/16 03:28 Glucose (Fingerstick) 208mg/dL (70-99) 187mg/dL (70-99) O2 Saturation 86% (92-99) 97% (92-99) Arterial Blood pH 7.32 (7.35-7.45) 7.44 (7.35-7.45) Arterial Blood pCO2 at Patient Temp 53mmHg (35-46) 41mmHg (35-46) Arterial Blood pO2 at Patient Temp 59mmHg (65-108) 95mmHg (65-108) Arterial Blood HCO3 27mmol/L (21-28) 27mmol/L (21-28) Arterial Blood Base Excess 0mmol/L (-3-3) 2mmol/L (-3-3) FiO2 40 70 Test 06/17/16 05:20 06/17/16 05:28 06/17/16 08:30 06/17/16 11:42 Sodium Level 144mmol/L (136-145) Potassium Level 4.2mmol/L (3.5-5.1) Chloride Level 109mmol/L (98-107) Carbon Dioxide Level 30mmol/L (21-32) Anion Gap 5 (6-14) Blood Urea Nitrogen 15mg/dL (7-20) Creatinine 0.4mg/dL (0.6-1.0) Estimated GFR (Cockcroft-Gault) 160.7 Glucose Level 156mg/dL (70-99) Calcium Level 7.5mg/dL (8.5-10.1) Phosphorus Level 2.5mg/dL (2.6-4.7) Magnesium Level 2.2mg/dL (1.8-2.4) Glucose (Fingerstick) 158mg/dL (70-99) 128mg/dL (70-99) O2 Saturation 98% (92-99) Arterial Blood pH 7.49 (7.35-7.45) Arterial Blood pCO2 at Patient Temp 36mmHg (35-46) Arterial Blood pO2 at Patient Temp 114mmHg (65-108) Arterial Blood HCO3 27mmol/L (21-28) Arterial Blood Base Excess 3mmol/L (-3-3) FiO2 70 Test 06/17/16 18:03 06/17/16 21:42 06/17/16 23:38 06/18/16 05:30 Glucose (Fingerstick) 182mg/dL (70-99) 159mg/dL (70-99) 130mg/dL (70-99) 186mg/dL (70-99) White Blood Count 19.9x10^3/uL (4.0-11.0) Red Blood Count 2.67x10^6/uL (3.50-5.40) Hemoglobin 8.5g/dL (12.0-15.5) Hematocrit 26.2% (36.0-47.0) Mean Corpuscular Volume 98fL (79-100) Mean Corpuscular Hemoglobin 32pg (25-35) Mean Corpuscular Hemoglobin Concent 33g/dL (31-37) Red Cell Distribution Width 16.2% (11.5-14.5) Platelet Count 39x10^3/uL (140-400) Neutrophils (%) (Auto) 90% (31-73) Lymphocytes (%) (Auto) 4% (24-48) Monocytes (%) (Auto) 6% (0-9) Eosinophils (%) (Auto) 0% (0-3) Basophils (%) (Auto) 0% (0-3) Neutrophils # (Auto) 17.8x10^3uL (1.8-7.7) Lymphocytes # (Auto) 0.8x10^3/uL (1.0-4.8) Monocytes # (Auto) 1.3x10^3/uL (0.0-1.1) Eosinophils # (Auto) 0.0x10^3/uL (0.0-0.7) Basophils # (Auto) 0.0x10^3/uL (0.0-0.2) Platelet Estimate Decreased (ADEQUATE) Giant Platelets Present Poikilocytosis Present Basophilic Stippling Present Pappenheimer Bodies Few Crouch-Point Comfort Bodies Present Prothrombin Time 21.0SEC (11.7-14.0) Prothromb Time International Ratio 1.9 (0.8-1.1) Sodium Level 147mmol/L (136-145) Potassium Level 3.3mmol/L (3.5-5.1) Chloride Level 108mmol/L (98-107) Carbon Dioxide Level 34mmol/L (21-32) Anion Gap 5 (6-14) Blood Urea Nitrogen 19mg/dL (7-20) Creatinine 0.4mg/dL (0.6-1.0) Estimated GFR (Cockcroft-Gault) 160.7 BUN/Creatinine Ratio 48 (6-20) Glucose Level 187mg/dL (70-99) Calcium Level 8.1mg/dL (8.5-10.1) Phosphorus Level 3.0mg/dL (2.6-4.7) Magnesium Level 2.3mg/dL (1.8-2.4) Total Bilirubin 2.4mg/dL (0.2-1.0) Aspartate Amino Transf (AST/SGOT) 25U/L (15-37) Alanine Aminotransferase (ALT/SGPT) 27U/L (14-59) Alkaline Phosphatase 75U/L (46-116) Ammonia 31mcmol/L (11-34) Total Protein 4.3g/dL (6.4-8.2) Albumin 2.7g/dL (3.4-5.0) Albumin/Globulin Ratio 1.7 (1.0-1.7) Test 06/18/16 08:00 06/18/16 12:31 O2 Saturation 95% (92-99) Arterial Blood pH 7.57 (7.35-7.45) Arterial Blood pCO2 at Patient Temp 34mmHg (35-46) Arterial Blood pO2 at Patient Temp 74mmHg (65-108) Arterial Blood HCO3 31mmol/L (21-28) Arterial Blood Base Excess 8mmol/L (-3-3) FiO2 40 Glucose (Fingerstick) 240mg/dL (70-99) Laboratory Tests Test 06/17/16 18:03 06/17/16 21:42 06/17/16 23:38 06/18/16 05:30 Glucose (Fingerstick) 182mg/dL (70-99) 159mg/dL (70-99) 130mg/dL (70-99) 186mg/dL (70-99) White Blood Count 19.9x10^3/uL (4.0-11.0) Red Blood Count 2.67x10^6/uL (3.50-5.40) Hemoglobin 8.5g/dL (12.0-15.5) Hematocrit 26.2% (36.0-47.0) Mean Corpuscular Volume 98fL (79-100) Mean Corpuscular Hemoglobin 32pg (25-35) Mean Corpuscular Hemoglobin Concent 33g/dL (31-37) Red Cell Distribution Width 16.2% (11.5-14.5) Platelet Count 39x10^3/uL (140-400) Neutrophils (%) (Auto) 90% (31-73) Lymphocytes (%) (Auto) 4% (24-48) Monocytes (%) (Auto) 6% (0-9) Eosinophils (%) (Auto) 0% (0-3) Basophils (%) (Auto) 0% (0-3) Neutrophils # (Auto) 17.8x10^3uL (1.8-7.7) Lymphocytes # (Auto) 0.8x10^3/uL (1.0-4.8) Monocytes # (Auto) 1.3x10^3/uL (0.0-1.1) Eosinophils # (Auto) 0.0x10^3/uL (0.0-0.7) Basophils # (Auto) 0.0x10^3/uL (0.0-0.2) Platelet Estimate Decreased (ADEQUATE) Giant Platelets Present Poikilocytosis Present Basophilic Stippling Present Pappenheimer Bodies Few Crouch-Point Comfort Bodies Present Prothrombin Time 21.0SEC (11.7-14.0) Prothromb Time International Ratio 1.9 (0.8-1.1) Sodium Level 147mmol/L (136-145) Potassium Level 3.3mmol/L (3.5-5.1) Chloride Level 108mmol/L (98-107) Carbon Dioxide Level 34mmol/L (21-32) Anion Gap 5 (6-14) Blood Urea Nitrogen 19mg/dL (7-20) Creatinine 0.4mg/dL (0.6-1.0) Estimated GFR (Cockcroft-Gault) 160.7 BUN/Creatinine Ratio 48 (6-20) Glucose Level 187mg/dL (70-99) Calcium Level 8.1mg/dL (8.5-10.1) Phosphorus Level 3.0mg/dL (2.6-4.7) Magnesium Level 2.3mg/dL (1.8-2.4) Total Bilirubin 2.4mg/dL (0.2-1.0) Aspartate Amino Transf (AST/SGOT) 25U/L (15-37) Alanine Aminotransferase (ALT/SGPT) 27U/L (14-59) Alkaline Phosphatase 75U/L (46-116) Ammonia 31mcmol/L (11-34) Total Protein 4.3g/dL (6.4-8.2) Albumin 2.7g/dL (3.4-5.0) Albumin/Globulin Ratio 1.7 (1.0-1.7) Test 06/18/16 08:00 06/18/16 12:31 O2 Saturation 95% (92-99) Arterial Blood pH 7.57 (7.35-7.45) Arterial Blood pCO2 at Patient Temp 34mmHg (35-46) Arterial Blood pO2 at Patient Temp 74mmHg (65-108) Arterial Blood HCO3 31mmol/L (21-28) Arterial Blood Base Excess 8mmol/L (-3-3) FiO2 40 Glucose (Fingerstick) 240mg/dL (70-99) Images Images CT chest/abdomen/pelvis 1. Severe anasarca. 2. Moderate sized bilateral pleural effusions with moderate underlying left lower lobe atelectasis/consolidation. 3. Mesenteric edema and ascites. 4. Mural thickening involving the stomach and proximal duodenum likely due to edema and/or inflammation. 5. Evidence of previous colonic surgery with soft tissue thickening in the ascending colon region raising the possibility of neoplasm. 6. Chronic calcific pancreatitis Assessment/Plan Assessment/Plan 65-year-old female, admitted a week ago with severe malnutrition, hyponatremia, hypoalbuminemia, elevated liver enzymes, chronic nonhealing right hip wound versus decubitus ulcer and diffuse bilateral pulmonary infiltrates for which she required intubation. She was extubated on June 16 but reintubated on June 17. She has been in decline since her hip replacement in April 2016. She is currently very deconditioned. She does not require inotropic or vasopressor support and she is on minimal vent settings. Over the past 2 days she has developed thrombocytopenia of unknown etiology. Her platelet count was normal but has dropped to 39,000 today. Drug-induced thrombocytopenia is possible (antibiotics, steroids), or this could be simply due to her chronic illness. In addition her INR is prolonged, most likely from severe malnutrition. She is apparently been receiving oral supplements of vitamin K. Her INR today is 1.9. I certainly think that a tracheostomy would aid in her recovery. I would be happy to perform a tracheostomy this week, as long as her is on board and understands the benefits and potential limitations of such a procedure. I will also speak to Dr. Hadley, her PCP, who has been taken care of her since her admission. Ideally her platelet count should be above 75,000 prior to proceeding with an elective tracheostomy. We can wait for her platelet count to recover or we can achieve a higher platelet count by giving 1 poor platelets prior to her procedure. If we do decide to proceed with a tracheostomy this week, I would also recommend giving her 1 dose of 10 mg IV vitamin K the night before the surgery. Since this is an elective procedure and in view of her thrombocytopenia , I think it is prudent to at least temporarily correct her coagulopathy and thrombocytopenia. I will continue to follow closely. Thank you for the consultation. CASSIE JUAREZ MD Jun 18, 2016 17:17
[2016-06-18] MEDS: FENTANYL PF 100 MCG/2 ML VIAL. IV PRN (21:08)
[2016-06-18] MEDS ORDERED: TOTAL PARENTERAL NUTRITION IV SCH ×22 (22:00)
[2016-06-18] MEDS ORDERED: [UNRECOGNIZED DRUG - OTHER] IV SCH ×11 (22:00)
[2016-06-18] MEDS ORDERED: [UNRECOGNIZED DRUG - OTHER] IV SCH ×11 (22:00)
[2016-06-18] MEDS ORDERED: DEXTROSE 70% IV SCH ×22 (22:00)
[2016-06-18] MEDS ORDERED: AMINO ACIDS IV SCH ×22 (22:00)
[2016-06-19] VITALS (24 sets, daily range): BP systolic 87–123; BP diastolic 56–78
--- NOTE | 2016-06-19 01:06 | PN ---
DATE: 06/18/2016 SUBJECTIVE: The patient is sedated, and mechanically ventilated. Her chest x-ray seemed to be worsening. She has either pulmonary edema or pneumonia. The report showed that she has ongoing moderate patchy bilateral pulmonary infiltrates with interval improvement in the left base and worsening on the right. Findings suggest pulmonary edema and/or pneumonia. The supine view of the abdomen demonstrates an NG tube extending into the antral region of the stomach. The gas pattern in the upper abdomen is unremarkable. She has surgical clips and sutures present with moderate patchy infiltrates present in both lungs. When I examined her, she was resting slightly propped up in bed, in no apparent respiratory distress. She was extremely pale, cachectic, but no jaundice, cyanosis or thyromegaly. She has generalized anasarca. She is unfortunately everywhere because she has severe hypoalbuminemia. PHYSICAL EXAMINATION: VITAL SIGNS: Heart rate was 101, blood pressure 125/77, temperature was 99.4, respiratory rate was 24, and oxygen saturation was 100% on FIO2 of 40%. HEAD, EYES, EARS, NOSE AND THROAT: Showed she is normocephalic, atraumatic. She has an orotracheal tube and orogastric tube in place. NECK: Supple. HEART: Showed normal first and second heart sounds. No gallop, rub or murmur. CHEST: Shows central trachea with bilateral crackles, very few rhonchi. ABDOMEN: Distended, soft, nontender. No guarding or rigidity. No organomegaly. Hernial orifices intact. Bowel sounds normal. NEUROLOGIC: She is sedated. Her intake over the last 24 hours was 2600, output was 2950. LABORATORY DATA: As of this morning, serum sodium was 147, potassium 3.3, chloride 108, bicarbonate 34, anion gap of 5, BUN 19, creatinine 0.4, estimated GFR was 160 mL per minute. Her glucose was only 87, calcium was 8.1, phosphorus 3, magnesium 2.3. Bilirubin was 2.4. AST, ALT, alkaline phosphatase were normal. Her ammonia was only 31. Her total protein was 4.3, albumin was 2.7. Her white cell count was 19,900, hemoglobin 8.5, hematocrit 26.2, MCV 98 and platelet count of 39,000. Her blood gases showed a pH of 7.57, pCO2 of 34, pO2 74, bicarbonate 31, and oxygen saturation was 95% on FiO2 40%. ASSESSMENT: Acute respiratory failure, currently intubated on mechanical ventilation, aspiration pneumonia versus pulmonary edema with cavitary pneumonia, tuberculosis was ruled out as she has sputum for acid bacilli done 3 times that were negative. She has bronchoalveolar lavage, was negative for acid fast bacilli. She has chronic alcoholism, chronic pancreatitis, weight loss more than 38 pounds. She is status post code, thrombocytopenia worsening, nonhealing right hip surgical wound with drainage and status post right hip replacement and also left trochanteric decubitus ulcer. PLAN: Obviously to continue with the TPN. Continue with linezolid and Zosyn. Continue with IV hydrocortisone. Continue to monitor her blood sugars and adjust insulin as needed. Her sodium is high, and potassium was low. We will ask the pharmacy to adjust the potassium and sodium in the TPN. TODD MILLER MD DR: FRANCISCO JAVIER/sushil JOB#: [id number] / [id number]
[2016-06-19] MEDS: FENTANYL PF 100 MCG/2 ML VIAL. IV PRN ×2 (04:40→14:14)
[2016-06-19] MEDS: PIPERACILLIN/TAZOBACTAM 3.375 GM in IV NORMAL SALINE 50ML 50 ML IV SCH ×4 (05:50→23:34)
[2016-06-19] MEDS: HYDROCORTISONE SOD SUCC/PF 100 MG/2 ML VIAL. IV SCH ×3 (05:50→21:53)
[2016-06-19 05:51] LABS: BASO # 0.1 x10^3/uL (0.0-0.2); BASO % 1 % (0-3); EOS % 0 % (0-3); HEMATOCRIT 26.2 % (36.0-47.0); HEMOGLOBIN 8.5 g/dL (12.0-15.5); LYMPH # 0.7 x10^3/uL (1.0-4.8); LYMPH % 4 % (24-48); MEAN CORPUSCULAR HEMOGLOBIN 32 pg (25-35); MEAN CORPUSCULAR HGB CONC 32 g/dL (31-37); MEAN CORPUSCULAR VOLUME 98 fL (79-100); MONO % 7 % (0-9); NEUT % 89 % (31-73); PLATELET COUNT 36 x10^3/uL (140-400); RED BLOOD COUNT 2.67 x10^6/uL (3.50-5.40); RED CELL DISTRIBUTION WIDTH 15.8 % (11.5-14.5); WHITE BLOOD COUNT 20.5 x10^3/uL (4.0-11.0)
[2016-06-19] MEDS: PANTOPRAZOLE IV PUSH 40 MG VIAL. IVP SCH ×2 (05:51→19:07)
[2016-06-19] MEDS: INSULIN ASPART 300 UNITS/3 ML INSULN.PEN SQ SCH ×5 (05:58→23:38)
[2016-06-19 06:04] LABS: CALCIUM 8.1 mg/dL (8.5-10.1); CREATININE 0.4 mg/dL (0.6-1.0); GFR 160.7; MAGNESIUM 2.3 mg/dL (1.8-2.4)
--- NOTE | 2016-06-19 07:25 | PDOC ---
Infectious Disease Note Subjective Subjective Alert but s/p Reintubation 06/17 ROS ROS Unobtainable Vital Sign Vital Signs Vital Signs Date Time Temp Pulse Resp B/P Pulse Ox O2 Delivery O2 Flow Rate FiO2 06/19/16 06:00 88 18 104/67 100 Ventilator 06/19/16 05:10 6.0 06/19/16 04:00 98.5 98.5 Physical Exam PHYSICAL EXAM GENERAL: Alert, intubated, NAD deaf. Looks comfortable HEENT: PERRL, ETT. OGT LUNGS: CTA HEART: S1S2, no gallop, no murmur ABD: Soft, no grimace to palpation, mild distension : Mehta EXT: Anasarca. 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 clean Labs Lab Laboratory Tests Test 06/18/16 08:00 06/18/16 12:31 06/18/16 17:59 06/19/16 00:24 O2 Saturation 95% (92-99) Arterial Blood pH 7.57 (7.35-7.45) Arterial Blood pCO2 at Patient Temp 34mmHg (35-46) Arterial Blood pO2 at Patient Temp 74mmHg (65-108) Arterial Blood HCO3 31mmol/L (21-28) Arterial Blood Base Excess 8mmol/L (-3-3) FiO2 40 Glucose (Fingerstick) 240mg/dL (70-99) 186mg/dL (70-99) 244mg/dL (70-99) Test 06/19/16 05:30 06/19/16 05:37 White Blood Count 20.5x10^3/uL (4.0-11.0) Red Blood Count 2.67x10^6/uL (3.50-5.40) Hemoglobin 8.5g/dL (12.0-15.5) Hematocrit 26.2% (36.0-47.0) Mean Corpuscular Volume 98fL (79-100) Mean Corpuscular Hemoglobin 32pg (25-35) Mean Corpuscular Hemoglobin Concent 32g/dL (31-37) Red Cell Distribution Width 15.8% (11.5-14.5) Platelet Count 36x10^3/uL (140-400) Neutrophils (%) (Auto) 89% (31-73) Lymphocytes (%) (Auto) 4% (24-48) Monocytes (%) (Auto) 7% (0-9) Eosinophils (%) (Auto) 0% (0-3) Basophils (%) (Auto) 1% (0-3) Neutrophils # (Auto) 18.3x10^3uL (1.8-7.7) Lymphocytes # (Auto) 0.7x10^3/uL (1.0-4.8) Monocytes # (Auto) 1.4x10^3/uL (0.0-1.1) Eosinophils # (Auto) 0.0x10^3/uL (0.0-0.7) Basophils # (Auto) 0.1x10^3/uL (0.0-0.2) Sodium Level 145mmol/L (136-145) Potassium Level 4.0mmol/L (3.5-5.1) Chloride Level 107mmol/L (98-107) Carbon Dioxide Level 36mmol/L (21-32) Anion Gap 2 (6-14) Blood Urea Nitrogen 21mg/dL (7-20) Creatinine 0.4mg/dL (0.6-1.0) Estimated GFR (Cockcroft-Gault) 160.7 Glucose Level 253mg/dL (70-99) Calcium Level 8.1mg/dL (8.5-10.1) Phosphorus Level 3.0mg/dL (2.6-4.7) Magnesium Level 2.3mg/dL (1.8-2.4) Glucose (Fingerstick) 244mg/dL (70-99) Objective Assessment Pulmonary infiltrates, aspiration possible, TB less likely Cavitary pneumonia H/O ETOH H/O Pancreatitis Wt loss S/P CODE Respiratory failure s/p intubation/extubation and reintubation 06/17 - on Hydrocortisone -Bilat pleural effusions and atelectasis/consolidations . ? ARDS Leukocytosis, on steroids Thrombocytopenia, trending down Nonhealing right hip surgical wound w/ drainage wound intact but mild slough -h/o right hip replacement Left hip wound with necrotic tissue Plan Plan of Care Cont Zosyn/Zyvox F/u repeat sputum Consult Gen surg for local debridement Labs in am GROVER LANDRY MD Jun 19, 2016 07:25
--- NOTE | 2016-06-19 08:41 | RAD ---
Indication: Intubation. Respiratory failure. Technique: Upright portable chest radiograph was obtained. Comparison exam is from one day earlier. Findings: Endotracheal tube and endogastric tube are in place. Right IJ central line tip is at least within the atrium, may extend even further inferior into the IVC. Bilateral patchy infiltrates persist, slightly improved on the left. The heart is not enlarged. There is no definite heart failure. Right axillary clips are noted. Leads overlie the patient. Impression: 1. Tubes and lines remain in place. 2. Right greater than left patchy infiltrates are noted, slightly improved on the left.
[2016-06-19] MEDS: IPRATRPIUM/ALBUTEROL 0.5/2.5MG 3 ML NEBU. NEB SCH ×4 (09:32→19:54)
[2016-06-19] MEDS: BUDESONIDE 0.5 MG/2 ML NEBU NEB SCH ×2 (09:33→19:54)
--- NOTE | 2016-06-19 09:41 | PDOC ---
PULMONARY PROGRESS NOTES Subjective extubated 06/16 am, did well till early am, re-intubated early am 06/17 for progressive Hypoxic RF Vitals Vital Signs Date Time Temp Pulse Resp B/P Pulse Ox O2 Delivery O2 Flow Rate FiO2 06/19/16 08:33 99 Ventilator 06/19/16 06:00 88 18 104/67 06/19/16 05:10 6.0 06/19/16 04:00 98.5 98.5 Lungs: Crackles Cardiovascular: S1, S2 Abdomen: Soft, Non-tender Extremities: Other (trace edema) Skin: Warm Labs Laboratory Tests Test 06/17/16 11:42 06/17/16 18:03 06/17/16 21:42 06/17/16 23:38 Glucose (Fingerstick) 128mg/dL (70-99) 182mg/dL (70-99) 159mg/dL (70-99) 130mg/dL (70-99) Test 06/18/16 05:30 06/18/16 08:00 06/18/16 12:31 06/18/16 17:59 White Blood Count 19.9x10^3/uL (4.0-11.0) Red Blood Count 2.67x10^6/uL (3.50-5.40) Hemoglobin 8.5g/dL (12.0-15.5) Hematocrit 26.2% (36.0-47.0) Mean Corpuscular Volume 98fL (79-100) Mean Corpuscular Hemoglobin 32pg (25-35) Mean Corpuscular Hemoglobin Concent 33g/dL (31-37) Red Cell Distribution Width 16.2% (11.5-14.5) Platelet Count 39x10^3/uL (140-400) Neutrophils (%) (Auto) 90% (31-73) Lymphocytes (%) (Auto) 4% (24-48) Monocytes (%) (Auto) 6% (0-9) Eosinophils (%) (Auto) 0% (0-3) Basophils (%) (Auto) 0% (0-3) Neutrophils # (Auto) 17.8x10^3uL (1.8-7.7) Lymphocytes # (Auto) 0.8x10^3/uL (1.0-4.8) Monocytes # (Auto) 1.3x10^3/uL (0.0-1.1) Eosinophils # (Auto) 0.0x10^3/uL (0.0-0.7) Basophils # (Auto) 0.0x10^3/uL (0.0-0.2) Platelet Estimate Decreased (ADEQUATE) Giant Platelets Present Poikilocytosis Present Basophilic Stippling Present Pappenheimer Bodies Few Crouch-[place] Bodies Present Prothrombin Time 21.0SEC (11.7-14.0) Prothromb Time International Ratio 1.9 (0.8-1.1) Sodium Level 147mmol/L (136-145) Potassium Level 3.3mmol/L (3.5-5.1) Chloride Level 108mmol/L (98-107) Carbon Dioxide Level 34mmol/L (21-32) Anion Gap 5 (6-14) Blood Urea Nitrogen 19mg/dL (7-20) Creatinine 0.4mg/dL (0.6-1.0) Estimated GFR (Cockcroft-Gault) 160.7 BUN/Creatinine Ratio 48 (6-20) Glucose Level 187mg/dL (70-99) Glucose (Fingerstick) 186mg/dL (70-99) 240mg/dL (70-99) 186mg/dL (70-99) Calcium Level 8.1mg/dL (8.5-10.1) Phosphorus Level 3.0mg/dL (2.6-4.7) Magnesium Level 2.3mg/dL (1.8-2.4) Total Bilirubin 2.4mg/dL (0.2-1.0) Aspartate Amino Transf (AST/SGOT) 25U/L (15-37) Alanine Aminotransferase (ALT/SGPT) 27U/L (14-59) Alkaline Phosphatase 75U/L (46-116) Ammonia 31mcmol/L (11-34) Total Protein 4.3g/dL (6.4-8.2) Albumin 2.7g/dL (3.4-5.0) Albumin/Globulin Ratio 1.7 (1.0-1.7) O2 Saturation 95% (92-99) Arterial Blood pH 7.57 (7.35-7.45) Arterial Blood pCO2 at Patient Temp 34mmHg (35-46) Arterial Blood pO2 at Patient Temp 74mmHg (65-108) Arterial Blood HCO3 31mmol/L (21-28) Arterial Blood Base Excess 8mmol/L (-3-3) FiO2 40 Test 06/19/16 00:24 06/19/16 05:30 06/19/16 05:37 Glucose (Fingerstick) 244mg/dL (70-99) 244mg/dL (70-99) White Blood Count 20.5x10^3/uL (4.0-11.0) Red Blood Count 2.67x10^6/uL (3.50-5.40) Hemoglobin 8.5g/dL (12.0-15.5) Hematocrit 26.2% (36.0-47.0) Mean Corpuscular Volume 98fL (79-100) Mean Corpuscular Hemoglobin 32pg (25-35) Mean Corpuscular Hemoglobin Concent 32g/dL (31-37) Red Cell Distribution Width 15.8% (11.5-14.5) Platelet Count 36x10^3/uL (140-400) Neutrophils (%) (Auto) 89% (31-73) Lymphocytes (%) (Auto) 4% (24-48) Monocytes (%) (Auto) 7% (0-9) Eosinophils (%) (Auto) 0% (0-3) Basophils (%) (Auto) 1% (0-3) Neutrophils # (Auto) 18.3x10^3uL (1.8-7.7) Lymphocytes # (Auto) 0.7x10^3/uL (1.0-4.8) Monocytes # (Auto) 1.4x10^3/uL (0.0-1.1) Eosinophils # (Auto) 0.0x10^3/uL (0.0-0.7) Basophils # (Auto) 0.1x10^3/uL (0.0-0.2) Sodium Level 145mmol/L (136-145) Potassium Level 4.0mmol/L (3.5-5.1) Chloride Level 107mmol/L (98-107) Carbon Dioxide Level 36mmol/L (21-32) Anion Gap 2 (6-14) Blood Urea Nitrogen 21mg/dL (7-20) Creatinine 0.4mg/dL (0.6-1.0) Estimated GFR (Cockcroft-Gault) 160.7 Glucose Level 253mg/dL (70-99) Calcium Level 8.1mg/dL (8.5-10.1) Phosphorus Level 3.0mg/dL (2.6-4.7) Magnesium Level 2.3mg/dL (1.8-2.4) Laboratory Tests Test 06/18/16 12:31 06/18/16 17:59 06/19/16 00:24 06/19/16 05:30 Glucose (Fingerstick) 240mg/dL (70-99) 186mg/dL (70-99) 244mg/dL (70-99) White Blood Count 20.5x10^3/uL (4.0-11.0) Red Blood Count 2.67x10^6/uL (3.50-5.40) Hemoglobin 8.5g/dL (12.0-15.5) Hematocrit 26.2% (36.0-47.0) Mean Corpuscular Volume 98fL (79-100) Mean Corpuscular Hemoglobin 32pg (25-35) Mean Corpuscular Hemoglobin Concent 32g/dL (31-37) Red Cell Distribution Width 15.8% (11.5-14.5) Platelet Count 36x10^3/uL (140-400) Neutrophils (%) (Auto) 89% (31-73) Lymphocytes (%) (Auto) 4% (24-48) Monocytes (%) (Auto) 7% (0-9) Eosinophils (%) (Auto) 0% (0-3) Basophils (%) (Auto) 1% (0-3) Neutrophils # (Auto) 18.3x10^3uL (1.8-7.7) Lymphocytes # (Auto) 0.7x10^3/uL (1.0-4.8) Monocytes # (Auto) 1.4x10^3/uL (0.0-1.1) Eosinophils # (Auto) 0.0x10^3/uL (0.0-0.7) Basophils # (Auto) 0.1x10^3/uL (0.0-0.2) Sodium Level 145mmol/L (136-145) Potassium Level 4.0mmol/L (3.5-5.1) Chloride Level 107mmol/L (98-107) Carbon Dioxide Level 36mmol/L (21-32) Anion Gap 2 (6-14) Blood Urea Nitrogen 21mg/dL (7-20) Creatinine 0.4mg/dL (0.6-1.0) Estimated GFR (Cockcroft-Gault) 160.7 Glucose Level 253mg/dL (70-99) Calcium Level 8.1mg/dL (8.5-10.1) Phosphorus Level 3.0mg/dL (2.6-4.7) Magnesium Level 2.3mg/dL (1.8-2.4) Test 06/19/16 05:37 Glucose (Fingerstick) 244mg/dL (70-99) Medications Active Scripts Medications Dose Route/Sig Days Date Category Warfarin Sodium 5 Mg Tablet 1 Tab PO DAILY 04/21/16 Rx Cipro (Ciprofloxacin Hcl) 500 Mg Tablet 1 Tab PO BID 04/21/16 Rx Anoro Ellipta 62.5-25 Mcg Inh (Umeclidinium Brm/Vilanterol Tr) 1 Each Disk.w.dev 1 Each IH DAILY 12/20/14 Reported Oxycodone Hcl 20 Mg Tablet 20 Mg PO PRN Q4HRS PRN 12/20/14 Reported Gabapentin 300 Mg Capsule 1 Cap PO BID 12/20/14 Reported Flovent 110MCG Hfa (Fluticasone Propionate) 12 Gm Aer.w.adap 2 Puff IH BID 12/20/14 Reported Breo Ellipta 200-25 Mcg INH (Fluticasone/Vilanterol) 1 Each Blst.w.dev 1 Each IH DAILY 12/20/14 Reported Proair Hfa Inhaler (Albuterol Sulfate) 8.5 Gm Hfa.aer.ad 2 Puff IH PRN QID PRN 12/20/14 Reported Lorazepam 0.5 Mg Tablet 0.5 Mg PO Q4HRS PRN 12/20/14 Reported Ondansetron Hcl 4 Mg Tablet 1 Tab PO PRN Q4HRS 12/20/14 Reported Spiriva (Tiotropium [place]) 18 Mcg Cap.w.dev 1 Cap IH DAILY 12/20/14 Reported Femara (Letrozole) 2.5 Mg Tablet 2.5 Mg PO DAILY 12/20/14 Reported Comments CXR 06/17 bilateral infiltrates,increasing effusions Impression . 1. Acute RF due to shock/ pneumonia,AECOPD, profound weakness. extubated 06/16 am, did well initially, re-intubated early am 06/17 for progressive Hypoxic RF 2. shock, hypovolemic/septic,POA resolved. 3. Abnormal CT chest with bilateral tree-in-bud interstitial infiltrates suggesting infectious pneumonitis. Possible chronic aspiration Tuberculosis is unlikely in this clinical setting. BAL no evidence of TB 4. Weight loss of 30 pounds. Multifactorial in Nature 5. History of heavy alcohol use. 6. Acute hypoxic respiratory failure secondary to pneumonia. improving 7. 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 severe malnutrition Plan . Trach when platelet count is u[ d/w Dr Jesenia follow BAL results antibx per ID nutritional support with TPN needs colonoscopy in future NILDA MORLEY MD Jun 19, 2016 09:41
[2016-06-19 09:50] LABS: HCO3 ABG 31 mmol/L (21-28); PCO2 ABG 36 mmHg (35-46); PO2 ABG 85 mmHg (65-108); SAT O2 ABG 96 % (92-99)
[2016-06-19 09:54] LABS: FIO2 ABG 40; PH ABG 7.56 (7.35-7.45)
[2016-06-19] MEDS: LETROZOLE 2.5 MG TABLET. PO SCH (10:46)
[2016-06-19] MEDS: CHLORHEXIDINE 0.12% 15 ML MOUTHWASH. MM SCH ×2 (10:51→21:45)
[2016-06-19] MEDS: GABAPENTIN 300 MG CAPSULE. PO SCH ×3 (10:51→21:46)
[2016-06-19] MEDS: TPN PER PHARMACY MC PRN (10:54)
--- NOTE | 2016-06-19 11:13 | PDOC2 ---
CONSULT Date of Consult Date of Consult DATE: 06/19/16 TIME: 11:04 Reason for Consult Reason for Consult: left hip debridement Referring Physician Referring Physician: Dr Gracia Identification/Chief Complaint Chief Complaint sepsis Source Source: Chart review (Reviewed with nurse) History of Present Illness Reason for Visit: Admitted on 06/11 with sepsis, respiratory failure. Had underwent a hip replacement to right in April, that is now an open wound She is intubated, diffuse anasarca, severe thrombocytopenia, coagulably with INR 1.9 Surgery was consulted for possible debridement of wound to left hip She is awake on the vent, however she is deaf Past Medical History Cardiovascular: Pulmonary hypertension Pulmonary: COPD CENTRAL NERVOUS SYSTEM: Other (Deaf secondary to [place] measles) GI: Other (chronic ETOH related pancreatitis) Heme/Onc: Anemia NOS, Other (right breast cancer) Hepatobiliary: Other (elevated LFTs, status post cholecystectomy for acalculous cholecystitis) Psych: No pertinent hx Musculoskeletal: Other (cervical spine osteoarthritis) Rheumatologic: No pertinent hx Infectious disease: No pertinent hx ENT: Other (deaf) Renal/: No pertinent hx Endocrine: No pertinent hx Dermatology: No pertinent hx Past Surgical History Past Surgical History: Cholecystectomy, Mastectomy, Total knee replacement, Other (distal pancreatectomy with splenectomy) Family History Family History: No Significant Social History No ALCOHOL: other (previously drank somehwat heavily) Drugs: None Lives: with Family Current Medications Current Medications Current Medications Azithromycin (Zithromax) 250 mg DAILY PO ; Start 06/10/16 at 20:00; Stop 06/11/16 at 19:15; Status DC Budesonide 0.5 mg 0.5 mg RTBID NEB Last administered on 06/19/16 09:33; Start 06/10/16 at 20:00 Ceftriaxone Sodium/Sodium Chloride (Rocephin/Iv Sodium Chloride 0.9% 50ml) 50 ml @ 100 mls/hr Q24H IV Last administered on 06/10/16 20:28; Start 06/10/16 at 21:00; Stop 06/11/16 at 12:18; Status DC Fentanyl Citrate (Fentanyl 2ml Vial) 50 mcg PRN Q3HRS PRN IV PAIN Last administered on 06/19/16 04:40; Start 06/10/16 at 19:30 Gabapentin (Neurontin) 300 mg TID PO Last administered on 06/19/16 10:51; Start 06/10/16 at 21:00 Albuterol/ Ipratropium (Duoneb) 3 ml RTQID NEB Last administered on 06/19/16 09:32; Start 06/10/16 at 20:00 Letrozole 2.5 mg 2.5 mg DAILY PO Last administered on 06/19/16 10:46; Start at 09:00 Potassium Chloride/Sodium Chloride (KCl 40 Meq-NS 1,000 ml Iv Soln) 1,000 ml @ 100 mls/hr Q10H IV Last administered on 06/10/16 22:45; Start 06/10/16 at 20:00 ; Stop 06/11/16 at 08:08; Status DC Prednisone (Prednisone) 50 mg DAILY PO Last administered on 06/12/16 09:02; Start 06/10/16 at 20:00; Stop 06/12/16 at 10:23; Status DC Albuterol Sulfate 2.5 mg 2.5 mg PRN Q4HRS PRN NEB SHORTNESS OF BREATH Last administered on 06/11/16 05:37; Start 06/11/16 at 04:45 Sodium Chloride 1,000 ml @ 75 mls/hr [id number] IV Last administered on 06/12/16 11:22; Start 06/11/16 at 08:15; Stop 06/12/16 at 12:26; Status DC Piperacillin Sod/ Tazobactam Sod/ Sodium Chloride (Zosyn/Iv Sodium Chloride 0.9 % 50ml) 50 ml @ 100 mls/hr Q6HRS IV Last administered on 06/11/16 14:10; Start 06/11/16 at 13:00; Stop 06/11/16 at 19:15; Status DC Furosemide 40 mg 40 mg 1X ONCE IVP Last administered on 06/11/16 13:22; Start 06/11/16 at 13:00; Stop 06/11/16 at 13:08; Status DC Norepinephrine Bitartrate 8 mg/ Sodium Chloride 258 ml @ 1.93 mls/hr ONCE ONCE IV Last administered on 06/11/16 15:15; Start 06/11/16 at 15:15; Stop at 10:59; Status DC Epinephrine HCl 4 mg/Sodium Chloride 254 ml @ 3.81 mls/hr ONCE ONCE IV Last administered on 06/11/16 15:55; Start 06/11/16 at 15:45; Stop 06/11/16 at 19:05; Status DC Epinephrine HCl 4 mg/Sodium Chloride 254 ml @ 0 mls/hr CONT PRN IV SEE I/O RECORD; Start 06/11/16 at 16:00 Vasopressin 40 unit/Dextrose 102 ml @ 6 mls/hr CONT PRN IV SEE I/O RECORD Last administered on 06/11/16 15:54; Start 06/11/16 at 15:45 Sodium Chloride 1,000 ml @ 1,000 mls/hr 1X ONCE IV Last administered on 15:58; Start 06/11/16 at 15:45; Stop 06/11/16 at 16:44; Status DC Sodium Chloride 1,000 ml @ 1,000 mls/hr 1X ONCE IV Last administered on 16:04; Start 06/11/16 at 15:45; Stop 06/11/16 at 16:44; Status DC Sodium Chloride (Iv Sodium Chloride 0.9% 1000ml Bag) 1,000 ml @ 1,000 mls/hr 1X ONCE IV Last administered on 06/11/16 16:04; Start 06/11/16 at 15:45; Stop 06/11/16 at 16:44; Status DC Pantoprazole Sodium 40 mg 40 mg [id number] IVP Last administered on 06/19/16 05:51 ; Start 06/11/16 at 18:00 Midazolam HCl 100 ml @ 0 mls/hr CONT PRN IV SEE I/O RECORD Last administered on 06/18/16 02:00; Start 06/11/16 at 17:00 Sodium Chloride (Iv Sodium Chloride 0.9% 1000ml Bag) 1,000 ml @ 150 mls/hr 1X ONCE IV Last administered on 06/11/16 17:07; Start 06/11/16 at 17:00; Stop at 23:39; Status DC Dextrose 25 gm STK-MED ONCE IV ; Start 06/11/16 at 17:15; Stop 06/11/16 at 17:16; Status DC Dextrose 25 gm 1X ONCE IV Last administered on 06/11/16 17:47; Start 06/11/16 at 17:30; Stop 06/11/16 at 17:31; Status DC Sodium Bicarbonate 100 meq 100 meq 1X ONCE IV Last administered on 06/11/16 17 :46; Start 06/11/16 at 17:30; Stop 06/11/16 at 17:31; Status DC Nicardipine HCl 50 mg/Sodium Chloride 270 ml @ 0 mls/hr CONT PRN IV SEE I/O RECORD; Start 06/11/16 at 17:45; Status Cancel Ceftriaxone Sodium/Sodium Chloride (Rocephin/Iv Sodium Chloride 0.9% 50ml) 50 ml @ 100 mls/hr Q24H IV Last administered on 06/11/16 18:37; Start 06/11/16 at 18:00; Stop 06/12/16 at 12:55; Status DC Vancomycin HCl 1 each 1 each PRN DAILY PRN MC SEE COMMENTS Last administered on 06/11/16 19:17; Start 06/11/16 at 18:00; Stop 06/12/16 at 12:58; Status DC Vancomycin HCl 1 gm/Sodium Chloride 250 ml @ 250 mls/hr 1X ONCE IV Last administered on 06/11/16 18:37; Start 06/11/16 at 18:30; Stop 06/11/16 at 19:29; Status DC Vancomycin HCl/ Sodium Chloride (Iv Sodium Chloride 0.9% 250ml) 250 ml @ 250 mls/hr Q12H IV Last administered on 06/12/16 06:18; Start 06/12/16 at 06:00; Stop 06/12/16 at 12:55; Status DC Vancomycin HCl 1 each 1 each 1X ONCE MC ; Start 06/13/16 at 05:30; Stop 06/13/16 at 05:30; Status DC Norepinephrine Bitartrate/Sodium Chloride (Levophed Vial/ Iv Sodium Chloride 0.9 % 250ml) 258 ml @ 0 mls/hr CONT PRN IV SEE I/O RECORD Last administered on 07:37; Start 06/12/16 at 00:45 Epinephrine HCl 1 mg STK-MED ONCE .ROUTE ; Start 06/11/16 at 12:00; Stop 06/12/16 at 08:13; Status DC Hydrocortisone Sodium Succinate (Solu-Cortef) 100 mg Q8HRS IV Last administered on 06/15/16 06:21; Start 06/12/16 at 11:00; Stop 06/15/16 at 11:24 ; Status DC Enoxaparin Sodium (Lovenox 40mg Syringe) 40 mg Q24H SQ Last administered on 06/13 10:49; Start 06/12/16 at 11:00; Stop 06/13/16 at 12:35; Status DC Famotidine 20 mg 20 mg BID IVP Last administered on 06/13/16 09:10; Start at 11:00; Stop 06/13/16 at 09:59; Status DC Sodium Chloride 1,000 ml @ 1,000 mls/hr 1X ONCE IV Last administered on 11:25; Start 06/12/16 at 11:30; Stop 06/12/16 at 12:29; Status DC Dextrose/Sodium Chloride 1,000 ml @ 75 mls/hr [id number] IV Last administered on 06/13/16 20:44; Start 06/12/16 at 13:00; Stop 06/14/16 at 17:39; Status DC Piperacillin Sod/ Tazobactam Sod 3.375 gm/Sodium Chloride 50 ml @ 100 mls/hr Q6HRS IV Last administered on 06/19/16 05:50; Start 06/12/16 at 13:30 Linezolid 300 ml @ 300 mls/hr Q12HR IV Last administered on 06/15/16 20:48; Start 06/12/16 at 13:30; Stop 06/16/16 at 08:39; Status DC Sodium Chloride 1,000 ml @ 1,000 mls/hr 1X ONCE IV Last administered on 15:30; Start 06/12/16 at 15:30; Stop 06/12/16 at 16:29; Status DC Sodium Chloride 500 ml @ 0 mls/hr 1X ONCE IV Last administered on 06/12/16 15: 44; Start 06/12/16 at 16:00; Stop 06/12/16 at 16:01; Status DC Sodium Chloride 1,000 ml @ 0 mls/hr 1X ONCE IV Last administered on 06/13/16 07:43; Start 06/13/16 at 07:45; Stop 06/13/16 at 07:46; Status DC Sodium Chloride (Iv Sodium Chloride 0.45%) 500 ml @ 0 mls/hr 1X ONCE IV Last administered on 06/13/16 07:43; Start 06/13/16 at 07:45; Stop 06/13/16 at 07:46; Status DC Midazolam HCl (Versed) 5 mg STK-MED ONCE .ROUTE ; Start 06/10/16 at 12:00; Stop 06/13/16 at 08:28; Status DC Epinephrine HCl 3 mg STK-MED ONCE .ROUTE ; Start 06/10/16 at 12:00; Stop 06/13/16 at 08:28; Status DC Dopamine HCl/ Dextrose 400 mg STK-MED ONCE IV ; Start 06/10/16 at 12:00; Stop 06/13/16 at 08:28; Status DC Lidocaine/Sodium Bicarbonate (Buffered Lidocaine 1%) 3 ml 1X ONCE IJ Last administered on 06/13/16 09:55; Start 06/13/16 at 09:00; Stop 06/13/16 at 09:01; Status DC Heparin Sodium/ Sodium Chloride 60 unit 1X ONCE IV Last administered on 09:55; Start 06/13/16 at 09:00; Stop 06/13/16 at 09:01; Status DC Sodium Bicarbonate 100 meq 100 meq 1X ONCE IV Last administered on 06/13/16 10 :06; Start 06/13/16 at 09:45; Stop 06/13/16 at 09:46; Status DC Albumin Human (Plasmanate) 500 ml @ 62.5 mls/hr 1X ONCE IV Last administered on 06/13/16 10:06; Start 06/13/16 at 09:45; Stop 06/13/16 at 17:44; Status DC Chlorhexidine Gluconate (Peridex) 15 ml BID MM Last administered on 06/19/16 10:51; Start 06/13/16 at 21:00 Potassium Chloride (Klor-Con) 20 meq TIDWMEALS PO Last administered on 12:31; Start 06/13/16 at 12:30; Stop 06/13/16 at 15:56; Status DC Calcium Carbonate/ Glycine (Oscal) 1,000 mg TIDAFTMEAL PO Last administered on 06/16/16 12:49; Start 06/13/16 at 13:00; Stop 06/18/16 at 09:30; Status DC Vitamin D (Vitamin D3) 5,000 unit DAILY PO Last administered on 06/16/16 10:26 ; Start 06/13/16 at 13:00; Stop 06/18/16 at 09:30; Status DC Phytonadione (Mephyton) 10 mg DAILY PO Last administered on 06/16/16 10:26; Start 06/13/16 at 13:00; Stop 06/18/16 at 09:30; Status DC Potassium Chloride (KCl Oral Soln) 20 meq TIDWMEALS PEG Last administered on 10:41; Start 06/13/16 at 17:00; Stop 06/14/16 at 12:26; Status DC Insulin Aspart (Novolog) 0-5 UNITS Q6HRS SQ Last administered on 06/19/16 05: 58; Start 06/14/16 at 12:00 Dextrose 12.5 gm 12.5 gm PRN Q15MIN PRN IV SEE COMMENTS; Start 06/14/16 at 06:45 Potassium Chloride (KCl Premix 20meq) 50 ml @ 25 mls/hr Q2H IV ; Start 06/14/16 at 07:00; Stop 06/14/16 at 14:59; Status Cancel Iohexol (Omnipaque 240 Mg/ml) 30 ml 1X ONCE PO Last administered on 06/14/16 08:30; Start 06/14/16 at 08:30; Stop 06/14/16 at 08:31; Status DC Iohexol (Omnipaque 300 Mg/ml) 75 ml 1X ONCE IV Last administered on 06/14/16 17:58; Start 06/14/16 at 08:30; Stop 06/14/16 at 08:31; Status DC Info (Do NOT chart on this entry -- for MONITORING) 1 each PRN DAILY PRN MC SEE COMMENTS; Start 06/14/16 at 08:45; Stop 06/16/16 at 08:44; Status DC Potassium Chloride (Klor-Con) 40 meq Q2H PO Last administered on 06/14/16 14:16 ; Start 06/14/16 at 12:30; Stop 06/14/16 at 14:31; Status DC Info 1 each 1 each PRN DAILY PRN MC SEE COMMENTS Last administered on 10:54; Start 06/14/16 at 15:00 Potassium Chloride 50 ml @ 50 mls/hr Q1H IV ; Start 06/14/16 at 15:15; Stop at 17:14; Status DC Sodium Acetate 90 meq/Potassium Chloride 25 meq/ Potassium Acetate 25 meq/ Potassium Phosphate 16 mmol/ Magnesium Sulfate 12 meq/Calcium Gluconate 5 meq/ Multivitamins 10 ml/Chromium/ Copper/Manganese/ Seleni/Zn 1 ml/ Total Parenteral Nutrition/Amino Acids/Dextrose/ Fat Emulsion Intravenous 1,512 ml @ 63 mls/hr TPN CONT IV Last administered on 06/14/16 21:34; Start 06/14/16 at 22 :00; Stop 06/15/16 at 21:59; Status DC Sodium Phosphate 15 mmol/Dextrose 255 ml @ 63.75 mls/ hr 1X ONCE IV Last administered on 06/14/16 17:45; Start 06/14/16 at 17:30; Stop 06/14/16 at 21:29; Status DC Magnesium Sulfate/ Dextrose 50 ml @ 25 mls/hr 1X ONCE IV Last administered on 06/14/16 17:45; Start 06/14/16 at 16:00; Stop 06/14/16 at 17:59; Status DC Potassium Chloride (KCl Premix 20meq) 50 ml @ 25 mls/hr Q2H IV Last administered on 06/14/16 20:33; Start 06/14/16 at 17:45; Stop 06/14/16 at 21:44; Status DC Hydrocortisone Sodium Succinate 50 mg 50 mg Q8HRS IV Last administered on 05:50; Start 06/15/16 at 14:00 Sodium Phosphate 15 mmol/Dextrose 255 ml @ 63.75 mls/ hr 1X ONCE IV Last administered on 06/15/16 12:54; Start 06/15/16 at 13:00; Stop 06/15/16 at 16:59 ; Status DC Sodium Acetate 90 meq/Potassium Chloride 25 meq/ Potassium Acetate 25 meq/ Potassium Phosphate 24 mmol/ Magnesium Sulfate 12 meq/Calcium Gluconate 5 meq/ Multivitamins 10 ml/Chromium/ Copper/Manganese/ Seleni/Zn 1 ml/ Total Parenteral Nutrition/Amino Acids/Dextrose/ Fat Emulsion Intravenous 1,512 ml @ 63 mls/hr TPN CONT IV Last administered on 06/15/16 21:55; Start 06/15/16 at 22:00; Stop 06/16/16 at 21:59; Status DC Sodium Acetate 90 meq/Potassium Chloride 25 meq/ Potassium Acetate 25 meq/ Potassium Phosphate 24 mmol/ Magnesium Sulfate 12 meq/Calcium Gluconate 5 meq/ Multivitamins 10 ml/Chromium/ Copper/Manganese/ Seleni/Zn 1 ml/ Total Parenteral Nutrition/Amino Acids/Dextrose/ Fat Emulsion Intravenous 1,512 ml @ 63 mls/hr TPN CONT IV Last administered on 06/16/16 21:47; Start 06/16/16 at 22:00; Stop 06/17/16 at 21:59; Status DC Albumin Human 500 ml @ 50 mls/hr PRN BID PRN IV hypotention/low albumin Last administered on 06/16/16 21:48; Start 06/16/16 at 12:30; Stop 06/17/16 at 12:30 ; Status DC Albumin Human 500 ml @ 50 mls/hr CONT IV ; Start 06/17/16 at 12:30; Status UNV Albumin Human 500 ml @ 50 mls/hr BID IV Last administered on 06/16/16 12:53; Start 06/16/16 at 13:00; Stop 06/16/16 at 13:00; Status DC Albumin Human (Albuminar) 50 ml @ 50 mls/hr TID IV Last administered on 08:47; Start 06/16/16 at 14:00; Stop 06/17/16 at 09:59; Status DC Haloperidol Lactate (Haldol) 2 mg PRN Q2HR PRN IVP ANXIETY Last administered on 06/16/16 23:59; Start 06/16/16 at 20:15 Succinylcholine Chloride 200 mg 200 mg STK-MED ONCE .ROUTE ; Start 06/17/16 at 00:54; Stop 06/17/16 at 00:56; Status DC Propofol (Diprivan) 100 ml @ As Directed STK-MED ONCE IV ; Start 06/17/16 at 00 :54; Stop 06/17/16 at 00:56; Status DC Furosemide 40 mg 40 mg 1X ONCE IVP Last administered on 06/17/16 11:35; Start 06/17/16 at 11:30; Stop 06/17/16 at 11:31; Status DC Albumin Human 500 ml @ 125 mls/hr 1X ONCE IV Last administered on 06/17/16 11:32; Start 06/17/16 at 12:30; Stop 06/17/16 at 16:29; Status DC Sodium Acetate 90 meq/Potassium Chloride 25 meq/ Potassium Acetate 25 meq/ Potassium Phosphate 24 mmol/ Magnesium Sulfate 12 meq/Calcium Gluconate 5 meq/ Multivitamins 10 ml/Chromium/ Copper/Manganese/ Seleni/Zn 1 ml/ Total Parenteral Nutrition/Amino Acids/Dextrose/ Fat Emulsion Intravenous 1,512 ml @ 63 mls/hr TPN CONT IV Last administered on 06/17/16 22:33; Start 06/17/16 at 22:00; Stop 06/18/16 at 21:59; Status DC Linezolid (Zyvox Premix) 300 ml @ 300 mls/hr Q12HR IV Last administered on 10:51; Start 06/18/16 at 09:00 Propofol (Diprivan) 1,000 mg STK-MED ONCE IV ; Start 06/17/16 at 01:00; Stop at 08:13; Status DC Succinylcholine Chloride (Anectine) 200 mg STK-MED ONCE .ROUTE ; Start 06/17/16 at 01:00; Stop 06/18/16 at 08:13; Status DC Potassium Chloride 40 meq 40 meq 1X ONCE NG Last administered on 06/18/16 12: 35; Start 06/18/16 at 11:15; Stop 06/18/16 at 11:16; Status DC Sodium Acetate 90 meq/Potassium Chloride 25 meq/ Potassium Acetate 45 meq/ Potassium Phosphate 24 mmol/ Magnesium Sulfate 12 meq/Calcium Gluconate 5 meq/ Multivitamins 10 ml/Chromium/ Copper/Manganese/ Seleni/Zn 1 ml/ Total Parenteral Nutrition/Amino Acids/Dextrose/ Fat Emulsion Intravenous 1,397 ml @ 58.208 mls/ hr TPN CONT IV ; Start 06/18/16 at 22:00; Stop 06/19/16 at 21:59; Status Cancel Sodium Acetate 60 meq/Potassium Chloride 25 meq/ Potassium Acetate 45 meq/ Potassium Phosphate 24 mmol/ Magnesium Sulfate 12 meq/Calcium Gluconate 5 meq/ Multivitamins 10 ml/Chromium/ Copper/Manganese/ Seleni/Zn 1 ml/ Total Parenteral Nutrition/Amino Acids/Dextrose/ Fat Emulsion Intravenous 1,512 ml @ 63 mls/hr TPN CONT IV Last administered on 06/18/16t 21:54; Start 06/18/16 at 22:00; Stop 06/19/16 at 21:59 Sodium Acetate/ Potassium Chloride/ Potassium Acetate/ Potassium Phosphate/ Magnesium Sulfate/ Calcium Gluconate/ Multivitamins/ Chromium/Copper/ Manganese/ Seleni/ Zn/Total Parenteral Nutrition/Amino Acids/Dextrose/ Fat Emulsion Intravenous (Potassium Phospha... 1,512 ml @ 63 mls/hr TPN CONT IV ; Start at 22:00; Stop 06/20/16 at 21:59 Active Scripts Active Warfarin Sodium 5 Mg Tablet 1 Tab PO DAILY Cipro (Ciprofloxacin Hcl) 500 Mg Tablet 1 Tab PO BID Reported Anoro Ellipta 62.5-25 Mcg Inh (Umeclidinium Brm/Vilanterol Tr) 1 Each Disk.w.dev 1 Each IH DAILY Oxycodone Hcl 20 Mg Tablet 20 Mg PO PRN Q4HRS PRN Gabapentin 300 Mg Capsule 1 Cap PO BID Flovent 110MCG Hfa (Fluticasone Propionate) 12 Gm Aer.w.adap 2 Puff IH BID Breo Ellipta 200-25 Mcg INH (Fluticasone/Vilanterol) 1 Each Blst.w.dev 1 Each IH DAILY Proair Hfa Inhaler (Albuterol Sulfate) 8.5 Gm Hfa.aer.ad 2 Puff IH PRN QID PRN Lorazepam 0.5 Mg Tablet 0.5 Mg PO Q4HRS PRN Ondansetron Hcl 4 Mg Tablet 1 Tab PO PRN Q4HRS Spiriva (Tiotropium [place]) 18 Mcg Cap.w.dev 1 Cap IH DAILY Femara (Letrozole) 2.5 Mg Tablet 2.5 Mg PO DAILY Allergies Allergies: Coded Allergies: celecoxib (Verified Allergy, Intermediate, Nausea and Vomiting, 04/17/16) ROS Review of System unable to obtain due to vent/deafness Physical Exam General: Cooperative, No acute distress, Other (on vent) HEENT: PERRLA, Other (ET tube in place) Lungs: Other (mech vent) Heart: Regular rate, Normal S1, Normal S2 Abdomen: Soft, No tenderness, Other (left hip with 4cm circular decub, central necrosis ) Skin: Other (anascara diffuselt) Vitals VITALS Vital Signs Date Time Temp Pulse Resp B/P Pulse Ox O2 Delivery O2 Flow Rate FiO2 06/19/16 08:33 99 Ventilator 06/19/16 06:00 88 18 104/67 06/19/16 05:10 6.0 06/19/16 04:00 98.5 98.5 Labs Labs Laboratory Tests Test 06/17/16 11:42 06/17/16 18:03 06/17/16 21:42 06/17/16 23:38 Glucose (Fingerstick) 128mg/dL (70-99) 182mg/dL (70-99) 159mg/dL (70-99) 130mg/dL (70-99) Test 06/18/16 05:30 06/18/16 08:00 06/18/16 12:31 06/18/16 17:59 White Blood Count 19.9x10^3/uL (4.0-11.0) Red Blood Count 2.67x10^6/uL (3.50-5.40) Hemoglobin 8.5g/dL (12.0-15.5) Hematocrit 26.2% (36.0-47.0) Mean Corpuscular Volume 98fL (79-100) Mean Corpuscular Hemoglobin 32pg (25-35) Mean Corpuscular Hemoglobin Concent 33g/dL (31-37) Red Cell Distribution Width 16.2% (11.5-14.5) Platelet Count 39x10^3/uL (140-400) Neutrophils (%) (Auto) 90% (31-73) Lymphocytes (%) (Auto) 4% (24-48) Monocytes (%) (Auto) 6% (0-9) Eosinophils (%) (Auto) 0% (0-3) Basophils (%) (Auto) 0% (0-3) Neutrophils # (Auto) 17.8x10^3uL (1.8-7.7) Lymphocytes # (Auto) 0.8x10^3/uL (1.0-4.8) Monocytes # (Auto) 1.3x10^3/uL (0.0-1.1) Eosinophils # (Auto) 0.0x10^3/uL (0.0-0.7) Basophils # (Auto) 0.0x10^3/uL (0.0-0.2) Platelet Estimate Decreased (ADEQUATE) Giant Platelets Present Poikilocytosis Present Basophilic Stippling Present Pappenheimer Bodies Few [place] Bodies Present Prothrombin Time 21.0SEC (11.7-14.0) Prothromb Time International Ratio 1.9 (0.8-1.1) Sodium Level 147mmol/L (136-145) Potassium Level 3.3mmol/L (3.5-5.1) Chloride Level 108mmol/L (98-107) Carbon Dioxide Level 34mmol/L (21-32) Anion Gap 5 (6-14) Blood Urea Nitrogen 19mg/dL (7-20) Creatinine 0.4mg/dL (0.6-1.0) Estimated GFR (Cockcroft-Gault) 160.7 BUN/Creatinine Ratio 48 (6-20) Glucose Level 187mg/dL (70-99) Glucose (Fingerstick) 186mg/dL (70-99) 240mg/dL (70-99) 186mg/dL (70-99) Calcium Level 8.1mg/dL (8.5-10.1) Phosphorus Level 3.0mg/dL (2.6-4.7) Magnesium Level 2.3mg/dL (1.8-2.4) Total Bilirubin 2.4mg/dL (0.2-1.0) Aspartate Amino Transf (AST/SGOT) 25U/L (15-37) Alanine Aminotransferase (ALT/SGPT) 27U/L (14-59) Alkaline Phosphatase 75U/L (46-116) Ammonia 31mcmol/L (11-34) Total Protein 4.3g/dL (6.4-8.2) Albumin 2.7g/dL (3.4-5.0) Albumin/Globulin Ratio 1.7 (1.0-1.7) O2 Saturation 95% (92-99) Arterial Blood pH 7.57 (7.35-7.45) Arterial Blood pCO2 at Patient Temp 34mmHg (35-46) Arterial Blood pO2 at Patient Temp 74mmHg (65-108) Arterial Blood HCO3 31mmol/L (21-28) Arterial Blood Base Excess 8mmol/L (-3-3) FiO2 40 Test 06/19/16 00:24 06/19/16 05:30 06/19/16 05:37 06/19/16 08:00 Glucose (Fingerstick) 244mg/dL (70-99) 244mg/dL (70-99) White Blood Count 20.5x10^3/uL (4.0-11.0) Red Blood Count 2.67x10^6/uL (3.50-5.40) Hemoglobin 8.5g/dL (12.0-15.5) Hematocrit 26.2% (36.0-47.0) Mean Corpuscular Volume 98fL (79-100) Mean Corpuscular Hemoglobin 32pg (25-35) Mean Corpuscular Hemoglobin Concent 32g/dL (31-37) Red Cell Distribution Width 15.8% (11.5-14.5) Platelet Count 36x10^3/uL (140-400) Neutrophils (%) (Auto) 89% (31-73) Lymphocytes (%) (Auto) 4% (24-48) Monocytes (%) (Auto) 7% (0-9) Eosinophils (%) (Auto) 0% (0-3) Basophils (%) (Auto) 1% (0-3) Neutrophils # (Auto) 18.3x10^3uL (1.8-7.7) Lymphocytes # (Auto) 0.7x10^3/uL (1.0-4.8) Monocytes # (Auto) 1.4x10^3/uL (0.0-1.1) Eosinophils # (Auto) 0.0x10^3/uL (0.0-0.7) Basophils # (Auto) 0.1x10^3/uL (0.0-0.2) Sodium Level 145mmol/L (136-145) Potassium Level 4.0mmol/L (3.5-5.1) Chloride Level 107mmol/L (98-107) Carbon Dioxide Level 36mmol/L (21-32) Anion Gap 2 (6-14) Blood Urea Nitrogen 21mg/dL (7-20) Creatinine 0.4mg/dL (0.6-1.0) Estimated GFR (Cockcroft-Gault) 160.7 Glucose Level 253mg/dL (70-99) Calcium Level 8.1mg/dL (8.5-10.1) Phosphorus Level 3.0mg/dL (2.6-4.7) Magnesium Level 2.3mg/dL (1.8-2.4) O2 Saturation 96% (92-99) Arterial Blood pH 7.56 (7.35-7.45) Arterial Blood pCO2 at Patient Temp 36mmHg (35-46) Arterial Blood pO2 at Patient Temp 85mmHg (65-108) Arterial Blood HCO3 31mmol/L (21-28) Arterial Blood Base Excess 9mmol/L (-3-3) FiO2 40 Laboratory Tests Test 06/18/16 12:31 06/18/16 17:59 06/19/16 00:24 06/19/16 05:30 Glucose (Fingerstick) 240mg/dL (70-99) 186mg/dL (70-99) 244mg/dL (70-99) White Blood Count 20.5x10^3/uL (4.0-11.0) Red Blood Count 2.67x10^6/uL (3.50-5.40) Hemoglobin 8.5g/dL (12.0-15.5) Hematocrit 26.2% (36.0-47.0) Mean Corpuscular Volume 98fL (79-100) Mean Corpuscular Hemoglobin 32pg (25-35) Mean Corpuscular Hemoglobin Concent 32g/dL (31-37) Red Cell Distribution Width 15.8% (11.5-14.5) Platelet Count 36x10^3/uL (140-400) Neutrophils (%) (Auto) 89% (31-73) Lymphocytes (%) (Auto) 4% (24-48) Monocytes (%) (Auto) 7% (0-9) Eosinophils (%) (Auto) 0% (0-3) Basophils (%) (Auto) 1% (0-3) Neutrophils # (Auto) 18.3x10^3uL (1.8-7.7) Lymphocytes # (Auto) 0.7x10^3/uL (1.0-4.8) Monocytes # (Auto) 1.4x10^3/uL (0.0-1.1) Eosinophils # (Auto) 0.0x10^3/uL (0.0-0.7) Basophils # (Auto) 0.1x10^3/uL (0.0-0.2) Sodium Level 145mmol/L (136-145) Potassium Level 4.0mmol/L (3.5-5.1) Chloride Level 107mmol/L (98-107) Carbon Dioxide Level 36mmol/L (21-32) Anion Gap 2 (6-14) Blood Urea Nitrogen 21mg/dL (7-20) Creatinine 0.4mg/dL (0.6-1.0) Estimated GFR (Cockcroft-Gault) 160.7 Glucose Level 253mg/dL (70-99) Calcium Level 8.1mg/dL (8.5-10.1) Phosphorus Level 3.0mg/dL (2.6-4.7) Magnesium Level 2.3mg/dL (1.8-2.4) Test 06/19/16 05:37 06/19/16 08:00 Glucose (Fingerstick) 244mg/dL (70-99) O2 Saturation 96% (92-99) Arterial Blood pH 7.56 (7.35-7.45) Arterial Blood pCO2 at Patient Temp 36mmHg (35-46) Arterial Blood pO2 at Patient Temp 85mmHg (65-108) Arterial Blood HCO3 31mmol/L (21-28) Arterial Blood Base Excess 9mmol/L (-3-3) FiO2 40 Assessment/Plan Assessment/Plan sepsis on admission resp failure, requiring intubation, plans in place for trach this week thrombocytopenia, plts 36, 000 today, INR 1.[address] Chung, will likely need coagulopathy corrected prior to debridement plans MARIETTA DYSON APRN Jun 19, 2016 11:13
--- NOTE | 2016-06-19 12:23 | PDOC ---
G I PROGRESS NOTE Subjective Awake, off sedation, still on ventilator. Tried to communicate with note, but got little. Nurses note able to ask for pain meds. Objective Per staff, continues to soak dressings rapidly. Physical Exam Lungs clear anteriorly. RRR Abdomen soft, not apparently tender. Not distended. Review of Relevant I have reviewed the following items apryl (where applicable) has been applied. Labs Laboratory Tests Test 06/17/16 18:03 06/17/16 21:42 06/17/16 23:38 06/18/16 05:30 Glucose (Fingerstick) 182mg/dL (70-99) 159mg/dL (70-99) 130mg/dL (70-99) 186mg/dL (70-99) White Blood Count 19.9x10^3/uL (4.0-11.0) Red Blood Count 2.67x10^6/uL (3.50-5.40) Hemoglobin 8.5g/dL (12.0-15.5) Hematocrit 26.2% (36.0-47.0) Mean Corpuscular Volume 98fL (79-100) Mean Corpuscular Hemoglobin 32pg (25-35) Mean Corpuscular Hemoglobin Concent 33g/dL (31-37) Red Cell Distribution Width 16.2% (11.5-14.5) Platelet Count 39x10^3/uL (140-400) Neutrophils (%) (Auto) 90% (31-73) Lymphocytes (%) (Auto) 4% (24-48) Monocytes (%) (Auto) 6% (0-9) Eosinophils (%) (Auto) 0% (0-3) Basophils (%) (Auto) 0% (0-3) Neutrophils # (Auto) 17.8x10^3uL (1.8-7.7) Lymphocytes # (Auto) 0.8x10^3/uL (1.0-4.8) Monocytes # (Auto) 1.3x10^3/uL (0.0-1.1) Eosinophils # (Auto) 0.0x10^3/uL (0.0-0.7) Basophils # (Auto) 0.0x10^3/uL (0.0-0.2) Platelet Estimate Decreased (ADEQUATE) Giant Platelets Present Poikilocytosis Present Basophilic Stippling Present Pappenheimer Bodies Few [place] Bodies Present Prothrombin Time 21.0SEC (11.7-14.0) Prothromb Time International Ratio 1.9 (0.8-1.1) Sodium Level 147mmol/L (136-145) Potassium Level 3.3mmol/L (3.5-5.1) Chloride Level 108mmol/L (98-107) Carbon Dioxide Level 34mmol/L (21-32) Anion Gap 5 (6-14) Blood Urea Nitrogen 19mg/dL (7-20) Creatinine 0.4mg/dL (0.6-1.0) Estimated GFR (Cockcroft-Gault) 160.7 BUN/Creatinine Ratio 48 (6-20) Glucose Level 187mg/dL (70-99) Calcium Level 8.1mg/dL (8.5-10.1) Phosphorus Level 3.0mg/dL (2.6-4.7) Magnesium Level 2.3mg/dL (1.8-2.4) Total Bilirubin 2.4mg/dL (0.2-1.0) Aspartate Amino Transf (AST/SGOT) 25U/L (15-37) Alanine Aminotransferase (ALT/SGPT) 27U/L (14-59) Alkaline Phosphatase 75U/L (46-116) Ammonia 31mcmol/L (11-34) Total Protein 4.3g/dL (6.4-8.2) Albumin 2.7g/dL (3.4-5.0) Albumin/Globulin Ratio 1.7 (1.0-1.7) Test 06/18/16 08:00 06/18/16 12:31 06/18/16 17:59 06/19/16 00:24 O2 Saturation 95% (92-99) Arterial Blood pH 7.57 (7.35-7.45) Arterial Blood pCO2 at Patient Temp 34mmHg (35-46) Arterial Blood pO2 at Patient Temp 74mmHg (65-108) Arterial Blood HCO3 31mmol/L (21-28) Arterial Blood Base Excess 8mmol/L (-3-3) FiO2 40 Glucose (Fingerstick) 240mg/dL (70-99) 186mg/dL (70-99) 244mg/dL (70-99) Test 06/19/16 05:30 06/19/16 05:37 06/19/16 08:00 White Blood Count 20.5x10^3/uL (4.0-11.0) Red Blood Count 2.67x10^6/uL (3.50-5.40) Hemoglobin 8.5g/dL (12.0-15.5) Hematocrit 26.2% (36.0-47.0) Mean Corpuscular Volume 98fL (79-100) Mean Corpuscular Hemoglobin 32pg (25-35) Mean Corpuscular Hemoglobin Concent 32g/dL (31-37) Red Cell Distribution Width 15.8% (11.5-14.5) Platelet Count 36x10^3/uL (140-400) Neutrophils (%) (Auto) 89% (31-73) Lymphocytes (%) (Auto) 4% (24-48) Monocytes (%) (Auto) 7% (0-9) Eosinophils (%) (Auto) 0% (0-3) Basophils (%) (Auto) 1% (0-3) Neutrophils # (Auto) 18.3x10^3uL (1.8-7.7) Lymphocytes # (Auto) 0.7x10^3/uL (1.0-4.8) Monocytes # (Auto) 1.4x10^3/uL (0.0-1.1) Eosinophils # (Auto) 0.0x10^3/uL (0.0-0.7) Basophils # (Auto) 0.1x10^3/uL (0.0-0.2) Sodium Level 145mmol/L (136-145) Potassium Level 4.0mmol/L (3.5-5.1) Chloride Level 107mmol/L (98-107) Carbon Dioxide Level 36mmol/L (21-32) Anion Gap 2 (6-14) Blood Urea Nitrogen 21mg/dL (7-20) Creatinine 0.4mg/dL (0.6-1.0) Estimated GFR (Cockcroft-Gault) 160.7 Glucose Level 253mg/dL (70-99) Calcium Level 8.1mg/dL (8.5-10.1) Phosphorus Level 3.0mg/dL (2.6-4.7) Magnesium Level 2.3mg/dL (1.8-2.4) Glucose (Fingerstick) 244mg/dL (70-99) O2 Saturation 96% (92-99) Arterial Blood pH 7.56 (7.35-7.45) Arterial Blood pCO2 at Patient Temp 36mmHg (35-46) Arterial Blood pO2 at Patient Temp 85mmHg (65-108) Arterial Blood HCO3 31mmol/L (21-28) Arterial Blood Base Excess 9mmol/L (-3-3) FiO2 40 Laboratory Tests Test 06/18/16 12:31 06/18/16 17:59 06/19/16 00:24 06/19/16 05:30 Glucose (Fingerstick) 240mg/dL (70-99) 186mg/dL (70-99) 244mg/dL (70-99) White Blood Count 20.5x10^3/uL (4.0-11.0) Red Blood Count 2.67x10^6/uL (3.50-5.40) Hemoglobin 8.5g/dL (12.0-15.5) Hematocrit 26.2% (36.0-47.0) Mean Corpuscular Volume 98fL (79-100) Mean Corpuscular Hemoglobin 32pg (25-35) Mean Corpuscular Hemoglobin Concent 32g/dL (31-37) Red Cell Distribution Width 15.8% (11.5-14.5) Platelet Count 36x10^3/uL (140-400) Neutrophils (%) (Auto) 89% (31-73) Lymphocytes (%) (Auto) 4% (24-48) Monocytes (%) (Auto) 7% (0-9) Eosinophils (%) (Auto) 0% (0-3) Basophils (%) (Auto) 1% (0-3) Neutrophils # (Auto) 18.3x10^3uL (1.8-7.7) Lymphocytes # (Auto) 0.7x10^3/uL (1.0-4.8) Monocytes # (Auto) 1.4x10^3/uL (0.0-1.1) Eosinophils # (Auto) 0.0x10^3/uL (0.0-0.7) Basophils # (Auto) 0.1x10^3/uL (0.0-0.2) Sodium Level 145mmol/L (136-145) Potassium Level 4.0mmol/L (3.5-5.1) Chloride Level 107mmol/L (98-107) Carbon Dioxide Level 36mmol/L (21-32) Anion Gap 2 (6-14) Blood Urea Nitrogen 21mg/dL (7-20) Creatinine 0.4mg/dL (0.6-1.0) Estimated GFR (Cockcroft-Gault) 160.7 Glucose Level 253mg/dL (70-99) Calcium Level 8.1mg/dL (8.5-10.1) Phosphorus Level 3.0mg/dL (2.6-4.7) Magnesium Level 2.3mg/dL (1.8-2.4) Test 06/19/16 05:37 06/19/16 08:00 Glucose (Fingerstick) 244mg/dL (70-99) O2 Saturation 96% (92-99) Arterial Blood pH 7.56 (7.35-7.45) Arterial Blood pCO2 at Patient Temp 36mmHg (35-46) Arterial Blood pO2 at Patient Temp 85mmHg (65-108) Arterial Blood HCO3 31mmol/L (21-28) Arterial Blood Base Excess 9mmol/L (-3-3) FiO2 40 Microbiology 06/18/16 Gram Stain - Final, Complete Thrombocytopenia noted. INR out a bit (getting any Vit K?--usually nil amount in TPN). Medications Current Medications Azithromycin (Zithromax) 250 mg DAILY PO ; Start 06/10/16 at 20:00; Stop 06/11/16 at 19:15; Status DC Budesonide 0.5 mg 0.5 mg RTBID NEB Last administered on 06/19/16 09:33; Start 06/10/16 at 20:00 Ceftriaxone Sodium/Sodium Chloride (Rocephin/Iv Sodium Chloride 0.9% 50ml) 50 ml @ 100 mls/hr Q24H IV Last administered on 06/10/16 20:28; Start 06/10/16 at 21:00; Stop 06/11/16 at 12:18; Status DC Fentanyl Citrate (Fentanyl 2ml Vial) 50 mcg PRN Q3HRS PRN IV PAIN Last administered on 06/19/16 04:40; Start 06/10/16 at 19:30 Gabapentin (Neurontin) 300 mg TID PO Last administered on 06/19/16 10:51; Start 06/10/16 at 21:00 Albuterol/ Ipratropium (Duoneb) 3 ml RTQID NEB Last administered on 06/19/16 11:53; Start 06/10/16 at 20:00 Letrozole 2.5 mg 2.5 mg DAILY PO Last administered on 06/19/16 10:46; Start at 09:00 Potassium Chloride/Sodium Chloride (KCl 40 Meq-NS 1,000 ml Iv Soln) 1,000 ml @ 100 mls/hr Q10H IV Last administered on 06/10/16 22:45; Start 06/10/16 at 20:00 ; Stop 06/11/16 at 08:08; Status DC Prednisone (Prednisone) 50 mg DAILY PO Last administered on 06/12/16 09:02; Start 06/10/16 at 20:00; Stop 06/12/16 at 10:23; Status DC Albuterol Sulfate 2.5 mg 2.5 mg PRN Q4HRS PRN NEB SHORTNESS OF BREATH Last administered on 06/11/16 05:37; Start 06/11/16 at 04:45 Sodium Chloride 1,000 ml @ 75 mls/hr [id number] IV Last administered on 06/12/16 11:22; Start 06/11/16 at 08:15; Stop 06/12/16 at 12:26; Status DC Piperacillin Sod/ Tazobactam Sod/ Sodium Chloride (Zosyn/Iv Sodium Chloride 0.9 % 50ml) 50 ml @ 100 mls/hr Q6HRS IV Last administered on 06/11/16 14:10; Start 06/11/16 at 13:00; Stop 06/11/16 at 19:15; Status DC Furosemide 40 mg 40 mg 1X ONCE IVP Last administered on 06/11/16 13:22; Start 06/11/16 at 13:00; Stop 06/11/16 at 13:08; Status DC Norepinephrine Bitartrate 8 mg/ Sodium Chloride 258 ml @ 1.93 mls/hr ONCE ONCE IV Last administered on 06/11/16 15:15; Start 06/11/16 at 15:15; Stop at 10:59; Status DC Epinephrine HCl 4 mg/Sodium Chloride 254 ml @ 3.81 mls/hr ONCE ONCE IV Last administered on 06/11/16 15:55; Start 06/11/16 at 15:45; Stop 06/11/16 at 19:05; Status DC Epinephrine HCl 4 mg/Sodium Chloride 254 ml @ 0 mls/hr CONT PRN IV SEE I/O RECORD; Start 06/11/16 at 16:00 Vasopressin 40 unit/Dextrose 102 ml @ 6 mls/hr CONT PRN IV SEE I/O RECORD Last administered on 06/11/16 15:54; Start 06/11/16 at 15:45 Sodium Chloride 1,000 ml @ 1,000 mls/hr 1X ONCE IV Last administered on 15:58; Start 06/11/16 at 15:45; Stop 06/11/16 at 16:44; Status DC Sodium Chloride 1,000 ml @ 1,000 mls/hr 1X ONCE IV Last administered on 16:04; Start 06/11/16 at 15:45; Stop 06/11/16 at 16:44; Status DC Sodium Chloride (Iv Sodium Chloride 0.9% 1000ml Bag) 1,000 ml @ 1,000 mls/hr 1X ONCE IV Last administered on 06/11/16 16:04; Start 06/11/16 at 15:45; Stop 06/11/16 at 16:44; Status DC Pantoprazole Sodium 40 mg 40 mg [id number] IVP Last administered on 06/19/16 05:51 ; Start 06/11/16 at 18:00 Midazolam HCl 100 ml @ 0 mls/hr CONT PRN IV SEE I/O RECORD Last administered on 06/18/16 02:00; Start 06/11/16 at 17:00 Sodium Chloride (Iv Sodium Chloride 0.9% 1000ml Bag) 1,000 ml @ 150 mls/hr 1X ONCE IV Last administered on 06/11/16 17:07; Start 06/11/16 at 17:00; Stop at 23:39; Status DC Dextrose 25 gm STK-MED ONCE IV ; Start 06/11/16 at 17:15; Stop 06/11/16 at 17:16; Status DC Dextrose 25 gm 1X ONCE IV Last administered on 06/11/16 17:47; Start 06/11/16 at 17:30; Stop 06/11/16 at 17:31; Status DC Sodium Bicarbonate 100 meq 100 meq 1X ONCE IV Last administered on 06/11/16 17 :46; Start 06/11/16 at 17:30; Stop 06/11/16 at 17:31; Status DC Nicardipine HCl 50 mg/Sodium Chloride 270 ml @ 0 mls/hr CONT PRN IV SEE I/O RECORD; Start 06/11/16 at 17:45; Status Cancel Ceftriaxone Sodium/Sodium Chloride (Rocephin/Iv Sodium Chloride 0.9% 50ml) 50 ml @ 100 mls/hr Q24H IV Last administered on 06/11/16 18:37; Start 06/11/16 at 18:00; Stop 06/12/16 at 12:55; Status DC Vancomycin HCl 1 each 1 each PRN DAILY PRN MC SEE COMMENTS Last administered on 06/11/16 19:17; Start 06/11/16 at 18:00; Stop 06/12/16 at 12:58; Status DC Vancomycin HCl 1 gm/Sodium Chloride 250 ml @ 250 mls/hr 1X ONCE IV Last administered on 06/11/16 18:37; Start 06/11/16 at 18:30; Stop 06/11/16 at 19:29; Status DC Vancomycin HCl/ Sodium Chloride (Iv Sodium Chloride 0.9% 250ml) 250 ml @ 250 mls/hr Q12H IV Last administered on 06/12/16 06:18; Start 06/12/16 at 06:00; Stop 06/12/16 at 12:55; Status DC Vancomycin HCl 1 each 1 each 1X ONCE MC ; Start 06/13/16 at 05:30; Stop 06/13/16 at 05:30; Status DC Norepinephrine Bitartrate/Sodium Chloride (Levophed Vial/ Iv Sodium Chloride 0.9 % 250ml) 258 ml @ 0 mls/hr CONT PRN IV SEE I/O RECORD Last administered on 07:37; Start 06/12/16 at 00:45 Epinephrine HCl 1 mg STK-MED ONCE .ROUTE ; Start 06/11/16 at 12:00; Stop 06/12/16 at 08:13; Status DC Hydrocortisone Sodium Succinate (Solu-Cortef) 100 mg Q8HRS IV Last administered on 06/15/16 06:21; Start 06/12/16 at 11:00; Stop 06/15/16 at 11:24 ; Status DC Enoxaparin Sodium (Lovenox 40mg Syringe) 40 mg Q24H SQ Last administered on 06/13 10:49; Start 06/12/16 at 11:00; Stop 06/13/16 at 12:35; Status DC Famotidine 20 mg 20 mg BID IVP Last administered on 06/13/16 09:10; Start at 11:00; Stop 06/13/16 at 09:59; Status DC Sodium Chloride 1,000 ml @ 1,000 mls/hr 1X ONCE IV Last administered on 11:25; Start 06/12/16 at 11:30; Stop 06/12/16 at 12:29; Status DC Dextrose/Sodium Chloride 1,000 ml @ 75 mls/hr [id number] IV Last administered on 06/13/16 20:44; Start 06/12/16 at 13:00; Stop 06/14/16 at 17:39; Status DC Piperacillin Sod/ Tazobactam Sod 3.375 gm/Sodium Chloride 50 ml @ 100 mls/hr Q6HRS IV Last administered on 06/19/16 05:50; Start 06/12/16 at 13:30 Linezolid 300 ml @ 300 mls/hr Q12HR IV Last administered on 06/15/16 20:48; Start 06/12/16 at 13:30; Stop 06/16/16 at 08:39; Status DC Sodium Chloride 1,000 ml @ 1,000 mls/hr 1X ONCE IV Last administered on 15:30; Start 06/12/16 at 15:30; Stop 06/12/16 at 16:29; Status DC Sodium Chloride 500 ml @ 0 mls/hr 1X ONCE IV Last administered on 06/12/16 15: 44; Start 06/12/16 at 16:00; Stop 06/12/16 at 16:01; Status DC Sodium Chloride 1,000 ml @ 0 mls/hr 1X ONCE IV Last administered on 06/13/16 07:43; Start 06/13/16 at 07:45; Stop 06/13/16 at 07:46; Status DC Sodium Chloride (Iv Sodium Chloride 0.45%) 500 ml @ 0 mls/hr 1X ONCE IV Last administered on 06/13/16 07:43; Start 06/13/16 at 07:45; Stop 06/13/16 at 07:46; Status DC Midazolam HCl (Versed) 5 mg STK-MED ONCE .ROUTE ; Start 06/10/16 at 12:00; Stop 06/13/16 at 08:28; Status DC Epinephrine HCl 3 mg STK-MED ONCE .ROUTE ; Start 06/10/16 at 12:00; Stop 06/13/16 at 08:28; Status DC Dopamine HCl/ Dextrose 400 mg STK-MED ONCE IV ; Start 06/10/16 at 12:00; Stop 06/13/16 at 08:28; Status DC Lidocaine/Sodium Bicarbonate (Buffered Lidocaine 1%) 3 ml 1X ONCE IJ Last administered on 06/13/16 09:55; Start 06/13/16 at 09:00; Stop 06/13/16 at 09:01; Status DC Heparin Sodium/ Sodium Chloride 60 unit 1X ONCE IV Last administered on 09:55; Start 06/13/16 at 09:00; Stop 06/13/16 at 09:01; Status DC Sodium Bicarbonate 100 meq 100 meq 1X ONCE IV Last administered on 06/13/16 10 :06; Start 06/13/16 at 09:45; Stop 06/13/16 at 09:46; Status DC Albumin Human (Plasmanate) 500 ml @ 62.5 mls/hr 1X ONCE IV Last administered on 06/13/16 10:06; Start 06/13/16 at 09:45; Stop 06/13/16 at 17:44; Status DC Chlorhexidine Gluconate (Peridex) 15 ml BID MM Last administered on 06/19/16 10:51; Start 06/13/16 at 21:00 Potassium Chloride (Klor-Con) 20 meq TIDWMEALS PO Last administered on 12:31; Start 06/13/16 at 12:30; Stop 06/13/16 at 15:56; Status DC Calcium Carbonate/ Glycine (Oscal) 1,000 mg TIDAFTMEAL PO Last administered on 06/16/16 12:49; Start 06/13/16 at 13:00; Stop 06/18/16 at 09:30; Status DC Vitamin D (Vitamin D3) 5,000 unit DAILY PO Last administered on 06/16/16 10:26 ; Start 06/13/16 at 13:00; Stop 06/18/16 at 09:30; Status DC Phytonadione (Mephyton) 10 mg DAILY PO Last administered on 06/16/16 10:26; Start 06/13/16 at 13:00; Stop 06/18/16 at 09:30; Status DC Potassium Chloride (KCl Oral Soln) 20 meq TIDWMEALS PEG Last administered on 10:41; Start 06/13/16 at 17:00; Stop 06/14/16 at 12:26; Status DC Insulin Aspart (Novolog) 0-5 UNITS Q6HRS SQ Last administered on 06/19/16 05: 58; Start 06/14/16 at 12:00 Dextrose 12.5 gm 12.5 gm PRN Q15MIN PRN IV SEE COMMENTS; Start 06/14/16 at 06:45 Potassium Chloride (KCl Premix 20meq) 50 ml @ 25 mls/hr Q2H IV ; Start 06/14/16 at 07:00; Stop 06/14/16 at 14:59; Status Cancel Iohexol (Omnipaque 240 Mg/ml) 30 ml 1X ONCE PO Last administered on 06/14/16 08:30; Start 06/14/16 at 08:30; Stop 06/14/16 at 08:31; Status DC Iohexol (Omnipaque 300 Mg/ml) 75 ml 1X ONCE IV Last administered on 06/14/16 17:58; Start 06/14/16 at 08:30; Stop 06/14/16 at 08:31; Status DC Info (Do NOT chart on this entry -- for MONITORING) 1 each PRN DAILY PRN MC SEE COMMENTS; Start 06/14/16 at 08:45; Stop 06/16/16 at 08:44; Status DC Potassium Chloride (Klor-Con) 40 meq Q2H PO Last administered on 06/14/16 14:16 ; Start 06/14/16 at 12:30; Stop 06/14/16 at 14:31; Status DC Info 1 each 1 each PRN DAILY PRN MC SEE COMMENTS Last administered on 10:54; Start 06/14/16 at 15:00 Potassium Chloride 50 ml @ 50 mls/hr Q1H IV ; Start 06/14/16 at 15:15; Stop at 17:14; Status DC Sodium Acetate 90 meq/Potassium Chloride 25 meq/ Potassium Acetate 25 meq/ Potassium Phosphate 16 mmol/ Magnesium Sulfate 12 meq/Calcium Gluconate 5 meq/ Multivitamins 10 ml/Chromium/ Copper/Manganese/ Seleni/Zn 1 ml/ Total Parenteral Nutrition/Amino Acids/Dextrose/ Fat Emulsion Intravenous 1,512 ml @ 63 mls/hr TPN CONT IV Last administered on 06/14/16 21:34; Start 06/14/16 at 22 :00; Stop 06/15/16 at 21:59; Status DC Sodium Phosphate 15 mmol/Dextrose 255 ml @ 63.75 mls/ hr 1X ONCE IV Last administered on 06/14/16 17:45; Start 06/14/16 at 17:30; Stop 06/14/16 at 21:29; Status DC Magnesium Sulfate/ Dextrose 50 ml @ 25 mls/hr 1X ONCE IV Last administered on 06/14/16 17:45; Start 06/14/16 at 16:00; Stop 06/14/16 at 17:59; Status DC Potassium Chloride (KCl Premix 20meq) 50 ml @ 25 mls/hr Q2H IV Last administered on 06/14/16 20:33; Start 06/14/16 at 17:45; Stop 06/14/16 at 21:44; Status DC Hydrocortisone Sodium Succinate 50 mg 50 mg Q8HRS IV Last administered on 05:50; Start 06/15/16 at 14:00 Sodium Phosphate 15 mmol/Dextrose 255 ml @ 63.75 mls/ hr 1X ONCE IV Last administered on 06/15/16 12:54; Start 06/15/16 at 13:00; Stop 06/15/16 at 16:59 ; Status DC Sodium Acetate 90 meq/Potassium Chloride 25 meq/ Potassium Acetate 25 meq/ Potassium Phosphate 24 mmol/ Magnesium Sulfate 12 meq/Calcium Gluconate 5 meq/ Multivitamins 10 ml/Chromium/ Copper/Manganese/ Seleni/Zn 1 ml/ Total Parenteral Nutrition/Amino Acids/Dextrose/ Fat Emulsion Intravenous 1,512 ml @ 63 mls/hr TPN CONT IV Last administered on 06/15/16 21:55; Start 06/15/16 at 22:00; Stop 06/16/16 at 21:59; Status DC Sodium Acetate 90 meq/Potassium Chloride 25 meq/ Potassium Acetate 25 meq/ Potassium Phosphate 24 mmol/ Magnesium Sulfate 12 meq/Calcium Gluconate 5 meq/ Multivitamins 10 ml/Chromium/ Copper/Manganese/ Seleni/Zn 1 ml/ Total Parenteral Nutrition/Amino Acids/Dextrose/ Fat Emulsion Intravenous 1,512 ml @ 63 mls/hr TPN CONT IV Last administered on 06/16/16 21:47; Start 06/16/16 at 22:00; Stop 06/17/16 at 21:59; Status DC Albumin Human 500 ml @ 50 mls/hr PRN BID PRN IV hypotention/low albumin Last administered on 06/16/16 21:48; Start 06/16/16 at 12:30; Stop 06/17/16 at 12:30 ; Status DC Albumin Human 500 ml @ 50 mls/hr CONT IV ; Start 06/17/16 at 12:30; Status UNV Albumin Human 500 ml @ 50 mls/hr BID IV Last administered on 06/16/16 12:53; Start 06/16/16 at 13:00; Stop 06/16/16 at 13:00; Status DC Albumin Human (Albuminar) 50 ml @ 50 mls/hr TID IV Last administered on 08:47; Start 06/16/16 at 14:00; Stop 06/17/16 at 09:59; Status DC Haloperidol Lactate (Haldol) 2 mg PRN Q2HR PRN IVP ANXIETY Last administered on 06/16/16 23:59; Start 06/16/16 at 20:15 Succinylcholine Chloride 200 mg 200 mg STK-MED ONCE .ROUTE ; Start 06/17/16 at 00:54; Stop 06/17/16 at 00:56; Status DC Propofol (Diprivan) 100 ml @ As Directed STK-MED ONCE IV ; Start 06/17/16 at 00 :54; Stop 06/17/16 at 00:56; Status DC Furosemide 40 mg 40 mg 1X ONCE IVP Last administered on 06/17/16 11:35; Start 06/17/16 at 11:30; Stop 06/17/16 at 11:31; Status DC Albumin Human 500 ml @ 125 mls/hr 1X ONCE IV Last administered on 06/17/16 11:32; Start 06/17/16 at 12:30; Stop 06/17/16 at 16:29; Status DC Sodium Acetate 90 meq/Potassium Chloride 25 meq/ Potassium Acetate 25 meq/ Potassium Phosphate 24 mmol/ Magnesium Sulfate 12 meq/Calcium Gluconate 5 meq/ Multivitamins 10 ml/Chromium/ Copper/Manganese/ Seleni/Zn 1 ml/ Total Parenteral Nutrition/Amino Acids/Dextrose/ Fat Emulsion Intravenous 1,512 ml @ 63 mls/hr TPN CONT IV Last administered on 06/17/16 22:33; Start 06/17/16 at 22:00; Stop 06/18/16 at 21:59; Status DC Linezolid (Zyvox Premix) 300 ml @ 300 mls/hr Q12HR IV Last administered on 10:51; Start 06/18/16 at 09:00 Propofol (Diprivan) 1,000 mg STK-MED ONCE IV ; Start 06/17/16 at 01:00; Stop at 08:13; Status DC Succinylcholine Chloride (Anectine) 200 mg STK-MED ONCE .ROUTE ; Start 06/17/16 at 01:00; Stop 06/18/16 at 08:13; Status DC Potassium Chloride 40 meq 40 meq 1X ONCE NG Last administered on 06/18/16 12: 35; Start 06/18/16 at 11:15; Stop 06/18/16 at 11:16; Status DC Sodium Acetate 90 meq/Potassium Chloride 25 meq/ Potassium Acetate 45 meq/ Potassium Phosphate 24 mmol/ Magnesium Sulfate 12 meq/Calcium Gluconate 5 meq/ Multivitamins 10 ml/Chromium/ Copper/Manganese/ Seleni/Zn 1 ml/ Total Parenteral Nutrition/Amino Acids/Dextrose/ Fat Emulsion Intravenous 1,397 ml @ 58.208 mls/ hr TPN CONT IV ; Start 06/18/16 at 22:00; Stop 06/19/16 at 21:59; Status Cancel Sodium Acetate 60 meq/Potassium Chloride 25 meq/ Potassium Acetate 45 meq/ Potassium Phosphate 24 mmol/ Magnesium Sulfate 12 meq/Calcium Gluconate 5 meq/ Multivitamins 10 ml/Chromium/ Copper/Manganese/ Seleni/Zn 1 ml/ Total Parenteral Nutrition/Amino Acids/Dextrose/ Fat Emulsion Intravenous 1,512 ml @ 63 mls/hr TPN CONT IV Last administered on 06/18/16t 21:54; Start 06/18/16 at 22:00; Stop 06/19/16 at 21:59 Sodium Acetate 60 meq/Potassium Chloride 25 meq/ Potassium Acetate 45 meq/ Potassium Phosphate 24 mmol/ Magnesium Sulfate 12 meq/Calcium Gluconate 5 meq/ Multivitamins 10 ml/Chromium/ Copper/Manganese/ Seleni/Zn 1 ml/ Total Parenteral Nutrition/Amino Acids/Dextrose/ Fat Emulsion Intravenous 1,512 ml @ 63 mls/hr TPN CONT IV ; Start 06/19/16 at 22:00; Stop 06/20/16 at 21:59 Albumin Human (Albuminar) 100 ml @ 100 mls/hr TID IV ; Start 06/19/16 at 14:00 Furosemide (Lasix) 20 mg TID IVP ; Start 06/19/16 at 14:00 Active Scripts Active Warfarin Sodium 5 Mg Tablet 1 Tab PO DAILY Cipro (Ciprofloxacin Hcl) 500 Mg Tablet 1 Tab PO BID Reported Anoro Ellipta 62.5-25 Mcg Inh (Umeclidinium Brm/Vilanterol Tr) 1 Each Disk.w.dev 1 Each IH DAILY Oxycodone Hcl 20 Mg Tablet 20 Mg PO PRN Q4HRS PRN Gabapentin 300 Mg Capsule 1 Cap PO BID Flovent 110MCG Hfa (Fluticasone Propionate) 12 Gm Aer.w.adap 2 Puff IH BID Breo Ellipta 200-25 Mcg INH (Fluticasone/Vilanterol) 1 Each Blst.w.dev 1 Each IH DAILY Proair Hfa Inhaler (Albuterol Sulfate) 8.5 Gm Hfa.aer.ad 2 Puff IH PRN QID PRN Lorazepam 0.5 Mg Tablet 0.5 Mg PO Q4HRS PRN Ondansetron Hcl 4 Mg Tablet 1 Tab PO PRN Q4HRS Spiriva (Tiotropium Maple) 18 Mcg Cap.w.dev 1 Cap IH DAILY Femara (Letrozole) 2.5 Mg Tablet 2.5 Mg PO DAILY Vitals/I & O Vital Sign - Last 24 Hours 06/18/16 06/18/16 06/18/16 06/18/16 12:16 13:04 14:00 14:05 Pulse 86 88 Resp 23 20 B/P 106/65 109/71 Pulse Ox 100 100 100 100 O2 Delivery Ventilator Ventilator Ventilator Ventilator 06/18/16 06/18/16 06/18/16 06/18/16 15:00 16:00 16:00 16:09 Temp 99.2 99.2 Pulse 87 82 Resp 21 16 B/P 108/67 111/73 Pulse Ox 100 100 100 O2 Delivery Ventilator Ventilator Mechanical Ventilator Ventilator 06/18/16 06/18/16 06/18/16 06/18/16 17:00 18:00 19:00 19:44 Pulse 80 80 83 Resp 18 B/P 115/72 119/70 113/68 Pulse Ox 100 100 100 100 O2 Delivery Ventilator Ventilator Ventilator Ventilator 06/18/16 06/18/16 06/18/16 06/18/16 20:00 20:00 21:00 21:08 Temp 98.9 98.9 Pulse 93 95 Resp 17 21 21 B/P 110/69 112/72 Pulse Ox 100 100 100 O2 Delivery Ventilator Mechanical Ventilator Ventilator O2 Flow Rate 6.0 06/18/16 06/18/16 06/18/16 06/19/16 22:00 23:00 23:24 00:00 Temp 98.1 98.1 Pulse 97 96 92 Resp 17 19 19 B/P 113/71 118/75 109/65 Pulse Ox 100 100 96 100 O2 Delivery Ventilator Ventilator Ventilator Ventilator 06/19/16 06/19/16 06/19/16 06/19/16 00:00 01:00 02:00 03:00 Pulse 94 94 94 Resp 16 16 16 B/P 97/63 114/78 121/78 Pulse Ox 100 100 100 O2 Delivery Mechanical Ventilator Ventilator Ventilator Ventilator 06/19/16 06/19/16 06/19/16 06/19/16 04:00 04:00 04:03 04:40 Temp 98.5 98.5 Pulse 96 Resp 18 19 B/P 119/73 Pulse Ox 100 100 100 O2 Delivery Mechanical Ventilator Ventilator Ventilator Ventilator O2 Flow Rate 6.0 06/19/16 06/19/16 06/19/16 06/19/16 05:00 05:10 06:00 08:00 Pulse 89 88 Resp B/P 104/68 104/67 Pulse Ox 100 100 100 O2 Delivery Ventilator Ventilator Ventilator Mechanical Ventilator O2 Flow Rate 6.0 06/19/16 06/19/16 06/19/16 08:33 11:54 12:08 Pulse Ox 99 99 O2 Delivery Ventilator Ventilator Mechanical Ventilator Intake and Output 06/18/16 06/18/16 06/19/16 15:00 23:00 07:00 Intake Total 339 ml 1712 ml Output Total 350 ml 325 ml 400 ml Balance -350 ml 14 ml 1312 ml Assessment Intolerant of tube feeding, cause unclear, but question of GOO at admission. Severe malnutrition; clear much of protein loss may be wounds. Ongoing respiratory failure; trach being contemplated, though coagulopathy. Plan of Care: Continue current Tx, Mgmt Plan of Care Note Will stand by. JOSELUIS TABOR MD Jun 19, 2016 12:23
[2016-06-19] MEDS ORDERED: FUROSEMIDE 20 MG/2 ML VIAL IVP SCH (14:00)
[2016-06-19] MEDS ORDERED: ALBUMIN HUMAN 25% 100 ML IV SCH (14:00)
[2016-06-19 14:06] LABS: INR 1.6 (0.8-1.1); PROTHROMBIN TIME PATIENT 18.2 SEC (11.7-14.0)
--- NOTE | 2016-06-19 16:51 | PDOC ---
Provider Note Provider Note I had a long discussion this afternoon with the patient's with the aid of an feather boner. The patient was also awake and participated in the discussion although she is intubated. The platelets remain below 40,000 today. The INR is better 1.6. I explained the benefits of the tracheostomy which include comfort, rapid weaning from the ventilator, his risk of ventilator associated pneumonia. I also explained the risks, predominantly hemorrhage. The patient and the would like to proceed with a tracheostomy. We will give 2 pools of platelets tomorrow morning and then repeat a platelet count. If the platelets are close to 70,000, we will proceed with a tracheostomy. Otherwise we will wait for the platelets to spontaneously recover. CASSIE JUAREZ MD Jun 19, 2016 16:50
[2016-06-19] MEDS: ALBUMIN HUMAN 25% 100 ML IV SCH (21:58)
[2016-06-19] MEDS: FUROSEMIDE 20 MG/2 ML VIAL IVP SCH (21:59)
[2016-06-19] MEDS ORDERED: TOTAL PARENTERAL NUTRITION IV SCH ×11 (22:00)
[2016-06-19] MEDS ORDERED: [UNRECOGNIZED DRUG - OTHER] IV SCH ×11 (22:00)
[2016-06-19] MEDS ORDERED: DEXTROSE 70% IV SCH ×11 (22:00)
[2016-06-19] MEDS ORDERED: AMINO ACIDS IV SCH ×11 (22:00)
[2016-06-20] VITALS (36 sets, daily range): BP systolic 100–141; BP diastolic 58–78
--- NOTE | 2016-06-20 01:28 | PN ---
DATE: 06/19/2016 SUBJECTIVE: The patient is resting slightly propped up in bed, continues to be intubated and mechanically ventilated. She is off sedation. She is awake, alert with a plan for the cardiothoracic surgeon and her to come together and ask her whether she wants to have a tracheostomy or not. Dr. Silva also recommended debridement of her left trochanteric decubitus ulcer and the pharmacist recommended human albumin 25 grams 3 times a day with 20 mg of Lasix 3 times a day. PHYSICAL EXAMINATION: GENERAL: When I saw her, she looked pale, cachectic. No jaundice, cyanosis or thyromegaly. No jugular venous distension. No lower limb edema. VITAL SIGNS: Her heart rate was 88, blood pressure was 104/67, temperature was 98.5, respiratory rate was 18 and oxygen saturation was 100% on FiO2 of 40%. HEAD, EYES, EARS, NOSE AND THROAT: Showed normocephalic, atraumatic. NECK: Supple. HEART: Showed normal first and second heart sounds with no gallop, rub or murmur. CHEST: Clear to auscultation. No crepitation or rhonchi. ABDOMEN: Distended, soft, nontender. NEUROLOGIC: She is awake, alert, opens eyes, tracks and responds appropriately. Cranial nerves intact. She moves her upper extremities to much good extent than lower extremities. She has left trochanteric decubitus ulcer and right nonhealing surgical wound after her recent hip replacement. Her intake was 2005 and output was 1075. LABORATORY DATA: Her lab work this morning showed a white cell count 20,500, hemoglobin was 8.5, hematocrit 26, MCV 98 and platelet count of 36,000. Her chemistry showed a serum sodium 145, potassium 4, chloride 107, bicarbonate 36, anion gap of 2, BUN 21, creatinine 0.4, estimated GFR was 160 mL per minute. Her glucose was 253, calcium was 8.1, magnesium was 2.2. ASSESSMENT: 1. Acute respiratory failure secondary to pneumonia and chronic obstructive pulmonary disease exacerbation. She was extubated on 02/17/2016, repeated again on 06/18/2016, with hypoxic respiratory failure, shock, hypovolemic, septic, present on admission, abnormal CT scan with bilateral tree-in-bud interstitial infiltrate suggesting infectious pneumonitis. 2. Possible chronic aspiration. 3. Tuberculosis, unlikely in the clinical setting of pulmonary alveolar lavage, was negative for tuberculosis. 4. Profound weight loss, multifactorial. 5. History of alcohol abuse. 6. Coagulopathy as well as alcoholic liver disease versus DIC. 7. Severe malnutrition. 8. Generalized anasarca. 9. Severe hypoalbuminemia. PLAN: To discuss with the patient and her the option of tracheostomy. We will consult the surgical team for debridement of her left trochanteric decubitus ulcer and will start her also on 25 grams of human albumin 3 times a day with 20 mg of Lasix 3 times a day and repeat her lab work tomorrow. TODD MILLER MD DR: FRANCISCO JAVIER/sushil JOB#: [id number] / [id number]
[2016-06-20] MEDS: MIDAZOLAM PREMIX 100 ML IV PRN (03:38)
[2016-06-20 05:30] LABS: BASO # 0.1 x10^3/uL (0.0-0.2); BASO % 0 % (0-3); EOS % 0 % (0-3); LYMPH # 0.6 x10^3/uL (1.0-4.8); LYMPH % 4 % (24-48); MEAN CORPUSCULAR HEMOGLOBIN 32 pg (25-35); MEAN CORPUSCULAR HGB CONC 33 g/dL (31-37); MEAN CORPUSCULAR VOLUME 98 fL (79-100); MONO % 8 % (0-9); NEUT % 88 % (31-73); PLATELET COUNT 203 x10^3/uL (140-400); RED BLOOD COUNT 2.15 x10^6/uL (3.50-5.40); WHITE BLOOD COUNT 15.7 x10^3/uL (4.0-11.0)
[2016-06-20 05:53] LABS: ALBUMIN/GLOBULIN RATIO 1.7 (1.0-1.7); CALCIUM 8.4 mg/dL (8.5-10.1); CREATININE 0.4 mg/dL (0.6-1.0); GFR 160.7; POTASSIUM 3.2 mmol/L (3.5-5.1); TOTAL BILIRUBIN 1.9 mg/dL (0.2-1.0); TOTAL PROTEIN 4.8 g/dL (6.4-8.2)
[2016-06-20 05:58] LABS: HEMOGLOBIN 6.9 g/dL (12.0-15.5)
[2016-06-20] MEDS: HYDROCORTISONE SOD SUCC/PF 100 MG/2 ML VIAL. IV SCH ×3 (06:20→22:35)
[2016-06-20] MEDS: PIPERACILLIN/TAZOBACTAM 3.375 GM in IV NORMAL SALINE 50ML 50 ML IV SCH ×3 (06:20→17:37)
[2016-06-20] MEDS: PANTOPRAZOLE IV PUSH 40 MG VIAL. IVP SCH ×2 (06:20→17:37)
[2016-06-20] MEDS: FUROSEMIDE 20 MG/2 ML VIAL IVP SCH ×3 (06:21→22:16)
[2016-06-20] MEDS: ALBUMIN HUMAN 25% 100 ML IV SCH ×3 (06:21→22:12)
[2016-06-20 06:27] LABS: INR 1.6 (0.8-1.1)
--- NOTE | 2016-06-20 06:35 | PDOC ---
Infectious Disease Note Subjective Subjective s/p Reintubation 06/17 ROS ROS Unobtainable Vital Sign Vital Signs Vital Signs Date Time Temp Pulse Resp B/P Pulse Ox O2 Delivery O2 Flow Rate FiO2 06/20/16 06:00 56 13 128/70 100 Ventilator 06/20/16 04:44 96.7 96.7 Physical Exam PHYSICAL EXAM GENERAL: Alert, intubated, NAD deaf. Looks comfortable HEENT: PERRL, ETT. OGT LUNGS: CTA HEART: S1S2, no gallop, no murmur ABD: Soft, no grimace to palpation, mild distension : Mehta EXT: Anasarca. Wound dressed MANAGER CARGO: Alert, calm SKIN: No rash RIG (06/13). clean GENERAL: Intubated, NAD deaf. Looks comfortable HEENT: PERRL, ETT. OGT LUNGS: CTA HEART: S1S2, no gallop, no murmur ABD: Soft, no grimace to palpation, mild distension : Mehta EXT: Anasarca. Wound dressed MANAGER CARGO: calm SKIN: No rash RIG (06/13). clean Labs Lab Laboratory Tests Test 06/19/16 08:00 06/19/16 12:32 06/19/16 13:45 06/19/16 19:11 O2 Saturation 96% (92-99) Arterial Blood pH 7.56 (7.35-7.45) Arterial Blood pCO2 at Patient Temp 36mmHg (35-46) Arterial Blood pO2 at Patient Temp 85mmHg (65-108) Arterial Blood HCO3 31mmol/L (21-28) Arterial Blood Base Excess 9mmol/L (-3-3) FiO2 40 Glucose (Fingerstick) 306mg/dL (70-99) 217mg/dL (70-99) Prothrombin Time 18.2SEC (11.7-14.0) Prothromb Time International Ratio 1.6 (0.8-1.1) Test 06/19/16 23:29 06/20/16 05:10 06/20/16 05:11 Glucose (Fingerstick) 230mg/dL (70-99) 238mg/dL (70-99) White Blood Count 15.7x10^3/uL (4.0-11.0) Red Blood Count 2.15x10^6/uL (3.50-5.40) Hemoglobin 6.9g/dL (12.0-15.5) Hematocrit 21.0% (36.0-47.0) Mean Corpuscular Volume 98fL (79-100) Mean Corpuscular Hemoglobin 32pg (25-35) Mean Corpuscular Hemoglobin Concent 33g/dL (31-37) Red Cell Distribution Width 16.0% (11.5-14.5) Platelet Count 203x10^3/uL (140-400) Neutrophils (%) (Auto) 88% (31-73) Lymphocytes (%) (Auto) 4% (24-48) Monocytes (%) (Auto) 8% (0-9) Eosinophils (%) (Auto) 0% (0-3) Basophils (%) (Auto) 0% (0-3) Neutrophils # (Auto) 13.8x10^3uL (1.8-7.7) Lymphocytes # (Auto) 0.6x10^3/uL (1.0-4.8) Monocytes # (Auto) 1.2x10^3/uL (0.0-1.1) Eosinophils # (Auto) 0.0x10^3/uL (0.0-0.7) Basophils # (Auto) 0.1x10^3/uL (0.0-0.2) Sodium Level 146mmol/L (136-145) Potassium Level 3.2mmol/L (3.5-5.1) Chloride Level 104mmol/L (98-107) Carbon Dioxide Level 38mmol/L (21-32) Anion Gap 4 (6-14) Blood Urea Nitrogen 22mg/dL (7-20) Creatinine 0.4mg/dL (0.6-1.0) Estimated GFR (Cockcroft-Gault) 160.7 BUN/Creatinine Ratio 55 (6-20) Glucose Level 239mg/dL (70-99) Calcium Level 8.4mg/dL (8.5-10.1) Magnesium Level 2.2mg/dL (1.8-2.4) Total Bilirubin 1.9mg/dL (0.2-1.0) Aspartate Amino Transf (AST/SGOT) 24U/L (15-37) Alanine Aminotransferase (ALT/SGPT) 24U/L (14-59) Alkaline Phosphatase 84U/L (46-116) Total Protein 4.8g/dL (6.4-8.2) Albumin 3.0g/dL (3.4-5.0) Albumin/Globulin Ratio 1.7 (1.0-1.7) Objective Assessment Pulmonary infiltrates Cavitary pneumonia Acute Anemia Thrombocytopenia - better s/p transfusion Anasarca Left hip wound with necrotic tissue S/P CODE Respiratory failure s/p intubation/extubation and reintubation 06/17 - on Hydrocortisone -Bilat pleural effusions and atelectasis/consolidations . ? ARDS Leukocytosis, on steroids Thrombocytopenia, trending down Nonhealing right hip surgical wound w/ drainage wound intact but mild slough -h/o right hip replacement H/O ETOH H/O Pancreatitis Wt loss Plan Plan of Care Cont Zosyn/Zyvox F/u repeat sputum Await trach and hip wound debridement Labs in am Critically ill GROVER LANDRY MD Jun 20, 2016 06:35
[2016-06-20] MEDS: INSULIN ASPART 300 UNITS/3 ML INSULN.PEN SQ SCH ×4 (06:42→22:45)
[2016-06-20] MEDS ORDERED: LIDOCAINE 1% 1 ML SYRINGE. ID PRN (07:00)
[2016-06-20] MEDS ORDERED: MORPHINE SULFATE 2 MG/ML DISP.SYRIN. IV PRN (07:00)
[2016-06-20] MEDS ORDERED: IV RINGERS,LACTATED 1000ML 1,000 ML IV SCH (07:00)
[2016-06-20] MEDS ORDERED: FENTANYL PF 100 MCG/2 ML VIAL. IV PRN ×2 (07:00)
[2016-06-20] MEDS ORDERED: HYDROMORPHONE 2 MG/ML VIAL. IV PRN (07:00)
[2016-06-20] MEDS ORDERED: ONDANSETRON PF 4 MG/2 ML VIAL. IV PRN (07:00)
[2016-06-20] MEDS ORDERED: PROCHLORPERAZINE 10 MG/2 ML VIAL. IV PRN (07:00)
[2016-06-20] MEDS: BUDESONIDE 0.5 MG/2 ML NEBU NEB SCH ×2 (07:16→19:41)
[2016-06-20] MEDS: IPRATRPIUM/ALBUTEROL 0.5/2.5MG 3 ML NEBU. NEB SCH ×4 (07:17→19:41)
--- NOTE | 2016-06-20 07:34 | RAD ---
Portable chest, 06/20/2016: History: Respiratory failure, intubation Comparison is made to yesterday's study. The ET tube remains in place in satisfactory position. An NG tube extends into the stomach. A right jugular central venous catheter extends into the mid right atrium. The left ventricle is prominent. There are patchy bilateral pulmonary infiltrates. Consolidation in the left base has worsened slightly with increasing loss of definition of left hemidiaphragm. Right basilar infiltrates may have improved slightly. There is a small amount right-sided pleural fluid. There is no evidence of pneumothorax. IMPRESSION: 1. Stable tube positions. 2. Ongoing patchy bilateral pulmonary infiltrates with interval worsening in the left base.
[2016-06-20 08:01] LABS: HCO3 ABG 37 mmol/L (21-28); PCO2 ABG 46 mmHg (35-46); PH ABG 7.52 (7.35-7.45); PO2 ABG 111 mmHg (65-108); SAT O2 ABG 98 % (92-99)
[2016-06-20 08:03] LABS: FIO2 ABG 40
[2016-06-20] MEDS: LETROZOLE 2.5 MG TABLET. PO SCH (08:42)
[2016-06-20] MEDS: GABAPENTIN 300 MG CAPSULE. PO SCH ×3 (08:43→21:00)
--- NOTE | 2016-06-20 09:51 | PDOC ---
G I PROGRESS NOTE Subjective On vent. Did not awaken with exam. Objective Staff note no overt bleeding. For trach today. Physical Exam Lungs clear anteriorly. RRR with occasional extrasystole. Abdomen soft, not distended. Bowel sounds present. Review of Relevant I have reviewed the following items apryl (where applicable) has been applied. Labs Laboratory Tests Test 06/18/16 12:31 06/18/16 17:59 06/19/16 00:24 06/19/16 05:30 Glucose (Fingerstick) 240mg/dL (70-99) 186mg/dL (70-99) 244mg/dL (70-99) White Blood Count 20.5x10^3/uL (4.0-11.0) Red Blood Count 2.67x10^6/uL (3.50-5.40) Hemoglobin 8.5g/dL (12.0-15.5) Hematocrit 26.2% (36.0-47.0) Mean Corpuscular Volume 98fL (79-100) Mean Corpuscular Hemoglobin 32pg (25-35) Mean Corpuscular Hemoglobin Concent 32g/dL (31-37) Red Cell Distribution Width 15.8% (11.5-14.5) Platelet Count 36x10^3/uL (140-400) Neutrophils (%) (Auto) 89% (31-73) Lymphocytes (%) (Auto) 4% (24-48) Monocytes (%) (Auto) 7% (0-9) Eosinophils (%) (Auto) 0% (0-3) Basophils (%) (Auto) 1% (0-3) Neutrophils # (Auto) 18.3x10^3uL (1.8-7.7) Lymphocytes # (Auto) 0.7x10^3/uL (1.0-4.8) Monocytes # (Auto) 1.4x10^3/uL (0.0-1.1) Eosinophils # (Auto) 0.0x10^3/uL (0.0-0.7) Basophils # (Auto) 0.1x10^3/uL (0.0-0.2) Sodium Level 145mmol/L (136-145) Potassium Level 4.0mmol/L (3.5-5.1) Chloride Level 107mmol/L (98-107) Carbon Dioxide Level 36mmol/L (21-32) Anion Gap 2 (6-14) Blood Urea Nitrogen 21mg/dL (7-20) Creatinine 0.4mg/dL (0.6-1.0) Estimated GFR (Cockcroft-Gault) 160.7 Glucose Level 253mg/dL (70-99) Calcium Level 8.1mg/dL (8.5-10.1) Phosphorus Level 3.0mg/dL (2.6-4.7) Magnesium Level 2.3mg/dL (1.8-2.4) Test 06/19/16 05:37 06/19/16 08:00 06/19/16 12:32 06/19/16 13:45 Glucose (Fingerstick) 244mg/dL (70-99) 306mg/dL (70-99) O2 Saturation 96% (92-99) Arterial Blood pH 7.56 (7.35-7.45) Arterial Blood pCO2 at Patient Temp 36mmHg (35-46) Arterial Blood pO2 at Patient Temp 85mmHg (65-108) Arterial Blood HCO3 31mmol/L (21-28) Arterial Blood Base Excess 9mmol/L (-3-3) FiO2 40 Prothrombin Time 18.2SEC (11.7-14.0) Prothromb Time International Ratio 1.6 (0.8-1.1) Test 06/19/16 19:11 06/19/16 23:29 06/20/16 05:10 06/20/16 05:11 Glucose (Fingerstick) 217mg/dL (70-99) 230mg/dL (70-99) 238mg/dL (70-99) White Blood Count 15.7x10^3/uL (4.0-11.0) Red Blood Count 2.15x10^6/uL (3.50-5.40) Hemoglobin 6.9g/dL (12.0-15.5) Hematocrit 21.0% (36.0-47.0) Mean Corpuscular Volume 98fL (79-100) Mean Corpuscular Hemoglobin 32pg (25-35) Mean Corpuscular Hemoglobin Concent 33g/dL (31-37) Red Cell Distribution Width 16.0% (11.5-14.5) Platelet Count 203x10^3/uL (140-400) Neutrophils (%) (Auto) 88% (31-73) Lymphocytes (%) (Auto) 4% (24-48) Monocytes (%) (Auto) 8% (0-9) Eosinophils (%) (Auto) 0% (0-3) Basophils (%) (Auto) 0% (0-3) Neutrophils # (Auto) 13.8x10^3uL (1.8-7.7) Lymphocytes # (Auto) 0.6x10^3/uL (1.0-4.8) Monocytes # (Auto) 1.2x10^3/uL (0.0-1.1) Eosinophils # (Auto) 0.0x10^3/uL (0.0-0.7) Basophils # (Auto) 0.1x10^3/uL (0.0-0.2) Prothrombin Time 18.0SEC (11.7-14.0) Prothromb Time International Ratio 1.6 (0.8-1.1) Sodium Level 146mmol/L (136-145) Potassium Level 3.2mmol/L (3.5-5.1) Chloride Level 104mmol/L (98-107) Carbon Dioxide Level 38mmol/L (21-32) Anion Gap 4 (6-14) Blood Urea Nitrogen 22mg/dL (7-20) Creatinine 0.4mg/dL (0.6-1.0) Estimated GFR (Cockcroft-Gault) 160.7 BUN/Creatinine Ratio 55 (6-20) Glucose Level 239mg/dL (70-99) Calcium Level 8.4mg/dL (8.5-10.1) Magnesium Level 2.2mg/dL (1.8-2.4) Total Bilirubin 1.9mg/dL (0.2-1.0) Aspartate Amino Transf (AST/SGOT) 24U/L (15-37) Alanine Aminotransferase (ALT/SGPT) 24U/L (14-59) Alkaline Phosphatase 84U/L (46-116) Total Protein 4.8g/dL (6.4-8.2) Albumin 3.0g/dL (3.4-5.0) Albumin/Globulin Ratio 1.7 (1.0-1.7) Test 06/20/16 08:00 O2 Saturation 98% (92-99) Arterial Blood pH 7.52 (7.35-7.45) Arterial Blood pCO2 at Patient Temp 46mmHg (35-46) Arterial Blood pO2 at Patient Temp 111mmHg (65-108) Arterial Blood HCO3 37mmol/L (21-28) Arterial Blood Base Excess 13mmol/L (-3-3) FiO2 40 Laboratory Tests Test 06/19/16 12:32 06/19/16 13:45 06/19/16 19:11 06/19/16 23:29 Glucose (Fingerstick) 306mg/dL (70-99) 217mg/dL (70-99) 230mg/dL (70-99) Prothrombin Time 18.2SEC (11.7-14.0) Prothromb Time International Ratio 1.6 (0.8-1.1) Test 06/20/16 05:10 06/20/16 05:11 06/20/16 08:00 White Blood Count 15.7x10^3/uL (4.0-11.0) Red Blood Count 2.15x10^6/uL (3.50-5.40) Hemoglobin 6.9g/dL (12.0-15.5) Hematocrit 21.0% (36.0-47.0) Mean Corpuscular Volume 98fL (79-100) Mean Corpuscular Hemoglobin 32pg (25-35) Mean Corpuscular Hemoglobin Concent 33g/dL (31-37) Red Cell Distribution Width 16.0% (11.5-14.5) Platelet Count 203x10^3/uL (140-400) Neutrophils (%) (Auto) 88% (31-73) Lymphocytes (%) (Auto) 4% (24-48) Monocytes (%) (Auto) 8% (0-9) Eosinophils (%) (Auto) 0% (0-3) Basophils (%) (Auto) 0% (0-3) Neutrophils # (Auto) 13.8x10^3uL (1.8-7.7) Lymphocytes # (Auto) 0.6x10^3/uL (1.0-4.8) Monocytes # (Auto) 1.2x10^3/uL (0.0-1.1) Eosinophils # (Auto) 0.0x10^3/uL (0.0-0.7) Basophils # (Auto) 0.1x10^3/uL (0.0-0.2) Prothrombin Time 18.0SEC (11.7-14.0) Prothromb Time International Ratio 1.6 (0.8-1.1) Sodium Level 146mmol/L (136-145) Potassium Level 3.2mmol/L (3.5-5.1) Chloride Level 104mmol/L (98-107) Carbon Dioxide Level 38mmol/L (21-32) Anion Gap 4 (6-14) Blood Urea Nitrogen 22mg/dL (7-20) Creatinine 0.4mg/dL (0.6-1.0) Estimated GFR (Cockcroft-Gault) 160.7 BUN/Creatinine Ratio 55 (6-20) Glucose Level 239mg/dL (70-99) Calcium Level 8.4mg/dL (8.5-10.1) Magnesium Level 2.2mg/dL (1.8-2.4) Total Bilirubin 1.9mg/dL (0.2-1.0) Aspartate Amino Transf (AST/SGOT) 24U/L (15-37) Alanine Aminotransferase (ALT/SGPT) 24U/L (14-59) Alkaline Phosphatase 84U/L (46-116) Total Protein 4.8g/dL (6.4-8.2) Albumin 3.0g/dL (3.4-5.0) Albumin/Globulin Ratio 1.7 (1.0-1.7) Glucose (Fingerstick) 238mg/dL (70-99) O2 Saturation 98% (92-99) Arterial Blood pH 7.52 (7.35-7.45) Arterial Blood pCO2 at Patient Temp 46mmHg (35-46) Arterial Blood pO2 at Patient Temp 111mmHg (65-108) Arterial Blood HCO3 37mmol/L (21-28) Arterial Blood Base Excess 13mmol/L (-3-3) FiO2 40 Microbiology 06/18/16 Sputum Culture - Preliminary, Resulted 06/18/16 Sputum Result 1 - Preliminary, Resulted Medications Current Medications Azithromycin (Zithromax) 250 mg DAILY PO ; Start 06/10/16 at 20:00; Stop 06/11/16 at 19:15; Status DC Budesonide 0.5 mg 0.5 mg RTBID NEB Last administered on 06/20/16 07:16; Start 06/10/16 at 20:00 Ceftriaxone Sodium/Sodium Chloride (Rocephin/Iv Sodium Chloride 0.9% 50ml) 50 ml @ 100 mls/hr Q24H IV Last administered on 06/10/16 20:28; Start 06/10/16 at 21:00; Stop 06/11/16 at 12:18; Status DC Fentanyl Citrate (Fentanyl 2ml Vial) 50 mcg PRN Q3HRS PRN IV PAIN Last administered on 06/19/16 14:14; Start 06/10/16 at 19:30 Gabapentin (Neurontin) 300 mg TID PO Last administered on 06/19/16 21:46; Start 06/10/16 at 21:00 Albuterol/ Ipratropium (Duoneb) 3 ml RTQID NEB Last administered on 06/20/16 07:17; Start 06/10/16 at 20:00 Letrozole 2.5 mg 2.5 mg DAILY PO Last administered on 06/19/16 10:46; Start at 09:00 Potassium Chloride/Sodium Chloride (KCl 40 Meq-NS 1,000 ml Iv Soln) 1,000 ml @ 100 mls/hr Q10H IV Last administered on 06/10/16 22:45; Start 06/10/16 at 20:00 ; Stop 06/11/16 at 08:08; Status DC Prednisone (Prednisone) 50 mg DAILY PO Last administered on 06/12/16 09:02; Start 06/10/16 at 20:00; Stop 06/12/16 at 10:23; Status DC Albuterol Sulfate 2.5 mg 2.5 mg PRN Q4HRS PRN NEB SHORTNESS OF BREATH Last administered on 06/11/16 05:37; Start 06/11/16 at 04:45 Sodium Chloride 1,000 ml @ 75 mls/hr [id number] IV Last administered on 06/12/16 11:22; Start 06/11/16 at 08:15; Stop 06/12/16 at 12:26; Status DC Piperacillin Sod/ Tazobactam Sod/ Sodium Chloride (Zosyn/Iv Sodium Chloride 0.9 % 50ml) 50 ml @ 100 mls/hr Q6HRS IV Last administered on 06/11/16 14:10; Start 06/11/16 at 13:00; Stop 06/11/16 at 19:15; Status DC Furosemide 40 mg 40 mg 1X ONCE IVP Last administered on 06/11/16 13:22; Start 06/11/16 at 13:00; Stop 06/11/16 at 13:08; Status DC Norepinephrine Bitartrate 8 mg/ Sodium Chloride 258 ml @ 1.93 mls/hr ONCE ONCE IV Last administered on 06/11/16 15:15; Start 06/11/16 at 15:15; Stop at 10:59; Status DC Epinephrine HCl 4 mg/Sodium Chloride 254 ml @ 3.81 mls/hr ONCE ONCE IV Last administered on 06/11/16 15:55; Start 06/11/16 at 15:45; Stop 06/11/16 at 19:05; Status DC Epinephrine HCl 4 mg/Sodium Chloride 254 ml @ 0 mls/hr CONT PRN IV SEE I/O RECORD; Start 06/11/16 at 16:00 Vasopressin 40 unit/Dextrose 102 ml @ 6 mls/hr CONT PRN IV SEE I/O RECORD Last administered on 06/11/16 15:54; Start 06/11/16 at 15:45 Sodium Chloride 1,000 ml @ 1,000 mls/hr 1X ONCE IV Last administered on 15:58; Start 06/11/16 at 15:45; Stop 06/11/16 at 16:44; Status DC Sodium Chloride 1,000 ml @ 1,000 mls/hr 1X ONCE IV Last administered on 16:04; Start 06/11/16 at 15:45; Stop 06/11/16 at 16:44; Status DC Sodium Chloride (Iv Sodium Chloride 0.9% 1000ml Bag) 1,000 ml @ 1,000 mls/hr 1X ONCE IV Last administered on 06/11/16 16:04; Start 06/11/16 at 15:45; Stop 06/11/16 at 16:44; Status DC Pantoprazole Sodium 40 mg 40 mg [id number] IVP Last administered on 06/20/16 06:20 ; Start 06/11/16 at 18:00 Midazolam HCl 100 ml @ 0 mls/hr CONT PRN IV SEE I/O RECORD Last administered on 06/20/16 03:38; Start 06/11/16 at 17:00 Sodium Chloride (Iv Sodium Chloride 0.9% 1000ml Bag) 1,000 ml @ 150 mls/hr 1X ONCE IV Last administered on 06/11/16 17:07; Start 06/11/16 at 17:00; Stop at 23:39; Status DC Dextrose 25 gm STK-MED ONCE IV ; Start 06/11/16 at 17:15; Stop 06/11/16 at 17:16; Status DC Dextrose 25 gm 1X ONCE IV Last administered on 06/11/16 17:47; Start 06/11/16 at 17:30; Stop 06/11/16 at 17:31; Status DC Sodium Bicarbonate 100 meq 100 meq 1X ONCE IV Last administered on 06/11/16 17 :46; Start 06/11/16 at 17:30; Stop 06/11/16 at 17:31; Status DC Nicardipine HCl 50 mg/Sodium Chloride 270 ml @ 0 mls/hr CONT PRN IV SEE I/O RECORD; Start 06/11/16 at 17:45; Status Cancel Ceftriaxone Sodium/Sodium Chloride (Rocephin/Iv Sodium Chloride 0.9% 50ml) 50 ml @ 100 mls/hr Q24H IV Last administered on 06/11/16 18:37; Start 06/11/16 at 18:00; Stop 06/12/16 at 12:55; Status DC Vancomycin HCl 1 each 1 each PRN DAILY PRN MC SEE COMMENTS Last administered on 06/11/16 19:17; Start 06/11/16 at 18:00; Stop 06/12/16 at 12:58; Status DC Vancomycin HCl 1 gm/Sodium Chloride 250 ml @ 250 mls/hr 1X ONCE IV Last administered on 06/11/16 18:37; Start 06/11/16 at 18:30; Stop 06/11/16 at 19:29; Status DC Vancomycin HCl/ Sodium Chloride (Iv Sodium Chloride 0.9% 250ml) 250 ml @ 250 mls/hr Q12H IV Last administered on 06/12/16 06:18; Start 06/12/16 at 06:00; Stop 06/12/16 at 12:55; Status DC Vancomycin HCl 1 each 1 each 1X ONCE MC ; Start 06/13/16 at 05:30; Stop 06/13/16 at 05:30; Status DC Norepinephrine Bitartrate/Sodium Chloride (Levophed Vial/ Iv Sodium Chloride 0.9 % 250ml) 258 ml @ 0 mls/hr CONT PRN IV SEE I/O RECORD Last administered on 07:37; Start 06/12/16 at 00:45 Epinephrine HCl 1 mg STK-MED ONCE .ROUTE ; Start 06/11/16 at 12:00; Stop 06/12/16 at 08:13; Status DC Hydrocortisone Sodium Succinate (Solu-Cortef) 100 mg Q8HRS IV Last administered on 06/15/16 06:21; Start 06/12/16 at 11:00; Stop 06/15/16 at 11:24 ; Status DC Enoxaparin Sodium (Lovenox 40mg Syringe) 40 mg Q24H SQ Last administered on 06/13 10:49; Start 06/12/16 at 11:00; Stop 06/13/16 at 12:35; Status DC Famotidine 20 mg 20 mg BID IVP Last administered on 06/13/16 09:10; Start at 11:00; Stop 06/13/16 at 09:59; Status DC Sodium Chloride 1,000 ml @ 1,000 mls/hr 1X ONCE IV Last administered on 11:25; Start 06/12/16 at 11:30; Stop 06/12/16 at 12:29; Status DC Dextrose/Sodium Chloride 1,000 ml @ 75 mls/hr [id number] IV Last administered on 06/13/16 20:44; Start 06/12/16 at 13:00; Stop 06/14/16 at 17:39; Status DC Piperacillin Sod/ Tazobactam Sod 3.375 gm/Sodium Chloride 50 ml @ 100 mls/hr Q6HRS IV Last administered on 06/20/16 06:20; Start 06/12/16 at 13:30 Linezolid 300 ml @ 300 mls/hr Q12HR IV Last administered on 06/15/16 20:48; Start 06/12/16 at 13:30; Stop 06/16/16 at 08:39; Status DC Sodium Chloride 1,000 ml @ 1,000 mls/hr 1X ONCE IV Last administered on 15:30; Start 06/12/16 at 15:30; Stop 06/12/16 at 16:29; Status DC Sodium Chloride 500 ml @ 0 mls/hr 1X ONCE IV Last administered on 06/12/16 15: 44; Start 06/12/16 at 16:00; Stop 06/12/16 at 16:01; Status DC Sodium Chloride 1,000 ml @ 0 mls/hr 1X ONCE IV Last administered on 06/13/16 07:43; Start 06/13/16 at 07:45; Stop 06/13/16 at 07:46; Status DC Sodium Chloride (Iv Sodium Chloride 0.45%) 500 ml @ 0 mls/hr 1X ONCE IV Last administered on 06/13/16 07:43; Start 06/13/16 at 07:45; Stop 06/13/16 at 07:46; Status DC Midazolam HCl (Versed) 5 mg STK-MED ONCE .ROUTE ; Start 06/10/16 at 12:00; Stop 06/13/16 at 08:28; Status DC Epinephrine HCl 3 mg STK-MED ONCE .ROUTE ; Start 06/10/16 at 12:00; Stop 06/13/16 at 08:28; Status DC Dopamine HCl/ Dextrose 400 mg STK-MED ONCE IV ; Start 06/10/16 at 12:00; Stop 06/13/16 at 08:28; Status DC Lidocaine/Sodium Bicarbonate (Buffered Lidocaine 1%) 3 ml 1X ONCE IJ Last administered on 06/13/16 09:55; Start 06/13/16 at 09:00; Stop 06/13/16 at 09:01; Status DC Heparin Sodium/ Sodium Chloride 60 unit 1X ONCE IV Last administered on 09:55; Start 06/13/16 at 09:00; Stop 06/13/16 at 09:01; Status DC Sodium Bicarbonate 100 meq 100 meq 1X ONCE IV Last administered on 06/13/16 10 :06; Start 06/13/16 at 09:45; Stop 06/13/16 at 09:46; Status DC Albumin Human (Plasmanate) 500 ml @ 62.5 mls/hr 1X ONCE IV Last administered on 06/13/16 10:06; Start 06/13/16 at 09:45; Stop 06/13/16 at 17:44; Status DC Chlorhexidine Gluconate (Peridex) 15 ml BID MM Last administered on 06/19/16 21:45; Start 06/13/16 at 21:00 Potassium Chloride (Klor-Con) 20 meq TIDWMEALS PO Last administered on 12:31; Start 06/13/16 at 12:30; Stop 06/13/16 at 15:56; Status DC Calcium Carbonate/ Glycine (Oscal) 1,000 mg TIDAFTMEAL PO Last administered on 06/16/16 12:49; Start 06/13/16 at 13:00; Stop 06/18/16 at 09:30; Status DC Vitamin D (Vitamin D3) 5,000 unit DAILY PO Last administered on 06/16/16 10:26 ; Start 06/13/16 at 13:00; Stop 06/18/16 at 09:30; Status DC Phytonadione (Mephyton) 10 mg DAILY PO Last administered on 06/16/16 10:26; Start 06/13/16 at 13:00; Stop 06/18/16 at 09:30; Status DC Potassium Chloride (KCl Oral Soln) 20 meq TIDWMEALS PEG Last administered on 10:41; Start 06/13/16 at 17:00; Stop 06/14/16 at 12:26; Status DC Insulin Aspart (Novolog) 0-5 UNITS Q6HRS SQ Last administered on 06/20/16 06: 42; Start 06/14/16 at 12:00 Dextrose 12.5 gm 12.5 gm PRN Q15MIN PRN IV SEE COMMENTS; Start 06/14/16 at 06:45 Potassium Chloride (KCl Premix 20meq) 50 ml @ 25 mls/hr Q2H IV ; Start 06/14/16 at 07:00; Stop 06/14/16 at 14:59; Status Cancel Iohexol (Omnipaque 240 Mg/ml) 30 ml 1X ONCE PO Last administered on 06/14/16 08:30; Start 06/14/16 at 08:30; Stop 06/14/16 at 08:31; Status DC Iohexol (Omnipaque 300 Mg/ml) 75 ml 1X ONCE IV Last administered on 06/14/16 17:58; Start 06/14/16 at 08:30; Stop 06/14/16 at 08:31; Status DC Info (Do NOT chart on this entry -- for MONITORING) 1 each PRN DAILY PRN MC SEE COMMENTS; Start 06/14/16 at 08:45; Stop 06/16/16 at 08:44; Status DC Potassium Chloride (Klor-Con) 40 meq Q2H PO Last administered on 06/14/16 14:16 ; Start 06/14/16 at 12:30; Stop 06/14/16 at 14:31; Status DC Info 1 each 1 each PRN DAILY PRN MC SEE COMMENTS Last administered on 10:54; Start 06/14/16 at 15:00 Potassium Chloride 50 ml @ 50 mls/hr Q1H IV ; Start 06/14/16 at 15:15; Stop at 17:14; Status DC Sodium Acetate 90 meq/Potassium Chloride 25 meq/ Potassium Acetate 25 meq/ Potassium Phosphate 16 mmol/ Magnesium Sulfate 12 meq/Calcium Gluconate 5 meq/ Multivitamins 10 ml/Chromium/ Copper/Manganese/ Seleni/Zn 1 ml/ Total Parenteral Nutrition/Amino Acids/Dextrose/ Fat Emulsion Intravenous 1,512 ml @ 63 mls/hr TPN CONT IV Last administered on 06/14/16 21:34; Start 06/14/16 at 22 :00; Stop 06/15/16 at 21:59; Status DC Sodium Phosphate 15 mmol/Dextrose 255 ml @ 63.75 mls/ hr 1X ONCE IV Last administered on 06/14/16 17:45; Start 06/14/16 at 17:30; Stop 06/14/16 at 21:29; Status DC Magnesium Sulfate/ Dextrose 50 ml @ 25 mls/hr 1X ONCE IV Last administered on 06/14/16 17:45; Start 06/14/16 at 16:00; Stop 06/14/16 at 17:59; Status DC Potassium Chloride (KCl Premix 20meq) 50 ml @ 25 mls/hr Q2H IV Last administered on 06/14/16 20:33; Start 06/14/16 at 17:45; Stop 06/14/16 at 21:44; Status DC Hydrocortisone Sodium Succinate 50 mg 50 mg Q8HRS IV Last administered on 06:20; Start 06/15/16 at 14:00 Sodium Phosphate 15 mmol/Dextrose 255 ml @ 63.75 mls/ hr 1X ONCE IV Last administered on 06/15/16 12:54; Start 06/15/16 at 13:00; Stop 06/15/16 at 16:59 ; Status DC Sodium Acetate 90 meq/Potassium Chloride 25 meq/ Potassium Acetate 25 meq/ Potassium Phosphate 24 mmol/ Magnesium Sulfate 12 meq/Calcium Gluconate 5 meq/ Multivitamins 10 ml/Chromium/ Copper/Manganese/ Seleni/Zn 1 ml/ Total Parenteral Nutrition/Amino Acids/Dextrose/ Fat Emulsion Intravenous 1,512 ml @ 63 mls/hr TPN CONT IV Last administered on 06/15/16 21:55; Start 06/15/16 at 22:00; Stop 06/16/16 at 21:59; Status DC Sodium Acetate 90 meq/Potassium Chloride 25 meq/ Potassium Acetate 25 meq/ Potassium Phosphate 24 mmol/ Magnesium Sulfate 12 meq/Calcium Gluconate 5 meq/ Multivitamins 10 ml/Chromium/ Copper/Manganese/ Seleni/Zn 1 ml/ Total Parenteral Nutrition/Amino Acids/Dextrose/ Fat Emulsion Intravenous 1,512 ml @ 63 mls/hr TPN CONT IV Last administered on 06/16/16 21:47; Start 06/16/16 at 22:00; Stop 06/17/16 at 21:59; Status DC Albumin Human 500 ml @ 50 mls/hr PRN BID PRN IV hypotention/low albumin Last administered on 06/16/16 21:48; Start 06/16/16 at 12:30; Stop 06/17/16 at 12:30 ; Status DC Albumin Human 500 ml @ 50 mls/hr CONT IV ; Start 06/17/16 at 12:30; Status UNV Albumin Human 500 ml @ 50 mls/hr BID IV Last administered on 06/16/16 12:53; Start 06/16/16 at 13:00; Stop 06/16/16 at 13:00; Status DC Albumin Human (Albuminar) 50 ml @ 50 mls/hr TID IV Last administered on 08:47; Start 06/16/16 at 14:00; Stop 06/17/16 at 09:59; Status DC Haloperidol Lactate (Haldol) 2 mg PRN Q2HR PRN IVP ANXIETY Last administered on 06/16/16 23:59; Start 06/16/16 at 20:15 Succinylcholine Chloride 200 mg 200 mg STK-MED ONCE .ROUTE ; Start 06/17/16 at 00:54; Stop 06/17/16 at 00:56; Status DC Propofol (Diprivan) 100 ml @ As Directed STK-MED ONCE IV ; Start 06/17/16 at 00 :54; Stop 06/17/16 at 00:56; Status DC Furosemide 40 mg 40 mg 1X ONCE IVP Last administered on 06/17/16 11:35; Start 06/17/16 at 11:30; Stop 06/17/16 at 11:31; Status DC Albumin Human 500 ml @ 125 mls/hr 1X ONCE IV Last administered on 06/17/16 11:32; Start 06/17/16 at 12:30; Stop 06/17/16 at 16:29; Status DC Sodium Acetate 90 meq/Potassium Chloride 25 meq/ Potassium Acetate 25 meq/ Potassium Phosphate 24 mmol/ Magnesium Sulfate 12 meq/Calcium Gluconate 5 meq/ Multivitamins 10 ml/Chromium/ Copper/Manganese/ Seleni/Zn 1 ml/ Total Parenteral Nutrition/Amino Acids/Dextrose/ Fat Emulsion Intravenous 1,512 ml @ 63 mls/hr TPN CONT IV Last administered on 06/17/16 22:33; Start 06/17/16 at 22:00; Stop 06/18/16 at 21:59; Status DC Linezolid (Zyvox Premix) 300 ml @ 300 mls/hr Q12HR IV Last administered on 21:45; Start 06/18/16 at 09:00 Propofol (Diprivan) 1,000 mg STK-MED ONCE IV ; Start 06/17/16 at 01:00; Stop at 08:13; Status DC Succinylcholine Chloride (Anectine) 200 mg STK-MED ONCE .ROUTE ; Start 06/17/16 at 01:00; Stop 06/18/16 at 08:13; Status DC Potassium Chloride 40 meq 40 meq 1X ONCE NG Last administered on 06/18/16 12: 35; Start 06/18/16 at 11:15; Stop 06/18/16 at 11:16; Status DC Sodium Acetate 90 meq/Potassium Chloride 25 meq/ Potassium Acetate 45 meq/ Potassium Phosphate 24 mmol/ Magnesium Sulfate 12 meq/Calcium Gluconate 5 meq/ Multivitamins 10 ml/Chromium/ Copper/Manganese/ Seleni/Zn 1 ml/ Total Parenteral Nutrition/Amino Acids/Dextrose/ Fat Emulsion Intravenous 1,397 ml @ 58.208 mls/ hr TPN CONT IV ; Start 06/18/16 at 22:00; Stop 06/19/16 at 21:59; Status Cancel Sodium Acetate 60 meq/Potassium Chloride 25 meq/ Potassium Acetate 45 meq/ Potassium Phosphate 24 mmol/ Magnesium Sulfate 12 meq/Calcium Gluconate 5 meq/ Multivitamins 10 ml/Chromium/ Copper/Manganese/ Seleni/Zn 1 ml/ Total Parenteral Nutrition/Amino Acids/Dextrose/ Fat Emulsion Intravenous 1,512 ml @ 63 mls/hr TPN CONT IV Last administered on 06/18/16 21:54; Start 06/18/16 at 22:00; Stop 06/19/16 at 21:59; Status DC Sodium Acetate 60 meq/Potassium Chloride 25 meq/ Potassium Acetate 45 meq/ Potassium Phosphate 24 mmol/ Magnesium Sulfate 12 meq/Calcium Gluconate 5 meq/ Multivitamins 10 ml/Chromium/ Copper/Manganese/ Seleni/Zn 1 ml/ Total Parenteral Nutrition/Amino Acids/Dextrose/ Fat Emulsion Intravenous 1,512 ml @ 63 mls/hr TPN CONT IV Last administered on 06/19/16 21:53; Start 06/19/16 at 22:00; Stop 06/20/16 at 21:59 Albumin Human (Albuminar) 100 ml @ 100 mls/hr TID IV Last administered on 06/19 14:14; Start 06/19/16 at 14:00; Stop 06/19/16 at 19:01; Status DC Furosemide (Lasix) 20 mg TID IVP Last administered on 06/19/16 14:15; Start at 14:00; Stop 06/19/16 at 19:01; Status DC Ondansetron HCl (Zofran) 4 mg PRN Q6HRS PRN IV Nausea; Start 06/20/16 at 07:00 ; Stop 06/21/16 at 06:59 Fentanyl Citrate (Fentanyl 2ml Vial) 25 mcg PRN Q5MIN PRN IV MILD PAIN; Start 06/20/16 at 07:00; Stop 06/21/16 at 06:59 Fentanyl Citrate (Fentanyl 2ml Vial) 50 mcg PRN Q5MIN PRN IV MODERATE PAIN; Start 06/20/16 at 07:00; Stop 06/21/16 at 06:59 Morphine Sulfate 1 mg 1 mg PRN Q10MIN PRN IV SEVERE PAIN; Start 06/20/16 at 07: 00; Stop 06/21/16 at 06:59 Lactated Ringer's (Iv Lactated Ringers) 1,000 ml @ 0 mls/hr Q0M IV ; Start at 07:00; Stop 06/20/16 at 18:59 Lidocaine HCl 2 ml 1X PRN PRN ID IV START; Start 06/20/16 at 07:00; Stop at 06:59 Hydromorphone HCl (Dilaudid) 0.5 mg PRN Q10MIN PRN IV SEVERE PAIN, Second choice; Start 06/20/16 at 07:00; Stop 06/21/16 at 06:59 Prochlorperazine Edisylate 5 mg 5 mg PACU PRN PRN IV NAUSEA; Start 06/20/16 at 07:00; Stop 06/21/16 at 06:59 Albumin Human (Albuminar) 100 ml @ 100 mls/hr Q8HRS IV Last administered on 06:21; Start 06/19/16 at 22:00 Furosemide (Lasix) 20 mg Q8HRS IVP Last administered on 06/20/16 06:21; Start 06/19/16 at 22:00 Active Scripts Active Warfarin Sodium 5 Mg Tablet 1 Tab PO DAILY Cipro (Ciprofloxacin Hcl) 500 Mg Tablet 1 Tab PO BID Reported Anoro Ellipta 62.5-25 Mcg Inh (Umeclidinium Brm/Vilanterol Tr) 1 Each Disk.w.dev 1 Each IH DAILY Oxycodone Hcl 20 Mg Tablet 20 Mg PO PRN Q4HRS PRN Gabapentin 300 Mg Capsule 1 Cap PO BID Flovent 110MCG Hfa (Fluticasone Propionate) 12 Gm Aer.w.adap 2 Puff IH BID Breo Ellipta 200-25 Mcg INH (Fluticasone/Vilanterol) 1 Each Blst.w.dev 1 Each IH DAILY Proair Hfa Inhaler (Albuterol Sulfate) 8.5 Gm Hfa.aer.ad 2 Puff IH PRN QID PRN Lorazepam 0.5 Mg Tablet 0.5 Mg PO Q4HRS PRN Ondansetron Hcl 4 Mg Tablet 1 Tab PO PRN Q4HRS Spiriva (Tiotropium Argenta) 18 Mcg Cap.w.dev 1 Cap IH DAILY Femara (Letrozole) 2.5 Mg Tablet 2.5 Mg PO DAILY Vitals/I & O Vital Sign - Last 24 Hours 06/19/16 06/19/16 06/19/16 06/19/16 10:00 11:00 11:54 12:00 Temp 98.4 98.4 Pulse 80 78 100 Resp 14 14 20 B/P 117/65 107/62 109/67 Pulse Ox 100 100 99 100 O2 Delivery Ventilator Ventilator Ventilator Ventilator 06/19/16 06/19/16 06/19/16 06/19/16 12:08 13:00 13:45 14:00 Pulse 108 102 Resp 24 23 B/P 102/63 106/64 Pulse Ox 100 100 100 O2 Delivery Mechanical Ventilator Ventilator Ventilator Ventilator 06/19/16 06/19/16 06/19/16 06/19/16 15:00 15:42 16:00 16:00 Temp 99.4 99.4 Pulse 96 88 Resp 18 14 B/P 94/58 97/61 Pulse Ox 100 100 100 O2 Delivery Ventilator Ventilator Mechanical Ventilator Ventilator 06/19/16 06/19/16 06/19/16 06/19/16 17:00 17:50 18:00 19:00 Pulse 106 98 95 Resp 21 23 23 B/P 101/61 103/64 87/56 Pulse Ox 100 100 100 100 O2 Delivery Ventilator Ventilator Ventilator Ventilator 06/19/16 06/19/16 06/19/16 06/19/16 19:51 20:00 20:00 21:00 Temp 97.9 97.9 Pulse 100 95 Resp 23 23 B/P 105/60 98/61 Pulse Ox 95 100 100 O2 Delivery Ventilator Mechanical Ventilator Ventilator Ventilator 3/14/06/19/16 06/19/16 06/20/16 22:00 23:00 23:17 00:00 Temp 98.1 98.1 Pulse 90 78 84 Resp 23 23 15 B/P 101/63 102/66 100/58 Pulse Ox 100 100 100 100 O2 Delivery Ventilator Ventilator Ventilator Ventilator 06/20/16 06/20/16 06/20/16 06/20/16 00:00 01:00 01:34 02:00 Pulse 75 72 Resp 15 15 B/P 106/60 116/62 Pulse Ox 100 100 100 O2 Delivery Mechanical Ventilator Ventilator Ventilator Ventilator 06/20/16 06/20/16 06/20/16 06/20/16 03:00 03:06 03:39 03:43 Temp 97.3 97.1 97.3 97.1 Pulse 72 69 71 Resp 15 14 14 B/P 100/66 100/66 117/72 Pulse Ox 100 100 O2 Delivery Ventilator Ventilator 06/20/16 06/20/16 06/20/16 06/20/16 04:00 04:00 04:42 04:44 Temp 96.7 96.7 96.7 96.7 Pulse 71 75 Resp 14 13 B/P 119/60 119/72 Pulse Ox 100 100 O2 Delivery Ventilator Mechanical Ventilator Ventilator 06/20/16 06/20/16 06/20/16 06/20/16 05:00 06:00 07:00 07:17 Pulse 60 56 60 Resp 14 13 14 B/P 108/61 128/70 117/64 Pulse Ox 100 100 100 100 O2 Delivery Ventilator Ventilator Ventilator Ventilator 06/20/16 06/20/16 06/20/16 06/20/16 07:49 08:00 08:00 08:07 Temp 97.4 97.6 97.6 97.4 97.6 97.6 Pulse 60 70 85 Resp 14 14 14 B/P 117/64 131/62 131/62 Pulse Ox 100 O2 Delivery Ventilator Mechanical Ventilator 06/20/16 06/20/16 06/20/16 09:25 09:38 09:42 Temp 97.5 97.5 97.5 97.5 Pulse 59 62 Resp 14 14 B/P 131/67 130/70 Pulse Ox 100 O2 Delivery Ventilator Intake and Output 06/19/16 06/19/16 06/20/16 15:00 23:00 07:00 Intake Total 400 ml 471 ml Output Total 135 ml 1175 ml 950 ml Balance -135 ml -775 ml -479 ml Hemoglobin down/platelets up after platelets given. Being transfused. Assessment Respiratory failure. Malnutrition. Recurrent anemia; may be just attrition. Plan of Care: Continue current Tx, Mgmt Plan of Care Note Will stand by. JOSELUIS TABOR MD Jun 20, 2016 09:51
--- NOTE | 2016-06-20 10:37 | PDOC ---
Provider Note Provider Note SURG asked to debride left hip decub for trach today if OK with CTS will debride hip at same setting has been explained/discussed with pts by JEAN CARLOS ZAVALA MD Jun 20, 2016 10:36
[2016-06-20] MEDS: CHLORHEXIDINE 0.12% 15 ML MOUTHWASH. MM SCH ×2 (10:53→22:12)
--- NOTE | 2016-06-20 10:55 | PDOC ---
PULMONARY PROGRESS NOTES Subjective extubated 06/16 am, did well till early am, re-intubated early am 06/17 for progressive Hypoxic RF Vitals Vital Signs Date Time Temp Pulse Resp B/P Pulse Ox O2 Delivery O2 Flow Rate FiO2 06/20/16 09:56 97.4 62 14 126/71 97.4 06/20/16 09:42 100 Ventilator Lungs: Crackles Cardiovascular: S1, S2 Abdomen: Soft, Non-tender Extremities: Other (trace edema) Skin: Warm Labs Laboratory Tests Test 06/18/16 12:31 06/18/16 17:59 06/19/16 00:24 06/19/16 05:30 Glucose (Fingerstick) 240mg/dL (70-99) 186mg/dL (70-99) 244mg/dL (70-99) White Blood Count 20.5x10^3/uL (4.0-11.0) Red Blood Count 2.67x10^6/uL (3.50-5.40) Hemoglobin 8.5g/dL (12.0-15.5) Hematocrit 26.2% (36.0-47.0) Mean Corpuscular Volume 98fL (79-100) Mean Corpuscular Hemoglobin 32pg (25-35) Mean Corpuscular Hemoglobin Concent 32g/dL (31-37) Red Cell Distribution Width 15.8% (11.5-14.5) Platelet Count 36x10^3/uL (140-400) Neutrophils (%) (Auto) 89% (31-73) Lymphocytes (%) (Auto) 4% (24-48) Monocytes (%) (Auto) 7% (0-9) Eosinophils (%) (Auto) 0% (0-3) Basophils (%) (Auto) 1% (0-3) Neutrophils # (Auto) 18.3x10^3uL (1.8-7.7) Lymphocytes # (Auto) 0.7x10^3/uL (1.0-4.8) Monocytes # (Auto) 1.4x10^3/uL (0.0-1.1) Eosinophils # (Auto) 0.0x10^3/uL (0.0-0.7) Basophils # (Auto) 0.1x10^3/uL (0.0-0.2) Sodium Level 145mmol/L (136-145) Potassium Level 4.0mmol/L (3.5-5.1) Chloride Level 107mmol/L (98-107) Carbon Dioxide Level 36mmol/L (21-32) Anion Gap 2 (6-14) Blood Urea Nitrogen 21mg/dL (7-20) Creatinine 0.4mg/dL (0.6-1.0) Estimated GFR (Cockcroft-Gault) 160.7 Glucose Level 253mg/dL (70-99) Calcium Level 8.1mg/dL (8.5-10.1) Phosphorus Level 3.0mg/dL (2.6-4.7) Magnesium Level 2.3mg/dL (1.8-2.4) Test 06/19/16 05:37 06/19/16 08:00 06/19/16 12:32 06/19/16 13:45 Glucose (Fingerstick) 244mg/dL (70-99) 306mg/dL (70-99) O2 Saturation 96% (92-99) Arterial Blood pH 7.56 (7.35-7.45) Arterial Blood pCO2 at Patient Temp 36mmHg (35-46) Arterial Blood pO2 at Patient Temp 85mmHg (65-108) Arterial Blood HCO3 31mmol/L (21-28) Arterial Blood Base Excess 9mmol/L (-3-3) FiO2 40 Prothrombin Time 18.2SEC (11.7-14.0) Prothromb Time International Ratio 1.6 (0.8-1.1) Test 06/19/16 19:11 06/19/16 23:29 06/20/16 05:10 06/20/16 05:11 Glucose (Fingerstick) 217mg/dL (70-99) 230mg/dL (70-99) 238mg/dL (70-99) White Blood Count 15.7x10^3/uL (4.0-11.0) Red Blood Count 2.15x10^6/uL (3.50-5.40) Hemoglobin 6.9g/dL (12.0-15.5) Hematocrit 21.0% (36.0-47.0) Mean Corpuscular Volume 98fL (79-100) Mean Corpuscular Hemoglobin 32pg (25-35) Mean Corpuscular Hemoglobin Concent 33g/dL (31-37) Red Cell Distribution Width 16.0% (11.5-14.5) Platelet Count 203x10^3/uL (140-400) Neutrophils (%) (Auto) 88% (31-73) Lymphocytes (%) (Auto) 4% (24-48) Monocytes (%) (Auto) 8% (0-9) Eosinophils (%) (Auto) 0% (0-3) Basophils (%) (Auto) 0% (0-3) Neutrophils # (Auto) 13.8x10^3uL (1.8-7.7) Lymphocytes # (Auto) 0.6x10^3/uL (1.0-4.8) Monocytes # (Auto) 1.2x10^3/uL (0.0-1.1) Eosinophils # (Auto) 0.0x10^3/uL (0.0-0.7) Basophils # (Auto) 0.1x10^3/uL (0.0-0.2) Prothrombin Time 18.0SEC (11.7-14.0) Prothromb Time International Ratio 1.6 (0.8-1.1) Sodium Level 146mmol/L (136-145) Potassium Level 3.2mmol/L (3.5-5.1) Chloride Level 104mmol/L (98-107) Carbon Dioxide Level 38mmol/L (21-32) Anion Gap 4 (6-14) Blood Urea Nitrogen 22mg/dL (7-20) Creatinine 0.4mg/dL (0.6-1.0) Estimated GFR (Cockcroft-Gault) 160.7 BUN/Creatinine Ratio 55 (6-20) Glucose Level 239mg/dL (70-99) Calcium Level 8.4mg/dL (8.5-10.1) Magnesium Level 2.2mg/dL (1.8-2.4) Total Bilirubin 1.9mg/dL (0.2-1.0) Aspartate Amino Transf (AST/SGOT) 24U/L (15-37) Alanine Aminotransferase (ALT/SGPT) 24U/L (14-59) Alkaline Phosphatase 84U/L (46-116) Total Protein 4.8g/dL (6.4-8.2) Albumin 3.0g/dL (3.4-5.0) Albumin/Globulin Ratio 1.7 (1.0-1.7) Test 06/20/16 08:00 O2 Saturation 98% (92-99) Arterial Blood pH 7.52 (7.35-7.45) Arterial Blood pCO2 at Patient Temp 46mmHg (35-46) Arterial Blood pO2 at Patient Temp 111mmHg (65-108) Arterial Blood HCO3 37mmol/L (21-28) Arterial Blood Base Excess 13mmol/L (-3-3) FiO2 40 Laboratory Tests Test 06/19/16 12:32 06/19/16 13:45 06/19/16 19:11 06/19/16 23:29 Glucose (Fingerstick) 306mg/dL (70-99) 217mg/dL (70-99) 230mg/dL (70-99) Prothrombin Time 18.2SEC (11.7-14.0) Prothromb Time International Ratio 1.6 (0.8-1.1) Test 06/20/16 05:10 06/20/16 05:11 06/20/16 08:00 White Blood Count 15.7x10^3/uL (4.0-11.0) Red Blood Count 2.15x10^6/uL (3.50-5.40) Hemoglobin 6.9g/dL (12.0-15.5) Hematocrit 21.0% (36.0-47.0) Mean Corpuscular Volume 98fL (79-100) Mean Corpuscular Hemoglobin 32pg (25-35) Mean Corpuscular Hemoglobin Concent 33g/dL (31-37) Red Cell Distribution Width 16.0% (11.5-14.5) Platelet Count 203x10^3/uL (140-400) Neutrophils (%) (Auto) 88% (31-73) Lymphocytes (%) (Auto) 4% (24-48) Monocytes (%) (Auto) 8% (0-9) Eosinophils (%) (Auto) 0% (0-3) Basophils (%) (Auto) 0% (0-3) Neutrophils # (Auto) 13.8x10^3uL (1.8-7.7) Lymphocytes # (Auto) 0.6x10^3/uL (1.0-4.8) Monocytes # (Auto) 1.2x10^3/uL (0.0-1.1) Eosinophils # (Auto) 0.0x10^3/uL (0.0-0.7) Basophils # (Auto) 0.1x10^3/uL (0.0-0.2) Prothrombin Time 18.0SEC (11.7-14.0) Prothromb Time International Ratio 1.6 (0.8-1.1) Sodium Level 146mmol/L (136-145) Potassium Level 3.2mmol/L (3.5-5.1) Chloride Level 104mmol/L (98-107) Carbon Dioxide Level 38mmol/L (21-32) Anion Gap 4 (6-14) Blood Urea Nitrogen 22mg/dL (7-20) Creatinine 0.4mg/dL (0.6-1.0) Estimated GFR (Cockcroft-Gault) 160.7 BUN/Creatinine Ratio 55 (6-20) Glucose Level 239mg/dL (70-99) Calcium Level 8.4mg/dL (8.5-10.1) Magnesium Level 2.2mg/dL (1.8-2.4) Total Bilirubin 1.9mg/dL (0.2-1.0) Aspartate Amino Transf (AST/SGOT) 24U/L (15-37) Alanine Aminotransferase (ALT/SGPT) 24U/L (14-59) Alkaline Phosphatase 84U/L (46-116) Total Protein 4.8g/dL (6.4-8.2) Albumin 3.0g/dL (3.4-5.0) Albumin/Globulin Ratio 1.7 (1.0-1.7) Glucose (Fingerstick) 238mg/dL (70-99) O2 Saturation 98% (92-99) Arterial Blood pH 7.52 (7.35-7.45) Arterial Blood pCO2 at Patient Temp 46mmHg (35-46) Arterial Blood pO2 at Patient Temp 111mmHg (65-108) Arterial Blood HCO3 37mmol/L (21-28) Arterial Blood Base Excess 13mmol/L (-3-3) FiO2 40 Medications Active Scripts Medications Dose Route/Sig Days Date Category Warfarin Sodium 5 Mg Tablet 1 Tab PO DAILY 04/21/16 Rx Cipro (Ciprofloxacin Hcl) 500 Mg Tablet 1 Tab PO BID 04/21/16 Rx Anoro Ellipta 62.5-25 Mcg Inh (Umeclidinium Brm/Vilanterol Tr) 1 Each Disk.w.dev 1 Each IH DAILY 12/20/14 Reported Oxycodone Hcl 20 Mg Tablet 20 Mg PO PRN Q4HRS PRN 12/20/14 Reported Gabapentin 300 Mg Capsule 1 Cap PO BID 12/20/14 Reported Flovent 110MCG Hfa (Fluticasone Propionate) 12 Gm Aer.w.adap 2 Puff IH BID 12/20/14 Reported Breo Ellipta 200-25 Mcg INH (Fluticasone/Vilanterol) 1 Each Blst.w.dev 1 Each IH DAILY 12/20/14 Reported Proair Hfa Inhaler (Albuterol Sulfate) 8.5 Gm Hfa.aer.ad 2 Puff IH PRN QID PRN 12/20/14 Reported Lorazepam 0.5 Mg Tablet 0.5 Mg PO Q4HRS PRN 12/20/14 Reported Ondansetron Hcl 4 Mg Tablet 1 Tab PO PRN Q4HRS 12/20/14 Reported Spiriva (Tiotropium [place]) 18 Mcg Cap.w.dev 1 Cap IH DAILY 12/20/14 Reported Femara (Letrozole) 2.5 Mg Tablet 2.5 Mg PO DAILY 12/20/14 Reported Comments CXR 06/17 bilateral infiltrates,increasing effusions Impression . 1. Acute RF due to shock/ pneumonia,AECOPD, profound weakness. extubated 06/16 am, did well initially, re-intubated early am 06/17 for progressive Hypoxic RF 2. shock, hypovolemic/septic,POA resolved. 3. Abnormal CT chest with bilateral tree-in-bud interstitial infiltrates suggesting infectious pneumonitis. Possible chronic aspiration Tuberculosis is unlikely in this clinical setting. BAL no evidence of TB 4. Weight loss of 30 pounds. Multifactorial in Nature 5. History of heavy alcohol use. 6. Acute hypoxic respiratory failure secondary to pneumonia. improving 7. 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 severe malnutrition Plan . OR today d/w Dr Ba follow BAL results antibx per ID nutritional support with TPN needs colonoscopy in future NILDA MORLEY MD Jun 20, 2016 10:55
[2016-06-20] MEDS ORDERED: PROPOFOL 0 ML IV ONE (11:36)
[2016-06-20] MEDS ORDERED: FENTANYL PF 100 MCG/2 ML VIAL. ONE (11:36)
[2016-06-20] MEDS ORDERED: ROCURONIUM 50 MG/5 ML VIAL. ONE (11:36)
[2016-06-20] MEDS ORDERED: ISOFLURANE 31 TO 60 MINUTES. IH ONE (12:40)
[2016-06-20] MEDS ORDERED: PROPOFOL 20 ML IV ONE (12:46)
--- NOTE | 2016-06-20 13:37 | PDOC ---
BRIEF OPERATIVE NOTE Date: Jun 20, 2016 Pre-Op Diagnosis VDRF Pneumonia Sepsis Severe malnutrition Thrombocytopenia Anemia Post-Op Diagnosis VDRF Pneumonia Sepsis Severe malnutrition Thrombocytopenia Anemia Procedure Performed Tracheostomy Surgeon Cassie Juarez MD Wire Galvanizer SONA Gallagher Anesthesia Type: General Blood Loss Minimal IV Fluid N/A Urine Output N/A Specimens Obtained None Findings None significant Complications None CASSIE JUAREZ MD Jun 20, 2016 13:37
--- NOTE | 2016-06-20 13:41 | PDOC4 ---
Operative Note Operative Note Preoperative diagnosis Ventilator dependent respiratory failure Pneumonia Sepsis Severe malnutrition Thrombocytopenia Anemia Postoperative diagnosis Ventilator dependent respiratory failure Pneumonia Sepsis Severe malnutrition Thrombocytopenia Anemia Operation Tracheostomy Surgeon Cassie Juarez MD Pump And Still Operator SONA Gallagher Anesthesia: General Blood loss Minimal IV fluids N/A Urine output N/A Specimens None Findings None significant Complications None Indication The patient is a 65-year-old female who apparently was admitted to [facility] with a complaint of continued nausea, decreased appetite, increased weakness and 38-pound weight loss since her hip surgery in Apr 2016. She was seen in the Emergency Room, was found to have severe deconditioning, severe malnutrition with an albumin of 1.6 g/dL, marked dehydration, questionable UTI, lactic acid elevation, slightly elevated liver enzymes. She also had a decubitus ulcer / nonhealing surgical wound in the right hip, and hyponatremia. CT of the chest showed diffuse bilateral pulmonary infiltrates with an ARDS / possible chronic aspiration picture. Patient was admitted to our ICU on June 11, 2016. She was started on broad-spectrum intravenous antibiotics and IV steroids. She was extubated on June 16 but reintubated on June 17. She is currently on minimal vent settings. She does not require any inotropic support. I was consulted to consider the patient for a tracheostomy owing to her ventilator dependence. Operation The patient's ID was confirmed using 2 unique identifies. The patient was transferred to the OR intubated from the ICU. She was placed supine on the operating table with both arms tucked. A shoulder roll was also placed to facilitate mild neck extension which helped identify neck landmarks. The patient 's neck was prepped and draped in the usual sterile surgical fashion. The patient has been receiving therapeutic antibiotics. A timeout was then performed. A 2.5 cm transverse incision in the skin crease just below the level of the cricoid cartilage was made. The incision was deepened through the subcutaneous tissues followed by the platysma. The strap muscles were bluntly at the median raphe. The isthmus of the thyroid was identified and divided using electrocautery. The pretracheal fascia was incised. Hemostasis of the thyroid gland and surrounding tissues was performed. I clearly identified the cricoid cartilage, the first, second and third tracheal rings. I then asked anesthesia to deflate the endotracheal tube balloon. The first and second tracheal ring anteriorly were then excised. The endotracheal tube was slowly withdrawn and a 8 fr cuffed, non fenestrated tracheostomy tube was inserted with ease. The inner cannula was placed and secured. The tracheostomy was connected to the ventilator with an excellent tidal volume return. The tracheostomy was secured with four 2-0 nylon's and a trach collar. At the end of the procedure, the instrument, sponge and needle counts were correct. The patient was transferred back to the ICU in stable condition having tolerated the procedure well. CASSIE JUAREZ MD Jun 20, 2016 13:41
[2016-06-20] MEDS: TPN PER PHARMACY MC PRN ×2 (14:24→15:26)
--- NOTE | 2016-06-20 15:13 | RAD ---
Portable chest, 06/20/2016, 2:06 PM: History: Post tracheostomy tube placement Comparison is made to the study of earlier the same day. A tracheostomy tube has been inserted with its tip located 4 cm above the gladys. A right jugular central venous catheter extends into the superior aspect of the right atrium. The NG tube has been removed. The left ventricle remains enlarged. There are ongoing patchy bilateral pulmonary infiltrates. There is consolidation/atelectasis in the left base obscuring the hemidiaphragm. These findings are unchanged since earlier in the day. There is no evidence of pneumothorax. No new pulmonary abnormality is detected. IMPRESSION: 1. Interval insertion of a tracheostomy tube in satisfactory position. 2. The NG tube has been removed. 3. No other significant change since earlier in the day.
[2016-06-20] MEDS ORDERED: POTASSIUM CHLORIDE 20MEQ 50 ML IV ONE (15:30)
[2016-06-20] MEDS: FENTANYL PF 100 MCG/2 ML VIAL. IV PRN (17:37)
[2016-06-20] MEDS ORDERED: INSULIN DETEMIR 300 UNITS/3 ML INSULN.PEN. SQ SCH (21:00)
[2016-06-20] MEDS ORDERED: DEXTROSE 70% IV SCH ×11 (22:00)
[2016-06-20] MEDS ORDERED: TOTAL PARENTERAL NUTRITION IV SCH ×11 (22:00)
[2016-06-20] MEDS ORDERED: [UNRECOGNIZED DRUG - OTHER] IV SCH ×11 (22:00)
[2016-06-20] MEDS ORDERED: AMINO ACIDS IV SCH ×11 (22:00)
[2016-06-21] VITALS (12 sets, daily range): BP systolic 120–147; BP diastolic 65–77
[2016-06-21] MEDS: PIPERACILLIN/TAZOBACTAM 3.375 GM in IV NORMAL SALINE 50ML 50 ML IV SCH ×3 (01:04→13:30)
--- NOTE | 2016-06-21 01:51 | PN ---
DATE: 06/20/2016 SUBJECTIVE: The patient is resting slightly propped up in bed, in no apparent distress. She is sedated and apparently scheduled for tracheostomy tube placement as well as debridement of her left trochanteric decubitus ulcer to be done at the same. PHYSICAL EXAMINATION: GENERAL: When I examined her, she looked pale, no jaundice, cyanosis or thyromegaly. No jugular venous distention. No limb edema. VITAL SIGNS: Her heart rate was 63, blood pressure 141/78, temperature was 97.5, respiratory rate was 15 and oxygen saturation was 100% on FiO2 of 40%. HEAD, EYES, EARS, NOSE AND THROAT: Normocephalic, atraumatic. NECK: Supple with orotracheal and orogastric tubes in place. HEART: Showed normal first and second heart sounds with no gallop, rub or murmur. CHEST: Clear to auscultation. No crepitation or rhonchi. ABDOMEN: Distended, soft, nontender. No guarding or rigidity. No organomegaly. Hernial orifices intact. Bowel sounds are normal. NEUROLOGIC: She is heavily sedated; however, she is deaf and mute. All her cranial nerves otherwise are intact. She has severe generalized anasarca. Her intake over the last 24 hours was 870, output was 2010. LABORATORY DATA: Her lab work this morning showed a white cell count of 15,700, hemoglobin 6.9, hematocrit 21, MCV 98 and platelet count 203,000. She did receive 2 units of platelets and she is scheduled to receive 2 units of packed RBCs. Her chemistry showed serum sodium of 146, potassium 3.2, chloride 104, bicarbonate 38, anion gap of 4, BUN 22, creatinine 0.4, estimated GFR was 160 mL per minute. Her glucose was 239. Calcium was 8.4, magnesium was 2.2. Total bilirubin 1.9. AST, ALT, alkaline phosphatase were normal. Her total protein was 4.8, albumin was 3. Her prothrombin time was 18, INR 1.6. Blood gas this morning showed a pH of 7.52, pCO2 of 46, pO2 of 111, bicarbonate 37, oxygen saturation was 98% on FIO2 of 40%. ASSESSMENT: 1. Acute respiratory failure secondary to pneumonia and chronic obstructive pulmonary disease exacerbation. She was extubated on 06/16/2016 and reintubated again on 06/18/2016 with acute hypoxic respiratory failure, shock, hypovolemic and septic, present on admission. 2. Abnormal CT scan with bilateral tree-in-bud interstitial infiltrate suggesting infectious pneumonitis. 3. Possible chronic aspiration. 4. Tuberculosis unlikely. In the clinical setting pulmonary alveolar lavage was negative for tuberculosis. 5. Profound weight loss, multifactorial. She lost more than 38 pounds. 6. History of alcohol abuse. 7. Coagulopathy, which could be due to alcoholic liver disease versus DIC. Her prothrombin time INR responded to vitamin K, although not completely. 8. Severe routine calorie malnutrition with generalized anasarca. PLAN: To proceed with the tracheostomy tube placement and debridement of her left trochanteric bursa decubitus ulcer. We will continue with her on albumin 25 grams IV 3 times a day as well as Lasix 20 mg IV 3 times a day. She has hypokalemia and her potassium needs to be replenished. TODD MILLER MD DR: FRANCISCO JAVIER/sushil JOB#: [id number] / [id number]
[2016-06-21] MEDS: INSULIN ASPART 300 UNITS/3 ML INSULN.PEN SQ SCH ×2 (06:00→13:32)
[2016-06-21] MEDS: HYDROCORTISONE SOD SUCC/PF 100 MG/2 ML VIAL. IV SCH (06:12)
[2016-06-21] MEDS: ALBUMIN HUMAN 25% 100 ML IV SCH (06:12)
[2016-06-21] MEDS: PANTOPRAZOLE IV PUSH 40 MG VIAL. IVP SCH (06:13)
[2016-06-21] MEDS: FUROSEMIDE 20 MG/2 ML VIAL IVP SCH (06:13)
[2016-06-21 06:42] LABS: BASO # 0.1 x10^3/uL (0.0-0.2); BASO % 0 % (0-3); EOS % 0 % (0-3); HEMATOCRIT 33.4 % (36.0-47.0); HEMOGLOBIN 11.1 g/dL (12.0-15.5); LYMPH # 0.6 x10^3/uL (1.0-4.8); LYMPH % 4 % (24-48); MEAN CORPUSCULAR HEMOGLOBIN 30 pg (25-35); MEAN CORPUSCULAR HGB CONC 33 g/dL (31-37); MEAN CORPUSCULAR VOLUME 90 fL (79-100); MONO % 8 % (0-9); NEUT % 88 % (31-73); PLATELET COUNT 115 x10^3/uL (140-400); RED CELL DISTRIBUTION WIDTH 19.3 % (11.5-14.5); WHITE BLOOD COUNT 16.9 x10^3/uL (4.0-11.0)
[2016-06-21 06:55] LABS: CALCIUM 8.6 mg/dL (8.5-10.1); CREATININE 0.4 mg/dL (0.6-1.0); GFR 160.7; POTASSIUM 3.3 mmol/L (3.5-5.1)
[2016-06-21] MEDS: BUDESONIDE 0.5 MG/2 ML NEBU NEB SCH (07:14)
[2016-06-21] MEDS: IPRATRPIUM/ALBUTEROL 0.5/2.5MG 3 ML NEBU. NEB SCH ×2 (07:14→11:17)
--- NOTE | 2016-06-21 07:17 | PDOC ---
Infectious Disease Note Subjective Subjective s/p Reintubation 06/17 Trach and left hip debridement 06/20 ROS ROS GEN: Denies fevers, chills, sweats HEENT: Denies blurred vision, sore throat CV: Denies chest pain RESP: Denies shortness of air, cough GI: Denies n/v/d NEURO: Denies confusion, dizziness MSK: Denies weakness, joint pain/swelling Vital Sign Vital Signs Vital Signs Date Time Temp Pulse Resp B/P Pulse Ox O2 Delivery O2 Flow Rate FiO2 06/21/16 05:48 100 Ventilator 06/21/16 05:00 69 14 137/72 06/21/16 04:00 98.7 98.7 Physical Exam PHYSICAL EXAM GENERAL: Alert, intubated, NAD deaf. Looks comfortable HEENT: PERRL, trach LUNGS: CTA HEART: S1S2, no gallop, no murmur ABD: Soft, no grimace to palpation, mild distension : Mehta EXT: Anasarca. Wound dressed SOLUTION MIXER: Alert, calm SKIN: No rash RIG (06/13). clean Labs Lab Laboratory Tests Test 06/20/16 08:00 06/20/16 11:50 06/20/16 17:40 06/20/16 22:40 O2 Saturation 98% (92-99) Arterial Blood pH 7.52 (7.35-7.45) Arterial Blood pCO2 at Patient Temp 46mmHg (35-46) Arterial Blood pO2 at Patient Temp 111mmHg (65-108) Arterial Blood HCO3 37mmol/L (21-28) Arterial Blood Base Excess 13mmol/L (-3-3) FiO2 40 Glucose (Fingerstick) 288mg/dL (70-99) 220mg/dL (70-99) 236mg/dL (70-99) Test 06/21/16 06:20 06/21/16 06:25 White Blood Count 16.9x10^3/uL (4.0-11.0) Red Blood Count 3.70x10^6/uL (3.50-5.40) Hemoglobin 11.1g/dL (12.0-15.5) Hematocrit 33.4% (36.0-47.0) Mean Corpuscular Volume 90fL (79-100) Mean Corpuscular Hemoglobin 30pg (25-35) Mean Corpuscular Hemoglobin Concent 33g/dL (31-37) Red Cell Distribution Width 19.3% (11.5-14.5) Platelet Count 115x10^3/uL (140-400) Neutrophils (%) (Auto) 88% (31-73) Lymphocytes (%) (Auto) 4% (24-48) Monocytes (%) (Auto) 8% (0-9) Eosinophils (%) (Auto) 0% (0-3) Basophils (%) (Auto) 0% (0-3) Neutrophils # (Auto) 14.9x10^3uL (1.8-7.7) Lymphocytes # (Auto) 0.6x10^3/uL (1.0-4.8) Monocytes # (Auto) 1.3x10^3/uL (0.0-1.1) Eosinophils # (Auto) 0.0x10^3/uL (0.0-0.7) Basophils # (Auto) 0.1x10^3/uL (0.0-0.2) Sodium Level 147mmol/L (136-145) Potassium Level 3.3mmol/L (3.5-5.1) Chloride Level 104mmol/L (98-107) Carbon Dioxide Level 38mmol/L (21-32) Anion Gap 5 (6-14) Blood Urea Nitrogen 23mg/dL (7-20) Creatinine 0.4mg/dL (0.6-1.0) Estimated GFR (Cockcroft-Gault) 160.7 Glucose Level 142mg/dL (70-99) Calcium Level 8.6mg/dL (8.5-10.1) Glucose (Fingerstick) 142mg/dL (70-99) Objective Assessment Leukocytosis ? reactive to PRBCs/trach and hip debridement/Hydrocortisone Pulmonary infiltrates Cavitary pneumonia Acute Anemia Thrombocytopenia - trending down again Anasarca Left hip wound with necrotic tissue s/p I and D 06/20 S/P CODE Respiratory failure s/p intubation/extubation and reintubation 06/17 - on Hydrocortisone -Bilat pleural effusions and atelectasis/consolidations . ? ARDS Nonhealing right hip surgical wound w/ drainage wound intact but mild slough -h/o right hip replacement H/O ETOH H/O Pancreatitis Wt loss Plan Plan of Care Cont Zosyn/Zyvox but wean soon F/u repeat sputum Labs in am Critically ill GROVER LANDRY MD Jun 21, 2016 07:17
[2016-06-21 07:23] LABS: HCO3 ABG 36 mmol/L (21-28); PCO2 ABG 44 mmHg (35-46); PH ABG 7.54 (7.35-7.45); PO2 ABG 115 mmHg (65-108); SAT O2 ABG 98 % (92-99)
[2016-06-21 07:51] LABS: FIO2 ABG 40
[2016-06-21] MEDS: GABAPENTIN 300 MG CAPSULE. PO SCH (09:00)
[2016-06-21] MEDS: LETROZOLE 2.5 MG TABLET. PO SCH (09:00)
--- NOTE | 2016-06-21 09:22 | PDOC ---
BRIEF OPERATIVE NOTE Date: Jun 20, 2016 Pre-Op Diagnosis left hip decubitus ulcer Post-Op Diagnosis same Procedure Performed sharp debridement of skin and subcutaneous tissue Surgeon Sheldon Anesthesia Type: General Blood Loss minimal IV Fluid 100cc Specimens Obtained cultures Findings Stage III ulcer Complications none Additional Remarks # [id number] JEAN CARLOS VALENZUELA MD Jun 21, 2016 09:22
--- NOTE | 2016-06-21 09:32 | OP ---
DATE OF SURGERY: 06/20/2016 PREOPERATIVE DIAGNOSIS: Left hip decubitus ulcer. POSTOPERATIVE DIAGNOSIS: Left hip decubitus ulcer. PROCEDURE: Sharp debridement of skin and subcutaneous tissue down to fascia. SURGEON: Jean Carlos Valenzuela MD ANESTHESIA: General. BLOOD LOSS: Minimal. INDICATIONS: The patient is a 65-year-old, who was brought to the OR for tracheostomy due to ventilator dependency. She has an ulcer on her left hip that I was asked to debride. DESCRIPTION OF PROCEDURE: The patient was under general anesthesia having had a tracheostomy tube placed. The left hip was prepped and draped in the usual sterile fashion. Sharp dissection was used to excise eschar and necrotic subcutaneous tissue down to the lateral fascia. Hemostasis was obtained with cautery. Wound was cultured, irrigated, again checked for hemostasis and when present, was dressed with Xeroform gauze and sterile dressing. The patient tolerated the procedure well and was transferred from the OR back to the ICU in stable condition. JEAN CARLOS VALENZUELA MD DR: ROXANNE/nts JOB#: [id number] / [id number]
--- NOTE | 2016-06-21 09:50 | PDOC ---
MARIETTA DYSON [employer] 06/21/16 0950: SURGICAL PROGRESS NOTE Subjective awake on vent Vital Signs Vital Signs Date Time Temp Pulse Resp B/P Pulse Ox O2 Delivery O2 Flow Rate FiO2 06/21/16 09:30 98 Ventilator 06/21/16 09:00 91 16 138/74 06/21/16 08:00 98.0 98.0 I&O Intake and Output 06/21/16 07:00 Intake Total 2080 ml Output Total 1585 ml Balance 495 ml Intake Oral 0 ml IV Total 2080 ml Output Urine Total 1585 ml General: Alert, Cooperative, No acute distress Skin: Other (left hip--dressing dry and intact ) Labs Laboratory Tests Test 06/19/16 12:32 06/19/16 13:45 06/19/16 19:11 06/19/16 23:29 Glucose (Fingerstick) 306mg/dL (70-99) 217mg/dL (70-99) 230mg/dL (70-99) Prothrombin Time 18.2SEC (11.7-14.0) Prothromb Time International Ratio 1.6 (0.8-1.1) Test 06/20/16 05:10 06/20/16 05:11 06/20/16 08:00 06/20/16 11:50 White Blood Count 15.7x10^3/uL (4.0-11.0) Red Blood Count 2.15x10^6/uL (3.50-5.40) Hemoglobin 6.9g/dL (12.0-15.5) Hematocrit 21.0% (36.0-47.0) Mean Corpuscular Volume 98fL (79-100) Mean Corpuscular Hemoglobin 32pg (25-35) Mean Corpuscular Hemoglobin Concent 33g/dL (31-37) Red Cell Distribution Width 16.0% (11.5-14.5) Platelet Count 203x10^3/uL (140-400) Neutrophils (%) (Auto) 88% (31-73) Lymphocytes (%) (Auto) 4% (24-48) Monocytes (%) (Auto) 8% (0-9) Eosinophils (%) (Auto) 0% (0-3) Basophils (%) (Auto) 0% (0-3) Neutrophils # (Auto) 13.8x10^3uL (1.8-7.7) Lymphocytes # (Auto) 0.6x10^3/uL (1.0-4.8) Monocytes # (Auto) 1.2x10^3/uL (0.0-1.1) Eosinophils # (Auto) 0.0x10^3/uL (0.0-0.7) Basophils # (Auto) 0.1x10^3/uL (0.0-0.2) Prothrombin Time 18.0SEC (11.7-14.0) Prothromb Time International Ratio 1.6 (0.8-1.1) Sodium Level 146mmol/L (136-145) Potassium Level 3.2mmol/L (3.5-5.1) Chloride Level 104mmol/L (98-107) Carbon Dioxide Level 38mmol/L (21-32) Anion Gap 4 (6-14) Blood Urea Nitrogen 22mg/dL (7-20) Creatinine 0.4mg/dL (0.6-1.0) Estimated GFR (Cockcroft-Gault) 160.7 BUN/Creatinine Ratio 55 (6-20) Glucose Level 239mg/dL (70-99) Calcium Level 8.4mg/dL (8.5-10.1) Magnesium Level 2.2mg/dL (1.8-2.4) Total Bilirubin 1.9mg/dL (0.2-1.0) Aspartate Amino Transf (AST/SGOT) 24U/L (15-37) Alanine Aminotransferase (ALT/SGPT) 24U/L (14-59) Alkaline Phosphatase 84U/L (46-116) Total Protein 4.8g/dL (6.4-8.2) Albumin 3.0g/dL (3.4-5.0) Albumin/Globulin Ratio 1.7 (1.0-1.7) Glucose (Fingerstick) 238mg/dL (70-99) 288mg/dL (70-99) O2 Saturation 98% (92-99) Arterial Blood pH 7.52 (7.35-7.45) Arterial Blood pCO2 at Patient Temp 46mmHg (35-46) Arterial Blood pO2 at Patient Temp 111mmHg (65-108) Arterial Blood HCO3 37mmol/L (21-28) Arterial Blood Base Excess 13mmol/L (-3-3) FiO2 40 Test 06/20/16 17:40 06/20/16 22:40 06/21/16 06:20 06/21/16 06:25 Glucose (Fingerstick) 220mg/dL (70-99) 236mg/dL (70-99) 142mg/dL (70-99) White Blood Count 16.9x10^3/uL (4.0-11.0) Red Blood Count 3.70x10^6/uL (3.50-5.40) Hemoglobin 11.1g/dL (12.0-15.5) Hematocrit 33.4% (36.0-47.0) Mean Corpuscular Volume 90fL (79-100) Mean Corpuscular Hemoglobin 30pg (25-35) Mean Corpuscular Hemoglobin Concent 33g/dL (31-37) Red Cell Distribution Width 19.3% (11.5-14.5) Platelet Count 115x10^3/uL (140-400) Neutrophils (%) (Auto) 88% (31-73) Lymphocytes (%) (Auto) 4% (24-48) Monocytes (%) (Auto) 8% (0-9) Eosinophils (%) (Auto) 0% (0-3) Basophils (%) (Auto) 0% (0-3) Neutrophils # (Auto) 14.9x10^3uL (1.8-7.7) Lymphocytes # (Auto) 0.6x10^3/uL (1.0-4.8) Monocytes # (Auto) 1.3x10^3/uL (0.0-1.1) Eosinophils # (Auto) 0.0x10^3/uL (0.0-0.7) Basophils # (Auto) 0.1x10^3/uL (0.0-0.2) Sodium Level 147mmol/L (136-145) Potassium Level 3.3mmol/L (3.5-5.1) Chloride Level 104mmol/L (98-107) Carbon Dioxide Level 38mmol/L (21-32) Anion Gap 5 (6-14) Blood Urea Nitrogen 23mg/dL (7-20) Creatinine 0.4mg/dL (0.6-1.0) Estimated GFR (Cockcroft-Gault) 160.7 Glucose Level 142mg/dL (70-99) Calcium Level 8.6mg/dL (8.5-10.1) Test 06/21/16 07:15 O2 Saturation 98% (92-99) Arterial Blood pH 7.54 (7.35-7.45) Arterial Blood pCO2 at Patient Temp 44mmHg (35-46) Arterial Blood pO2 at Patient Temp 115mmHg (65-108) Arterial Blood HCO3 36mmol/L (21-28) Arterial Blood Base Excess 12mmol/L (-3-3) FiO2 40 Laboratory Tests Test 06/20/16 11:50 06/20/16 17:40 06/20/16 22:40 06/21/16 06:20 Glucose (Fingerstick) 288mg/dL (70-99) 220mg/dL (70-99) 236mg/dL (70-99) White Blood Count 16.9x10^3/uL (4.0-11.0) Red Blood Count 3.70x10^6/uL (3.50-5.40) Hemoglobin 11.1g/dL (12.0-15.5) Hematocrit 33.4% (36.0-47.0) Mean Corpuscular Volume 90fL (79-100) Mean Corpuscular Hemoglobin 30pg (25-35) Mean Corpuscular Hemoglobin Concent 33g/dL (31-37) Red Cell Distribution Width 19.3% (11.5-14.5) Platelet Count 115x10^3/uL (140-400) Neutrophils (%) (Auto) 88% (31-73) Lymphocytes (%) (Auto) 4% (24-48) Monocytes (%) (Auto) 8% (0-9) Eosinophils (%) (Auto) 0% (0-3) Basophils (%) (Auto) 0% (0-3) Neutrophils # (Auto) 14.9x10^3uL (1.8-7.7) Lymphocytes # (Auto) 0.6x10^3/uL (1.0-4.8) Monocytes # (Auto) 1.3x10^3/uL (0.0-1.1) Eosinophils # (Auto) 0.0x10^3/uL (0.0-0.7) Basophils # (Auto) 0.1x10^3/uL (0.0-0.2) Sodium Level 147mmol/L (136-145) Potassium Level 3.3mmol/L (3.5-5.1) Chloride Level 104mmol/L (98-107) Carbon Dioxide Level 38mmol/L (21-32) Anion Gap 5 (6-14) Blood Urea Nitrogen 23mg/dL (7-20) Creatinine 0.4mg/dL (0.6-1.0) Estimated GFR (Cockcroft-Gault) 160.7 Glucose Level 142mg/dL (70-99) Calcium Level 8.6mg/dL (8.5-10.1) Test 06/21/16 06:25 06/21/16 07:15 Glucose (Fingerstick) 142mg/dL (70-99) O2 Saturation 98% (92-99) Arterial Blood pH 7.54 (7.35-7.45) Arterial Blood pCO2 at Patient Temp 44mmHg (35-46) Arterial Blood pO2 at Patient Temp 115mmHg (65-108) Arterial Blood HCO3 36mmol/L (21-28) Arterial Blood Base Excess 12mmol/L (-3-3) FiO2 40 Problem List s/p left hip debridement wound care Problems: JEAN CARLOS VALENZUELA MD 06/21/16 1444: SURGICAL PROGRESS NOTE Assessment/Plan agree with above Problems: MARIETTA DYSON APRN Jun 21, 2016 09:50 JEAN CARLOS VALENZUELA MD Jun 21, 2016 14:44
--- NOTE | 2016-06-21 11:02 | PDOC ---
PULMONARY PROGRESS NOTES Subjective extubated 06/16 am, did well till early am, re-intubated early am 06/17 for progressive Hypoxic RF s/p trach 06/20 Vitals Vital Signs Date Time Temp Pulse Resp B/P Pulse Ox O2 Delivery O2 Flow Rate FiO2 06/21/16 10:00 92 18 140/77 100 Ventilator 06/21/16 08:00 98.0 98.0 Lungs: Crackles Cardiovascular: S1, S2 Abdomen: Soft, Non-tender Extremities: Other (trace edema) Skin: Warm Labs Laboratory Tests Test 06/19/16 12:32 06/19/16 13:45 06/19/16 19:11 06/19/16 23:29 Glucose (Fingerstick) 306mg/dL (70-99) 217mg/dL (70-99) 230mg/dL (70-99) Prothrombin Time 18.2SEC (11.7-14.0) Prothromb Time International Ratio 1.6 (0.8-1.1) Test 06/20/16 05:10 06/20/16 05:11 06/20/16 08:00 06/20/16 11:50 White Blood Count 15.7x10^3/uL (4.0-11.0) Red Blood Count 2.15x10^6/uL (3.50-5.40) Hemoglobin 6.9g/dL (12.0-15.5) Hematocrit 21.0% (36.0-47.0) Mean Corpuscular Volume 98fL (79-100) Mean Corpuscular Hemoglobin 32pg (25-35) Mean Corpuscular Hemoglobin Concent 33g/dL (31-37) Red Cell Distribution Width 16.0% (11.5-14.5) Platelet Count 203x10^3/uL (140-400) Neutrophils (%) (Auto) 88% (31-73) Lymphocytes (%) (Auto) 4% (24-48) Monocytes (%) (Auto) 8% (0-9) Eosinophils (%) (Auto) 0% (0-3) Basophils (%) (Auto) 0% (0-3) Neutrophils # (Auto) 13.8x10^3uL (1.8-7.7) Lymphocytes # (Auto) 0.6x10^3/uL (1.0-4.8) Monocytes # (Auto) 1.2x10^3/uL (0.0-1.1) Eosinophils # (Auto) 0.0x10^3/uL (0.0-0.7) Basophils # (Auto) 0.1x10^3/uL (0.0-0.2) Prothrombin Time 18.0SEC (11.7-14.0) Prothromb Time International Ratio 1.6 (0.8-1.1) Sodium Level 146mmol/L (136-145) Potassium Level 3.2mmol/L (3.5-5.1) Chloride Level 104mmol/L (98-107) Carbon Dioxide Level 38mmol/L (21-32) Anion Gap 4 (6-14) Blood Urea Nitrogen 22mg/dL (7-20) Creatinine 0.4mg/dL (0.6-1.0) Estimated GFR (Cockcroft-Gault) 160.7 BUN/Creatinine Ratio 55 (6-20) Glucose Level 239mg/dL (70-99) Calcium Level 8.4mg/dL (8.5-10.1) Magnesium Level 2.2mg/dL (1.8-2.4) Total Bilirubin 1.9mg/dL (0.2-1.0) Aspartate Amino Transf (AST/SGOT) 24U/L (15-37) Alanine Aminotransferase (ALT/SGPT) 24U/L (14-59) Alkaline Phosphatase 84U/L (46-116) Total Protein 4.8g/dL (6.4-8.2) Albumin 3.0g/dL (3.4-5.0) Albumin/Globulin Ratio 1.7 (1.0-1.7) Glucose (Fingerstick) 238mg/dL (70-99) 288mg/dL (70-99) O2 Saturation 98% (92-99) Arterial Blood pH 7.52 (7.35-7.45) Arterial Blood pCO2 at Patient Temp 46mmHg (35-46) Arterial Blood pO2 at Patient Temp 111mmHg (65-108) Arterial Blood HCO3 37mmol/L (21-28) Arterial Blood Base Excess 13mmol/L (-3-3) FiO2 40 Test 06/20/16 17:40 06/20/16 22:40 06/21/16 06:20 06/21/16 06:25 Glucose (Fingerstick) 220mg/dL (70-99) 236mg/dL (70-99) 142mg/dL (70-99) White Blood Count 16.9x10^3/uL (4.0-11.0) Red Blood Count 3.70x10^6/uL (3.50-5.40) Hemoglobin 11.1g/dL (12.0-15.5) Hematocrit 33.4% (36.0-47.0) Mean Corpuscular Volume 90fL (79-100) Mean Corpuscular Hemoglobin 30pg (25-35) Mean Corpuscular Hemoglobin Concent 33g/dL (31-37) Red Cell Distribution Width 19.3% (11.5-14.5) Platelet Count 115x10^3/uL (140-400) Neutrophils (%) (Auto) 88% (31-73) Lymphocytes (%) (Auto) 4% (24-48) Monocytes (%) (Auto) 8% (0-9) Eosinophils (%) (Auto) 0% (0-3) Basophils (%) (Auto) 0% (0-3) Neutrophils # (Auto) 14.9x10^3uL (1.8-7.7) Lymphocytes # (Auto) 0.6x10^3/uL (1.0-4.8) Monocytes # (Auto) 1.3x10^3/uL (0.0-1.1) Eosinophils # (Auto) 0.0x10^3/uL (0.0-0.7) Basophils # (Auto) 0.1x10^3/uL (0.0-0.2) Sodium Level 147mmol/L (136-145) Potassium Level 3.3mmol/L (3.5-5.1) Chloride Level 104mmol/L (98-107) Carbon Dioxide Level 38mmol/L (21-32) Anion Gap 5 (6-14) Blood Urea Nitrogen 23mg/dL (7-20) Creatinine 0.4mg/dL (0.6-1.0) Estimated GFR (Cockcroft-Gault) 160.7 Glucose Level 142mg/dL (70-99) Calcium Level 8.6mg/dL (8.5-10.1) Test 06/21/16 07:15 O2 Saturation 98% (92-99) Arterial Blood pH 7.54 (7.35-7.45) Arterial Blood pCO2 at Patient Temp 44mmHg (35-46) Arterial Blood pO2 at Patient Temp 115mmHg (65-108) Arterial Blood HCO3 36mmol/L (21-28) Arterial Blood Base Excess 12mmol/L (-3-3) FiO2 40 Laboratory Tests Test 06/20/16 11:50 06/20/16 17:40 06/20/16 22:40 06/21/16 06:20 Glucose (Fingerstick) 288mg/dL (70-99) 220mg/dL (70-99) 236mg/dL (70-99) White Blood Count 16.9x10^3/uL (4.0-11.0) Red Blood Count 3.70x10^6/uL (3.50-5.40) Hemoglobin 11.1g/dL (12.0-15.5) Hematocrit 33.4% (36.0-47.0) Mean Corpuscular Volume 90fL (79-100) Mean Corpuscular Hemoglobin 30pg (25-35) Mean Corpuscular Hemoglobin Concent 33g/dL (31-37) Red Cell Distribution Width 19.3% (11.5-14.5) Platelet Count 115x10^3/uL (140-400) Neutrophils (%) (Auto) 88% (31-73) Lymphocytes (%) (Auto) 4% (24-48) Monocytes (%) (Auto) 8% (0-9) Eosinophils (%) (Auto) 0% (0-3) Basophils (%) (Auto) 0% (0-3) Neutrophils # (Auto) 14.9x10^3uL (1.8-7.7) Lymphocytes # (Auto) 0.6x10^3/uL (1.0-4.8) Monocytes # (Auto) 1.3x10^3/uL (0.0-1.1) Eosinophils # (Auto) 0.0x10^3/uL (0.0-0.7) Basophils # (Auto) 0.1x10^3/uL (0.0-0.2) Sodium Level 147mmol/L (136-145) Potassium Level 3.3mmol/L (3.5-5.1) Chloride Level 104mmol/L (98-107) Carbon Dioxide Level 38mmol/L (21-32) Anion Gap 5 (6-14) Blood Urea Nitrogen 23mg/dL (7-20) Creatinine 0.4mg/dL (0.6-1.0) Estimated GFR (Cockcroft-Gault) 160.7 Glucose Level 142mg/dL (70-99) Calcium Level 8.6mg/dL (8.5-10.1) Test 06/21/16 06:25 06/21/16 07:15 Glucose (Fingerstick) 142mg/dL (70-99) O2 Saturation 98% (92-99) Arterial Blood pH 7.54 (7.35-7.45) Arterial Blood pCO2 at Patient Temp 44mmHg (35-46) Arterial Blood pO2 at Patient Temp 115mmHg (65-108) Arterial Blood HCO3 36mmol/L (21-28) Arterial Blood Base Excess 12mmol/L (-3-3) FiO2 40 Medications Active Scripts Medications Dose Route/Sig Days Date Category Warfarin Sodium 5 Mg Tablet 1 Tab PO DAILY 04/21/16 Rx Cipro (Ciprofloxacin Hcl) 500 Mg Tablet 1 Tab PO BID 04/21/16 Rx Anoro Ellipta 62.5-25 Mcg Inh (Umeclidinium Brm/Vilanterol Tr) 1 Each Disk.w.dev 1 Each IH DAILY 12/20/14 Reported Oxycodone Hcl 20 Mg Tablet 20 Mg PO PRN Q4HRS PRN 12/20/14 Reported Gabapentin 300 Mg Capsule 1 Cap PO BID 12/20/14 Reported Flovent 110MCG Hfa (Fluticasone Propionate) 12 Gm Aer.w.adap 2 Puff IH BID 12/20/14 Reported Breo Ellipta 200-25 Mcg INH (Fluticasone/Vilanterol) 1 Each Blst.w.dev 1 Each IH DAILY 12/20/14 Reported Proair Hfa Inhaler (Albuterol Sulfate) 8.5 Gm Hfa.aer.ad 2 Puff IH PRN QID PRN 12/20/14 Reported Lorazepam 0.5 Mg Tablet 0.5 Mg PO Q4HRS PRN 12/20/14 Reported Ondansetron Hcl 4 Mg Tablet 1 Tab PO PRN Q4HRS 12/20/14 Reported Spiriva (Tiotropium [place]) 18 Mcg Cap.w.dev 1 Cap IH DAILY 12/20/14 Reported Femara (Letrozole) 2.5 Mg Tablet 2.5 Mg PO DAILY 12/20/14 Reported Comments CXR 06/17 bilateral infiltrates,increasing effusions Impression . 1. Acute RF due to shock/ pneumonia,AECOPD, profound weakness. extubated 06/16 am, did well initially, re-intubated early am 06/17 for progressive Hypoxic RF 2. shock, hypovolemic/septic,POA resolved. 3. Abnormal CT chest with bilateral tree-in-bud interstitial infiltrates suggesting infectious pneumonitis. Possible chronic aspiration Tuberculosis is unlikely in this clinical setting. BAL no evidence of TB 4. Weight loss of 30 pounds. Multifactorial in Nature 5. History of heavy alcohol use. 6. Acute hypoxic respiratory failure secondary to pneumonia. improving 7. 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 severe malnutrition Plan . ok to transfer to [facility] d[facility]w Dr Ba follow BAL results antibx per ID nutritional support with TPN needs colonoscopy in future NILDA MORLEY MD Jun 21, 2016 11:02
--- NOTE | 2016-06-21 13:10 | PDOC ---
G I PROGRESS NOTE Subjective Awake? On ventilator, unsedated. Does not respond to me. Objective To transfer to LTAC today? Physical Exam Lungs clear anteriorly. RRR Abdomen soft, not distended nor apparently tender. Review of Relevant I have reviewed the following items apryl (where applicable) has been applied. Labs Laboratory Tests Test 06/19/16 13:45 06/19/16 19:11 06/19/16 23:29 06/20/16 05:10 Prothrombin Time 18.2SEC (11.7-14.0) 18.0SEC (11.7-14.0) Prothromb Time International Ratio 1.6 (0.8-1.1) 1.6 (0.8-1.1) Glucose (Fingerstick) 217mg/dL (70-99) 230mg/dL (70-99) White Blood Count 15.7x10^3/uL (4.0-11.0) Red Blood Count 2.15x10^6/uL (3.50-5.40) Hemoglobin 6.9g/dL (12.0-15.5) Hematocrit 21.0% (36.0-47.0) Mean Corpuscular Volume 98fL (79-100) Mean Corpuscular Hemoglobin 32pg (25-35) Mean Corpuscular Hemoglobin Concent 33g/dL (31-37) Red Cell Distribution Width 16.0% (11.5-14.5) Platelet Count 203x10^3/uL (140-400) Neutrophils (%) (Auto) 88% (31-73) Lymphocytes (%) (Auto) 4% (24-48) Monocytes (%) (Auto) 8% (0-9) Eosinophils (%) (Auto) 0% (0-3) Basophils (%) (Auto) 0% (0-3) Neutrophils # (Auto) 13.8x10^3uL (1.8-7.7) Lymphocytes # (Auto) 0.6x10^3/uL (1.0-4.8) Monocytes # (Auto) 1.2x10^3/uL (0.0-1.1) Eosinophils # (Auto) 0.0x10^3/uL (0.0-0.7) Basophils # (Auto) 0.1x10^3/uL (0.0-0.2) Sodium Level 146mmol/L (136-145) Potassium Level 3.2mmol/L (3.5-5.1) Chloride Level 104mmol/L (98-107) Carbon Dioxide Level 38mmol/L (21-32) Anion Gap 4 (6-14) Blood Urea Nitrogen 22mg/dL (7-20) Creatinine 0.4mg/dL (0.6-1.0) Estimated GFR (Cockcroft-Gault) 160.7 BUN/Creatinine Ratio 55 (6-20) Glucose Level 239mg/dL (70-99) Calcium Level 8.4mg/dL (8.5-10.1) Magnesium Level 2.2mg/dL (1.8-2.4) Total Bilirubin 1.9mg/dL (0.2-1.0) Aspartate Amino Transf (AST/SGOT) 24U/L (15-37) Alanine Aminotransferase (ALT/SGPT) 24U/L (14-59) Alkaline Phosphatase 84U/L (46-116) Total Protein 4.8g/dL (6.4-8.2) Albumin 3.0g/dL (3.4-5.0) Albumin/Globulin Ratio 1.7 (1.0-1.7) Test 06/20/16 05:11 06/20/16 08:00 06/20/16 11:50 06/20/16 17:40 Glucose (Fingerstick) 238mg/dL (70-99) 288mg/dL (70-99) 220mg/dL (70-99) O2 Saturation 98% (92-99) Arterial Blood pH 7.52 (7.35-7.45) Arterial Blood pCO2 at Patient Temp 46mmHg (35-46) Arterial Blood pO2 at Patient Temp 111mmHg (65-108) Arterial Blood HCO3 37mmol/L (21-28) Arterial Blood Base Excess 13mmol/L (-3-3) FiO2 40 Test 06/20/16 22:40 06/21/16 06:20 06/21/16 06:25 06/21/16 07:15 Glucose (Fingerstick) 236mg/dL (70-99) 142mg/dL (70-99) White Blood Count 16.9x10^3/uL (4.0-11.0) Red Blood Count 3.70x10^6/uL (3.50-5.40) Hemoglobin 11.1g/dL (12.0-15.5) Hematocrit 33.4% (36.0-47.0) Mean Corpuscular Volume 90fL (79-100) Mean Corpuscular Hemoglobin 30pg (25-35) Mean Corpuscular Hemoglobin Concent 33g/dL (31-37) Red Cell Distribution Width 19.3% (11.5-14.5) Platelet Count 115x10^3/uL (140-400) Neutrophils (%) (Auto) 88% (31-73) Lymphocytes (%) (Auto) 4% (24-48) Monocytes (%) (Auto) 8% (0-9) Eosinophils (%) (Auto) 0% (0-3) Basophils (%) (Auto) 0% (0-3) Neutrophils # (Auto) 14.9x10^3uL (1.8-7.7) Lymphocytes # (Auto) 0.6x10^3/uL (1.0-4.8) Monocytes # (Auto) 1.3x10^3/uL (0.0-1.1) Eosinophils # (Auto) 0.0x10^3/uL (0.0-0.7) Basophils # (Auto) 0.1x10^3/uL (0.0-0.2) Sodium Level 147mmol/L (136-145) Potassium Level 3.3mmol/L (3.5-5.1) Chloride Level 104mmol/L (98-107) Carbon Dioxide Level 38mmol/L (21-32) Anion Gap 5 (6-14) Blood Urea Nitrogen 23mg/dL (7-20) Creatinine 0.4mg/dL (0.6-1.0) Estimated GFR (Cockcroft-Gault) 160.7 Glucose Level 142mg/dL (70-99) Calcium Level 8.6mg/dL (8.5-10.1) O2 Saturation 98% (92-99) Arterial Blood pH 7.54 (7.35-7.45) Arterial Blood pCO2 at Patient Temp 44mmHg (35-46) Arterial Blood pO2 at Patient Temp 115mmHg (65-108) Arterial Blood HCO3 36mmol/L (21-28) Arterial Blood Base Excess 12mmol/L (-3-3) FiO2 40 Laboratory Tests Test 06/20/16 17:40 06/20/16 22:40 06/21/16 06:20 06/21/16 06:25 Glucose (Fingerstick) 220mg/dL (70-99) 236mg/dL (70-99) 142mg/dL (70-99) White Blood Count 16.9x10^3/uL (4.0-11.0) Red Blood Count 3.70x10^6/uL (3.50-5.40) Hemoglobin 11.1g/dL (12.0-15.5) Hematocrit 33.4% (36.0-47.0) Mean Corpuscular Volume 90fL (79-100) Mean Corpuscular Hemoglobin 30pg (25-35) Mean Corpuscular Hemoglobin Concent 33g/dL (31-37) Red Cell Distribution Width 19.3% (11.5-14.5) Platelet Count 115x10^3/uL (140-400) Neutrophils (%) (Auto) 88% (31-73) Lymphocytes (%) (Auto) 4% (24-48) Monocytes (%) (Auto) 8% (0-9) Eosinophils (%) (Auto) 0% (0-3) Basophils (%) (Auto) 0% (0-3) Neutrophils # (Auto) 14.9x10^3uL (1.8-7.7) Lymphocytes # (Auto) 0.6x10^3/uL (1.0-4.8) Monocytes # (Auto) 1.3x10^3/uL (0.0-1.1) Eosinophils # (Auto) 0.0x10^3/uL (0.0-0.7) Basophils # (Auto) 0.1x10^3/uL (0.0-0.2) Sodium Level 147mmol/L (136-145) Potassium Level 3.3mmol/L (3.5-5.1) Chloride Level 104mmol/L (98-107) Carbon Dioxide Level 38mmol/L (21-32) Anion Gap 5 (6-14) Blood Urea Nitrogen 23mg/dL (7-20) Creatinine 0.4mg/dL (0.6-1.0) Estimated GFR (Cockcroft-Gault) 160.7 Glucose Level 142mg/dL (70-99) Calcium Level 8.6mg/dL (8.5-10.1) Test 06/21/16 07:15 O2 Saturation 98% (92-99) Arterial Blood pH 7.54 (7.35-7.45) Arterial Blood pCO2 at Patient Temp 44mmHg (35-46) Arterial Blood pO2 at Patient Temp 115mmHg (65-108) Arterial Blood HCO3 36mmol/L (21-28) Arterial Blood Base Excess 12mmol/L (-3-3) FiO2 40 Microbiology 06/18/16 Sputum Culture - Final, Complete 06/18/16 Sputum Result 1 - Final, Complete 06/20/16 Gram Stain - Final, Complete Medications Current Medications Azithromycin (Zithromax) 250 mg DAILY PO ; Start 06/10/16 at 20:00; Stop 06/11/16 at 19:15; Status DC Budesonide 0.5 mg 0.5 mg RTBID NEB Last administered on 06/21/16 07:14; Start 06/10/16 at 20:00 Ceftriaxone Sodium/Sodium Chloride (Rocephin/Iv Sodium Chloride 0.9% 50ml) 50 ml @ 100 mls/hr Q24H IV Last administered on 06/10/16 20:28; Start 06/10/16 at 21:00; Stop 06/11/16 at 12:18; Status DC Fentanyl Citrate (Fentanyl 2ml Vial) 50 mcg PRN Q3HRS PRN IV PAIN Last administered on 06/20/16 17:37; Start 06/10/16 at 19:30 Gabapentin (Neurontin) 300 mg TID PO Last administered on 06/19/16 21:46; Start 06/10/16 at 21:00 Albuterol/ Ipratropium (Duoneb) 3 ml RTQID NEB Last administered on 06/21/16 11:17; Start 06/10/16 at 20:00 Letrozole 2.5 mg 2.5 mg DAILY PO Last administered on 06/19/16 10:46; Start at 09:00 Potassium Chloride/Sodium Chloride (KCl 40 Meq-NS 1,000 ml Iv Soln) 1,000 ml @ 100 mls/hr Q10H IV Last administered on 06/10/16 22:45; Start 06/10/16 at 20:00 ; Stop 06/11/16 at 08:08; Status DC Prednisone (Prednisone) 50 mg DAILY PO Last administered on 06/12/16 09:02; Start 06/10/16 at 20:00; Stop 06/12/16 at 10:23; Status DC Albuterol Sulfate 2.5 mg 2.5 mg PRN Q4HRS PRN NEB SHORTNESS OF BREATH Last administered on 06/11/16 05:37; Start 06/11/16 at 04:45 Sodium Chloride 1,000 ml @ 75 mls/hr [id number] IV Last administered on 06/12/16 11:22; Start 06/11/16 at 08:15; Stop 06/12/16 at 12:26; Status DC Piperacillin Sod/ Tazobactam Sod/ Sodium Chloride (Zosyn/Iv Sodium Chloride 0.9 % 50ml) 50 ml @ 100 mls/hr Q6HRS IV Last administered on 06/11/16 14:10; Start 06/11/16 at 13:00; Stop 06/11/16 at 19:15; Status DC Furosemide 40 mg 40 mg 1X ONCE IVP Last administered on 06/11/16 13:22; Start 06/11/16 at 13:00; Stop 06/11/16 at 13:08; Status DC Norepinephrine Bitartrate 8 mg/ Sodium Chloride 258 ml @ 1.93 mls/hr ONCE ONCE IV Last administered on 06/11/16 15:15; Start 06/11/16 at 15:15; Stop at 10:59; Status DC Epinephrine HCl 4 mg/Sodium Chloride 254 ml @ 3.81 mls/hr ONCE ONCE IV Last administered on 06/11/16 15:55; Start 06/11/16 at 15:45; Stop 06/11/16 at 19:05; Status DC Epinephrine HCl 4 mg/Sodium Chloride 254 ml @ 0 mls/hr CONT PRN IV SEE I/O RECORD; Start 06/11/16 at 16:00 Vasopressin 40 unit/Dextrose 102 ml @ 6 mls/hr CONT PRN IV SEE I/O RECORD Last administered on 06/11/16 15:54; Start 06/11/16 at 15:45 Sodium Chloride 1,000 ml @ 1,000 mls/hr 1X ONCE IV Last administered on 15:58; Start 06/11/16 at 15:45; Stop 06/11/16 at 16:44; Status DC Sodium Chloride 1,000 ml @ 1,000 mls/hr 1X ONCE IV Last administered on 16:04; Start 06/11/16 at 15:45; Stop 06/11/16 at 16:44; Status DC Sodium Chloride (Iv Sodium Chloride 0.9% 1000ml Bag) 1,000 ml @ 1,000 mls/hr 1X ONCE IV Last administered on 06/11/16 16:04; Start 06/11/16 at 15:45; Stop 06/11/16 at 16:44; Status DC Pantoprazole Sodium 40 mg 40 mg [id number] IVP Last administered on 06/21/16 06:13 ; Start 06/11/16 at 18:00 Midazolam HCl 100 ml @ 0 mls/hr CONT PRN IV SEE I/O RECORD Last administered on 06/20/16 03:38; Start 06/11/16 at 17:00 Sodium Chloride (Iv Sodium Chloride 0.9% 1000ml Bag) 1,000 ml @ 150 mls/hr 1X ONCE IV Last administered on 06/11/16 17:07; Start 06/11/16 at 17:00; Stop at 23:39; Status DC Dextrose 25 gm STK-MED ONCE IV ; Start 06/11/16 at 17:15; Stop 06/11/16 at 17:16; Status DC Dextrose 25 gm 1X ONCE IV Last administered on 06/11/16 17:47; Start 06/11/16 at 17:30; Stop 06/11/16 at 17:31; Status DC Sodium Bicarbonate 100 meq 100 meq 1X ONCE IV Last administered on 06/11/16 17 :46; Start 06/11/16 at 17:30; Stop 06/11/16 at 17:31; Status DC Nicardipine HCl 50 mg/Sodium Chloride 270 ml @ 0 mls/hr CONT PRN IV SEE I/O RECORD; Start 06/11/16 at 17:45; Status Cancel Ceftriaxone Sodium/Sodium Chloride (Rocephin/Iv Sodium Chloride 0.9% 50ml) 50 ml @ 100 mls/hr Q24H IV Last administered on 06/11/16 18:37; Start 06/11/16 at 18:00; Stop 06/12/16 at 12:55; Status DC Vancomycin HCl 1 each 1 each PRN DAILY PRN MC SEE COMMENTS Last administered on 06/11/16 19:17; Start 06/11/16 at 18:00; Stop 06/12/16 at 12:58; Status DC Vancomycin HCl 1 gm/Sodium Chloride 250 ml @ 250 mls/hr 1X ONCE IV Last administered on 06/11/16 18:37; Start 06/11/16 at 18:30; Stop 06/11/16 at 19:29; Status DC Vancomycin HCl/ Sodium Chloride (Iv Sodium Chloride 0.9% 250ml) 250 ml @ 250 mls/hr Q12H IV Last administered on 06/12/16 06:18; Start 06/12/16 at 06:00; Stop 06/12/16 at 12:55; Status DC Vancomycin HCl 1 each 1 each 1X ONCE MC ; Start 06/13/16 at 05:30; Stop 06/13/16 at 05:30; Status DC Norepinephrine Bitartrate/Sodium Chloride (Levophed Vial/ Iv Sodium Chloride 0.9 % 250ml) 258 ml @ 0 mls/hr CONT PRN IV SEE I/O RECORD Last administered on 07:37; Start 06/12/16 at 00:45 Epinephrine HCl 1 mg STK-MED ONCE .ROUTE ; Start 06/11/16 at 12:00; Stop 06/12/16 at 08:13; Status DC Hydrocortisone Sodium Succinate (Solu-Cortef) 100 mg Q8HRS IV Last administered on 06/15/16 06:21; Start 06/12/16 at 11:00; Stop 06/15/16 at 11:24 ; Status DC Enoxaparin Sodium (Lovenox 40mg Syringe) 40 mg Q24H SQ Last administered on 06/13 10:49; Start 06/12/16 at 11:00; Stop 06/13/16 at 12:35; Status DC Famotidine 20 mg 20 mg BID IVP Last administered on 06/13/16 09:10; Start at 11:00; Stop 06/13/16 at 09:59; Status DC Sodium Chloride 1,000 ml @ 1,000 mls/hr 1X ONCE IV Last administered on 11:25; Start 06/12/16 at 11:30; Stop 06/12/16 at 12:29; Status DC Dextrose/Sodium Chloride 1,000 ml @ 75 mls/hr [id number] IV Last administered on 06/13/16 20:44; Start 06/12/16 at 13:00; Stop 06/14/16 at 17:39; Status DC Piperacillin Sod/ Tazobactam Sod 3.375 gm/Sodium Chloride 50 ml @ 100 mls/hr Q6HRS IV Last administered on 06/21/16 06:13; Start 06/12/16 at 13:30 Linezolid 300 ml @ 300 mls/hr Q12HR IV Last administered on 06/15/16 20:48; Start 06/12/16 at 13:30; Stop 06/16/16 at 08:39; Status DC Sodium Chloride 1,000 ml @ 1,000 mls/hr 1X ONCE IV Last administered on 15:30; Start 06/12/16 at 15:30; Stop 06/12/16 at 16:29; Status DC Sodium Chloride 500 ml @ 0 mls/hr 1X ONCE IV Last administered on 06/12/16 15: 44; Start 06/12/16 at 16:00; Stop 06/12/16 at 16:01; Status DC Sodium Chloride 1,000 ml @ 0 mls/hr 1X ONCE IV Last administered on 06/13/16 07:43; Start 06/13/16 at 07:45; Stop 06/13/16 at 07:46; Status DC Sodium Chloride (Iv Sodium Chloride 0.45%) 500 ml @ 0 mls/hr 1X ONCE IV Last administered on 06/13/16 07:43; Start 06/13/16 at 07:45; Stop 06/13/16 at 07:46; Status DC Midazolam HCl (Versed) 5 mg STK-MED ONCE .ROUTE ; Start 06/10/16 at 12:00; Stop 06/13/16 at 08:28; Status DC Epinephrine HCl 3 mg STK-MED ONCE .ROUTE ; Start 06/10/16 at 12:00; Stop 06/13/16 at 08:28; Status DC Dopamine HCl/ Dextrose 400 mg STK-MED ONCE IV ; Start 06/10/16 at 12:00; Stop 06/13/16 at 08:28; Status DC Lidocaine/Sodium Bicarbonate (Buffered Lidocaine 1%) 3 ml 1X ONCE IJ Last administered on 06/13/16 09:55; Start 06/13/16 at 09:00; Stop 06/13/16 at 09:01; Status DC Heparin Sodium/ Sodium Chloride 60 unit 1X ONCE IV Last administered on 09:55; Start 06/13/16 at 09:00; Stop 06/13/16 at 09:01; Status DC Sodium Bicarbonate 100 meq 100 meq 1X ONCE IV Last administered on 06/13/16 10 :06; Start 06/13/16 at 09:45; Stop 06/13/16 at 09:46; Status DC Albumin Human (Plasmanate) 500 ml @ 62.5 mls/hr 1X ONCE IV Last administered on 06/13/16 10:06; Start 06/13/16 at 09:45; Stop 06/13/16 at 17:44; Status DC Chlorhexidine Gluconate (Peridex) 15 ml BID MM Last administered on 06/20/16 22:12; Start 06/13/16 at 21:00; Stop 06/20/16 at 23:00; Status DC Potassium Chloride (Klor-Con) 20 meq TIDWMEALS PO Last administered on 12:31; Start 06/13/16 at 12:30; Stop 06/13/16 at 15:56; Status DC Calcium Carbonate/ Glycine (Oscal) 1,000 mg TIDAFTMEAL PO Last administered on 06/16/16 12:49; Start 06/13/16 at 13:00; Stop 06/18/16 at 09:30; Status DC Vitamin D (Vitamin D3) 5,000 unit DAILY PO Last administered on 06/16/16 10:26 ; Start 06/13/16 at 13:00; Stop 06/18/16 at 09:30; Status DC Phytonadione (Mephyton) 10 mg DAILY PO Last administered on 06/16/16 10:26; Start 06/13/16 at 13:00; Stop 06/18/16 at 09:30; Status DC Potassium Chloride (KCl Oral Soln) 20 meq TIDWMEALS PEG Last administered on 10:41; Start 06/13/16 at 17:00; Stop 06/14/16 at 12:26; Status DC Insulin Aspart (Novolog) 0-5 UNITS Q6HRS SQ Last administered on 06/20/16 22: 45; Start 06/14/16 at 12:00 Dextrose 12.5 gm 12.5 gm PRN Q15MIN PRN IV SEE COMMENTS; Start 06/14/16 at 06:45 Potassium Chloride (KCl Premix 20meq) 50 ml @ 25 mls/hr Q2H IV ; Start 06/14/16 at 07:00; Stop 06/14/16 at 14:59; Status Cancel Iohexol (Omnipaque 240 Mg/ml) 30 ml 1X ONCE PO Last administered on 06/14/16 08:30; Start 06/14/16 at 08:30; Stop 06/14/16 at 08:31; Status DC Iohexol (Omnipaque 300 Mg/ml) 75 ml 1X ONCE IV Last administered on 06/14/16 17:58; Start 06/14/16 at 08:30; Stop 06/14/16 at 08:31; Status DC Info (Do NOT chart on this entry -- for MONITORING) 1 each PRN DAILY PRN MC SEE COMMENTS; Start 06/14/16 at 08:45; Stop 06/16/16 at 08:44; Status DC Potassium Chloride (Klor-Con) 40 meq Q2H PO Last administered on 06/14/16 14:16 ; Start 06/14/16 at 12:30; Stop 06/14/16 at 14:31; Status DC Info 1 each 1 each PRN DAILY PRN MC SEE COMMENTS Last administered on 15:26; Start 06/14/16 at 15:00 Potassium Chloride 50 ml @ 50 mls/hr Q1H IV ; Start 06/14/16 at 15:15; Stop at 17:14; Status DC Sodium Acetate 90 meq/Potassium Chloride 25 meq/ Potassium Acetate 25 meq/ Potassium Phosphate 16 mmol/ Magnesium Sulfate 12 meq/Calcium Gluconate 5 meq/ Multivitamins 10 ml/Chromium/ Copper/Manganese/ Seleni/Zn 1 ml/ Total Parenteral Nutrition/Amino Acids/Dextrose/ Fat Emulsion Intravenous 1,512 ml @ 63 mls/hr TPN CONT IV Last administered on 06/14/16 21:34; Start 06/14/16 at 22 :00; Stop 06/15/16 at 21:59; Status DC Sodium Phosphate 15 mmol/Dextrose 255 ml @ 63.75 mls/ hr 1X ONCE IV Last administered on 06/14/16 17:45; Start 06/14/16 at 17:30; Stop 06/14/16 at 21:29; Status DC Magnesium Sulfate/ Dextrose 50 ml @ 25 mls/hr 1X ONCE IV Last administered on 06/14/16 17:45; Start 06/14/16 at 16:00; Stop 06/14/16 at 17:59; Status DC Potassium Chloride (KCl Premix 20meq) 50 ml @ 25 mls/hr Q2H IV Last administered on 06/14/16 20:33; Start 06/14/16 at 17:45; Stop 06/14/16 at 21:44; Status DC Hydrocortisone Sodium Succinate 50 mg 50 mg Q8HRS IV Last administered on 06:12; Start 06/15/16 at 14:00 Sodium Phosphate 15 mmol/Dextrose 255 ml @ 63.75 mls/ hr 1X ONCE IV Last administered on 06/15/16 12:54; Start 06/15/16 at 13:00; Stop 06/15/16 at 16:59 ; Status DC Sodium Acetate 90 meq/Potassium Chloride 25 meq/ Potassium Acetate 25 meq/ Potassium Phosphate 24 mmol/ Magnesium Sulfate 12 meq/Calcium Gluconate 5 meq/ Multivitamins 10 ml/Chromium/ Copper/Manganese/ Seleni/Zn 1 ml/ Total Parenteral Nutrition/Amino Acids/Dextrose/ Fat Emulsion Intravenous 1,512 ml @ 63 mls/hr TPN CONT IV Last administered on 06/15/16 21:55; Start 06/15/16 at 22:00; Stop 06/16/16 at 21:59; Status DC Sodium Acetate 90 meq/Potassium Chloride 25 meq/ Potassium Acetate 25 meq/ Potassium Phosphate 24 mmol/ Magnesium Sulfate 12 meq/Calcium Gluconate 5 meq/ Multivitamins 10 ml/Chromium/ Copper/Manganese/ Seleni/Zn 1 ml/ Total Parenteral Nutrition/Amino Acids/Dextrose/ Fat Emulsion Intravenous 1,512 ml @ 63 mls/hr TPN CONT IV Last administered on 06/16/16 21:47; Start 06/16/16 at 22:00; Stop 06/17/16 at 21:59; Status DC Albumin Human 500 ml @ 50 mls/hr PRN BID PRN IV hypotention/low albumin Last administered on 06/16/16 21:48; Start 06/16/16 at 12:30; Stop 06/17/16 at 12:30 ; Status DC Albumin Human 500 ml @ 50 mls/hr CONT IV ; Start 06/17/16 at 12:30; Status UNV Albumin Human 500 ml @ 50 mls/hr BID IV Last administered on 06/16/16 12:53; Start 06/16/16 at 13:00; Stop 06/16/16 at 13:00; Status DC Albumin Human (Albuminar) 50 ml @ 50 mls/hr TID IV Last administered on 08:47; Start 06/16/16 at 14:00; Stop 06/17/16 at 09:59; Status DC Haloperidol Lactate (Haldol) 2 mg PRN Q2HR PRN IVP ANXIETY Last administered on 06/16/16 23:59; Start 06/16/16 at 20:15 Succinylcholine Chloride 200 mg 200 mg STK-MED ONCE .ROUTE ; Start 06/17/16 at 00:54; Stop 06/17/16 at 00:56; Status DC Propofol (Diprivan) 100 ml @ As Directed STK-MED ONCE IV ; Start 06/17/16 at 00 :54; Stop 06/17/16 at 00:56; Status DC Furosemide 40 mg 40 mg 1X ONCE IVP Last administered on 06/17/16 11:35; Start 06/17/16 at 11:30; Stop 06/17/16 at 11:31; Status DC Albumin Human 500 ml @ 125 mls/hr 1X ONCE IV Last administered on 06/17/16 11:32; Start 06/17/16 at 12:30; Stop 06/17/16 at 16:29; Status DC Sodium Acetate 90 meq/Potassium Chloride 25 meq/ Potassium Acetate 25 meq/ Potassium Phosphate 24 mmol/ Magnesium Sulfate 12 meq/Calcium Gluconate 5 meq/ Multivitamins 10 ml/Chromium/ Copper/Manganese/ Seleni/Zn 1 ml/ Total Parenteral Nutrition/Amino Acids/Dextrose/ Fat Emulsion Intravenous 1,512 ml @ 63 mls/hr TPN CONT IV Last administered on 06/17/16 22:33; Start 06/17/16 at 22:00; Stop 06/18/16 at 21:59; Status DC Linezolid (Zyvox Premix) 300 ml @ 300 mls/hr Q12HR IV Last administered on 09:27; Start 06/18/16 at 09:00 Propofol (Diprivan) 1,000 mg STK-MED ONCE IV ; Start 06/17/16 at 01:00; Stop at 08:13; Status DC Succinylcholine Chloride (Anectine) 200 mg STK-MED ONCE .ROUTE ; Start 06/17/16 at 01:00; Stop 06/18/16 at 08:13; Status DC Potassium Chloride 40 meq 40 meq 1X ONCE NG Last administered on 06/18/16 12: 35; Start 06/18/16 at 11:15; Stop 06/18/16 at 11:16; Status DC Sodium Acetate 90 meq/Potassium Chloride 25 meq/ Potassium Acetate 45 meq/ Potassium Phosphate 24 mmol/ Magnesium Sulfate 12 meq/Calcium Gluconate 5 meq/ Multivitamins 10 ml/Chromium/ Copper/Manganese/ Seleni/Zn 1 ml/ Total Parenteral Nutrition/Amino Acids/Dextrose/ Fat Emulsion Intravenous 1,397 ml @ 58.208 mls/ hr TPN CONT IV ; Start 06/18/16 at 22:00; Stop 06/19/16 at 21:59; Status Cancel Sodium Acetate 60 meq/Potassium Chloride 25 meq/ Potassium Acetate 45 meq/ Potassium Phosphate 24 mmol/ Magnesium Sulfate 12 meq/Calcium Gluconate 5 meq/ Multivitamins 10 ml/Chromium/ Copper/Manganese/ Seleni/Zn 1 ml/ Total Parenteral Nutrition/Amino Acids/Dextrose/ Fat Emulsion Intravenous 1,512 ml @ 63 mls/hr TPN CONT IV Last administered on 06/18/16 21:54; Start 06/18/16 at 22:00; Stop 06/19/16 at 21:59; Status DC Sodium Acetate 60 meq/Potassium Chloride 25 meq/ Potassium Acetate 45 meq/ Potassium Phosphate 24 mmol/ Magnesium Sulfate 12 meq/Calcium Gluconate 5 meq/ Multivitamins 10 ml/Chromium/ Copper/Manganese/ Seleni/Zn 1 ml/ Total Parenteral Nutrition/Amino Acids/Dextrose/ Fat Emulsion Intravenous 1,512 ml @ 63 mls/hr TPN CONT IV Last administered on 06/19/16 21:53; Start 06/19/16 at 22:00; Stop 06/20/16 at 21:59; Status DC Albumin Human (Albuminar) 100 ml @ 100 mls/hr TID IV Last administered on 06/19 14:14; Start 06/19/16 at 14:00; Stop 06/19/16 at 19:01; Status DC Furosemide (Lasix) 20 mg TID IVP Last administered on 06/19/16 14:15; Start at 14:00; Stop 06/19/16 at 19:01; Status DC Ondansetron HCl (Zofran) 4 mg PRN Q6HRS PRN IV Nausea; Start 06/20/16 at 07:00 ; Stop 06/20/16 at 23:00; Status DC Fentanyl Citrate (Fentanyl 2ml Vial) 25 mcg PRN Q5MIN PRN IV MILD PAIN; Start 06/20/16 at 07:00; Stop 06/20/16 at 23:00; Status DC Fentanyl Citrate (Fentanyl 2ml Vial) 50 mcg PRN Q5MIN PRN IV MODERATE PAIN; Start 06/20/16 at 07:00; Stop 06/20/16 at 23:00; Status DC Morphine Sulfate 1 mg 1 mg PRN Q10MIN PRN IV SEVERE PAIN; Start 06/20/16 at 07: 00; Stop 06/20/16 at 23:03; Status DC Lactated Ringer's (Iv Lactated Ringers) 1,000 ml @ 0 mls/hr Q0M IV ; Start at 07:00; Stop 06/20/16 at 18:59; Status DC Lidocaine HCl 2 ml 1X PRN PRN ID IV START; Start 06/20/16 at 07:00; Stop at 06:59; Status DC Hydromorphone HCl (Dilaudid) 0.5 mg PRN Q10MIN PRN IV SEVERE PAIN, Second choice; Start 06/20/16 at 07:00; Stop 06/20/16 at 23:00; Status DC Prochlorperazine Edisylate 5 mg 5 mg PACU PRN PRN IV NAUSEA; Start 06/20/16 at 07:00; Stop 06/20/16 at 23:00; Status DC Albumin Human (Albuminar) 100 ml @ 100 mls/hr Q8HRS IV Last administered on 06:12; Start 06/19/16 at 22:00 Furosemide 20 mg 20 mg Q8HRS IVP Last administered on 06/21/16 06:13; Start at 22:00 Propofol (Diprivan) 0 ml @ As Directed STK-MED ONCE IV ; Start 06/20/16 at 11:36 ; Stop 06/20/16 at 11:37; Status DC Fentanyl Citrate (Fentanyl 2ml Vial) 100 mcg STK-MED ONCE .ROUTE ; Start at 11:36; Stop 06/20/16 at 11:37; Status DC Rocuronium [place] (Zemuron) 50 mg STK-MED ONCE .ROUTE ; Start 06/20/16 at 11:36 ; Stop 06/20/16 at 11:37; Status DC Insulin Detemir (Levemir) 10 units QHS SQ Last administered on 06/20/16 22:42 ; Start 06/20/16 at 21:00 Isoflurane 30 ml 30 ml STK-MED ONCE IH ; Start 06/20/16 at 12:40; Stop 06/20/16 at 12:41; Status DC Propofol 20 ml @ As Directed STK-MED ONCE IV ; Start 06/20/16 at 12:46; Stop at 12:47; Status DC Sodium Acetate 60 meq/Potassium Chloride 45 meq/ Potassium Acetate 45 meq/ Potassium Phosphate 24 mmol/ Magnesium Sulfate 12 meq/Calcium Gluconate 5 meq/ Multivitamins 10 ml/Chromium/ Copper/Manganese/ Seleni/Zn 1 ml/ Total Parenteral Nutrition/Amino Acids/Dextrose/ Fat Emulsion Intravenous 1,512 ml @ 63 mls/hr TPN CONT IV Last administered on 06/20/16 22:15; Start 06/20/16 at 22:00; Stop 06/21/16 at 21:59 Potassium Chloride 50 ml @ 50 mls/hr 1X ONCE IV Last administered on t 15:42; Start 06/20/16 at 15:30; Stop 06/20/16 at 16:29; Status DC Sodium Chloride/ Potassium Chloride/ Potassium Phosphate/ Magnesium Sulfate/ Calcium Gluconate/ Multivitamins/ Chromium/Copper/ Manganese/Seleni/ Zn/Total Parenteral Nutrition/Amino Acids/Dextrose/ Fat Emulsion Intravenous (Sodium Chloride/ Potassium Phospha... 1,512 ml @ 63 mls/hr TPN CONT IV ; Start at 22:00; Stop 06/22/16 at 21:59 Active Scripts Active Warfarin Sodium 5 Mg Tablet 1 Tab PO DAILY Cipro (Ciprofloxacin Hcl) 500 Mg Tablet 1 Tab PO BID Reported Anoro Ellipta 62.5-25 Mcg Inh (Umeclidinium Brm/Vilanterol Tr) 1 Each Disk.w.dev 1 Each IH DAILY Oxycodone Hcl 20 Mg Tablet 20 Mg PO PRN Q4HRS PRN Gabapentin 300 Mg Capsule 1 Cap PO BID Flovent 110MCG Hfa (Fluticasone Propionate) 12 Gm Aer.w.adap 2 Puff IH BID Breo Ellipta 200-25 Mcg INH (Fluticasone/Vilanterol) 1 Each Blst.w.dev 1 Each IH DAILY Proair Hfa Inhaler (Albuterol Sulfate) 8.5 Gm Hfa.aer.ad 2 Puff IH PRN QID PRN Lorazepam 0.5 Mg Tablet 0.5 Mg PO Q4HRS PRN Ondansetron Hcl 4 Mg Tablet 1 Tab PO PRN Q4HRS Spiriva (Tiotropium [place]) 18 Mcg Cap.w.dev 1 Cap IH DAILY Femara (Letrozole) 2.5 Mg Tablet 2.5 Mg PO DAILY Vitals/I & O Vital Sign - Last 24 Hours 06/20/16 06/20/16 06/20/16 06/20/16 13:15 13:30 13:45 14:00 Temp 97.6 97.6 Pulse 88 78 68 66 Resp 14 14 14 14 B/P 112/67 118/70 110/60 /68 Pulse Ox 100 100 100 100 O2 Delivery Ventilator Ventilator Ventilator Ventilator 06/20/16 06/20/16 06/20/16 06/20/16 15:00 15:41 16:00 16:00 Temp 98.4 98.4 Pulse 58 70 Resp 14 14 B/P 128/69 137/74 Pulse Ox 100 100 100 O2 Delivery Ventilator Ventilator Ventilator Mechanical Ventilator 06/20/16 06/20/16 06/20/16 06/20/16 17:00 18:00 19:00 19:42 Pulse 73 69 68 Resp 14 14 14 B/P 138/58 111/65 117/64 Pulse Ox 100 100 100 100 O2 Delivery Ventilator Ventilator Ventilator Ventilator 06/20/16 06/20/16 06/20/16 06/20/16 19:46 20:00 20:00 21:00 Temp 98.7 98.7 Pulse 70 66 Resp 14 14 B/P 122/67 122/66 Pulse Ox 100 100 100 O2 Delivery Ventilator Ventilator Mechanical Ventilator Ventilator 06/20/16 06/20/16 06/20/16 06/21/16 22:00 22:54 23:05 00:00 Pulse 68 67 Resp 14 14 B/P 119/66 133/71 Pulse Ox 100 100 100 O2 Delivery Ventilator Ventilator Ventilator Mechanical Ventilator 06/21/16 06/21/16 06/21/16 06/21/16 00:00 01:00 01:20 02:00 Temp 98.4 98.4 Pulse 68 62 64 Resp 14 14 14 B/P 136/70 147/73 134/69 Pulse Ox 100 100 100 100 O2 Delivery Ventilator Ventilator Ventilator Ventilator 06/21/16 06/21/16 06/21/16 06/21/16 03:00 03:44 04:00 04:00 Temp 98.7 98.7 Pulse 62 62 Resp 14 14 B/P 136/70 145/74 Pulse Ox 100 100 100 O2 Delivery Ventilator Ventilator Mechanical Ventilator Ventilator 06/21/16 06/21/16 06/21/16 06/21/16 05:00 05:48 07:00 07:15 Pulse 69 69 Resp 14 13 B/P 137/72 134/73 Pulse Ox 100 100 100 100 O2 Delivery Ventilator Ventilator Ventilator Ventilator 06/21/16 06/21/16 06/21/16 06/21/16 08:00 08:00 09:00 09:30 Temp 98.0 98.0 Pulse 93 91 Resp 14 16 B/P 138/74 138/74 Pulse Ox 100 100 98 O2 Delivery Mechanical Ventilator Ventilator Ventilator Ventilator 306/21/16 06/21/16 06/21/16 10:00 11:00 11:18 12:00 Pulse 92 87 Resp 18 18 B/P 140/77 120/67 Pulse Ox 100 100 100 O2 Delivery Ventilator Ventilator Ventilator Mechanical Ventilator Intake and Output 06/20/16 06/20/16 06/21/16 15:00 23:00 07:00 Intake Total 629 ml 620 ml 831 ml Output Total 350 ml 760 ml 475 ml Balance 279 ml -140 ml 356 ml Problem List Problems Medical Problems: (1) Acute respiratory failure Status: Acute (2) Aspiration pneumonia Status: Acute Assessment Respiratory failure, chronic, s/p reintubation. Malnutrition, chronic, worse with current illness. Intolerant of tube feedings in past; no prokinetic tried. Plan of Care: Continue current Tx, Mgmt Plan of Care Note Discussed with Dr. Ochoa; PEG alone not likely to help as intolerant of OG feedings. Can't really put anything besides feeding solution down a J-tube or nasoenteric Dobbhoff as crushed meds will rapidly plug the tube, necessitating frequent replacement. Reasons for gastric dysfunction not clear; no investigation as critically ill. JOSELIUS TABOR MD Jun 21, 2016 13:10
--- NOTE | 2016-06-21 15:51 | PDOC ---
Progress Note Subjective Subjective No issues with tracheostomy. No bleeding. ROS ROS No nausea No vomiting No pain No rash Vital Sign Vital Signs Vital Signs Date Time Temp Pulse Resp B/P Pulse Ox O2 Delivery O2 Flow Rate FiO2 06/21/16 13:11 100 Ventilator 06/21/16 12:00 99.5 77 13 121/65 99.5 Physical Exam PHYSICAL EXAM GENERAL: NAD, Alert HEENT: PERRL, OC/OP NECK: Supple, no JVD, no LN LUNGS: Clear HEART: S1S2, no gallop, no murmur ABD: Soft, NT, no organomegaly, no rebound EXT: No edema, no cyanosis GANG WORKER: Alert, oriented x 3, no focal neurologic deficit SKIN: No rash IV: ok Labs Lab Laboratory Tests Test 06/20/16 17:40 06/20/16 22:40 06/21/16 06:20 06/21/16 06:25 Glucose (Fingerstick) 220mg/dL (70-99) 236mg/dL (70-99) 142mg/dL (70-99) White Blood Count 16.9x10^3/uL (4.0-11.0) Red Blood Count 3.70x10^6/uL (3.50-5.40) Hemoglobin 11.1g/dL (12.0-15.5) Hematocrit 33.4% (36.0-47.0) Mean Corpuscular Volume 90fL (79-100) Mean Corpuscular Hemoglobin 30pg (25-35) Mean Corpuscular Hemoglobin Concent 33g/dL (31-37) Red Cell Distribution Width 19.3% (11.5-14.5) Platelet Count 115x10^3/uL (140-400) Neutrophils (%) (Auto) 88% (31-73) Lymphocytes (%) (Auto) 4% (24-48) Monocytes (%) (Auto) 8% (0-9) Eosinophils (%) (Auto) 0% (0-3) Basophils (%) (Auto) 0% (0-3) Neutrophils # (Auto) 14.9x10^3uL (1.8-7.7) Lymphocytes # (Auto) 0.6x10^3/uL (1.0-4.8) Monocytes # (Auto) 1.3x10^3/uL (0.0-1.1) Eosinophils # (Auto) 0.0x10^3/uL (0.0-0.7) Basophils # (Auto) 0.1x10^3/uL (0.0-0.2) Sodium Level 147mmol/L (136-145) Potassium Level 3.3mmol/L (3.5-5.1) Chloride Level 104mmol/L (98-107) Carbon Dioxide Level 38mmol/L (21-32) Anion Gap 5 (6-14) Blood Urea Nitrogen 23mg/dL (7-20) Creatinine 0.4mg/dL (0.6-1.0) Estimated GFR (Cockcroft-Gault) 160.7 Glucose Level 142mg/dL (70-99) Calcium Level 8.6mg/dL (8.5-10.1) Test 3 07:15 06/21/16 13:26 O2 Saturation 98% (92-99) Arterial Blood pH 7.54 (7.35-7.45) Arterial Blood pCO2 at Patient Temp 44mmHg (35-46) Arterial Blood pO2 at Patient Temp 115mmHg (65-108) Arterial Blood HCO3 36mmol/L (21-28) Arterial Blood Base Excess 12mmol/L (-3-3) FiO2 40 Glucose (Fingerstick) 246mg/dL (70-99) Objective Assessment POD#1, s/p tracheostomy. On minimal vent settings, excellent tidal volume, tracheostomy. No bleeding. Plan Plan of Care Transfer to LTAC today D/c tracheostomy sutures in 1 week CASSIE JUAREZ MD Jun 21, 2016 15:51
[2016-06-21] MEDS ORDERED: AMINO ACIDS IV SCH ×10 (22:00)
[2016-06-21] MEDS ORDERED: TOTAL PARENTERAL NUTRITION IV SCH ×10 (22:00)
[2016-06-21] MEDS ORDERED: [UNRECOGNIZED DRUG - OTHER] IV SCH ×10 (22:00)
[2016-06-21] MEDS ORDERED: DEXTROSE 70% IV SCH ×10 (22:00)
--- NOTE | 2016-06-21 23:41 | PN ---
DATE: SUBJECTIVE: The patient is resting, slightly propped up in bed, continued to mechanical ventilation ventriculostomy tube. She is awake, alert, nursing staff did not voice any concern, should she continued to have severe generalized anasarca, her left trochanteric decubitus ulcer was debrided yesterday. PHYSICAL EXAMINATION: GENERAL: When I examined her, she looked extremely pale, cachectic, no jaundice, cyanosis, or thyromegaly. No jugular venous distention. No limb edema. VITAL SIGNS: Her heart rate was 87, blood pressure was 120/67, temperature was 98, respiratory rate was 18 and oxygen saturation was 100% on FiO2 40%. HEAD, EYES, EARS, NOSE AND THROAT: Showed normocephalic, atraumatic. NECK: Supple. HEART: Showed normal first and second heart sounds with no gallop, rub or murmur. CHEST: Clear to auscultation. No crepitation or rhonchi. ABDOMEN: Distended, soft, nontender. NEUROLOGIC: She is deaf and mute. However, all cranial nerves intact. She moves extremities without difficulty. She has multiple wounds. She has a nonhealing surgical wound to the right hip and decubitus ulcer that was debrided yesterday on the left side. She has multiple ____ on the plantar aspect of both feet. Her intake over the last 24 hours was 2100, output was 1800. LABORATORY DATA: Her lab work this morning showed a white cell count of 16,900, hemoglobin 11.1, hematocrit 33, MCV 90, and platelet count 215,000. Her chemistry showed a serum sodium 147, potassium 3.3, chloride 104, bicarbonate 38, anion gap of 5, BUN 23, creatinine 0.4, estimated GFR was 160 mL per minute. Her glucose 142, calcium was 8.6. Her blood gases showed a pH of 7.54, pCO2 of 44, pO2 of 115, bicarbonate 36, and oxygen saturation was 98% on FiO2 of 40%. ASSESSMENT: 1. Acute respiratory failure secondary to pneumonia and acute chronic obstructive pulmonary disease exacerbation. She was extubated on 06/16/2016 and to be reintubated again on 06/18/2016 due to acute hypoxic respiratory failure. 2. Shock, hypovolemic versus septic present on admission and resolved. She is off the vasopressor. 3. Abnormal CT scan with bilateral tree-in-bud interstitial infiltrate suggesting infectious pneumonitis. 4. Possible chronic aspiration. 5. Tuberculosis was unlikely given ____negative sputum for acid fast bacilli and with the bronchoalveolar lavage was negative for acid fast bacilli. 6. Marked weight loss for more than 38 pounds multifactorial. 7. History of alcohol abuse. 8. Chronic pancreatitis. 9. Coagulopathy, it could be due to alcoholic liver disease versus DIC. Her prothrombin time and INR responded to vitamin K, although not completely. 9. Severe protein calorie malnutrition with generalized anasarca. PLAN: To discharge her to [facility] if her insurance authorized that. TODD MILLER MD DR: FRANCISCO JAVIER/sushil JOB#: [id number] / [id number]
== END 2016-06-21 14:00 | DRG 3 ==
LOC: 5 SOUTH 18:57 → 1 WEST ICU 06-11 14:45
PROVIDERS: ADMIT Internal Medicine; ATTEND Internal Medicine
PROC: 5A1955Z Respiratory Ventilation, Greater than 96 Consecutive Hours (ICD-10-PCS; principal; 2016-06-11)
PROC: 0BH17EZ Insertion of Endotracheal Airway into Trachea, Via Natural or Artificial Opening (ICD-10-PCS; 2016-06-11)
PROC: 5A12012 Performance of Cardiac Output, Single, Manual (ICD-10-PCS; 2016-06-11)
PROC: 5A12012 Performance of Cardiac Output, Single, Manual (ICD-10-PCS; 2016-06-11)
PROC: 0B9B8ZX Drainage of Left Lower Lobe Bronchus, Via Natural or Artificial Opening Endoscopic, Diagnostic (ICD-10-PCS; 2016-06-12)
PROC: 0B968ZX Drainage of Right Lower Lobe Bronchus, Via Natural or Artificial Opening Endoscopic, Diagnostic (ICD-10-PCS; 2016-06-12)
PROC: 02HV33Z Insertion of Infusion Device into Superior Vena Cava, Percutaneous Approach (ICD-10-PCS; 2016-06-13)
PROC: B5181ZA Fluoroscopy of Superior Vena Cava using Low Osmolar Contrast, Guidance (ICD-10-PCS; 2016-06-13)
PROC: 30233R1 Transfusion of Nonautologous Platelets into Peripheral Vein, Percutaneous Approach (ICD-10-PCS; 2016-06-19)
PROC: 30233N1 Transfusion of Nonautologous Red Blood Cells into Peripheral Vein, Percutaneous Approach (ICD-10-PCS; 2016-06-19)
PROC: 0B110F4 Bypass Trachea to Cutaneous with Tracheostomy Device, Open Approach (ICD-10-PCS; 2016-06-20)
PROC: 0JBM0ZZ Excision of Left Upper Leg Subcutaneous Tissue and Fascia, Open Approach (ICD-10-PCS; 2016-06-20)
DX: A41.9 Sepsis, unspecified organism (principal); E43 Unspecified severe protein-calorie malnutrition; J96.21 Acute and chronic respiratory failure with hypoxia; R65.21 Severe sepsis with septic shock; J18.9 Pneumonia, unspecified organism; L89.223 Pressure ulcer of left hip, stage 3; R57.1 Hypovolemic shock; E87.1 Hypo-osmolality and hyponatremia; J44.0 Chronic obstructive pulmonary disease with (acute) lower respiratory infection; J44.1 Chronic obstructive pulmonary disease with (acute) exacerbation; K86.1 Other chronic pancreatitis; Z99.11 Dependence on respirator [ventilator] status; Z68.1 Body mass index [BMI] 19.9 or less, adult; D68.9 Coagulation defect, unspecified; J90 Pleural effusion, not elsewhere classified; I27.2 Other secondary pulmonary hypertension; I10 Essential (primary) hypertension; D69.59 Other secondary thrombocytopenia; K76.0 Fatty (change of) liver, not elsewhere classified; M19.90 Unspecified osteoarthritis, unspecified site; H91.3 Deaf nonspeaking, not elsewhere classified; Z51.5 Encounter for palliative care; D64.9 Anemia, unspecified; Z96.641 Presence of right artificial hip joint; Z96.659 Presence of unspecified artificial knee joint; T50.905A Adverse effect of unspecified drugs, medicaments and biological substances, initial encounter; Z80.1 Family history of malignant neoplasm of trachea, bronchus and lung; F10.20 Alcohol dependence, uncomplicated; Z80.3 Family history of malignant neoplasm of breast; Z82.3 Family history of stroke; Z85.3 Personal history of malignant neoplasm of breast; Z87.891 Personal history of nicotine dependence; Z90.11 Acquired absence of right breast and nipple; Z90.411 Acquired partial absence of pancreas; Z90.49 Acquired absence of other specified parts of digestive tract; Z90.81 Acquired absence of spleen; Z94.9 Transplanted organ and tissue status, unspecified
CPT/HCPCS: 31622; 36415; 36556; 36600; 71010; 74000; 74022; 74177; 76937; 80048; 80053; 82140; 82805; 82947; 83605; 83615; 83735; 84100; 84132; 84478; 85007; 85027; 85610; 85730; 86850; 86900; 86901; 86920; 87070; 87071; 87075; 87102; 87116; 87205; 87641; 88112; 94002; 94003; 94250; 94640; 94660; C1892; C9113; J0171; J0330; J0610; J0696; J1265; J1630; J1650; J1720; J1815; J1940; J2020; J2250; J2543; J2704; J3010; J3370; J3475; J3480; J3490; J7030; J7042; J7050; J7060; J7512; J7620; P9016; P9035; P9041; P9045; P9046; Q0144; Q9966; Q9967; S0028